=== PATIENT | male | born 1975 | race Caucasian/White ===

== ENCOUNTER 2017-12-14 16:21 | Inpatient (IN) | END 2017-12-16 18:25 | disposition home or self-care (01) | DRG 434 ==

== ENCOUNTER 2018-04-14 08:38 | Inpatient (IN) | payer OTHER ==
[2018-04-14] VITALS (51 sets, daily range): BP systolic 42–119; BP diastolic 19–87; PULSE 120–147; RESP 20–41; Ht 167.6 cm; Wt 68.0 kg
[~2018-04-14] VITALS: Ht 167.6 cm; Wt 68.0 kg
[~2018-04-14 08:38] MED LIST: ETOMIDATE 20 MG INJ ONE; FURO40TA4 PO; LACT20SO2 PO; PANT40TA4 PO; PROP10TA6 PO; SPIR50TA PO; SUCCINYLCHOLINE CHLORIDE 100 MG/5 ML SYG IV ONE
[2018-04-14] MEDS ORDERED: PROPOFOL 100 ML ONE (09:12)
[2018-04-14] MEDS ORDERED: PROPOFOL 100 ML IV ONE (09:30)
[2018-04-14] MEDS ORDERED: CEFEPIME 1GM/50 ML (PMX) 50 ML IVPB STA (10:15)
[2018-04-14] MEDS ORDERED: VANCOMYCIN 1 GM (PMX) 250 ML IVPB STA (10:15)
--- NOTE | 2018-04-14 10:23 | ERD ---
ER Documentation Chief Complaint Chief Complaint trey was bong by family from home HPI This is a 43-year-old male with a past medical history of liver cirrhosis with significant ascites requiring paracentesis who is presenting with altered mental status. The patient is reportedly had several days of nausea, episodes of nonbilious nonbloody vomiting and loose watery diarrhea. This morning, the patient started to become more confused and became unresponsive in route to the hospital via private vehicle. The patient is not responsive to painful stimulus. His eyes are closed. He moans intermittently. History and physical is limited secondary to altered mentation. ROS Limited secondary to altered mental status. Medications Home Meds Active Scripts Pantoprazole* (Pantoprazole*) 40 Mg Tablet.dr, 40 MG PO DAILY@06 for 30 Days, #30 TAB 7 Refills Prov:CADEN SALMERON MD 03/25/18 Lactulose* (Lactulose*) 20 Gm/30 Ml Solution, 20 GM PO DAILY for 30 Days, #1 BOTTLE 7 Refills Prov:CADEN SALMERON MD 03/25/18 Spironolactone* (Aldactone*) 50 Mg Tablet, 100 MG PO BID for 30 Days, #60 TAB 7 Refills Prov:CADEN SALMERON MD 03/25/18 Propranolol Hcl* (Propranolol Hcl*) 10 Mg Tablet, 10 MG PO BID for 30 Days, #60 TAB 7 Refills Prov:CADEN SALMERON MD 03/25/18 Furosemide* (Furosemide*) 40 Mg Tablet, 40 MG PO DAILY for 30 Days, #30 TAB 7 Refills Prov:CADEN SALMERON MD 03/25/18 Allergies Allergies: Coded Allergies: No Known Allergy (Unverified , 03/16/18) PMhx/Soc History of Surgery: No Anesthesia Reaction: No Hx Neurological Disorder: No Hx Respiratory Disorders: No Hx Cardiac Disorders: No Hx Psychiatric Problems: No Hx Miscellaneous Medical Probl: Yes (Hernia; Scrotal Swelling) Hx Alcohol Use: Yes (2 weeks ago) Hx Substance Use: No Hx Tobacco Use: No FmHx Unable to obtain Physical Exam Vitals Vital Signs Date Temp Pulse Resp B/P (MAP) Pulse Ox O2 O2 Flow FiO2 Time Delivery Rate 04/14/18 100.2 136 32 73/47 (56) 100 [place] 12:24 l Ventilato r 04/14/18 100 11:20 04/14/18 99.8 11:02 2/28/19 137 30 86/40 (55) 100 [place] 10:57 l Ventilato r 04/14/18 134 29 100 80 10:45 04/14/18 136 30 83/46 (58) 91 [place] 10:30 l Ventilato r 04/14/18 130 30 126/90 100 [place] 10:15 (102) l Ventilato r 04/14/18 118 23 140/94 100 [place] 09:40 (109) l Ventilato r 04/14/18 126 30 100 100 09:15 04/14/18 Non 15 08:38 Rebreathe r 04/14/18 117 33 134/95 100 08:38 (108) Physical Exam Const: Well-developed, well-nourished Head: Normocephalic, Atraumatic Eyes: Normal Conjunctiva. Pupils are dilated but round and reactive to light. ENT: Normal External Ears, Nose and Mouth. Neck: Trachea midline. Resp: Coarse breath sounds bilaterally. No wheezes. Cardio: Regular rhythm. Tachycardia. No murmurs, rubs or gallops Abd: Significant distention with an easily reducible periumbilical hernia. Normal bowel sounds Skin: No petechiae or rashes. Mild jaundice. Back: No obvious lesions. Ext: No cyanosis, or edema Neur: Lethargic. Eyes remain closed. Does move intermittently but not pain. Makes incomprehensible sounds. GCS 4 Result Diagram: 04/14/18 0900 04/14/18 0900 Results 24 hrs Laboratory Tests Test 04/14/18 09:00 04/14/18 09:35 04/14/18 10:03 04/14/18 10:08 White Blood 12.7 10^3/ul Count Red Blood Count 4.58 10^6/ul Hemoglobin 12.4 g/dl Hematocrit 37.9 % Mean Corpuscular 82.8 fl Volume Mean Corpuscular 27.1 pg Hemoglobin Mean Corpuscular 32.7 g/dl Hemoglobin Lea nt Red Cell 18.6 % Distribution Width Platelet Count 151 10^3/UL Mean Platelet 10.7 fl Volume Immature 0.600 % Granulocytes % Neutrophils % 87.6 % Lymphocytes % 1.7 % Monocytes % 9.8 % Eosinophils % 0.0 % Basophils % 0.3 % Nucleated Red 0.3 /100WBC Blood Cells % Immature 0.080 10^3/ul Granulocytes # Neutrophils # 11.1 10^3/ul Lymphocytes # 0.2 10^3/ul Monocytes # 1.2 10^3/ul Eosinophils # 0.0 10^3/ul Basophils # 0.0 10^3/ul Nucleated Red 0.0 10^3/ul Blood Cells # Sodium Level 134 mmol/L Potassium Level 5.0 mmol/L Chloride Level 87 mmol/L Carbon Dioxide 29 mmol/L Level Anion Gap 18 Blood Urea 40 mg/dl Nitrogen Creatinine 2.13 mg/dl Est Glomerular 34 mL/min Filtrat Rate mL/min Glucose Level 126 mg/dl Calcium Level 9.1 mg/dl Total Bilirubin 0.6 mg/dl Direct Bilirubin 0.00 mg/dl Indirect 0.6 mg/dl Bilirubin Aspartate Amino 40 IU/L Transf (AST/SGOT ) Alanine < 6 IU/L Aminotransferase (ALT/SGPT) Alkaline 190 IU/L Phosphatase Total Protein 8.1 g/dl Albumin 3.6 g/dl Globulin 4.50 g/dl Albumin/Globulin 0.80 Ratio Salicylates < 1.0 mg/dl Level Acetaminophen < 10.0 ug/ml Level Ethyl Alcohol < 10.0 mg/dl Level Blood Gas Blood arterial Specimen Source Arterial Blood 04/14/2018 10:18: Date Drawn 50 AM Arterial Blood 7.406 pH (Temp corrected) Arterial Blood 54.6 mmhg pCO2 (Temp correct) Arterial Blood 181.2 mmHG pO2 (Temp corrected) Arterial Blood 33.5 mmol/L HCO3 Arterial Blood 7.3 mmol/L Base Excess Arterial Blood 98.8 mmHG Oxygen Saturatio n [place] Test ACCEPTAB Arterial Blood Right Radial Gas Puncture Site Arterial 0.2 % Blood Carboxyhem oglobin Arterial Blood 0.3 % Methemoglobin Blood Gas A-a O2 477.2 mmHg Differential Oxyhemoglobin 98.3 % Percent Blood Gas 37.0 C Temperature Blood Gas 20.0 Respiration Rate Blood Gas Actual 28 Respiration Rate Blood Gas TRACH COLLAR Modality FiO2 100.0 % Blood Gas Tidal 500.0 mL Volume Blood Gas Low 5.0 cmH2O PEEP Setting Blood Gas M.D. Notified Whom Blood Gas 04/14/2018 10:32: Notified Time 21 AM POC Venous 4.1 mmol/L Lactate Prothrombin Time 15.8 Sec Prothrombin Time 1.2 Ratio INR 1.25 International Normalized Ratio Ammonia 356 umol/l Test 04/14/18 10:54 Lactic Acid 4.0 mmol/L Level Current Medications Medications Dose Sig/Jaquelin Start Time Status Last (Trade) Ordered Route PRN Stop Time Admin Dose Reason Admin Propofol 100 ml @ 0 TITRATE 04/14/18 DC 04/14/18 mls/hr ONCE IV 09:30 09:23 04/14/18 09:31 Propofol 100 ml @ ud STK-MED 04/14/18 DC ONCE .ROUTE 09:12 04/14/18 09:13 Ondansetron 4 mg ER BRIDGE 04/14/18 HCl (Zofran PRN IV 10:30 04/15/18 Inj) NAUSEA/VOMITI 10:29 NG 650 mg ER BRIDGE 04/14/18 Acetaminophen PRN PO 10:30 04/15/18 (Tylenol .MILD PAIN 10:29 Tab) 1-3 OR TEMP Vancomycin 250 ml @ ONCE STAT 04/14/18 DC 04/14/18 HCl 125 mls/hr IVPB 10:15 12:21 04/14/18 12:14 Cefepime HCl 50 ml @ ONCE STAT 04/14/18 DC 04/14/18 100 mls/hr IVPB 10:15 10:42 04/14/18 10:44 Sodium 2,040 ml @ BOLUS X1 04/14/18 DC 04/14/18 Chloride 1,020 mls/hr ONCE IV 10:30 10:32 04/14/18 12:29 Midazolam 50 ml @ 1 TITRATE IV 04/14/18 04/14/18 HCl mls/hr 11:00 11:19 Lactulose 20 gm Q6 NGT 04/14/18 (Enulose) 12:00 250 ml @ ud STK-MED 04/14/18 DC Norepinephrin ONCE .ROUTE 11:38 e 04/14/18 11:39 250 ml @ TITRATE IV 04/14/18 04/14/18 Norepinephrin 1.875 mls/ 12:30 12:55 e hr Procedures/MDM MDM The patient's presentation warrants further investigation. Previous medical records, if available, were reviewed. LABS The patient's laboratory testing was obtained and reviewed. No emergent treatment was required unless described below. CBC: Leukocytosis with shift, concerning for an infectious etiology of symptoms. Mild normocytic anemia, nonemergent. Platelet count unremarkable. Chemistry: Elevated creatinine, concerning for acute renal failure. Mild hyponatremia, not emergent. No E/o severe acidosis or alkalosis or liver disease or diabetic ketoacidosis PT/INR: No E/o significant coagulopathy Lactate: Elevated, concerning for possible septic shock Ammonia: Elevated Urine: Pending Tox: No E/o alcohol abuse. No E/o salicylate or acetaminophen use. EKG EKG read by me: Rate/Rhythm: Sinus tachycardia at 129 bpm. Intervals: Normal [place]: Normal Impression: Nonspecific repolarization changes without evidence of acute ischemia. Sinus tachycardia. IMAGING Imaging and Radiology interpretation reviewed. CXR FINDINGS: There is a new endotracheal tube 1.5 cm above the jah. There is a nasogastric tube within the stomach. The heart is normal in size. There is mild right lower lobe atelectasis. There is no pleural effusion or pneumothorax. IMPRESSION: New endotracheal tube in appropriate position. Nasogastric tube within the stomach. Mild right lower lobe atelectasis. Electronically viewed and signed by Nikita Carrera MD, on 04/14/2018 10:12 CT head FINDINGS: Patient motion related artifacts limit evaluation. No acute intracranial hemorrhage is identified. No extra-axial fluid collection is seen. There is no mass effect. No midline shift is identified. The ventricles and sulci are within normal limits for size and configuration. A punctate calcification is identified at the peripheral left frontal lobe. Visualized braun-white junctions appear preserved. The calvarium and skull base appear intact. Mastoid air cells and imaged paranasal sinuses grossly clear. IMPRESSION: 1. Limited evaluation due to motion, without acute intracranial pathology identified. 2. Punctate cerebral calcification which may be post infectious/inflammatory, sequela of neurocysticercosis. Electronically viewed and signed by .Clive Polanco MD, MD on 04/14/2018 12:08 TREATMENT/DISPOSITION The patient presents with altered mental status. The patient's GCS was 4. He was not responding to painful stimuli. His eyes were closed. He would only intermittently moan. I do not feel that the patient is able to protect his airway. The patient was intubated emergently. Please see procedure note below. The patient is tachycardic with a leukocytosis and lactic acidosis. While this could be related to his end-stage liver disease, I cannot rule out sepsis. On reassessment of the patient's vital signs, the patient was febrile. Given his significant lactic acidosis, the patient's symptoms are concerning for septic shock. I am concerned about possible aspiration and pneumonia in this patient. A septic workup was completed as described below. The patient does have obvious hyperammonemia, concerning for encephalopathy as a possible etiology of his altered mental status today. The patient CT of the head does not reveal any obvious acute cerebral ischemia or intracranial hemorrhage. The patient also appears to be an acute renal failure. The patient will be treated with IV fluids as part of the septic workup. This should help with rehydration of his kidneys. The patient's BUN is also quite elevated. The patient had an NG tube placed and there is been significant gastric contents aspirated. There is also concern for possible GI bleed. The patient's hemoglobin at this time is stable and I do not feel the patient requires emergent transfusion. However, a type and screen will be ordered. I discussed this with the admitting team. SEPSIS NOTE SIRS Criteria: Tachycardia Infectious source: Possible pneumonia End organ damage indicated by: Lactate > 2.0 mmol/L, Cr > 2.0 SEPSIS MANAGEMENT Time to recognize sepsis: 10:15 AM. Time to recognize severe sepsis: 10:15 AM. Time to recognize septic shock: 10:15 AM. 3 HOUR BUNDLE Blood cultures x 2 before abx: Yes 30 ml/kg NS bolus completed Initial lactate 4.1 Repeat lactate 4.0 SEPTIC SHOCK ASSESSMENT: YES lactic acid > 4.0 Yes persistent hypotension (SBP < 90 or 40 mmHg drop, MAP < 65) despite 30 L/kg IV fluid bolus VOLUME REASSESSMENT FOR SEPTIC SHOCK: Reevaluation Time: 1305 BP 59/38, HR 135, RR30, Pox 100% on the ventilator Heart Regular rhythm, significant tachycardia. Lungs coarse breath sounds Skin warm & dry Cap Refill less than 2 seconds Pulses radially present PERSISTENT HYPOTENSION TREATMENT: Comfort care no Central line placed in the right femoral vein Vasopressors levo fed initiated I considered further perfusion assessment with CVP measurement, SCVO2, bedside ultrasound volume assessment, passive leg raise, trial of further fluid bolus. And proceeded with 30 ml/kg fluid bolus of NSS, broad spectrum antibiotics, levophed initiation and admission. CRITICAL CARE Critical care time 35 minutes Emergent fluid management while maintaining close respiratory support. Provision of immediate and broad-spectrum antibiotic therapy. Simultaneous assessment for possible sources in order to direct targeted therapy. Consideration for invasive and chemical support to prevent cardiopulmonary collapse. Critical care time is independent of procedures performed. ENDOTRACHEAL INTUBATION: Performed by me. Pre-assessment performed. Pre-oxygenation performed with 100% oxygen. RSI: Performed w/o complication or hypoxic events. Medications as ordered. Blade: Mac 4 via video Larygnoscope ET Tube: 7.5 mm Depth: 24 cm at the lip Intubation confirmed by colorimetric CO2, equal breath sounds, quiet over the stomach. Chest X-ray 1V Interpreted by me: ET tube within the right mainstem. Requested pullback of 2 cm. Normal soft tissue, No pneumothorax. CENTRAL LINE Placed by me. Patient consented, sterilely draped, full prep, gown, glove, mask, time out performed. Anesthesia: None Location: R Femoral Vein Device: Multiple lumen Technique: Seldinger technique. Secured with suture. Results: Venous return from all ports with easy saline flush. No complications. Guide wire retrieved and disposed of. ED Ultrasound: Central line placed by me using concurrent ultrasound guidance. ADMISSION The patient will be admitted to Panel in accordance with the patient's insurance. The patient was accepted by Dr. Ferrara at 9:46 AM on April 06, 2018. Disclaimer: Inadvertent spelling and grammatical errors are likely due to EHR/dictation software use and do not reflect on the overall quality of patient care. Note that the electronic time recorded on this note does not necessarily reflect the actual time of the patient encounter. Departure Diagnosis: Primary Impression: Septic shock Additional Impressions: Encephalopathy acute Altered mental status Altered mental status type: unspecified Qualified Codes: R41.82 - Altered mental status, unspecified Respiratory failure Chronicity: acute Respiratory failure complication: unspecified whether with hypoxia or hypercapnia Qualified Codes: J96.00 - Acute respiratory failure, unspecified whether with hypoxia or hypercapnia Aspiration pneumonia Aspiration pneumonia type: unspecified Laterality: unspecified laterality Lung location: unspecified part of lung Qualified Codes: J69.0 - Pneu monitis due to inhalation of food and vomit Tachycardia Lactic acidosis Normocytic anemia Leukocytosis Leukocytosis type: unspecified Qualified Codes: D72.829 - Elevated white blood cell count, unspecified Acute renal failure Acute renal failure type: unspecified Qualified Codes: N17.9 - Acute kidney failure, unspecified Hyperammonemia Hyponatremia Hypotension Hypotension type: unspecified hypotension type Qualified Codes: I95.9 - Hypotension, unspecified Condition: Critical MANASA ACHARYA MD Apr 14, 2018 10:23
[2018-04-14] MEDS ORDERED: SOD CHLORIDE 0.9% 2,040 ML IV ONE (10:30)
[2018-04-14] MEDS ORDERED: ONDANSETRON 4 MG INJ IV PRN (10:30)
[2018-04-14] MEDS ORDERED: ACETAMINOPHEN 325 MG TAB PO PRN (10:30)
[2018-04-14] MEDS ORDERED: MIDAZOLAM (DRIP) 50 mg/50 mL 50 ML IV SCH (11:00)
--- NOTE | 2018-04-14 11:19 | HP ---
Date/Time of Note Date/Time of Note DATE: 04/14/18 TIME: 11:04 Assessment/Plan VTE Prophylaxis SCD applied (from Nsg): Yes Pharmacological prophylaxis: NA/contraindicated Pharm contraindication: blood coag disorder, liver dx Lines/Catheters IV [facility]from [facility] Saline Lock Assessment/Plan Hospital Course 43-year-old male who is a chronic alcoholic with known alcoholic cirrhosis, Was recently discharged from this facility about 3 weeks ago after being managed for sepsis with concern for SBP and at that time had undergone paracentesis with removal of 5 L of fluid. He presents again today with altered mentation respiratory failure and strong concern for aspiration pneumonia, being admitted to the ICU as he is requiring ventilator support. Problems are listed as below: 1. Acute respiratory failure likely secondary to #2 2. Aspiration pneumonia versus pneumonitis likely related to #3 3. Possible underlying hepatic encephalopathy #4 4. Chronic alcoholic cirrhosis with portal hypertension and splenomegaly 5. Sepsis secondary to #2 6. Acute renal insufficiency likely secondary to sepsis 7. Hyponatremia likely related to alcohol use 8. Chronic hypochromic anemia secondary to chronic liver disease 9. Severe abdominal distention, likely secondary to ascites with chronic large ventral hernia as well as large inguinal hernia -CT showed anterior ventral hernia containing ascitic fluid and left inguinal hernia as well as left large hydrocele 10. Severe scrotal swelling/hydrocele, likely sequelae from #9 11. Cholelithiasis Plan: -ICU admit, pulmonary consultation for ventilator support and management -Empiric antibiotics. Steroids? It is my suspicion that patient will likely get worse before he gets better -Gentle IV hydration, will also get Nephrology consultation. Will consider giving some albumin as well to help mobilize fluid from his abdomen -Urology consultation to help with management of his hydrocele and help us get a Williamson catheter put in. We will also ensure scrotum is elevated at all times. -NG tube placement as well as lactulose therapy for hepatic encephalopathy. We will also get GI consult -Further intervention per clinical course -Prognosis guarded -Plan of care discussed with patient's mother and aunt -Prophylaxis: Cautious heparin use with PPI. Result Diagram: 04/14/18 0900 04/14/18 0900 Results 24hrs Laboratory Tests Test 04/14/18 09:00 04/14/18 09:35 04/14/18 10:03 04/14/18 10:08 White Blood Count 12.7 #H Red Blood Count 4.58 #L Hemoglobin 12.4 #L Hematocrit 37.9 #L Mean Corpuscular 82.8 Volume Mean Corpuscular 27.1 L Hemoglobin Mean Corpuscular 32.7 Hemoglobin Concen t Red Cell 18.6 H Distribution Width Platelet Count 151 # Mean Platelet 10.7 H Volume Immature 0.600 H Granulocytes % Neutrophils % 87.6 H Lymphocytes % 1.7 L Monocytes % 9.8 Eosinophils % 0.0 Basophils % 0.3 Nucleated Red 0.3 H Blood Cells % Immature 0.080 H Granulocytes # Neutrophils # 11.1 H Lymphocytes # 0.2 L Monocytes # 1.2 H Eosinophils # 0.0 Basophils # 0.0 Nucleated Red 0.0 Blood Cells # Sodium Level 134 L Potassium Level 5.0 Chloride Level 87 L Carbon Dioxide 29 Level Anion Gap 18 H Blood Urea 40 H Nitrogen Creatinine 2.13 H Est Glomerular 34 L Filtrat Rate mL/min Glucose Level 126 Calcium Level 9.1 Total Bilirubin 0.6 Direct Bilirubin 0.00 Indirect 0.6 Bilirubin Aspartate Amino 40 Transf (AST/SGOT) Alanine < 6 L Aminotransferase (ALT/SGPT) Alkaline 190 H Phosphatase Total Protein 8.1 Albumin 3.6 Globulin 4.50 H Albumin/Globulin 0.80 Ratio Salicylates Level < 1.0 L Acetaminophen < 10.0 L Level Ethyl Alcohol < 10.0 H Level Blood Gas Blood arterial Specimen Source Arterial Blood 04/14/2018 10:18: Date Drawn 50 AM Arterial Blood pH 7.406 (Temp corrected) Arterial Blood 54.6 H pCO2 (Temp correct) Arterial Blood 181.2 H pO2 (Temp corrected) Arterial Blood 33.5 H HCO3 Arterial Blood 7.3 H Base Excess Arterial Blood 98.8 H Oxygen Saturation [place] Test ACCEPTAB Arterial Blood Right Radial Gas Puncture Site Arterial 0.2 Blood Carboxyhemo globin Arterial Blood 0.3 Methemoglobin Blood Gas A-a O2 477.2 H Differential Oxyhemoglobin 98.3 Percent Blood Gas 37.0 Temperature Blood Gas 20.0 Respiration Rate Blood Gas Actual 28 Respiration Rate Blood Gas TRACH COLLAR Modality FiO2 100.0 Blood Gas Tidal 500.0 Volume Blood Gas Low 5.0 PEEP Setting Blood Gas M.D. Notified Whom Blood Gas 04/14/2018 10:32: Notified Time 21 AM POC Venous 4.1 *H Lactate Prothrombin Time 15.8 H Prothrombin Time 1.2 Ratio INR International 1.25 Normalized Ratio Ammonia 356 H HPI/ROS Admit Date/Time Admit Date/Time Hx of Present Illness Unfortunately the patient at this time is intubated and sedated on propofol and is still bucking the vent and biting down on the endotracheal tube. However unable to get a history from him, I was able to speak with his mother and his aunt at the bedside who only know that the patient did vomit yesterday and continues to drink. Apparently he became more confused this morning and less responsive and so they called 911 who brought him to the emergency room. As he was unable to protect his airway and was in respiratory distress, he was intubated, and the emergency room physician notes that the patient had gastric content in his airway during intubation with concern for possible aspiration. He has been admitted to the intensive care unit for further management. . ROS Subjective hx not possible: pt critical status PMH/Family/Social Past Medical History 1. Alcoholic cirrhosis with ascites 2. Umbilical Abdominal hernia 3. Scrotal edema 4. Chronic. Anemia . Medications Current Medications Ondansetron HCl (Zofran Inj) 4 mg ER BRIDGE PRN IV NAUSEA/VOMITING; Start 04/14/18 at 10:30; Stop 04/15/18 at 10:29 Acetaminophen (Tylenol Tab) 650 mg ER BRIDGE PRN PO .MILD PAIN 1-3 OR TEMP; Start 04/14/18 at 10:30; Stop 04/15/18 at 10:29 Vancomycin HCl 250 ml @ 125 mls/hr ONCE STAT IVPB ; Start 04/14/18 at 10:15; Stop 04/14/18 at 12:14 Sodium Chloride 2,040 ml @ 1,020 mls/hr BOLUS X1 ONCE IV Last administered on 04/14/18at 10:32; Admin Dose 1,020 MLS/HR; Start 04/14/18 at 10:30; Stop 04/14/18 at 12:29 Midazolam HCl 50 ml @ 1 mls/hr TITRATE IV ; Start 04/14/18 at 11:00 Coded Allergies: No Known Allergy (Unverified , 03/16/18) Past Surgical History Past Surgical Hx: no surgical history Family History Significant Family History: no pertinent family hx Social History Alcohol Use: heavy Smoking Status: Never smoker Drug Use: none Exam/Review of Systems Vital Signs Vitals Vital Signs Date Temp Pulse Resp B/P (MAP) Pulse Ox O2 O2 Flow FiO2 Time Delivery Rate 04/14/18 137 30 86/40 (55) 100 Mechanical 10:57 Ventilator 04/14/18 80 10:45 04/14/18 15 08:38 Exam Exam GENERAL: Intubated and sedated, still bucking the vent and biting on ET tube HEENT: TOMASA, Intubated, Vent settings noted , jaundice LUNGS: diffusely diminished and coarse BS HEART: S1, S2. No murmur, gallops or rubs. Tachycardic ABDOMEN: Soft, distended ++, dilated abd veins, hypoactve BS GENITOURINARY: huge scrotal edema, unable to pass williamson EXTREMITIES: interestingly, patient has no LE edema, looks like abd fluid is collecting mostly in scrotal sac NEUROLOGIC: The patient is currently sedated. SKIN: hyperpigmented, jaundiced? . Additional Comments PROCEDURE: XR Chest. CLINICAL INDICATION: Status post intubation TECHNIQUE: Single portable view of the chest was obtained COMPARISON: CHEST 03/16/2018 FINDINGS: There is a new endotracheal tube 1.5 cm above the jah. There is a nasogastric tube within the stomach. The heart is normal in size. There is mild right lower lobe atelectasis. There is no pleural effusion or pneumothorax. RPTAT: AA IMPRESSION: New endotracheal tube in appropriate position. Nasogastric tube within the stomach. Mild right lower lobe atelectasis. .Nikita Carrera MD, MD Date Time Electronically viewed and signed by .Nikita Carrera MD, MD on 04/14/2018 10:12 .S/ CC: MANASA ACHARYA MD [id number] YUDITH WHALEY 28, 2019 11:14
[2018-04-14] MEDS ORDERED: NORepinephrine 8MG/250 ML (PMX 250 ML ONE (11:38)
[2018-04-14] MEDS ORDERED: LACTULOSE 30ML CUP NGT SCH (12:00)
[2018-04-14] MEDS ORDERED: NORepinephrine 8MG/250 ML (PMX 250 ML IV SCH (12:30)
[2018-04-14] MEDS: PROPOFOL 100 ML IV SCH (14:55)
[2018-04-14] MEDS ORDERED: VANCOMYCIN IV PER PHARMACY XX SCH (15:00)
[2018-04-14] MEDS ORDERED: SOD CHLORIDE 0.9% 1,000 ML IV ONE (15:00)
[2018-04-14] MEDS ORDERED: METHYLPREDNISOLONE 125 MG INJ IV ONE (15:00)
[2018-04-14] MEDS ORDERED: PHENYLephrine 20MG IN 250 ML 250 ML IV SCH ×2 (15:00→17:00)
--- NOTE | 2018-04-14 15:11 | CONS ---
Assessment/Plan Assessment/Plan Assessment/Plan (Daily) 1. acute kidney injury due to ATN from sepsis 2. sepsis due to possible aspiration pnuemonia 3. acute hypoxic respiratory failure intbated on ventilator 4. acute hepatic encephalopathy 5. h/o Liver cirrhosis with chronic alcoholism 6. Spenomegaly with portal HTN an drecurrent ascites 7. Hyponatremia due to liver cirrhosis 8. Hydrocele with difficult williamson insertion Plan: IV albumin 25% 2100ml Q 8 hr x 3 doses IV abx cefepime and IV vancomycin, renally dose all abx and monitor electrolytes US guided paracentesis ordered for Am, will give IV vitamin K 10mg IV daily x 3 days Urolgoy consult IV vitamiN K 10mg Daily x 3 days Hold off on lasix and aldactone for now Thanks for consultation, I willl continue to follow up Consultation Date/Type/Reason Admit Date/Time 04/14/2018 Date of Consultation: Apr 14, 2018 Type of Consult NEPHROLOGY Reason for Consultation acute renal failure Requesting Provider: YUDITH WHALEY Date/Time of Note DATE: 04/14/18 TIME: 15:11 Hx of Present Illness 43 M with PMHx of chronic alcoholism, liver cirrhosis due to alocoholic liver cirrhosis- who was recently discharged 3 weeks before for sepsis due to SBP- he was brought in by paramedics today due to AMS, pt was intubated for repsiratory failure and getting admitted to ICU. On admission he was noted to have BUN/Cr 40/2.3, Na 132- Renal has been consulted for acute renal failure, hyponatremia. Subjective hx not possible: pt non-verbal, pt critical status, other Past Medical History Medical History: other (chronic alcoholism, Alcoholic liver cirrhosis ) Home Meds Active Scripts Pantoprazole* (Pantoprazole*) 40 Mg Tablet.dr, 40 MG PO DAILY@06 for 30 Days, #30 TAB 7 Refills Prov:CADEN SALMERON MD 03/25/18 Lactulose* (Lactulose*) 20 Gm/30 Ml Solution, 20 GM PO DAILY for 30 Days, #1 BOTTLE 7 Refills Prov:CADEN SALMERON MD 03/25/18 Spironolactone* (Aldactone*) 50 Mg Tablet, 100 MG PO BID for 30 Days, #60 TAB 7 Refills Prov:CADEN SALMERON MD 03/25/18 Propranolol Hcl* (Propranolol Hcl*) 10 Mg Tablet, 10 MG PO BID for 30 Days, #60 TAB 7 Refills Prov:CADEN SALMERON MD 03/25/18 Furosemide* (Furosemide*) 40 Mg Tablet, 40 MG PO DAILY for 30 Days, #30 TAB 7 Refills Prov:CADEN SALMERON MD 03/25/18 Medications Current Medications Lactulose (Enulose) 20 gm Q6 NGT ; Start 04/14/18 at 12:00 Norepinephrine 250 ml @ 1.875 mls/ hr TITRATE IV Last administered on 04/14/18at 12:55; Admin Dose 3.75 MLS/HR; Start 04/14/18 at 12:30 Propofol 100 ml @ 2.04 mls/hr Q12H IV Last administered on 04/14/18at 14:55; Admin Dose 2.04 MLS/HR; Start 04/14/18 at 15:00 Phenylephrine HCl 250 ml @ 75 mls/hr TITRATE IV Last administered on 04/14/18at 14:55; Admin Dose 75 MLS/HR; Start 04/14/18 at 15:00 Sodium Chloride 1,000 ml @ 1,000 mls/hr Q1H ONCE IV ; Start 04/14/18 at 15:00; Stop 04/14/18 at 15:59 Sodium Chloride 1,000 ml @ 100 mls/hr Q10H IV ; Start 04/14/18 at 15:00 Albumin Human 50 ml @ 100 mls/hr Q8H IV ; Start 04/14/18 at 15:00; Stop 04/15/18 at 07:29 Vancomycin HCl (Vanco Iv Per Pharmacy) VANCOMYCIN PER PHARMACY PER PROTOCOL XX ; Start 04/14/18 at 15:00; Status UNV Cefepime HCl 50 ml @ 100 mls/hr Q12 IVPB ; Start 04/14/18 at 21:00; Status UNV Methylprednisolone Sodium Succinate (Solu-Medrol) 125 mg ONCE ONCE IV ; Start 04/14/18 at 15:00; Stop 04/14/18 at 15:01; Status UNV Midazolam HCl 50 ml @ 1 mls/hr TITRATE IV ; Start 04/14/18 at 15:00; Status UNV Allergies: Coded Allergies: No Known Allergy (Unverified , 03/16/18) Past Surgical History Past Surgical Hx: no surgical history Family History Significant Family History: no pertinent family hx Social History Alcohol Use: heavy Smoking Status: Never smoker Drug Use: none Exam/Review of Systems Exam Vitals Vital Signs Date Temp Pulse Resp B/P (MAP) Pulse Ox O2 O2 Flow FiO2 Time Delivery Rate 04/14/18 142 13:30 04/14/18 30 59/38 (45) 100 [place] 13:05 l Ventilato r 04/14/18 100.2 12:24 04/14/18 100 11:20 04/14/18 15 08:38 Constitutional: non-verbal Eyes: nl conjunctiva ENMT: nl external ears & nose Neck: supple, non-tender Respiratory: crackles/rales, diminished breath sounds Cardiovascular: regular rate and rhythm, nl pulses Gastrointestinal: soft, ascites, distended Musculoskeletal: joint tenderness, swelling Extremities: normal pulses Neurological: other (intubated sedated on ventilator ) Skin: nl turgor Lymph: nl lymph nodes Results Result Diagram: 04/14/18 0900 04/14/18 0900 Results 24hrs Laboratory Tests Test 04/14/18 09:00 04/14/18 09:35 04/14/18 10:03 04/14/18 10:08 White Blood Count 12.7 #H Red Blood Count 4.58 #L Hemoglobin 12.4 #L Hematocrit 37.9 #L Mean Corpuscular 82.8 Volume Mean Corpuscular 27.1 L Hemoglobin Mean Corpuscular 32.7 Hemoglobin Concen t Red Cell 18.6 H Distribution Width Platelet Count 151 # Mean Platelet 10.7 H Volume Immature 0.600 H Granulocytes % Neutrophils % 87.6 H Lymphocytes % 1.7 L Monocytes % 9.8 Eosinophils % 0.0 Basophils % 0.3 Nucleated Red 0.3 H Blood Cells % Immature 0.080 H Granulocytes # Neutrophils # 11.1 H Lymphocytes # 0.2 L Monocytes # 1.2 H Eosinophils # 0.0 Basophils # 0.0 Nucleated Red 0.0 Blood Cells # Sodium Level 134 L Potassium Level 5.0 Chloride Level 87 L Carbon Dioxide 29 Level Anion Gap 18 H Blood Urea 40 H Nitrogen Creatinine 2.13 H Est Glomerular 34 L Filtrat Rate mL/min Glucose Level 126 Calcium Level 9.1 Total Bilirubin 0.6 Direct Bilirubin 0.00 Indirect 0.6 Bilirubin Aspartate Amino 40 Transf (AST/SGOT) Alanine < 6 L Aminotransferase (ALT/SGPT) Alkaline 190 H Phosphatase Total Protein 8.1 Albumin 3.6 Globulin 4.50 H Albumin/Globulin 0.80 Ratio Salicylates Level < 1.0 L Acetaminophen < 10.0 L Level Ethyl Alcohol < 10.0 H Level Blood Gas Blood arterial Specimen Source Arterial Blood 04/14/2018 10:18: Date Drawn 50 AM Arterial Blood pH 7.406 (Temp corrected) Arterial Blood 54.6 H pCO2 (Temp correct) Arterial Blood 181.2 H pO2 (Temp corrected) Arterial Blood 33.5 H HCO3 Arterial Blood 7.3 H Base Excess Arterial Blood 98.8 H Oxygen Saturation [place] Test ACCEPTAB Arterial Blood Right Radial Gas Puncture Site Arterial 0.2 Blood Carboxyhemo globin Arterial Blood 0.3 Methemoglobin Blood Gas A-a O2 477.2 H Differential Oxyhemoglobin 98.3 Percent Blood Gas 37.0 Temperature Blood Gas 20.0 Respiration Rate Blood Gas Actual 28 Respiration Rate Blood Gas TRACH COLLAR Modality FiO2 100.0 Blood Gas Tidal 500.0 Volume Blood Gas Low 5.0 PEEP Setting Blood Gas M.D. Notified Whom Blood Gas 04/14/2018 10:32: Notified Time 21 AM POC Venous 4.1 *H Lactate Prothrombin Time 15.8 H Prothrombin Time 1.2 Ratio INR International 1.25 Normalized Ratio Ammonia 356 H Test 04/14/18 10:54 04/14/18 13:00 Lactic Acid Level 4.0 *H Urine Color CORRY Urine Clarity CLOUDY A Urine pH 5.0 Urine Specific 1.021 [place] Urine Ketones TRACE A Urine Nitrite NEGATIVE Urine Bilirubin 1+ H Urine 2+ H Urobilinogen Urine Leukocyte TRACE A Esterase Urine Microscopic 23 H RBC Urine Microscopic 5 WBC Urine Squamous FEW Epithelial Cells Urine Bacteria FEW A Urine Hemoglobin 2+ H Urine Glucose NEGATIVE Urine Total 2+ H Protein Urine Opiates Negative Screen Urine Negative Barbiturates Urine Negative Amphetamines Screen Urine Negative Benzodiazepines Screen Urine Cocaine Negative Screen Urine Negative Cannabinoids Medications Medication Current Medications Lactulose (Enulose) 20 gm Q6 NGT ; Start 04/14/18 at 12:00 Norepinephrine 250 ml @ 1.875 mls/ hr TITRATE IV Last administered on 04/14/18at 12:55; Admin Dose 3.75 MLS/HR; Start 04/14/18 at 12:30 Propofol 100 ml @ 2.04 mls/hr Q12H IV Last administered on 04/14/18at 14:55; Admin Dose 2.04 MLS/HR; Start 04/14/18 at 15:00 Phenylephrine HCl 250 ml @ 75 mls/hr TITRATE IV Last administered on 04/14/18at 14:55; Admin Dose 75 MLS/HR; Start 04/14/18 at 15:00 Sodium Chloride 1,000 ml @ 1,000 mls/hr Q1H ONCE IV ; Start 04/14/18 at 15:00; Stop 04/14/18 at 15:59 Sodium Chloride 1,000 ml @ 100 mls/hr Q10H IV ; Start 04/14/18 at 15:00 Albumin Human 50 ml @ 100 mls/hr Q8H IV ; Start 04/14/18 at 15:00; Stop 04/15/18 at 07:29 Vancomycin HCl (Vanco Iv Per Pharmacy) VANCOMYCIN PER PHARMACY PER PROTOCOL XX ; Start 04/14/18 at 15:00; Status UNV Cefepime HCl 50 ml @ 100 mls/hr Q12 IVPB ; Start 04/14/18 at 21:00; Status UNV Methylprednisolone Sodium Succinate (Solu-Medrol) 125 mg ONCE ONCE IV ; Start 04/14/18 at 15:00; Stop 04/14/18 at 15:01; Status UNV Midazolam HCl 50 ml @ 1 mls/hr TITRATE IV ; Start 04/14/18 at 15:00; Status UNV MIKE PEARSON MD Apr 14, 2018 15:11
[2018-04-14] MEDS: ALBUMIN HUMAN 25% 50 ML IV SCH ×2 (15:15→23:00)
--- NOTE | 2018-04-14 15:19 | CONS ---
DATE OF ADMISSION: 04/14/2018 DATE OF CONSULTATION: 04/14/2018 TYPE OF CONSULTATION: Urological. REQUESTING PHYSICIAN: Yudith Whaley MD Dear Dr. Whaley: Thank you for asking me to see this patient in urological consultation. HISTORY OF PRESENT ILLNESS: This is a 43-year-old male who is known to have a history of alcoholic c irrhosis and ascites and he presented to the emergency room with altered mental status and respirator y failure. He was intubated and is presently on a respirator. Attempt by the nursing staff to inser t the Giron catheter were not successful; therefore, a urological consultation was requested. The leila mendoza does have a very large left-sided scrotum and the penis is buried within that swelling. The leila mendoza is therefore not communicating at this time, but from his record, he has had a history of aspir ation pneumonia versus hepatic encephalopathy, respiratory failure, chronic alcoholic cirrhosis with portal hypertension and splenomegaly, sepsis, renal insufficiency secondary to sepsis, hyponatremia, chronic hypochromic anemia and severe abdominal distention. The patient does also have a left inguin al scrotal hernia. The patient has had multiple admissions to the hospital because of his ascites. PAST MEDICAL HISTORY: As above and the patient does have a history of umbilical abdominal hernia and chronic anemia. ALLERGIES: HE HAS NO KNOWN DRUG ALLERGIES. SOCIAL HISTORY: He is a heavy alcoholic and not a smoker. PHYSICAL EXAMINATION: VITAL SIGNS: His temperature is 100.2 rectally, the pulse is 135, respirations 30, blood pressure is 59/38. GENERAL: Reveals a 43-year-old male who is intubated. ABDOMEN: Distended because of the ascites. GENITOURINARY: Left side of the scrotum is very large. The penis is buried in the pubic area. EXTREMITIES: Shows no edema. LABORATORY DATA: His CBC shows a white count of 12.7, hemoglobin 12.4, hematocrit 37.9. The BUN is 40, creatinine 2.13, sodium 134, potassium 5.0, chloride 87, CO2 of 29. IMPRESSION: 1. Ascites and cirrhosis from alcoholic. 2. The patient has penis that is buried by the scrotal swelling. PLAN: I did expose the penis and I was able to clean the head of the penis and then inserted a 16-Fr ench Giron catheter and a clear urine came out. I will follow his urological problem with you. Dictated By: MIMI DASH MD BB/ASHLEY Conf#: [id number] DID#: [id number] CC: JUAN JOSÉ SHAFFER MD; YUDITH WHALEY MD;*End*
[2018-04-14] MEDS ORDERED: NORepinephrine 32 MG in DEXTROSE 5% 218 ML IV SCH (15:30)
[2018-04-14] MEDS ORDERED: SOD CHLORIDE 0.9% 500 ML IV ONE (15:30)
[2018-04-14] MEDS ORDERED: PHENYLephrine 80 MG in DEXTROSE 5% 242 ML IV SCH (15:30)
[2018-04-14] MEDS: VASOPRESSIN 60 UNIT in DEXTROSE 5% 57 ML IV SCH ×2 (16:00→19:44)
[2018-04-14] MEDS: SOD CHLORIDE 0.9% 1,000 ML IV SCH (17:43)
[2018-04-14] MEDS: ACETAMINOPHEN 650 MG SUPP PR PRN (18:27)
[2018-04-14] MEDS: MIDAZOLAM (DRIP) 50 mg/50 mL 50 ML IV SCH (20:08)
--- NOTE | 2018-04-14 20:32 | CONS ---
DATE OF ADMISSION: 04/14/2018 DATE OF CONSULTATION: 04/14/2018 REASON FOR CONSULTATION: Tachycardia, hypertension, shock. REQUESTING PHYSICIAN: Dr. Whaley from the hospitalist service. HISTORY OF PRESENT ILLNESS: Mr. Bergeron is a 43-year-old male with a history of alcoholic cirrhosis with associated portal hypertension and splenomegaly, chronic anemia, ascites, who presented with alt ered mental state to the emergency department. Initially upon arrival, blood pressure 134/95, pulse 117, respiratory rate 33, temperature initially 99.8, then 100.2, then 103. The patient's labs were notable for white count 12.7, hemoglobin 12.4, platelet count 151, sodium of 134, potassium 5.0, crea tinine of 2.1, BUN of 40, AST 40, ALT less than 6. Troponin nearly positive at 0.131. Lactate level 4.1. UA positive. The patient underwent a chest x-ray revealing a new endotracheal tube in appropr iate position. There is a tube within the stomach. Mild right lower lobe atelectasis and a head CT that revealed a limited evaluation due to motion artifact without acute intracranial pathology, punct ate cerebral calcification for neurosis or psychosis. The patient's electrocardiogram was sinu s tachycardia, rate of 129, normal axis, normal intervals, nonspecific ST and T-wave abnormalities di ffusely. The patient subsequently admitted to the ICU and since admitted to the ICU, after being int ubated in the ER has remained on the vent and has had increasing pressor requirements, now is on max Louie-Synephrine and max Levophed pressor support. PAST MEDICAL HISTORY: As above in HPI. MEDICATIONS CURRENTLY IN HOSPITAL: 1. Vancomycin. 2. Cefepime. 3. Levophed. 4. Phenylephrine. 5. Tylenol 6. Vasopressin. 7. Propofol. 8. IV fluid hydration at 75 mL an hour. 9. Albumin. 10. Vancomycin. ALLERGIES: NO KNOWN DRUG ALLERGIES. SOCIAL HISTORY: No current tobacco, ETOH or illicit drug use. FAMILY HISTORY: No history of sudden cardiac or early CAD. REVIEW OF SYSTEMS: As above in HPI. CONSTITUTIONAL: Positive fevers. PULMONARY: Positive respiratory failure, subsequent intubation. GASTROINTESTINAL: Dysphagia status post G-tube. Cirrhosis. GENITOURINARY: No hematuria. MUSCULOSKELETAL: Degenerative joint disease. PSYCHIATRIC: No documented psych history. NEUROLOGIC: Encephalopathy. CARDIOVASCULAR: Hypotension. HEME: Anemia. ENDOCRINE: No documented history of diabetes mellitus or thyroid disease. PHYSICAL EXAMINATION: VITAL SIGNS: Temperature of 103, blood pressure most recent 90/61, pulse 138, respiratory rate 20, s atting 100%. GENERAL: The patient is intubated and sedated. NECK: JVP approximately 9 cm of water. CHEST: Upper airway transmitted rhonchus sounds. HEART: Tachycardic, regular rhythm, normal S1, S2. ABDOMEN: Positive bowel sounds, distended. Positive ascites. EXTREMITIES: Trace edema, 1+ pulses bilaterally posterior tibial. LABORATORY DATA: Most recently from today, troponin of 0.131. Lactate level of 8.1. Tox screen pos itive for alcohol low level, Tylenol low level, salicylate low level. IMAGING STUDIES: As above in HPI. No further imaging studies for my review at this time. ECG: As above in HPI. No further electrocardiograms for my review at this time. IMPRESSION: 1. Positive troponin in the setting of shock, likely type 2 demand infarct. 2. Hypotension, shock, likely septic in the setting of cirrhosis. 3. Abnormal echocardiogram, assess for true acute coronary syndrome. 4. Tachycardia consistent with sinus tachycardia at this time in the setting of multiple pressures h ypotension, cirrhosis. 5. Sepsis. 6. Cirrhosis. 7. Ascites. 8. Anemia. 9. Leukocytosis. 10. Coagulopathy, mild. 11. Urinary tract infection. RECOMMENDATIONS: 1. At this time, would maintain the patient in ICU on close monitoring. 2. Continue the patient's pressor support with weaning as possible, likely initiated for Levophed pr essor support given ongoing tachycardia. 3. Check a 2D echo to further assess the patient's ejection fraction, wall motion and major valve ab normalities. 4. Trend the patient's cardiac enzymes, assess for any significant ongoing cardiac damage. 5. Continue patient antibiotics and follow up all culture data. 6. Follow the patient's hemoglobin closely. 7. Continue the patient's IV fluid hydration. 8. Treat the patient's fevers aggressively. Thank you for allowing me to take part in the care of this patient. I will continue to follow along very closely with you. Further recommendations will be made as the patient progresses through his in patient hospital clinical course. Dictated By: JUAN JOSÉ ESPINOZA/ASHLEY Conf#: [id number] DID#: [id number] CC: YUDITH WHALEY MD;*[facility] [place]*
[2018-04-14] MEDS: PHENYLephrine 80 MG in DEXTROSE 5% 242 ML IV SCH (20:33)
[2018-04-14] MEDS: CEFEPIME 1GM/50 ML (PMX) 50 ML IVPB SCH (20:53)
[2018-04-15] VITALS (91 sets, daily range): BP systolic 74–101; BP diastolic 51–73; PULSE 110–133; RESP 16–49
[2018-04-15] MEDS: SOD CHLORIDE 0.9% 1,000 ML IV SCH ×2 (00:13→15:06)
[2018-04-15] MEDS: PHENYLephrine 80 MG in DEXTROSE 5% 242 ML IV SCH ×5 (00:50→19:41)
[2018-04-15] MEDS: FENTAnyl (DRIP) 1000 mcg/100mL 100 ML IV SCH ×2 (01:26→14:18)
[2018-04-15] MEDS ORDERED: LORAZEPAM 2 MG INJ ONE ×2 (02:58→03:37)
[2018-04-15] MEDS: PROPOFOL 100 ML IV SCH ×2 (03:00→15:00)
[2018-04-15] MEDS ORDERED: LORAZEPAM 2 MG INJ IV ONE ×2 (04:00)
[2018-04-15] MEDS: MIDAZOLAM (DRIP) 50 mg/50 mL 50 ML IV SCH ×4 (05:17→21:08)
[2018-04-15] MEDS: NORepinephrine 32 MG in DEXTROSE 5% 218 ML IV SCH ×2 (05:21→21:09)
[2018-04-15] MEDS: LEVETIRACETAM 1000 MG (PMX) 100 ML IVPB SCH ×2 (05:22→17:38)
[2018-04-15] MEDS ORDERED: PANTOPRAZOLE 40 MG INJ IV ONE (06:00)
[2018-04-15] MEDS: ALBUMIN HUMAN 25% 50 ML IV SCH (06:17)
[2018-04-15] MEDS ORDERED: DOPamine-D5W 1.6 MG/ML 250 ML IV SCH (06:30)
[2018-04-15] MEDS ORDERED: LEVETIRACETAM 1000 MG (PMX) 100 ML IVPB SCH (09:00)
[2018-04-15] MEDS: PHYTONADIONE 10 MG in DEXTROSE 5% 50 ML IVPB SCH (09:47)
[2018-04-15] MEDS: CEFEPIME 1GM/50 ML (PMX) 50 ML IVPB SCH ×2 (09:47→21:03)
[2018-04-15] MEDS ORDERED: VANCOMYCIN 1 GM 250 ML IVPB SCH (10:00)
[2018-04-15] MEDS: LORAZEPAM 2 MG INJ IV PRN ×4 (10:54→14:24)
[2018-04-15] MEDS ORDERED: LACTATED RINGER'S 1,000 ML IV ONE (11:00)
--- NOTE | 2018-04-15 11:29 | CONS ---
Assessment/Plan Assessment/Plan Hospital Course (Demo Recall) IMPRESSION: 1. Positive troponin in the setting of shock, likely type 2 demand infarct.-now trended negative 2. Hypotension, shock, likely septic in the setting of cirrhosis. 3. Abnormal echocardiogram, assess for true acute coronary syndrome. 4. Tachycardia consistent with sinus tachycardia at this time in the setting of multiple pressures hypotension, cirrhosis. 5. Sepsis. 6. Cirrhosis. 7. Ascites. 8. Anemia. 9. Leukocytosis. 10. Coagulopathy, mild. 11. Urinary tract infection. Recc: -Tele -serial ecg's -Wean pressors as tolerated -Continue abx's and f/u cx data -s/p dose vitamin K Consultation Date/Type/Reason Admit Date/Time Apr 14, 2018 at 10:08 Initial Consult Date 04/14/18 Type of Consult Cardiology Reason for Consultation hypotension Requesting Provider: YUDITH WHALEY Date/Time of Note DATE: 04/15/18 TIME: 11:21 Exam/Review of Systems Vital Signs Vitals Vital Signs Date Temp Pulse Resp B/P (MAP) Pulse Ox O2 O2 Flow FiO2 Time Delivery Rate 04/15/18 127 22 99 80 09:25 04/15/18 86/51 (63) Mechanical 06:00 Ventilator 04/15/18 99.6 04:00 04/14/18 15 08:38 Intake and Output 04/14/18 04/14/18 04/15/18 1515:00 23:00 07:00 IntakeIntake Total 2403.25 ml 1887.96 ml 1267.33 ml OutputOutput Total 2700 ml 535 ml 1845 ml BalanceBalance -296.75 ml 1352.96 ml -577.67 ml Exam Exam Review of Systems: CONSTITUTIONAL: No fevers, chills. PULMONARY: intubated CARDIOVASCULAR: No chest pain/palpitations GASTROINTESTINAL: No nausea/vomiting. GENITOURINARY: No hematuria/dysuria. MUSCULOSKELETAL: No myagias/arthalgias. PSYCHIATRIC: The patient denies depression. NEUROLOGIC: No weakness Constitutional: other (encaphalopathic) Psych: no complaints ENMT: mucosa pink and moist Neck: supple, jvd (9 cm water) Respiratory: diminished breath sounds (at bases/B) Cardiovascular: other (tachycardic) Gastrointestinal: soft, non-tender Musculoskeletal: muscle weakness (generalized) Extremities: edema (trace/b) Neurological: other (sedated) Labs Result Diagram: 04/15/18 0415 04/15/18 0415 Results 24hrs Laboratory Tests Test 04/14/18 13:00 04/14/18 16:04 04/14/18 20:58 04/14/18 22:00 Urine Color CORRY Urine Clarity CLOUDY A Urine pH 5.0 Urine Specific 1.021 [place] Urine Ketones TRACE A Urine Nitrite NEGATIVE Urine Bilirubin 1+ H Urine 2+ H Urobilinogen Urine Leukocyte TRACE A Esterase Urine Microscopic 23 H RBC Urine Microscopic 5 WBC Urine Squamous FEW Epithelial Cells Urine Bacteria FEW A Urine Hemoglobin 2+ H Urine Glucose NEGATIVE Urine Total 2+ H Protein Urine Opiates Negative Screen Urine Negative Barbiturates Urine Negative Amphetamines Screen Urine Negative Benzodiazepines Screen Urine Cocaine Negative Screen Urine Negative Cannabinoids Lactic Acid Level 8.1 *H Creatine Kinase 393 H 333 H Creatine Kinase 0.5 0.5 Index Creatinine Kinase 1.89 1.74 MB (Mass) Troponin I 0.131 *H 0.115 B-Type 894 H Natriuretic Peptide Lipase 178 Blood Gas Blood arterial Specimen Source Arterial Blood 04/14/2018 10:15: Date Drawn 24 PM Arterial Blood pH 7.477 H (Temp corrected) Arterial Blood 38.9 pCO2 (Temp correct) Arterial Blood 87.5 pO2 (Temp corrected) Arterial Blood 28.1 H HCO3 Arterial Blood 4.4 H Base Excess Arterial Blood 95.4 Oxygen Saturation [place] Test ACCEPTAB Arterial Blood Right Radial Gas Puncture Site Arterial 0 Blood Carboxyhemo globin Arterial Blood 0.4 Methemoglobin Blood Gas A-a O2 442.1 H Differential Oxyhemoglobin 95.0 Percent Blood Gas 37.0 Temperature Blood Gas 20.0 Respiration Rate Blood Gas Actual 20 Respiration Rate Blood Gas VENT - AC Modality FiO2 80.0 Blood Gas Tidal 500.0 Volume Blood Gas Low 5.0 PEEP Setting Blood Gas [place] Notified Whom Blood Gas 04/14/2018 10:25: Notified Time 08 PM Test 04/15/18 04:15 White Blood Count 16.8 #H Red Blood Count 3.76 L Hemoglobin 10.2 L Hematocrit 31.8 L Mean Corpuscular 84.6 Volume Mean Corpuscular 27.1 L Hemoglobin Mean Corpuscular 32.1 Hemoglobin Concen t Red Cell 19.9 H Distribution Width Platelet Count 88 #L Mean Platelet 10.9 H Volume Immature 1.300 H Granulocytes % Neutrophils % Segmented 29 L Neutrophils % (Manual) Band Neutrophils 45 H % (Manual) Lymphocytes % Lymphocytes % 2 L (Manual) Monocytes % Monocytes % 2 (Manual) Eosinophils % Eosinophils % 1 (Manual) Basophils % Metamyelocytes % 12 H (manual) Myelocytes % 6 H (Manual) Promyelocytes % 3 H (Manual) Nucleated Red 3 H Blood Cells % Immature 0.210 H Granulocytes # Neutrophils # Neutrophils # 6.1 (Manual) Band Neutrophils 7.5 H # Lymphocytes 0.3 L (Manual) Lymphocytes # Monocytes # Monocytes # 0.3 (Manual) Eosinophils # Basophils # Metamyelocytes # 2.0 H Myelocytes # 1.0 H Promyelocytes # 0.5 H Nucleated Red Blood Cells # Platelet Estimate DECREASED Polychromasia 1+ Macrocytosis 1+ Spherocytes 1+ Sodium Level 137 Potassium Level 3.7 Chloride Level 91 L Carbon Dioxide 30 Level Anion Gap 16 H Blood Urea 54 H Nitrogen Creatinine 2.77 H Est Glomerular 25 L Filtrat Rate mL/min Glucose Level 133 Lactic Acid Level 5.5 *H Calcium Level 7.0 L Phosphorus Level 7.1 H Magnesium Level 2.0 Ammonia 413 H Thyroid 3.110 Stimulating Hormone (TSH) Medications Medications Current Medications Lactulose (Enulose) 20 gm Q6 NGT ; Start 04/14/18 at 12:00; Status Hold Propofol 100 ml @ 2.04 mls/hr Q12H IV Last administered on 04/14/18at 14:55; Admin Dose 2.04 MLS/HR; Start 04/14/18 at 15:00 Sodium Chloride 1,000 ml @ 75 mls/hr [id number] IV Last administered on 04/15/18at 00:13; Admin Dose 75 MLS/HR; Start 04/14/18 at 15:00 Vancomycin HCl (Vanco Iv Per Pharmacy) VANCOMYCIN PER PHARMACY PER PROTOCOL XX ; Start 04/14/18 at 15:00 Cefepime HCl 50 ml @ 100 mls/hr Q12 IVPB Last administered on 04/15/18at 09:47; Admin Dose 100 MLS/HR; Start 04/14/18 at 21:00 Midazolam HCl 50 ml @ 1 mls/hr TITRATE IV Last administered on 04/15/18at 05:17; Admin Dose 10 MLS/HR; Start 04/14/18 at 15:00 Vancomycin HCl 250 ml @ 125 mls/hr Q24H IVPB Last administered on 04/15/18 09:47; Admin Dose 125 MLS/HR; Start 04/15/18 at 10:00 Vasopressin 60 unit/Dextrose 60 ml @ 0 mls/hr Q12H IV Last administered on 04/14/18 19:44; Admin Dose 0.02 MLS/HR; Start 04/14/18 at 16:00 Norepinephrine 32 mg/Dextrose 250 ml @ 0.47 mls/hr TITRATE IV Last administered on 04/15/18 05:21; Admin Dose 13.59 MLS/HR; Start 04/14/18 at 18:00 Phenylephrine HCl 80 mg/Dextrose 250 ml @ 18.75 mls/ hr TITRATE IV Last administered on 04/15/18 10:00; Admin Dose 56.25 MLS/HR; Start 04/14/18 at 18:00 Acetaminophen (Tylenol Supp) 650 mg Q6H PRN CO FEVER GREATER THAN 100.6 Last administered on 04/14/18 18:27; Admin Dose 650 MG; Start 04/14/18 at 18:00 Phytonadione 10 mg/Dextrose 51 ml @ 102 mls/hr DAILY IVPB Last administered on 04/15/18 09:47; Admin Dose 102 MLS/HR; Start 04/15/18 at 09:00; Stop 04/18/18 at 12:00 Fentanyl 100 ml @ 2.5 mls/hr TITRATE IV Last administered on 04/15/18 01:26; Admin Dose 2.5 MLS/HR; Start 04/15/18 at 00:00 Lorazepam (Ativan) 1 mg PRN PRN IV DURING SEIZURES Last administered on 04/15/18 10:54; Admin Dose 1 MG; Start 04/15/18 at 04:30 Levetiracetam 100 ml @ 400 mls/hr Q12H IVPB Last administered on 04/15/18 05:22; Admin Dose 400 MLS/HR; Start 04/15/18 at 06:00 Dopamine HCl/ Dextrose 250 ml @ 5.1 mls/hr TITRATE IV ; Start 04/15/18 at 06:30 Lactated Ringer's 1,000 ml @ 1,000 mls/hr Q1H ONCE IV ; Start 04/15/18 at 11:00; Stop 04/15/18 at 11:59 Pantoprazole (Protonix Iv) 40 mg DAILY@06 IV ; Start 04/16/18 at 06:00 JUAN JOSÉ SHAFFER Apr 15, 2018 11:29
--- NOTE | 2018-04-15 11:41 | CONS ---
Assessment/Plan Assessment/Plan Assessment/Plan (Daily) 1. acute kidney injury due to ATN from sepsis 2. sepsis due to possible aspiration pnuemonia 3. acute hypoxic respiratory failure intbated on ventilator 4. acute hepatic encephalopathy 5. h/o Liver cirrhosis with chronic alcoholism 6. Spenomegaly with portal HTN an drecurrent ascites 7. Hyponatremia due to liver cirrhosis 8. Hydrocele with difficult williamson insertion Plan: will give albumin 25% 100ml IV x 1 followed by NS 500 cc bolus x 1 then lasix 40mg IV x 1 it IV abx cefepime and IV vancomycin, renally dose all abx and monitor electrolytes US guided paracentesis ordered for Am, on vitamin K 10mg IV daily x 3 days Urolgoy consult Hold off on lasix and aldactone for now will follow up Consultation Date/Type/Reason Admit Date/Time Apr 14, 2018 at 10:08 Initial Consult Date 04/14/18 Type of Consult NEPHROLOGY Requesting Provider: YUDITH WHALEY Date/Time of Note DATE: 04/15/18 TIME: 11:41 24 HR Interval Summary Free Text/Dictation pt remained intubated on ventilator, Critically ill, on 3 pressors for BP support(maximized) Exam/Review of Systems Exam Vitals Vital Signs Date Temp Pulse Resp B/P (MAP) Pulse Ox O2 O2 Flow FiO2 Time Delivery Rate 04/15/18 127 22 99 80 09:25 04/15/18 86/51 (63) Mechanical 06:00 Ventilator 04/15/18 99.6 04:00 04/14/18 15 08:38 Intake and Output 04/14/18 04/14/18 04/15/18 1515:00 23:00 07:00 IntakeIntake Total 2403.25 ml 1887.96 ml 1267.33 ml OutputOutput Total 2700 ml 535 ml 1845 ml BalanceBalance -296.75 ml 1352.96 ml -577.67 ml Exam Constitutional: non-verbal Eyes: nl conjunctiva ENMT: nl external ears & nose Neck: supple, non-tender Respiratory: crackles/rales, diminished breath sounds Cardiovascular: regular rate and rhythm, nl pulses Gastrointestinal: soft, ascites, distended Musculoskeletal: joint tenderness, swelling Extremities: normal pulses Neurological: other (intubated sedated on ventilator ) Skin: nl turgor Lymph: nl lymph nodes Results Result Diagram: 04/15/18 0415 04/15/18 0415 Results 24hrs Laboratory Tests Test 04/14/18 13:00 04/14/18 16:04 04/14/18 20:58 04/14/18 22:00 Urine Color CORRY Urine Clarity CLOUDY A Urine pH 5.0 Urine Specific 1.021 [place] Urine Ketones TRACE A Urine Nitrite NEGATIVE Urine Bilirubin 1+ H Urine 2+ H Urobilinogen Urine Leukocyte TRACE A Esterase Urine 23 H Microscopic RBC Urine 5 Microscopic WBC Urine Squamous FEW Epithelial Cells Urine Bacteria FEW A Urine Hemoglobin 2+ H Urine Glucose NEGATIVE Urine Total 2+ H Protein Urine Opiates Negative Screen Urine Negative Barbiturates Urine Negative Amphetamines Screen Urine Negative Benzodiazepines Screen Urine Cocaine Negative Screen Urine Negative Cannabinoids Lactic Acid 8.1 *H Level Creatine Kinase 393 H 333 H Creatine Kinase 0.5 0.5 Index Creatinine 1.89 1.74 Kinase MB (Mass) Troponin I 0.131 *H 0.115 B-Type 894 H Natriuretic Peptide Lipase 178 Blood Gas Blood arterial Specimen Source Arterial Blood 04/14/2018 10:15 Date Drawn :24 PM Arterial Blood 7.477 H pH (Temp corrected) Arterial Blood 38.9 pCO2 (Temp correct) Arterial Blood 87.5 pO2 (Temp corrected) Arterial Blood 28.1 H HCO3 Arterial Blood 4.4 H Base Excess Arterial Blood 95.4 Oxygen Saturatio n [place] Test ACCEPTAB Arterial Blood Right Radial Gas Puncture Site Arterial 0 Blood Carboxyhem oglobin Arterial Blood 0.4 Methemoglobin Blood Gas A-a O2 442.1 H Differential Oxyhemoglobin 95.0 Percent Blood Gas 37.0 Temperature Blood Gas 20.0 Respiration Rate Blood Gas Actual 20 Respiration Rate Blood Gas VENT - AC Modality FiO2 80.0 Blood Gas Tidal 500.0 Volume Blood Gas Low 5.0 PEEP Setting Blood Gas [place] Notified Whom Blood Gas 04/14/2018 10:25 Notified Time :08 PM Test 04/15/18 04:15 04/15/18 10:42 White Blood 16.8 #H Count Red Blood Count 3.76 L Hemoglobin 10.2 L Hematocrit 31.8 L Mean Corpuscular 84.6 Volume Mean Corpuscular 27.1 L Hemoglobin Mean Corpuscular 32.1 Hemoglobin Lea nt Red Cell 19.9 H Distribution Width Platelet Count 88 #L Mean Platelet 10.9 H Volume Immature 1.300 H Granulocytes % Neutrophils % Segmented 29 L Neutrophils % (Manual) Band Neutrophils 45 H % (Manual) Lymphocytes % Lymphocytes % 2 L (Manual) Monocytes % Monocytes % 2 (Manual) Eosinophils % Eosinophils % 1 (Manual) Basophils % Metamyelocytes % 12 H (manual) Myelocytes % 6 H (Manual) Promyelocytes % 3 H (Manual) Nucleated Red 3 H Blood Cells % Immature 0.210 H Granulocytes # Neutrophils # Neutrophils # 6.1 (Manual) Band Neutrophils 7.5 H # Lymphocytes 0.3 L (Manual) Lymphocytes # Monocytes # Monocytes # 0.3 (Manual) Eosinophils # Basophils # Metamyelocytes # 2.0 H Myelocytes # 1.0 H Promyelocytes # 0.5 H Nucleated Red Blood Cells # Platelet DECREASED Estimate Polychromasia 1+ Macrocytosis 1+ Spherocytes 1+ Sodium Level 137 Potassium Level 3.7 Chloride Level 91 L Carbon Dioxide 30 Level Anion Gap 16 H Blood Urea 54 H Nitrogen Creatinine 2.77 H Est Glomerular 25 L Filtrat Rate mL/min Glucose Level 133 Lactic Acid 5.5 *H Level Calcium Level 7.0 L Phosphorus Level 7.1 H Magnesium Level 2.0 Ammonia 413 H Thyroid 3.110 Stimulating Hormone (TSH) Blood Gas Blood arterial Specimen Source Arterial Blood 04/15/2018 11:24: Date Drawn 35 AM Arterial Blood 7.485 H pH (Temp corrected) Arterial Blood 36.7 pCO2 (Temp correct) Arterial Blood 108.3 H pO2 (Temp corrected) Arterial Blood 27.0 H HCO3 Arterial Blood 3.6 H Base Excess Arterial Blood 97.5 Oxygen Saturatio n [place] Test ACCEPTAB Arterial Blood Right Radial Gas Puncture Site Arterial 0.3 Blood Carboxyhem oglobin Arterial Blood 0.2 Methemoglobin Blood Gas A-a O2 423.6 H Differential Oxyhemoglobin 97.0 Percent Blood Gas 37.0 Temperature Blood Gas 20.0 Respiration Rate Blood Gas Actual 20 Respiration Rate Blood Gas VENT - AC Modality FiO2 80.0 Blood Gas Tidal 500.0 Volume Blood Gas Low 5.0 PEEP Setting Blood Gas TM Notified Whom Blood Gas 04/15/2018 11:32: Notified Time 09 AM Medications Medication Current Medications Lactulose (Enulose) 20 gm Q6 NGT ; Start 04/14/18 at 12:00; Status Hold Propofol 100 ml @ 2.04 mls/hr Q12H IV Last administered on 04/14/18 14:55; Admin Dose 2.04 MLS/HR; Start 04/14/18 at 15:00 Sodium Chloride 1,000 ml @ 75 mls/hr [id number] IV Last administered on 04/15/18 00:13; Admin Dose 75 MLS/HR; Start 04/14/18 at 15:00 Vancomycin HCl (Vanco Iv Per Pharmacy) VANCOMYCIN PER PHARMACY PER PROTOCOL XX ; Start 04/14/18 at 15:00 Cefepime HCl 50 ml @ 100 mls/hr Q12 IVPB Last administered on 04/15/18 09:47; Admin Dose 100 MLS/HR; Start 04/14/18 at 21:00 Midazolam HCl 50 ml @ 1 mls/hr TITRATE IV Last administered on 04/15/18 05:17; Admin Dose 10 MLS/HR; Start 04/14/18 at 15:00 Vancomycin HCl 250 ml @ 125 mls/hr Q24H IVPB Last administered on 04/15/18 09:47; Admin Dose 125 MLS/HR; Start 04/15/18 at 10:00 Vasopressin 60 unit/Dextrose 60 ml @ 0 mls/hr Q12H IV Last administered on 04/14/18 19:44; Admin Dose 0.02 MLS/HR; Start 04/14/18 at 16:00 Norepinephrine 32 mg/Dextrose 250 ml @ 0.47 mls/hr TITRATE IV Last administe red on 04/15/18 05:21; Admin Dose 13.59 MLS/HR; Start 04/14/18 at 18:00 Phenylephrine HCl 80 mg/Dextrose 250 ml @ 18.75 mls/ hr TITRATE IV Last administered on 04/15/18 10:00; Admin Dose 56.25 MLS/HR; Start 04/14/18 at 18:00 Acetaminophen (Tylenol Supp) 650 mg Q6H PRN AL FEVER GREATER THAN 100.6 Last administered on 04/14/18 18:27; Admin Dose 650 MG; Start 04/14/18 at 18:00 Phytonadione 10 mg/Dextrose 51 ml @ 102 mls/hr DAILY IVPB Last administered on 04/15/18 09:47; Admin Dose 102 MLS/HR; Start 04/15/18 at 09:00; Stop 04/18/18 at 12:00 Fentanyl 100 ml @ 2.5 mls/hr TITRATE IV Last administered on 04/15/18at 01:26; Admin Dose 2.5 MLS/HR; Start 04/15/18 at 00:00 Lorazepam (Ativan) 1 mg PRN PRN IV DURING SEIZURES Last administered on 04/15/18at 11:39; Admin Dose 1 MG; Start 04/15/18 at 04:30 Levetiracetam 100 ml @ 400 mls/hr Q12H IVPB Last administered on 04/15/18at 05:22; Admin Dose 400 MLS/HR; Start 04/15/18 at 06:00 Dopamine HCl/ Dextrose 250 ml @ 5.1 mls/hr TITRATE IV ; Start 04/15/18 at 06:30 Lactated Ringer's 1,000 ml @ 1,000 mls/hr Q1H ONCE IV ; Start 04/15/18 at 11:00; Stop 04/15/18 at 11:59 Pantoprazole (Protonix Iv) 40 mg DAILY@06 IV ; Start 04/16/18 at 06:00 MIKE PEARSON MD Apr 15, 2018 11:41
[2018-04-15] MEDS: ACETAMINOPHEN 650 MG SUPP PR PRN (12:00)
--- NOTE | 2018-04-15 12:10 | PN ---
Date/Time of Note Date/Time of Note DATE: 04/15/18 TIME: 11:43 Assessment/Plan VTE Prophylaxis Risk score (from Nsg)>0 risk: 6 SCD applied (from Nsg): Yes Pharmacological prophylaxis: heparin Lines/Catheters IV Catheter Type (from Nrsg): Peripheral IV Urinary Cath still in place: Yes Reason Cath still needed: other (indicate) Assessment/Plan Hospital Course S: Patient seen and evaluated Had 2 episodes of seizures late yesterday evening Remains on 3 pressors Remains intubated and sedated, still requiring high FiO2 objective: GENERAL: Intubated and comfortably sedated HEENT: TOMASA but dilated cindi and sluggishly reactive , Intubated, Vent settings noted , High o2 requirement LUNGS: diffusely diminished BS HEART: S1, S2. No murmur, gallops or rubs. Tachycardic ABDOMEN: Soft, distended ++, dilated abd veins, hypoactve BS GENITOURINARY: huge scrotal edema, unable to pass williamson EXTREMITIES: interestingly, patient has no LE edema, looks like abd fluid is collecting mostly in scrotal sac NEUROLOGIC: The patient is currently sedated. SKIN: hyperpigmented, jaundiced? assessment and plan: 43-year-old male who is a chronic alcoholic with known alcoholic cirrhosis, Was recently discharged from this facility about 3 weeks prior to admit after being managed for sepsis with concern for SBP and at that time had undergone paracentesis with removal of 5 L of fluid. He presented to the ER with altered mentation respiratory failure and strong concern for aspiration pneumonia (gastric contents visualized during intubation), being admitted to the ICU as he is requiring ventilator support. Problems are listed as below: 1. Acute respiratory failure likely secondary to #2 -remains vent dependent with high Fio2 -pulm managing vent, appreciate input 2. Aspiration pneumonia versus pneumonitis likely related to #3 -Solu-medrol x1 given -empiric Vanc and cefepime -serial CXR -OGT remains to suction, putting out good volume 3. Sepsis with Septic shock likely 2/2 aspiration, possible SBP as well -now on 3 pressors -likely also component of hypovolemia as patient is also third spacing a lot from liver disease -f/u cultures -ID consult 4. New seizures with underlying hepatic encephalopathy -was holding off on lactualose therapy 2/2 hypotension, but may be contributing to seizures, so will start rectal lactulose -EEG , Neurology consult, Empiric Keppra 5. Acute renal insufficiency likely secondary to sepsis -appreciate Nephro input -continue albumin infusion -continue IVF Ns @75cc/hr -Hold ACEi, ARBs, and metformin if applicable. Renally dose all meds. Serial labs. -renal USS to r/o obstruction, patient also has williamson 6. Chronic alcoholic cirrhosis with portal hypertension and splenomegaly -monitor liver function and coag panel -IV PPI -BB therapy once BP improves 7. Hyponatremia likely related to alcohol use -improved 8. Chronic hypochromic anemia secondary to chronic liver disease -stable, trend 9. Severe abdominal distention, likely secondary to ascites with chronic large ventral hernia as well as large inguinal hernia -CT showed anterior ventral hernia containing ascitic fluid and left inguinal hernia as well as left large hydrocele -IR deffered paracentesis 03/19 critical status, will reconsult when more stable ? -no intervention for now, Keep head of bed slightly depressed, monitor 10. Severe scrotal swelling/hydrocele, likely sequelae from #9 -keep scrotum elevated 11. Cholelithiasis -incidental finding 12. Positive troponin in the setting of shock, likely type 2 demand infarct. -now trended negative Dispo: -Remains critically ill in ICU , Mother updated on critical status -Further intervention per clinical course Prognosis: guarded -Plan of care discussed with patient's mother and aunt -Prophylaxis: Cautious heparin use with PPI. Result Diagram: 04/15/18 0415 04/15/18 0415 Results 24hrs Laboratory Tests Test 04/14/18 13:00 04/14/18 16:04 04/14/18 20:58 04/14/18 22:00 Urine Color CORRY Urine Clarity CLOUDY A Urine pH 5.0 Urine Specific 1.021 [place] Urine Ketones TRACE A Urine Nitrite NEGATIVE Urine Bilirubin 1+ H Urine 2+ H Urobilinogen Urine Leukocyte TRACE A Esterase Urine 23 H Microscopic RBC Urine 5 Microscopic WBC Urine Squamous FEW Epithelial Cells Urine Bacteria FEW A Urine Hemoglobin 2+ H Urine Glucose NEGATIVE Urine Total 2+ H Protein Urine Opiates Negative Screen Urine Negative Barbiturates Urine Negative Amphetamines Screen Urine Negative Benzodiazepines Screen Urine Cocaine Negative Screen Urine Negative Cannabinoids Lactic Acid 8.1 *H Level Creatine Kinase 393 H 333 H Creatine Kinase 0.5 0.5 Index Creatinine 1.89 1.74 Kinase MB (Mass) Troponin I 0.131 *H 0.115 B-Type 894 H Natriuretic Peptide Lipase 178 Blood Gas Blood arterial Specimen Source Arterial Blood 04/14/2018 10:15 Date Drawn :24 PM Arterial Blood 7.477 H pH (Temp corrected) Arterial Blood 38.9 pCO2 (Temp correct) Arterial Blood 87.5 pO2 (Temp corrected) Arterial Blood 28.1 H HCO3 Arterial Blood 4.4 H Base Excess Arterial Blood 95.4 Oxygen Saturatio n [place] Test ACCEPTAB Arterial Blood Right Radial Gas Puncture Site Arterial 0 Blood Carboxyhem oglobin Arterial Blood 0.4 Methemoglobin Blood Gas A-a O2 442.1 H Differential Oxyhemoglobin 95.0 Percent Blood Gas 37.0 Temperature Blood Gas 20.0 Respiration Rate Blood Gas Actual 20 Respiration Rate Blood Gas VENT - AC Modality FiO2 80.0 Blood Gas Tidal 500.0 Volume Blood Gas Low 5.0 PEEP Setting Blood Gas [place] Notified Whom Blood Gas 04/14/2018 10:25 Notified Time :08 PM Test 04/15/18 04:15 04/15/18 10:42 White Blood 16.8 #H Count Red Blood Count 3.76 L Hemoglobin 10.2 L Hematocrit 31.8 L Mean Corpuscular 84.6 Volume Mean Corpuscular 27.1 L Hemoglobin Mean Corpuscular 32.1 Hemoglobin Lea nt Red Cell 19.9 H Distribution Width Platelet Count 88 #L Mean Platelet 10.9 H Volume Immature 1.300 H Granulocytes % Neutrophils % Segmented 29 L Neutrophils % (Manual) Band Neutrophils 45 H % (Manual) Lymphocytes % Lymphocytes % 2 L (Manual) Monocytes % Monocytes % 2 (Manual) Eosinophils % Eosinophils % 1 (Manual) Basophils % Metamyelocytes % 12 H (manual) Myelocytes % 6 H (Manual) Promyelocytes % 3 H (Manual) Nucleated Red 3 H Blood Cells % Immature 0.210 H Granulocytes # Neutrophils # Neutrophils # 6.1 (Manual) Band Neutrophils 7.5 H # Lymphocytes 0.3 L (Manual) Lymphocytes # Monocytes # Monocytes # 0.3 (Manual) Eosinophils # Basophils # Metamyelocytes # 2.0 H Myelocytes # 1.0 H Promyelocytes # 0.5 H Nucleated Red Blood Cells # Platelet DECREASED Estimate Polychromasia 1+ Macrocytosis 1+ Spherocytes 1+ Sodium Level 137 Potassium Level 3.7 Chloride Level 91 L Carbon Dioxide 30 Level Anion Gap 16 H Blood Urea 54 H Nitrogen Creatinine 2.77 H Est Glomerular 25 L Filtrat Rate mL/min Glucose Level 133 Lactic Acid 5.5 *H Level Calcium Level 7.0 L Phosphorus Level 7.1 H Magnesium Level 2.0 Ammonia 413 H Thyroid 3.110 Stimulating Hormone (TSH) Blood Gas Blood arterial Specimen Source Arterial Blood 04/15/2018 11:24: Date Drawn 35 AM Arterial Blood 7.485 H pH (Temp corrected) Arterial Blood 36.7 pCO2 (Temp correct) Arterial Blood 108.3 H pO2 (Temp corrected) Arterial Blood 27.0 H HCO3 Arterial Blood 3.6 H Base Excess Arterial Blood 97.5 Oxygen Saturatio n [place] Test ACCEPTAB Arterial Blood Right Radial Gas Puncture Site Arterial 0.3 Blood Carboxyhem oglobin Arterial Blood 0.2 Methemoglobin Blood Gas A-a O2 423.6 H Differential Oxyhemoglobin 97.0 Percent Blood Gas 37.0 Temperature Blood Gas 20.0 Respiration Rate Blood Gas Actual 20 Respiration Rate Blood Gas VENT - AC Modality FiO2 80.0 Blood Gas Tidal 500.0 Volume Blood Gas Low 5.0 PEEP Setting Blood Gas TM Notified Whom Blood Gas 04/15/2018 11:32: Notified Time 09 AM Exam/Review of Systems Exam Vitals Vital Signs Date Temp Pulse Resp B/P (MAP) Pulse Ox O2 O2 Flow FiO2 Time Delivery Rate 04/15/18 127 22 99 80 09:25 04/15/18 86/51 (63) Mechanical 06:00 Ventilator 04/15/18 99.6 04:00 04/14/18 15 08:38 Intake and Output 04/14/18 04/14/18 04/15/18 1515:00 23:00 07:00 IntakeIntake Total 2403.25 ml 1887.96 ml 1267.33 ml OutputOutput Total 2700 ml 535 ml 1845 ml BalanceBalance -296.75 ml 1352.96 ml -577.67 ml Results Results 24hrs Laboratory Tests Test 04/14/18 13:00 04/14/18 16:04 04/14/18 20:58 04/14/18 22:00 Urine Color CORRY Urine Clarity CLOUDY A Urine pH 5.0 Urine Specific 1.021 [place] Urine Ketones TRACE A Urine Nitrite NEGATIVE Urine Bilirubin 1+ H Urine 2+ H Urobilinogen Urine Leukocyte TRACE A Esterase Urine 23 H Microscopic RBC Urine 5 Microscopic WBC Urine Squamous FEW Epithelial Cells Urine Bacteria FEW A Urine Hemoglobin 2+ H Urine Glucose NEGATIVE Urine Total 2+ H Protein Urine Opiates Negative Screen Urine Negative Barbiturates Urine Negative Amphetamines Screen Urine Negative Benzodiazepines Screen Urine Cocaine Negative Screen Urine Negative Cannabinoids Lactic Acid 8.1 *H Level Creatine Kinase 393 H 333 H Creatine Kinase 0.5 0.5 Index Creatinine 1.89 1.74 Kinase MB (Mass) Troponin I 0.131 *H 0.115 B-Type 894 H Natriuretic Peptide Lipase 178 Blood Gas Blood arterial Specimen Source Arterial Blood 04/14/2018 10:15 Date Drawn :24 PM Arterial Blood 7.477 H pH (Temp corrected) Arterial Blood 38.9 pCO2 (Temp correct) Arterial Blood 87.5 pO2 (Temp corrected) Arterial Blood 28.1 H HCO3 Arterial Blood 4.4 H Base Excess Arterial Blood 95.4 Oxygen Saturatio n [place] Test ACCEPTAB Arterial Blood Right Radial Gas Puncture Site Arterial 0 Blood Carboxyhem oglobin Arterial Blood 0.4 Methemoglobin Blood Gas A-a O2 442.1 H Differential Oxyhemoglobin 95.0 Percent Blood Gas 37.0 Temperature Blood Gas 20.0 Respiration Rate Blood Gas Actual 20 Respiration Rate Blood Gas VENT - AC Modality FiO2 80.0 Blood Gas Tidal 500.0 Volume Blood Gas Low 5.0 PEEP Setting Blood Gas [place] Notified Whom Blood Gas 04/14/2018 10:25 Notified Time :08 PM Test 04/15/18 04:15 04/15/18 10:42 White Blood 16.8 #H Count Red Blood Count 3.76 L Hemoglobin 10.2 L Hematocrit 31.8 L Mean Corpuscular 84.6 Volume Mean Corpuscular 27.1 L Hemoglobin Mean Corpuscular 32.1 Hemoglobin Lea nt Red Cell 19.9 H Distribution Width Platelet Count 88 #L Mean Platelet 10.9 H Volume Immature 1.300 H Granulocytes % Neutrophils % Segmented 29 L Neutrophils % (Manual) Band Neutrophils 45 H % (Manual) Lymphocytes % Lymphocytes % 2 L (Manual) Monocytes % Monocytes % 2 (Manual) Eosinophils % Eosinophils % 1 (Manual) Basophils % Metamyelocytes % 12 H (manual) Myelocytes % 6 H (Manual) Promyelocytes % 3 H (Manual) Nucleated Red 3 H Blood Cells % Immature 0.210 H Granulocytes # Neutrophils # Neutrophils # 6.1 (Manual) Band Neutrophils 7.5 H # Lymphocytes 0.3 L (Manual) Lymphocytes # Monocytes # Monocytes # 0.3 (Manual) Eosinophils # Basophils # Metamyelocytes # 2.0 H Myelocytes # 1.0 H Promyelocytes # 0.5 H Nucleated Red Blood Cells # Platelet DECREASED Estimate Polychromasia 1+ Macrocytosis 1+ Spherocytes 1+ Sodium Level 137 Potassium Level 3.7 Chloride Level 91 L Carbon Dioxide 30 Level Anion Gap 16 H Blood Urea 54 H Nitrogen Creatinine 2.77 H Est Glomerular 25 L Filtrat Rate mL/min Glucose Level 133 Lactic Acid 5.5 *H Level Calcium Level 7.0 L Phosphorus Level 7.1 H Magnesium Level 2.0 Ammonia 413 H Thyroid 3.110 Stimulating Hormone (TSH) Blood Gas Blood arterial Specimen Source Arterial Blood 04/15/2018 11:24: Date Drawn 35 AM Arterial Blood 7.485 H pH (Temp corrected) Arterial Blood 36.7 pCO2 (Temp correct) Arterial Blood 108.3 H pO2 (Temp corrected) Arterial Blood 27.0 H HCO3 Arterial Blood 3.6 H Base Excess Arterial Blood 97.5 Oxygen Saturatio n [place] Test ACCEPTAB Arterial Blood Right Radial Gas Puncture Site Arterial 0.3 Blood Carboxyhem oglobin Arterial Blood 0.2 Methemoglobin Blood Gas A-a O2 423.6 H Differential Oxyhemoglobin 97.0 Percent Blood Gas 37.0 Temperature Blood Gas 20.0 Respiration Rate Blood Gas Actual 20 Respiration Rate Blood Gas VENT - AC Modality FiO2 80.0 Blood Gas Tidal 500.0 Volume Blood Gas Low 5.0 PEEP Setting Blood Gas TM Notified Whom Blood Gas 04/15/2018 11:32: Notified Time 09 AM Medications Medication Current Medications Lactulose (Enulose) 20 gm Q6 NGT ; Start 04/14/18 at 12:00; Status Hold Propofol 100 ml @ 2.04 mls/hr Q12H IV Last administered on 04/14/18at 14:55; Admin Dose 2.04 MLS/HR; Start 04/14/18 at 15:00 Sodium Chloride 1,000 ml @ 75 mls/hr [id number] IV Last administered on 04/15/18at 00:13; Admin Dose 75 MLS/HR; Start 04/14/18 at 15:00 Vancomycin HCl (Vanco Iv Per Pharmacy) VANCOMYCIN PER PHARMACY PER PROTOCOL XX ; Start 04/14/18 at 15:00 Cefepime HCl 50 ml @ 100 mls/hr Q12 IVPB Last administered on 04/15/18 09:47; Admin Dose 100 MLS/HR; Start 04/14/18 at 21:00 Midazolam HCl 50 ml @ 1 mls/hr TITRATE IV Last administered on 04/15/18 05:17; Admin Dose 10 MLS/HR; Start 04/14/18 at 15:00 Vancomycin HCl 250 ml @ 125 mls/hr Q24H IVPB Last administered on 04/15/18 09:47; Admin Dose 125 MLS/HR; Start 04/15/18 at 10:00 Vasopressin 60 unit/Dextrose 60 ml @ 0 mls/hr Q12H IV Last administered on 04/14/18 19:44; Admin Dose 0.02 MLS/HR; Start 04/14/18 at 16:00 Norepinephrine 32 mg/Dextrose 250 ml @ 0.47 mls/hr TITRATE IV Last administered on 04/15/18 05:21; Admin Dose 13.59 MLS/HR; Start 04/14/18 at 18:00 Phenylephrine HCl 80 mg/Dextrose 250 ml @ 18.75 mls/ hr TITRATE IV Last administered on 04/15/18 10:00; Admin Dose 56.25 MLS/HR; Start 04/14/18 at 18:00 Acetaminophen (Tylenol Supp) 650 mg Q6H PRN [place] FEVER GREATER THAN 100.6 Last administered on 04/14/18 18:27; Admin Dose 650 MG; Start 04/14/18 at 18:00 Phytonadione 10 mg/Dextrose 51 ml @ 102 mls/hr DAILY IVPB Last administered on 04/15/18 09:47; Admin Dose 102 MLS/HR; Start 04/15/18 at 09:00; Stop 04/18/18 at 12:00 Fentanyl 100 ml @ 2.5 mls/hr TITRATE IV Last administered on 04/15/18 01:26; Admin Dose 2.5 MLS/HR; Start 04/15/18 at 00:00 Lorazepam (Ativan) 1 mg PRN PRN IV DURING SEIZURES Last administered on 04/15/18 11:39; Admin Dose 1 MG; Start 04/15/18 at 04:30 Levetiracetam 100 ml @ 400 mls/hr Q12H IVPB Last administered on 04/15/18at 05:22; Admin Dose 400 MLS/HR; Start 04/15/18 at 06:00 Dopamine HCl/ Dextrose 250 ml @ 5.1 mls/hr TITRATE IV ; Start 04/15/18 at 06:30 Lactated Ringer's 1,000 ml @ 1,000 mls/hr Q1H ONCE IV ; Start 04/15/18 at 11:00; Stop 04/15/18 at 11:59 Pantoprazole (Protonix Iv) 40 mg DAILY@06 IV ; Start 04/16/18 at 06:00 Calcium Gluconate 2 gm/Dextrose 120 ml @ 60 mls/hr ONCE ONCE IVPB ; Start 04/15/18 at 12:00; Stop 04/15/18 at 13:59; Status UNV YUDITH WHALEY Apr 15, 2018 11:53
[2018-04-15] MEDS: VASOPRESSIN 60 UNIT in DEXTROSE 5% 57 ML IV SCH (12:30)
[2018-04-15] MEDS ORDERED: CALCIUM GLUCONATE 10% 2 GM in DEXTROSE 5% 100 ML IVPB ONE (13:30)
--- NOTE | 2018-04-15 14:08 | CONS ---
Assessment/Plan Assessment/Plan Hospital Course 43 yo M with hx of chronic EtOH abuse, cirrhosis and other comorbidities who presents to [facility] ICU for acute respiratory failure. He was noted to have generalized convulsions... for which neurology is consulte d. Ammonia 413, which is certainly the provoking factor. CTH is unrevealing. P: Await EEG for further characterization Decrease Keppra to 500 BID given poor renal function. Load with dilantin 1g IV x1 dose now, followed by maintenance dose 100 tid; recheck lvl 1h s/p bolus and in am Consider transition from fentanyl/versed to propofol Ammonia and other medical management per primary Will follow clinically, to recommend neurologic studies, as necessary Consultation Date/Type/Reason Admit Date/Time Apr 14, 2018 at 10:08 Type of Consult Neurology Requesting Provider: YUDITH WHALEY Date/Time of Note DATE: 04/15/18 TIME: 14:08 Hx of Present Illness 43 yo M with hx of chronic EtOH abuse, liver cirrhosis, ascites, and other comorbidities who presented to the ED with ams. History was obtained from chart review as pt is critically ill. He is reported to have had two generalized tonic-clonic seizure episodes overnight and three today, requiring ativan. Ammonia 413 today. 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 On admission he was noted to have BUN/Cr 40/2.3, Na 132- Renal has been consulted for acute renal failure, hyponatremia. Subjective hx not possible: pt non-verbal, pt critical Exam/Review of Systems Exam Vitals Vital Signs Date Temp Pulse Resp B/P (MAP) Pulse Ox O2 O2 Flow FiO2 Time Delivery Rate 04/15/18 125 21 97/67 (77) 100 13:30 04/15/18 [place] 13:00 l Ventilato r 04/15/18 101.3 12:00 04/15/18 80 11:15 04/14/18 15 08:38 Intake and Output 04/14/18 04/14/18 04/15/18 1515:00 23:00 07:00 IntakeIntake Total 2403.25 ml 1887.96 ml 1267.33 ml OutputOutput Total 2700 ml 535 ml 1845 ml BalanceBalance -296.75 ml 1352.96 ml -577.67 ml Exam PE: Gen Appearance: No Apparent Distress HEENT: Intubated Cardiovascular: Regular rate Abdomen: firm; obtunded Extremities: Dry NE: The patient was obtunded and nonverbal. Cranial nerve examination was limited by mental status. Pupils were equal and sluggishly reactive to light. There was no afferent pupillary defect. Funduscopic examination was limited. Face was grossly symmetric, w/ present corneal and cough reflexes. Tone was normal. Muscle bulk was normal. I did not see fasciculations. The patient withdrew to noxious stimulation in the UE; did not withdraw his LE to noxious stimuli. Coordination and gait testing was limited by mental status. Arm and leg reflexes were within normal limits and symmetric. Chavez's sign was absent. Plantar responses were mute. Results Result Diagram: 04/15/18 0415 04/15/18 0415 Results 24hrs Laboratory Tests Test 04/14/18 16:04 04/14/18 20:58 04/14/18 22:00 04/15/18 04:15 Lactic Acid 8.1 *H 5.5 *H Level Creatine Kinase 393 H 333 H Creatine Kinase 0.5 0.5 Index Creatinine 1.89 1.74 Kinase MB (Mass) Troponin I 0.131 *H 0.115 B-Type 894 H Natriuretic Peptide Lipase 178 Blood Gas Blood arterial Specimen Source Arterial Blood 04/14/2018 10:15 Date Drawn :24 PM Arterial Blood 7.477 H pH (Temp corrected) Arterial Blood 38.9 pCO2 (Temp correct) Arterial Blood 87.5 pO2 (Temp corrected) Arterial Blood 28.1 H HCO3 Arterial Blood 4.4 H Base Excess Arterial Blood 95.4 Oxygen Saturatio n [place] Test ACCEPTAB Arterial Blood Right Radial Gas Puncture Site Arterial 0 Blood Carboxyhem oglobin Arterial Blood 0.4 Methemoglobin Blood Gas A-a O2 442.1 H Differential Oxyhemoglobin 95.0 Percent Blood Gas 37.0 Temperature Blood Gas 20.0 Respiration Rate Blood Gas Actual 20 Respiration Rate Blood Gas VENT - AC Modality FiO2 80.0 Blood Gas Tidal 500.0 Volume Blood Gas Low 5.0 PEEP Setting Blood Gas MA Notified Whom Blood Gas 04/14/2018 10:25 Notified Time :08 PM White Blood 16.8 #H Count Red Blood Count 3.76 L Hemoglobin 10.2 L Hematocrit 31.8 L Mean Corpuscular 84.6 Volume Mean Corpuscular 27.1 L Hemoglobin Mean Corpuscular 32.1 Hemoglobin Lea nt Red Cell 19.9 H Distribution Width Platelet Count 88 #L Mean Platelet 10.9 H Volume Immature 1.300 H Granulocytes % Neutrophils % Segmented 29 L Neutrophils % (Manual) Band Neutrophils 45 H % (Manual) Lymphocytes % Lymphocytes % 2 L (Manual) Monocytes % Monocytes % 2 (Manual) Eosinophils % Eosinophils % 1 (Manual) Basophils % Metamyelocytes % 12 H (manual) Myelocytes % 6 H (Manual) Promyelocytes % 3 H (Manual) Nucleated Red 3 H Blood Cells % Immature 0.210 H Granulocytes # Neutrophils # Neutrophils # 6.1 (Manual) Band Neutrophils 7.5 H # Lymphocytes 0.3 L (Manual) Lymphocytes # Monocytes # Monocytes # 0.3 (Manual) Eosinophils # Basophils # Metamyelocytes # 2.0 H Myelocytes # 1.0 H Promyelocytes # 0.5 H Nucleated Red Blood Cells # Platelet DECREASED Estimate Polychromasia 1+ Macrocytosis 1+ Spherocytes 1+ Sodium Level 137 Potassium Level 3.7 Chloride Level 91 L Carbon Dioxide 30 Level Anion Gap 16 H Blood Urea 54 H Nitrogen Creatinine 2.77 H Est Glomerular 25 L Filtrat Rate mL/min Glucose Level 133 Calcium Level 7.0 L Phosphorus Level 7.1 H Magnesium Level 2.0 Ammonia 413 H Thyroid 3.110 Stimulating Hormone (TSH) Test 04/15/18 10:42 Blood Gas Blood arterial Specimen Source Arterial Blood 04/15/2018 11:24:3 Date Drawn 5 AM Arterial Blood 7.485 H pH (Temp corrected) Arterial Blood 36.7 pCO2 (Temp correct) Arterial Blood 108.3 H pO2 (Temp corrected) Arterial Blood 27.0 H HCO3 Arterial Blood 3.6 H Base Excess Arterial Blood 97.5 Oxygen Saturatio n [place] Test ACCEPTAB Arterial Blood Right Radial Gas Puncture Site Arterial 0.3 Blood Carboxyhem oglobin Arterial Blood 0.2 Methemoglobin Blood Gas A-a O2 423.6 H Differential Oxyhemoglobin 97.0 Percent Blood Gas 37.0 Temperature Blood Gas 20.0 Respiration Rate Blood Gas Actual 20 Respiration Rate Blood Gas VENT - AC Modality FiO2 80.0 Blood Gas Tidal 500.0 Volume Blood Gas Low 5.0 PEEP Setting Blood Gas TM Notified Whom Blood Gas 04/15/2018 11:32:0 Notified Time 9 AM Medications Medication Current Medications Lactulose (Enulose) 20 gm Q6 NGT ; Start 04/14/18 at 12:00; Status Hold Propofol 100 ml @ 2.04 mls/hr Q12H IV Last administered on 04/14/18at 14:55; Admin Dose 2.04 MLS/HR; Start 04/14/18 at 15:00 Sodium Chloride 1,000 ml @ 75 mls/hr [id number] IV Last administered on 04/15/18 00:13; Admin Dose 75 MLS/HR; Start 04/14/18 at 15:00 Vancomycin HCl (Vanco Iv Per Pharmacy) VANCOMYCIN PER PHARMACY PER PROTOCOL XX ; Start 04/14/18 at 15:00 Cefepime HCl 50 ml @ 100 mls/hr Q12 IVPB Last administered on 04/15/18 09:47; Admin Dose 100 MLS/HR; Start 04/14/18 at 21:00 Midazolam HCl 50 ml @ 1 mls/hr TITRATE IV Last administered on 04/15/18 11:54; Admin Dose 10 MLS/HR; Start 04/14/18 at 15:00 Vasopressin 60 unit/Dextrose 60 ml @ 0 mls/hr Q12H IV Last administered on 04/15/18 12:30; Admin Dose 2.4 MLS/HR; Start 04/14/18 at 16:00 Norepinephrine 32 mg/Dextrose 250 ml @ 0.47 mls/hr TITRATE IV Last administered on 04/15/18 05:21; Admin Dose 13.59 MLS/HR; Start 04/14/18 at 18:00 Phenylephrine HCl 80 mg/Dextrose 250 ml @ 18.75 mls/ hr TITRATE IV Last administered on 04/15/18 10:00; Admin Dose 56.25 MLS/HR; Start 04/14/18 at 18:00 Acetaminophen (Tylenol Supp) 650 mg Q6H PRN [place] FEVER GREATER THAN 100.6 Last administered on 04/15/18 12:00; Admin Dose 650 MG; Start 04/14/18 at 18:00 Phytonadione 10 mg/Dextrose 51 ml @ 102 mls/hr DAILY IVPB Last administered on 04/15/18at 09:47; Admin Dose 102 MLS/HR; Start 04/15/18 at 09:00; Stop 04/18/18 at 12:00 Fentanyl 100 ml @ 2.5 mls/hr TITRATE IV Last administered on 04/15/18at 01:26; Admin Dose 2.5 MLS/HR; Start 04/15/18 at 00:00 Lorazepam (Ativan) 1 mg PRN PRN IV DURING SEIZURES Last administered on 04/15/18at 12:33; Admin Dose 1 MG; Start 04/15/18 at 04:30 Levetiracetam 100 ml @ 400 mls/hr Q12H IVPB Last administered on 04/15/18at 05:22; Admin Dose 400 MLS/HR; Start 04/15/18 at 06:00 Dopamine HCl/ Dextrose 250 ml @ 5.1 mls/hr TITRATE IV ; Start 04/15/18 at 06:30 Pantoprazole (Protonix Iv) 40 mg DAILY@06 IV ; Start 04/16/18 at 06:00 Calcium Gluconate 2 gm/Dextrose 120 ml @ 60 mls/hr ONCE ONCE IVPB ; Start 04/15/18 at 13:30; Stop 04/15/18 at 15:29 Lactulose (Lactulose Enema) 100 ml Q8 [place] ; Start 04/15/18 at 14:00 Phenytoin 1000 mg/ Sodium Chloride 120 ml @ 240 mls/hr ONCE ONCE IV ; Start 04/15/18 at 14:30; Stop 04/15/18 at 14:59 Past Medical History reviewed Medical History: other (chronic alcoholism, Alcoholic liver cirrhosis ) Home Meds Active Scripts Pantoprazole* (Pantoprazole*) 40 Mg Tablet.dr, 40 MG PO DAILY@06 for 30 Days, #30 TAB 7 Refills Prov:CADEN SALMERON MD 03/25/18 Lactulose* (Lactulose*) 20 Gm/30 Ml Solution, 20 GM PO DAILY for 30 Days, #1 BOTTLE 7 Refills Prov:CADEN SALMERON MD 03/25/18 Spironolactone* (Aldactone*) 50 Mg Tablet, 100 MG PO BID for 30 Days, #60 TAB 7 Refills Prov:CADEN SALMERON MD 03/25/18 Propranolol Hcl* (Propranolol Hcl*) 10 Mg Tablet, 10 MG PO BID for 30 Days, #60 TAB 7 Refills Prov:CADEN SALMERON MD 03/25/18 Furosemide* (Furosemide*) 40 Mg Tablet, 40 MG PO DAILY for 30 Days, #30 TAB 7 Refills Prov:CADEN SALMERON MD 03/25/18 Medications Current Medications Lactulose (Enulose) 20 gm Q6 NGT ; Start 04/14/18 at 12:00; Status Hold Propofol 100 ml @ 2.04 mls/hr Q12H IV Last administered on 04/14/18at 14:55; Admin Dose 2.04 MLS/HR; Start 04/14/18 at 15:00 Sodium Chloride 1,000 ml @ 75 mls/hr [id number] IV Last administered on 04/15/18at 00:13; Admin Dose 75 MLS/HR; Start 04/14/18 at 15:00 Vancomycin HCl (Vanco Iv Per Pharmacy) VANCOMYCIN PER PHARMACY PER PROTOCOL XX ; Start 04/14/18 at 15:00 Cefepime HCl 50 ml @ 100 mls/hr Q12 IVPB Last administered on 04/15/18 09:47; Admin Dose 100 MLS/HR; Start 04/14/18 at 21:00 Midazolam HCl 50 ml @ 1 mls/hr TITRATE IV Last administered on 04/15/18at 11:54; Admin Dose 10 MLS/HR; Start 04/14/18 at 15:00 Vasopressin 60 unit/Dextrose 60 ml @ 0 mls/hr Q12H IV Last administered on 04/15/18 12:30; Admin Dose 2.4 MLS/HR; Start 04/14/18 at 16:00 Norepinephrine 32 mg/Dextrose 250 ml @ 0.47 mls/hr TITRATE IV Last administered on 04/15/18 05:21; Admin Dose 13.59 MLS/HR; Start 04/14/18 at 18:00 Phenylephrine HCl 80 mg/Dextrose 250 ml @ 18.75 mls/ hr TITRATE IV Last administered on 04/15/18 10:00; Admin Dose 56.25 MLS/HR; Start 04/14/18 at 18:00 Acetaminophen (Tylenol Supp) 650 mg Q6H PRN [place] FEVER GREATER THAN 100.6 Last administered on 3/1/19at 12:00; Admin Dose 650 MG; Start 04/14/18 at 18:00 Phytonadione 10 mg/Dextrose 51 ml @ 102 mls/hr DAILY IVPB Last administered on 04/15/18at 09:47; Admin Dose 102 MLS/HR; Start 04/15/18 at 09:00; Stop 04/18/18 at 12:00 Fentanyl 100 ml @ 2.5 mls/hr TITRATE IV Last administered on 04/15/18at 01:26; Admin Dose 2.5 MLS/HR; Start 04/15/18 at 00:00 Lorazepam (Ativan) 1 mg PRN PRN IV DURING SEIZURES Last administered on 04/15/18at 12:33; Admin Dose 1 MG; Start 04/15/18 at 04:30 Levetiracetam 100 ml @ 400 mls/hr Q12H IVPB Last administered on 04/15/18at 05:22; Admin Dose 400 MLS/HR; Start 04/15/18 at 06:00 Dopamine HCl/ Dextrose 250 ml @ 5.1 mls/hr TITRATE IV ; Start 04/15/18 at 06:30 Pantoprazole (Protonix Iv) 40 mg DAILY@06 IV ; Start 04/16/18 at 06:00 Calcium Gluconate 2 gm/Dextrose 120 ml @ 60 mls/hr ONCE ONCE IVPB ; Start 04/15/18 at 13:30; Stop 04/15/18 at 15:29 Lactulose (Lactulose Enema) 100 ml Q8 [place] ; Start 04/15/18 at 14:00 Phenytoin 1000 mg/ Sodium Chloride 120 ml @ 240 mls/hr ONCE ONCE IV ; Start 04/15/18 at 14:30; Stop 04/15/18 at 14:59 Allergies: Coded Allergies: No Known Allergy (Unverified , 03/16/18) Past Surgical History Past Surgical Hx: no surgical history Social History reviewed Alcohol Use: heavy Smoking Status: Never smoker Drug Use: none GIULIANA DAMIAN NP Apr 15, 2018 14:08
[2018-04-15] MEDS ORDERED: ALBUMIN HUMAN 25% 100 ML IV STA (14:12)
[2018-04-15] MEDS: LACTULOSE ENEMA 1,000 ML BTL PR SCH ×2 (14:25→22:10)
[2018-04-15] MEDS ORDERED: SOD CHLORIDE 0.9% 500 ML IV ONE (14:30)
[2018-04-15] MEDS ORDERED: PHENYTOIN 1,000 MG in SOD CHLORIDE 0.9% 100 ML IV ONE (14:30)
--- NOTE | 2018-04-15 14:58 | RADRPT ---
Echocardiogram Report Patient Name: RICHARD HUNTPatient ID: [id number] : 1975 (43y )Study Date: 04/15/2018 7:44:23 AM Gender: MAccession #: [id number] Tech: Siri Woods [facility] Location: [facility] Ref.Physician: JUAN JOSÉ PLATA Height(Cm): BSA: Weight(Kg): Quality: AdequateAccount #: Procedures: Echocardiographic Report: Transthoracic echocardiogram with complete 2D, M-Mode, and doppler examination. Indications: Hypotension. Measurements: 2D/M Mode Doppler Measurement Value Normal Range Measurement Value Normal Range LVIDd 2D 4.9 [ 4.2 - 5.8 ] cm AV Peak Juan Carlos 1.4 [ 100.0 - 170.0 ] cm/sec LVIDs 2D 4.2 [ 2.5 - 4.0 ] cm AV Peak PG 7.0 [ 2.0 - 9.0 ] mmHg LVPWd 2D 1.1 [ 0.6 - 1.0 ] cm LVOT Peak Juan Carlos 0.9 [ 70.0 - 110.0 ] cm/sec IVSd 2D 1.1 [ 0.6 - 1.0 ] cm LVOT Peak PG 3.0 [ 2.0 - 6.0 ] mmHg AoR Diam 2D 2.8 [ 2.6 - 3.4 ] cm MV E Peak Juan Carlos 0.9 [ 60.0 - 130.0 ] cm/sec EDV 2D 111.0 [ 62.0 - 150.0 ] ml MV Decel Time 165 [ 104 - 258 ] msec ESV 2D 77.7 [ 21.0 - 61.0 ] ml TR Peak Juan Carlos 2.7 [ 100.0 - 280.0 ] cm/sec EF 2D 30.0 [ 52.0 - 72.0 ] percent TR Peak PG 30.0 mmHg LA Dimen 2D 2.9 [ 3.0 - 4.0 ] cm RVSP 38.0 [ 10.0 - 36.0 ] mmHg RA Pressure 8.0 mmHg Findings: Left Ventricle: Normal left ventricular cavity size. Mild concentric left ventricular hypertrophy. Severe global left ventricular systolic dysfunction. Ejection fraction is visually estimated at 25-30 %. Right Ventricle: Normal right ventricular size. Normal right ventricular systolic function. Left Atrium: The left atrium is normal in size. Right Atrium: The right atrium is normal in size. Mitral Valve: Normal appearance of the mitral valve. Mild mitral annular calcification. Trace mitral regurgitation. Aortic Valve: Normal appearance of the aortic valve. No significant aortic stenosis or insufficiency. Tricuspid Valve: Normal appearance of the tricuspid valve. Estimated peak PA systolic pressure 38 mmHg. There is mild to moderate tricuspid regurgitation. Pulmonic Valve: Normal pulmonic valve appearance. Pericardium: Normal pericardium with no significant pericardial effusion. Aorta: Normal aortic root. IVC: Inferior vena cava without respiratory collapse, however, patient on ventilator. Conclusions: Normal left ventricular cavity size. Mild concentric left ventricular hypertrophy. Severe global left ventricular systolic dysfunction. Ejection fraction is visually estimated at 25-30 %. Normal appearance of the mitral valve. Mild mitral annular calcification. Trace mitral regurgitation. Normal appearance of the tricuspid valve. Estimated peak PA systolic pressure 38 mmHg. There is mild to moderate tricuspid regurgitation. Electronically Signed By: Juan José Plata 2018-04-15 14:56:57 PST
[2018-04-15] MEDS ORDERED: FUROSEMIDE 40 MG INJ IV ONE (15:00)
--- NOTE | 2018-04-15 15:11 | RADRPT ---
Vent Rate: 123 bpm RR Interval: 0 msec WV Interval: 128 msec QRS Duration: 84 msec QT Interval: 328 msec QTC Interval: 469 msec P-R-T [place]: 53 - 40 - -15 degrees Sinus tachycardia Nonspecific T wave abnormality Abnormal ECG Electronically Signed By: Jorge Plata
--- NOTE | 2018-04-15 15:38 | CONS ---
DATE OF ADMISSION: 04/14/2018 DATE OF CONSULTATION: TYPE OF CONSULTATION: Pulmonary. REASON FOR CONSULTATION: Ventilator management and septic shock. Thank you, Dr. Whaley, for this consultation. HISTORY OF PRESENT ILLNESS: This is a 43-year-old gentleman with a history of chronic alcoholic cirr hosis with recent admission to [facility] for SVT, now discharged on antibiotics. The patient was readmitted with increasing shortness of breath, respiratory distress with possible as piration pneumonia and now multiorgan failure requiring multiple vasopressors. Few further details a re available. PAST MEDICAL HISTORY: As above. MEDICATIONS: Per chart. ALLERGIES: NONE. SOCIAL HISTORY: Nonsmoker, no alcohol, no history of drug use. FAMILY HISTORY: Noncontributory. SYSTEMS REVIEW: A 12-point review of systems is currently unable to perform. PHYSICAL EXAMINATION: GENERAL: Chronically ill appearing gentleman, orally intubated on mechanical ventilation. VITAL SIGNS: Currently afebrile, T-max is 101.3, pulse is 120, blood pressure is 80/40, O2 saturatio n 96% on FiO2 of 80%. NECK: Supple. No JVD or lymphadenopathy. CARDIAC: S1, S2. No added sounds or murmurs. CHEST: Diminished air entry bilaterally with rales. ABDOMEN: Soft, nontender. No guarding or rebound. EXTREMITIES: No cyanosis, clubbing. A 1+ edema. NEUROLOGIC: Generalized weakness. LABORATORY DATA: White count 16.8, hemoglobin 10.2, platelets of 88. BUN 54, creatinine 2.77. INR 1.25. ABG this morning: pH 7.48, pCO2 of 36, pO2 of 108 with a bicarbonate of 27. DIAGNOSTIC DATA: Chest x-ray was reviewed, which showed right lower lobe atelectasis. IMPRESSION AND PLAN: A 43-year-old gentleman with advanced cirrhotic liver disease from history of a lcohol abuse, now with septic shock and multiorgan failure. Etiology of sepsis is likely secondary b acterial peritonitis however will require: 1. Broad-spectrum antibiotics. 2. Vasopressor support. 3. Mechanical ventilation. 4. Renal consult for acute on chronic renal failure, likely hepatorenal syndrome. PLAN: 1. Vasopressors. 2. Broad-spectrum antibiotics. 3. Renal consult. 4. DVT and GI prophylaxis. Dictated By: THEA BEAR/NTS Conf#: [id number] DID#: [id number] CC: JUAN JOSÉ SHAFFER MD; YUDITH WHALEY MD;*[facility]*
--- NOTE | 2018-04-15 15:48 | CONS ---
DATE OF ADMISSION: 04/14/2018 DATE OF CONSULTATION: 04/15/2018 TYPE OF CONSULTATION: Infectious disease. REASON FOR CONSULTATION: Antibiotic management. HISTORY OF PRESENT ILLNESS: Marcelo Bergeron is a 43-year-old male who was brought in with alte red levels of consciousness by his family. His past problems include cirrhosis of the liver with sig nificant ascites requiring paracentesis. The patient has had several days of nausea and episodes of vomiting and loose watery diarrhea. He became more confused on 04/14/2018 and was brought into the e mergency room. He was not responsive to painful stimuli. His past problems include history of herni a and scrotal swelling. On admission, his white count was 12.7, H and H of 12.4 and 37.9, platelet c ount 151,000. BUN and creatinine is 40/2.13. A chest x-ray showed new endotracheal tube in appropri ate position on 04/14/2018, an NG tube and mild right lower lobe atelectasis. CT scan of the brain s howed limited evaluation due to motion artifact and punctate cerebral calcifications which maybe post -infectious inflammatory, possible sequelae of neurocysticercosis. The patient is currently intubate d, comfortably sedated. He has urinary catheter. He had 2 episodes of seizures last night, remains on 3 pressors. PHYSICAL EXAMINATION: GENERAL: He is intubated and sedated with ET, NG tube, Giron catheter. SKIN: Without generalized rash. He has hyperpigmented, questionably jaundice. HEENT: Within normal limits. NECK: Supple. LYMPH NODES: None palpable. CHEST: Decreased breath sounds at the bases. HEART: Without murmur or gallop. He is tachycardic. ABDOMEN: Soft, distended, nontender. Hypoactive bowel sounds. GENITOURINARY: He has huge scrotal edema. EXTREMITIES: Without cyanosis, clubbing or edema. RECTAL AND GENITAL: Deferred. NEUROLOGICAL: The patient is sedated. IMPRESSION AND PLAN: The patient is a 43-year-old chronic alcoholic with alcoholic cirrhosis who com es in and was recently discharged about 3 weeks prior to admission after being managed for sepsis wit h concern for spontaneous biliary perforation. He had undergone paracentesis with removal of 5 liter s of fluid. He presented with altered mental status and respiratory failure, strong concern for aspi ration pneumonia. He is on a ventilator. He is on vancomycin and cefepime and Solu-Medrol for aspir ation pneumonia. He is septic with septic shock, possibly secondary to spontaneous bacterial periton itis, new seizures with hepatic encephalopathy, acute renal insufficiency secondary to sepsis, probab ly chronic alcoholic cirrhosis, portal hypertension and splenomegaly. His white count today is 16.8. BUN and creatinine is 54/2.77. His platelet count of 88,000, H and H of 10.2 and 31.8. We will co ntinue him on current regimen for the time being. He is obviously significantly ill. I will dictate my findings to the hospitalist. Dictated By: GABE HAYES MD ANGELA/NTS Conf#: [id number] DID#: [id number] CC: JUAN JOSÉ SHAFFER MD; YUDITH WHALEY MD;*End*
[2018-04-15] MEDS: PHENYTOIN 100 MG INJ IV SCH (22:10)
[2018-04-16] VITALS (104 sets, daily range): BP systolic 73–103; BP diastolic 51–74; PULSE 106–118; RESP 14–35
[2018-04-16] MEDS: FENTAnyl (DRIP) 1000 mcg/100mL 100 ML IV SCH ×3 (00:11→19:27)
[2018-04-16] MEDS: PHENYLephrine 80 MG in DEXTROSE 5% 242 ML IV SCH ×5 (00:57→20:22)
[2018-04-16] MEDS: MIDAZOLAM (DRIP) 50 mg/50 mL 50 ML IV SCH ×4 (02:04→19:27)
[2018-04-16] MEDS: PROPOFOL 100 ML IV SCH ×2 (03:00→15:00)
[2018-04-16] MEDS: VASOPRESSIN 60 UNIT in DEXTROSE 5% 57 ML IV SCH ×2 (05:07→16:02)
[2018-04-16] MEDS ORDERED: PANTOPRAZOLE 40 MG INJ IV SCH (06:00)
[2018-04-16] MEDS: PHENYTOIN 100 MG INJ IV SCH ×3 (06:08→21:37)
[2018-04-16] MEDS: LACTULOSE ENEMA 1,000 ML BTL PR SCH ×3 (06:08→21:38)
[2018-04-16] MEDS: SOD CHLORIDE 0.9% 1,000 ML IV SCH ×2 (06:08→17:02)
--- NOTE | 2018-04-16 06:28 | EEG ---
EEG NOTE Report Details DATE OF TEST: HISTORY: The patient is a 43-year-old M who presents with seizures. This EEG is requested to rule out nonconvulsive status epilepticus. SEDATION: None. CONDITIONS OF RECORDING: This EEG was recorded digitally on the poLight machine, using the International 10-20 System of electrodes plus anterior temporals and [place]. STATES SAMPLED: Comatose. FINDINGS: The background is grossly continuous and symmetric...predominated by polymorphic theta and delta activity...and frequent triphasic waves. The normal [id number] frequency-amplitude gradient was absent. Photic stimulation does not elicit any definite driving responses or epileptiform discharges. Hyperventilation was not performed. No asymmetries, focal abnormalities or epileptiform discharges were seen. IMPRESSION: Abnormal electroencephalogram due to: severe diffuse slowing and frequent triphasic waves. COMMENT: The slowing of the background indicates severe, diffuse cortical dysfunction of nonspecific etiology. Triphasic waves may be seen in the setting of metabolic abnormality, including but not limited to hyperammonemia. SAVI FUNES Apr 16, 2018 06:28
--- NOTE | 2018-04-16 09:18 | PN ---
Date/Time of Note Date/Time of Note DATE: 04/16/18 TIME: 09:15 Objective Vitals Vital Signs Date Temp Pulse Resp B/P (MAP) Pulse Ox O2 O2 Flow FiO2 Time Delivery Rate 04/16/18 108 30 97/65 (76) 97 Mechanical 09:00 Ventilator 04/16/18 98.4 08:00 04/16/18 60 05:10 04/14/18 15 08:38 Intake and Output 04/15/18 04/15/18 04/16/18 1515:00 23:00 07:00 IntakeIntake Total 2430.55 ml 1998.94 ml 1355.74 ml OutputOutput Total 410 ml 740 ml 1405 ml BalanceBalance 2020.55 ml 1258.94 ml -49.26 ml Results Result Diagram: 04/16/18 0428 04/16/18 0428 Medications Medications Current Medications Lactulose (Enulose) 20 gm Q6 NGT ; Start 04/14/18 at 12:00; Status Hold Propofol 100 ml @ 2.04 mls/hr Q12H IV Last administered on 04/14/18at 14:55; Admin Dose 2.04 MLS/HR; Start 04/14/18 at 15:00 Sodium Chloride 1,000 ml @ 75 mls/hr [id number] IV Last administered on 04/16/18at 06:08; Admin Dose 75 MLS/HR; Start 04/14/18 at 15:00 Vancomycin HCl (Vanco Iv Per Pharmacy) VANCOMYCIN PER PHARMACY PER PROTOCOL XX ; Start 04/14/18 at 15:00 Cefepime HCl 50 ml @ 100 mls/hr Q12 IVPB Last administered on 04/15/18at 21:03; Admin Dose 100 MLS/HR; Start 04/14/18 at 21:00 Midazolam HCl 50 ml @ 1 mls/hr TITRATE IV Last administered on 04/16/18at 08:04; Admin Dose 10 MLS/HR; Start 04/14/18 at 15:00 Vasopressin 60 unit/Dextrose 60 ml @ 0 mls/hr Q12H IV Last administered on 04/16/18at 05:07; Admin Dose 2.4 MLS/HR; Start 04/14/18 at 16:00 Norepinephrine 32 mg/Dextrose 250 ml @ 0.47 mls/hr TITRATE IV Last administered on 04/15/18 21:09; Admin Dose 14.06 MLS/HR; Start 04/14/18 at 18:00 Phenylephrine HCl 80 mg/Dextrose 250 ml @ 18.75 mls/ hr TITRATE IV Last administered on 04/16/18 05:07; Admin Dose 56.25 MLS/HR; Start 04/14/18 at 18:00 Acetaminophen (Tylenol Supp) 650 mg Q6H PRN [place] FEVER GREATER THAN 100.6 Last administered on 04/15/18 12:00; Admin Dose 650 MG; Start 04/14/18 at 18:00 Phytonadione 10 mg/Dextrose 51 ml @ 102 mls/hr DAILY IVPB Last administered on 04/15/18 09:47; Admin Dose 102 MLS/HR; Start 04/15/18 at 09:00; Stop 04/18/18 at 12:00 Fentanyl 100 ml @ 2.5 mls/hr TITRATE IV Last administered on 04/16/18 00:11; Admin Dose 10 MLS/HR; Start 04/15/18 at 00:00 Lorazepam (Ativan) 1 mg PRN PRN IV DURING SEIZURES Last administered on 04/15/18 14:24; Admin Dose 1 MG; Start 04/15/18 at 04:30 Dopamine HCl/ Dextrose 250 ml @ 5.1 mls/hr TITRATE IV ; Start 04/15/18 at 06:30 Pantoprazole (Protonix Iv) 40 mg DAILY@06 IV Last administered on 04/16/18 06:08; Admin Dose 40 MG; Start 04/16/18 at 06:00 Lactulose (Lactulose Enema) 100 ml Q8 [place] Last administered on 04/16/18 06:08; Admin Dose 100 ML; Start 04/15/18 at 14:00 Phenytoin (Dilantin) 100 mg Q8 IV Last administered on 04/16/18 06:08; Admin Do se 100 MG; Start 04/15/18 at 22:00 Levetiracetam 100 ml @ 400 mls/hr Q12 IVPB ; Start 04/16/18 at 09:00 VTE Prophylaxis Risk score (from [employer] [facility] [employer])>0 risk: 8 SCD applied (from [employer] [facility] [employer]): Yes Lines/Catheters IV Catheter Type: Williamson in Place: Yes Cont'd williamson catheter reason: terminal illness/intractable pain Assessment/Plan Hospital Course 43-year-old male who is a chronic alcoholic with known alcoholic cirrhosis, Was recently discharged from this facility about 3 weeks prior to admit after being managed for sepsis with concern for SBP and at that time had undergone paracentesis with removal of 5 L of fluid. He presented to the ER with altered mentation respiratory failure and strong concern for aspiration pneumonia (gastric contents visualized during intubation), being admitted to the ICU as he is requiring ventilator support. Problems are listed as below: 1. Acute respiratory failure likely secondary to #2 -remains vent dependent with high Fio2 -pulm managing vent, appreciate input 2. Aspiration pneumonia versus pneumonitis likely related to #3 -Solu-medrol x1 given -empiric Vanc and cefepime -serial CXR -OGT remains to suction, putting out good volume -ID following 3. Sepsis with Septic shock likely 2/2 aspiration, possible SBP as well -now on 3 pressors -likely also component of hypovolemia as patient is also third spacing a lot from liver disease -f/u cultures -ID consult -[employer] on board 4. New seizures with underlying hepatic encephalopathy -was holding off on lactualose therapy 2/2 hypotension, but may be contributing to seizures, so will start rectal lactulose as long as ok with neuro -EEG , Neurology consult, Empiric Keppra and dilantin 5. Acute renal insufficiency likely secondary to sepsis -appreciate Nephro input -continue albumin infusion -continue IVF Ns @75cc/hr -Hold ACEi, ARBs, and metformin if applicable. Renally dose all meds. Serial labs. -renal USS to r/o obstruction, patient also has williamson 6. Chronic alcoholic cirrhosis with portal hypertension and splenomegaly -monitor liver function and coag panel -IV PPI -BB therapy once BP improves -elevated LFT's again, -GI will be on board 7. Hyponatremia likely related to alcohol use -improved 8. Chronic hypochromic anemia secondary to chronic liver disease -likely 2/2 to hemodilution, no signs of GI bleed, will get anemia labs and fecal occult 9. Severe abdominal distention, likely secondary to ascites with chronic large ventral hernia as well as large inguinal hernia -CT showed anterior ventral hernia containing ascitic fluid and left inguinal hernia as well as left large hydrocele -IR deffered paracentesis 2/2 critical status, will reconsult when more stable ? -no intervention for now, Keep head of bed slightly depressed, monitor 10. Severe scrotal swelling/hydrocele, likely sequelae from #9 -keep scrotum elevated -[facility] consulted to insert williamson, stable 11. Cholelithiasis -incidental finding 12. Positive troponin in the setting of shock, likely type 2 demand infarct. -now trended negative Dispo: -Multiple customer service and sales consultant recommendations appreciated -More than 40 minutes of critical care time was spent on this encounter -Patient is very critical in the ICU JASEN CASTRO Apr 16, 2018 09:18
[2018-04-16] MEDS: LEVETIRACETAM 500 MG (PMX) 100 ML IVPB SCH ×2 (09:56→20:32)
--- NOTE | 2018-04-16 09:56 | CONS ---
Assessment/Plan Assessment/Plan Hospital Course (Demo Recall) ID PROGRESS NOTE CURRENT ABX: DAY # Vanco IV + Cefepime + Start Flagyl 04/16/1842704/16/188 24H INTERVAL SUMMARY * Orally intubated, obtunded, pressors onboard, no fevers, mild tachycardia, elevated lactic acid DIAGNOSTIC IMAGING * 04/17/18 CXR: IMPRESSION: Multifocal bilateral air space infiltrates are increased concerning for multifocal pneumonia. MICRO/OTHER * 04/15/18 Urine Cx (-) * 04/14/18 BCX (-) PHYSICAL EXAMINATION: GENERAL: Jaundice, on pressors, Vented HEENT: AT, NC, (+)icteric -- ETT secure to Vent NECK: Supple, CHEST: Equal chest rise bilaterally, rhonchi HEART: Pulse RRR ABDOMEN: DISTENDED EXTREMITIES: Warm, dry SKIN: No rash, no diaphoresis ID ASSESSMENT 43 yo M admit with: 1. Septic shock and multiorgan failure. 2. Etiology of sepsis is likely secondary bacterial peritonitis and bilateral PNA 3. Ascites due to advanced cirrhotic liver disease from history of alcohol abuse 4. Acute hypoxic respiratory failure -> Mechanical Vent 5. Multifocal HCAP 6. Acute on chronic renal failure, likely hepatorenal syndrome. 7. ?Seizures? (-)MRSA Nares ABX ALLERGIES: KNDA INVASIVES: PIV CURRENT ABX: DAY #Vanco IV + Cefepime + Start Flagyl ID RECOMMENDATIONS/PLAN: 1. Continue current ABX + Start Flagyl for improved anaerobic peritonitis coverage . Consultation Date/Type/Reason Admit Date/Time Apr 14, 2018 at 10:08 Initial Consult Date 04/14/18 Requesting Provider: YUDITH WHALEY Date/Time of Note DATE: 04/16/18 TIME: 09:56 Exam/Review of Systems Exam Vitals Vital Signs Date Temp Pulse Resp B/P (MAP) Pulse Ox O2 O2 Flow FiO2 Time Delivery Rate 04/16/18 108 30 97/65 (76) 97 Mechanical 09:00 Ventilator 04/16/18 60 08:00 04/16/18 98.4 08:00 04/14/18 15 08:38 Intake and Output 04/15/18 04/15/18 04/16/18 1515:00 23:00 07:00 IntakeIntake Total 2430.55 ml 1998.94 ml 1355.74 ml OutputOutput Total 410 ml 740 ml 1405 ml BalanceBalance 2020.55 ml 1258.94 ml -49.26 ml Results Result Diagram: 04/16/18 0428 04/16/18 0428 Results 24hrs Laboratory Tests Test 04/15/18 10:42 04/15/18 17:06 04/16/18 04:28 04/16/18 07:00 Blood Gas Blood arterial Blood arterial Specimen Source Arterial Blood 04/15/2018 11:24:3 04/16/2018 8:45:19 Date Drawn 5 AM AM Arterial Blood 7.485 H 7.438 pH (Temp corrected) Arterial Blood 36.7 35.6 pCO2 (Temp correct) Arterial Blood 108.3 H 81.0 pO2 (Temp corrected) Arterial Blood 27.0 H 23.5 HCO3 Arterial Blood 3.6 H -0.3 Base Excess Arterial Blood 97.5 94.7 L Oxygen Saturatio n [place] Test ACCEPTAB ACCEPTAB Arterial Blood Right Radial Right Radial Gas Puncture Site Arterial 0.3 0.1 Blood Carboxyhem oglobin Arterial Blood 0.2 0.1 Methemoglobin Blood Gas A-a O2 423.6 H 307.6 H Differential Oxyhemoglobin 97.0 94.5 Percent Blood Gas 37.0 37.0 Temperature Blood Gas 20.0 20.0 Respiration Rate Blood Gas Actual 20 22 Respiration Rate Blood Gas VENT - AC VENT - AC Modality FiO2 80.0 60.0 Blood Gas Tidal 500.0 500.0 Volume Blood Gas Low 5.0 5.0 PEEP Setting Blood Gas Siri [facility] Notified Whom Blood Gas 04/15/2018 11:32:0 04/16/2018 9:09:18 Notified Time 9 AM AM Phenytoin 9.0 L 8.0 L (Dilantin) Level White Blood 22.4 #H Count Red Blood Count 3.23 L Hemoglobin 8.9 L Hematocrit 28.6 L Mean Corpuscular 88.5 Volume Mean Corpuscular 27.6 L Hemoglobin Mean Corpuscular 31.1 L Hemoglobin Lea nt Red Cell 19.3 H Distribution Width Platelet Count 81 L Mean Platelet 11.5 H Volume Immature 1.200 H Granulocytes % Neutrophils % Lymphocytes % Monocytes % Eosinophils % Basophils % Nucleated Red 0.3 H Blood Cells % Immature 0.270 H Granulocytes # Neutrophils # Lymphocytes # Monocytes # Eosinophils # Basophils # Nucleated Red Blood Cells # Prothrombin Time 25.3 #H Prothrombin Time 2.0 Ratio INR 2.29 International Normalized Ratio Activated 42.0 H Partial Thrombop last Time Sodium Level 137 Potassium Level 3.8 Chloride Level 91 L Carbon Dioxide 24 Level Anion Gap 22 H Blood Urea 56 H Nitrogen Creatinine 2.24 H Est Glomerular 32 L Filtrat Rate mL/min Glucose Level 147 Calcium Level 6.6 L Phosphorus Level 7.7 H Magnesium Level 2.0 Total Bilirubin 1.9 H Direct Bilirubin 1.40 #H Indirect 0.5 Bilirubin Aspartate Amino 529 #H Transf (AST/SGOT ) Alanine 149 H Aminotransferase (ALT/SGPT) Alkaline 81 # Phosphatase Total Protein 6.3 # Albumin 3.0 L Globulin 3.30 H Albumin/Globulin 0.90 Ratio Medications Medication Current Medications Lactulose (Enulose) 20 gm Q6 NGT ; Start 04/14/18 at 12:00; Status Hold Propofol 100 ml @ 2.04 mls/hr Q12H IV Last administered on 04/14/18at 14:55; Admin Dose 2.04 MLS/HR; Start 04/14/18 at 15:00 Sodium Chloride 1,000 ml @ 75 mls/hr [id number] IV Last administered on 04/16/18at 06:08; Admin Dose 75 MLS/HR; Start 04/14/18 at 15:00 Vancomycin HCl (Vanco Iv Per Pharmacy) VANCOMYCIN PER PHARMACY PER PROTOCOL XX ; Start 04/14/18 at 15:00 Cefepime HCl 50 ml @ 100 mls/hr Q12 IVPB Last administered on 04/15/18at 21:03; Admin Dose 100 MLS/HR; Start 04/14/18 at 21:00 Midazolam HCl 50 ml @ 1 mls/hr TITRATE IV Last administered on 04/16/18at 08:04; Admin Dose 10 MLS/HR; Start 04/14/18 at 15:00 Vasopressin 60 unit/Dextrose 60 ml @ 0 mls/hr Q12H IV Last administered on 04/16/18at 05:07; Admin Dose 2.4 MLS/HR; Start 04/14/18 at 16:00 Norepinephrine 32 mg/Dextrose 250 ml @ 0.47 mls/hr TITRATE IV Last administered on 04/15/18 21:09; Admin Dose 14.06 MLS/HR; Start 04/14/18 at 18:00 Phenylephrine HCl 80 mg/Dextrose 250 ml @ 18.75 mls/ hr TITRATE IV Last administered on 04/16/18 05:07; Admin Dose 56.25 MLS/HR; Start 04/14/18 at 18:00 Acetaminophen (Tylenol Supp) 650 mg Q6H PRN [place] FEVER GREATER THAN 100.6 Last administered on 04/15/18 12:00; Admin Dose 650 MG; Start 04/14/18 at 18:00 Phytonadione 10 mg/Dextrose 51 ml @ 102 mls/hr DAILY IVPB Last administered on 04/15/18 09:47; Admin Dose 102 MLS/HR; Start 04/15/18 at 09:00; Stop 04/18/18 at 12:00 Fentanyl 100 ml @ 2.5 mls/hr TITRATE IV Last administered on 04/16/18 00:11; Admin Dose 10 MLS/HR; Start 04/15/18 at 00:00 Lorazepam (Ativan) 1 mg PRN PRN IV DURING SEIZURES Last administered on 04/15/18 14:24; Admin Dose 1 MG; Start 04/15/18 at 04:30 Dopamine HCl/ Dextrose 250 ml @ 5.1 mls/hr TITRATE IV ; Start 04/15/18 at 06:30 Pantoprazole (Protonix Iv) 40 mg DAILY@06 IV Last administered on 04/16/18 06:08; Admin Dose 40 MG; Start 04/16/18 at 06:00 Lactulose (Lactulose Enema) 100 ml Q8 [place] Last administered on 04/16/18 06:08; Admin Dose 100 ML; Start 04/15/18 at 14:00 Phenytoin (Dilantin) 100 mg Q8 IV Last administered on 04/16/18 06:08; Admin Dose 100 MG; Start 04/15/18 at 22:00 Levetiracetam 100 ml @ 400 mls/hr Q12 IVPB ; Start 04/16/18 at 09:00 ESCOBAR MICHAUD NP Apr 16, 2018 09:56
[2018-04-16] MEDS: CEFEPIME 1GM/50 ML (PMX) 50 ML IVPB SCH ×2 (10:00→20:32)
--- NOTE | 2018-04-16 10:18 | CONS ---
Assessment/Plan Assessment/Plan Hospital Course 43 yo M with hx of chronic EtOH abuse, cirrhosis and other comorbidities who presents to [facility] ICU for acute respiratory failure. He was noted to have generalized convulsions... for which neurology is consulted. Ammonia 413, which is certainly the provoking factor. CTH is unrevealing. EEG is without epileptiform activity, though is notable for the presence of triphasic waves... consistent with severe hyperammonemia. P: Cont Keppra 500 BID given poor renal function. Dilantin 500mg iv x 1, then cont dilantin 100 tid; recheck lvl in am Ammonia and other medical management per primary Will follow clinically, to recommend neurologic studies, as necessary Consultation Date/Type/Reason Admit Date/Time Apr 14, 2018 at 10:08 Type of Consult Neurology Reason for Consultation status epilepticus Requesting Provider: YUDITH WHALEY Date/Time of Note DATE: 04/16/18 TIME: 10:18 24 HR Interval Summary Free Text/Dictation Continues critical care. No seizure events reported since dilantin was started. S/p EEG. Pt remains in critical condition. Subjective hx not possible: pt non-verbal, pt critical Exam Vital Signs Vitals Vital Signs Date Temp Pulse Resp B/P (MAP) Pulse Ox O2 O2 Flow FiO2 Time Delivery Rate 04/16/18 108 22 101/67 97 Mechanical 10:00 (78) Ventilator 04/16/18 60 08:00 04/16/18 98.4 08:00 04/14/18 15 08:38 Intake and Output 04/15/18 04/15/18 04/16/18 1515:00 23:00 07:00 IntakeIntake Total 2430.55 ml 1998.94 ml 1355.74 ml OutputOutput Total 410 ml 740 ml 1405 ml BalanceBalance 2020.55 ml 1258.94 ml -49.26 ml Exam PE: Gen Appearance: No Apparent Distress HEENT: Intubated Cardiovascular: Regular rate Abdomen: firm; obtunded Extremities: Dry NE: The patient was comatose and nonverbal. Cranial nerve examination was limited by mental status. Pupils were equal and sluggishly reactive to light. There was no afferent pupillary defect. Funduscopic examination was limited. Face was grossly symmetric, w/ present corneal and cough reflexes. Tone was normal. Muscle bulk was normal. I did not see fasciculations. The patient did not withdraw to noxious stimuli. Coordination and gait testing was limited by mental status. Arm and leg reflexes were within normal limits and symmetric. Chavez's sign was absent. Plantar responses were mute. GIULIANA DAMIAN NP Apr 16, 2018 10:18 SAVI FUNES Apr 16, 2018 11:50
[2018-04-16] MEDS: PHYTONADIONE 10 MG in DEXTROSE 5% 50 ML IVPB SCH (10:22)
[2018-04-16] MEDS ORDERED: PHENYTOIN 500 MG in SOD CHLORIDE 0.9% 100 ML IV ONE (11:00)
--- NOTE | 2018-04-16 11:50 | CONS ---
Assessment/Plan Assessment/Plan Hospital Course (Demo Recall) Summary Assessment and Plan: Assessment: Acute elevation in LFTS with direct hyperbilirubinemia Normocytic anemia -NGT with dark output Alcoholic cirrhosis with portal hypertension/splenomegaly -IR deferred paracentesis 2/2 critical status Coagulopathy Aspiration pneumonia versus pneumonitis Acute respiratory failure likely 2/2 to above Sepsis with Septic shock likely 2/2 aspiration New onset seizures Hepatic encephalopathy Renal insufficiency Scrotal swelling Hyponatremia Cholelithiasis Positive troponin in the setting of shock -likely type 2 demand infarct. Plan: HGB trending down, with dark out-put from NGT- will change PPI to gtt and start octreotide With incidental finding of cholelithiasis and new onset elevation of LFTs including direct hyperbilirubinemia will order abdominal ultrasound to assess common bile duct if possible Trend LFTs/HGB Serology from 11/2017- negative Maintain close observation Patient seen in collaboration with Dr. Diggs CC: SANDI DIGGS ; Consultation Date/Type/Reason Admit Date/Time Apr 14, 2018 at 10:08 Date of Consultation: Apr 16, 2018 Type of Consult GI Reason for Consultation Elevated LFTs Date/Time of Note DATE: 04/16/18 TIME: 11:49 Hx of Present Illness This is a 43-year-old male with PMH of alcoholic cirrhosis, and ETOH abuse. He was admitted to [facility] with AMS and respiratory failure. Family notes he was drinking heavily x2 days subsequently he developed nausea/vomiting and diarrhea GI has been consulted for sudden increase in LFTs during hospitalization, of no te he is currently on x3 pressors (all three on the highest dose), patient remains hypotensive. He currently has an NGT in place with dark output, and a HGB slowly trending down. Review of Systems: A 12 system, review was conducted and is negative except as noted in the HPI or here. Past Medical History Medical History: other (chronic alcoholism, Alcoholic liver cirrhosis ) Home Meds Active Scripts Pantoprazole* (Pantoprazole*) 40 Mg Tablet., 40 MG PO DAILY@06 for 30 Days, #30 TAB 7 Refills Prov:CADEN SALMERON MD 03/25/18 Lactulose* (Lactulose*) 20 Gm/30 Ml Solution, 20 GM PO DAILY for 30 Days, #1 BOTTLE 7 Refills Prov:CADEN SALMERON MD 03/25/18 Spironolactone* (Aldactone*) 50 Mg Tablet, 100 MG PO BID for 30 Days, #60 TAB 7 Refills Prov:CADEN SALMERON MD 03/25/18 Propranolol Hcl* (Propranolol Hcl*) 10 Mg Tablet, 10 MG PO BID for 30 Days, #60 TAB 7 Refills Prov:CADEN SALMERON MD 03/25/18 Furosemide* (Furosemide*) 40 Mg Tablet, 40 MG PO DAILY for 30 Days, #30 TAB 7 Refills Prov:CADEN SALMERON MD 03/25/18 Medications Current Medications Lactulose (Enulose) 20 gm Q6 NGT ; Start 04/14/18 at 12:00; Status Hold Propofol 100 ml @ 2.04 mls/hr Q12H IV Last administered on 04/14/18at 14:55; Admin Dose 2.04 MLS/HR; Start 04/14/18 at 15:00 Sodium Chloride 1,000 ml @ 75 mls/hr [id number] IV Last administered on 04/16/18 06:08; Admin Dose 75 MLS/HR; Start 04/14/18 at 15:00 Vancomycin HCl (Vanco Iv Per Pharmacy) VANCOMYCIN PER PHARMACY PER PROTOCOL XX ; Start 04/14/18 at 15:00 Cefepime HCl 50 ml @ 100 mls/hr Q12 IVPB Last administered on 04/16/18 10:00; Admin Dose 100 MLS/HR; Start 04/14/18 at 21:00 Midazolam HCl 50 ml @ 1 mls/hr TITRATE IV Last administered on 04/16/18 08:04; Admin Dose 10 MLS/HR; Start 04/14/18 at 15:00 Vasopressin 60 unit/Dextrose 60 ml @ 0 mls/hr Q12H IV Last administered on 04/16/18 05:07; Admin Dose 2.4 MLS/HR; Start 04/14/18 at 16:00 Norepinephrine 32 mg/Dextrose 250 ml @ 0.47 mls/hr TITRATE IV Last administered on 04/15/18 21:09; Admin Dose 14.06 MLS/HR; Start 04/14/18 at 18:00 Phenylephrine HCl 80 mg/Dextrose 250 ml @ 18.75 mls/ hr TITRATE IV Last administered on 04/16/18 11:18; Admin Dose 56.25 MLS/HR; Start 04/14/18 at 18:00 Acetaminophen (Tylenol Supp) 650 mg Q6H PRN OR FEVER GREATER THAN 100.6 Last administered on 04/15/18 12:00; Admin Dose 650 MG; Start 04/14/18 at 18:00 Phytonadione 10 mg/Dextrose 51 ml @ 102 mls/hr DAILY IVPB Last administered on 04/16/18at 10:22; Admin Dose 102 MLS/HR; Start 04/15/18 at 09:00; Stop 04/18/18 at 12:00 Fentanyl 100 ml @ 2.5 mls/hr TITRATE IV Last administered on 04/16/18 00:11; Admin Dose 10 MLS/HR; Start 04/15/18 at 00:00 Lorazepam (Ativan) 1 mg PRN PRN IV DURING SEIZURES Last administered on 04/15/18 14:24; Admin Dose 1 MG; Start 04/15/18 at 04:30 Dopamine HCl/ Dextrose 250 ml @ 5.1 mls/hr TITRATE IV ; Start 04/15/18 at 06:30 Pantoprazole (Protonix Iv) 40 mg DAILY@06 IV Last administered on 04/16/18 06:08; Admin Dose 40 MG; Start 04/16/18 at 06:00 Lactulose (Lactulose Enema) 100 ml Q8 OR Last administered on 04/16/18 06:08; Admin Dose 100 ML; Start 04/15/18 at 14:00 Phenytoin (Dilantin) 100 mg Q8 IV Last administered on 04/16/18 06:08; Admin Dose 100 MG; Start 04/15/18 at 22:00 Levetiracetam 100 ml @ 400 mls/hr Q12 IVPB Last administered on 04/16/18 09:56; Admin Dose 400 MLS/HR; Start 04/16/18 at 09:00 Allergies: Coded Allergies: No Known Allergy (Unverified , 03/16/18) Past Surgical History Past Surgical Hx: no surgical history Social History Alcohol Use: heavy Smoking Status: Never smoker Drug Use: none Exam/Review of Systems Exam Vitals Vital Signs Date Temp Pulse Resp B/P (MAP) Pulse Ox O2 O2 Flow FiO2 Time Delivery Rate 04/16/18 108 22 101/67 97 Mechanical 10:00 (78) Ventilator 04/16/18 60 08:00 04/16/18 98.4 08:00 04/14/18 15 08:38 Intake and Output 04/15/18 04/15/18 04/16/18 1515:00 23:00 07:00 IntakeIntake Total 2430.55 ml 1998.94 ml 1355.74 ml OutputOutput Total 410 ml 740 ml 1405 ml BalanceBalance 2020.55 ml 1258.94 ml -49.26 ml Exam PHYSICAL EXAMINATION: GENERAL: Sedated, intubated, ill appearing man SKIN: No lesions, stigmata chronic liver disease HEAD: Normocephalic, atraumatic, no tenderness. CHEST: Inspection within normal limits. CARDIOVASCULAR: Heart: Regular rate and rhythm, RESPIRATORY: Lungs clear to auscultation GASTROINTESTINAL AND LIVER: Abdomen: Soft, non tenderness, + distended, no hernias, no masses, no organomegaly, + ascites, hypoactive bowel sounds. Rectal: Deferred. GENITOURINARY: edema to scrotum EXTREMITIES: No cyanosis, clubbing or edema. Results Result Diagram: 04/16/18 0428 04/16/18 0428 Results 24hrs Laboratory Tests Test 04/15/18 17:06 04/16/18 04:28 04/16/18 07:00 04/16/18 09:43 Phenytoin 9.0 L 8.0 L (Dilantin) Level White Blood Count 22.4 #H Red Blood Count 3.23 L Hemoglobin 8.9 L Hematocrit 28.6 L Mean Corpuscular 88.5 Volume Mean Corpuscular 27.6 L Hemoglobin Mean Corpuscular 31.1 L Hemoglobin Concen t Red Cell 19.3 H Distribution Width Platelet Count 81 L Mean Platelet 11.5 H Volume Immature 1.200 H Granulocytes % Neutrophils % Segmented 28 L Neutrophils % (Manual) Band Neutrophils 49 H % (Manual) Lymphocytes % Monocytes % Monocytes % 11 (Manual) Eosinophils % Basophils % Metamyelocytes % 6 H (manual) Myelocytes % 5 H (Manual) Promyelocytes % 1 H (Manual) Nucleated Red 3 H Blood Cells % Immature 0.270 H Granulocytes # Neutrophils # Neutrophils # 8.7 H (Manual) Band Neutrophils 10.9 H # Lymphocytes # Monocytes # Monocytes # 2.4 H (Manual) Eosinophils # Basophils # Metamyelocytes # 1.3 H Myelocytes # 1.1 H Promyelocytes # 0.2 H Nucleated Red Blood Cells # Toxic Granulation 3+ Platelet Estimate SIG DECREASED Giant Platelets 2 H Polychromasia 3+ Poikilocytosis 1+ Anisocytosis 1+ Prothrombin Time 25.3 #H Prothrombin Time 2.0 Ratio INR International 2.29 Normalized Ratio Activated 42.0 H Partial Thrombopl ast Time Sodium Level 137 Potassium Level 3.8 Chloride Level 91 L Carbon Dioxide 24 Level Anion Gap 22 H Blood Urea 56 H Nitrogen Creatinine 2.24 H Est Glomerular 32 L Filtrat Rate mL/min Glucose Level 147 Calcium Level 6.6 L Phosphorus Level 7.7 H Magnesium Level 2.0 Total Bilirubin 1.9 H Direct Bilirubin 1.40 #H Indirect 0.5 Bilirubin Aspartate Amino 529 #H Transf (AST/SGOT) Alanine 149 H Aminotransferase (ALT/SGPT) Alkaline 81 # Phosphatase Total Protein 6.3 # Albumin 3.0 L Globulin 3.30 H Albumin/Globulin 0.90 Ratio Blood Gas Blood arterial Specimen Source Arterial Blood 04/16/2018 8:45:19 Date Drawn AM Arterial Blood pH 7.438 (Temp corrected) Arterial Blood 35.6 pCO2 (Temp correct) Arterial Blood 81.0 pO2 (Temp corrected) Arterial Blood 23.5 HCO3 Arterial Blood -0.3 Base Excess Arterial Blood 94.7 L Oxygen Saturation [place] Test ACCEPTAB Arterial Blood Right Radial Gas Puncture Site Arterial 0.1 Blood Carboxyhemo globin Arterial Blood 0.1 Methemoglobin Blood Gas A-a O2 307.6 H Differential Oxyhemoglobin 94.5 Percent Blood Gas 37.0 Temperature Blood Gas 20.0 Respiration Rate Blood Gas Actual 22 Respiration Rate Blood Gas VENT - AC Modality FiO2 60.0 Blood Gas Tidal 500.0 Volume Blood Gas Low 5.0 PEEP Setting Blood Gas Siri GUZMAN [facility] Notified Whom Blood Gas 04/16/2018 9:09:18 Notified Time AM Absolute 0.062 Reticulocyte Count Percent 1.9 H Reticulocyte Count Iron Level 15 L Total Iron 224 L Binding Capacity Percent Iron 7 L Saturation Lactate 1446 H Dehydrogenase Test 04/16/18 09:45 Lactic Acid Level 6.8 *H Ammonia 46 #H Medications Medication Current Medications Lactulose (Enulose) 20 gm Q6 NGT ; Start 04/14/18 at 12:00; Status Hold Propofol 100 ml @ 2.04 mls/hr Q12H IV Last administered on 04/14/18 14:55; Admin Dose 2.04 MLS/HR; Start 04/14/18 at 15:00 Sodium Chloride 1,000 ml @ 75 mls/hr [id number] IV Last administered on 04/16/18 06:08; Admin Dose 75 MLS/HR; Start 04/14/18 at 15:00 Vancomycin HCl (Vanco Iv Per Pharmacy) VANCOMYCIN PER PHARMACY PER PROTOCOL XX ; Start 04/14/18 at 15:00 Cefepime HCl 50 ml @ 100 mls/hr Q12 IVPB Last administered on 04/16/18 10:00; Admin Dose 100 MLS/HR; Start 04/14/18 at 21:00 Midazolam HCl 50 ml @ 1 mls/hr TITRATE IV Last administered on 04/16/18 08:04; Admin Dose 10 MLS/HR; Start 04/14/18 at 15:00 Vasopressin 60 unit/Dextrose 60 ml @ 0 mls/hr Q12H IV Last administered on 04/16/18 05:07; Admin Dose 2.4 MLS/HR; Start 04/14/18 at 16:00 Norepinephrine 32 mg/Dextrose 250 ml @ 0.47 mls/hr TITRATE IV Last administered on 04/15/18 21:09; Admin Dose 14.06 MLS/HR; Start 04/14/18 at 18:00 Phenylephrine HCl 80 mg/Dextrose 250 ml @ 18.75 mls/ hr TITRATE IV Last administered on 04/16/18 11:18; Admin Dose 56.25 MLS/HR; Start 04/14/18 at 18:00 Acetaminophen (Tylenol Supp) 650 mg Q6H PRN OR FEVER GREATER THAN 100.6 Last administered on 04/15/18 12:00; Admin Dose 650 MG; Start 04/14/18 at 18:00 Phytonadione 10 mg/Dextrose 51 ml @ 102 mls/hr DAILY IVPB Last administered on 04/16/18 10:22; Admin Dose 102 MLS/HR; Start 04/15/18 at 09:00; Stop 04/18/18 at 12:00 Fentanyl 100 ml @ 2.5 mls/hr TITRATE IV Last administered on 04/16/18 00:11; Admin Dose 10 MLS/HR; Start 04/15/18 at 00:00 Lorazepam (Ativan) 1 mg PRN PRN IV DURING SEIZURES Last administered on 04/15/18at 14:24; Admin Dose 1 MG; Start 04/15/18 at 04:30 Dopamine HCl/ Dextrose 250 ml @ 5.1 mls/hr TITRATE IV ; Start 04/15/18 at 06:30 Pantoprazole (Protonix Iv) 40 mg DAILY@06 IV Last administered on 04/16/18at 06:08; Admin Dose 40 MG; Start 04/16/18 at 06:00 Lactulose (Lactulose Enema) 100 ml Q8 OR Last administered on 04/16/18at 06:08; Admin Dose 100 ML; Start 04/15/18 at 14:00 Phenytoin (Dilantin) 100 mg Q8 IV Last administered on 04/16/18at 06:08; Admin Do se 100 MG; Start 04/15/18 at 22:00 Levetiracetam 100 ml @ 400 mls/hr Q12 IVPB Last administered on 04/16/18at 09:56; Admin Dose 400 MLS/HR; Start 04/16/18 at 09:00 RENEE ROSALES Apr 16, 2018 11:50
--- NOTE | 2018-04-16 12:25 | CONS ---
Consult Date/Type/Reason Admit Date/Time Apr 14, 2018 at 10:08 Initial Consult Date 04/16/18 Type of Consultation: Pulm/CCM Requesting Provider: YUDITH WHALEY Date/Time of Note DATE: 04/16/18 TIME: 12:20 Subjective Sedated on 3 pressors. Unresponsive on the vent. Objective Vitals Vital Signs Date Temp Pulse Resp B/P (MAP) Pulse Ox O2 O2 Flow FiO2 Time Delivery Rate 04/16/18 108 22 101/67 97 Mechanical 10:00 (78) Ventilator 04/16/18 60 08:00 04/16/18 98.4 08:00 04/14/18 15 08:38 Intake and Output 04/15/18 04/15/18 04/16/18 1515:00 23:00 07:00 IntakeIntake Total 2430.55 ml 1998.94 ml 1355.74 ml OutputOutput Total 410 ml 740 ml 1405 ml BalanceBalance 2020.55 ml 1258.94 ml -49.26 ml Exam HEENT: Neck supple; no JVD; no LAD; + ET Tube CVS: Tachy, S1 and S2 CHEST: Coarse BS ABD: Distended, NT, + BS EXT: No c/c; + edema Results/Medications Result Diagram: 04/16/18 0428 04/16/18 0428 Results 24 hrs Laboratory Tests Test 04/15/18 17:06 04/16/18 04:28 04/16/18 07:00 04/16/18 09:43 Phenytoin 9.0 L 8.0 L (Dilantin) Level White Blood Count 22.4 #H Red Blood Count 3.23 L Hemoglobin 8.9 L Hematocrit 28.6 L Mean Corpuscular 88.5 Volume Mean Corpuscular 27.6 L Hemoglobin Mean Corpuscular 31.1 L Hemoglobin Concen t Red Cell 19.3 H Distribution Width Platelet Count 81 L Mean Platelet 11.5 H Volume Immature 1.200 H Granulocytes % Neutrophils % Segmented 28 L Neutrophils % (Manual) Band Neutrophils 49 H % (Manual) Lymphocytes % Monocytes % Monocytes % 11 (Manual) Eosinophils % Basophils % Metamyelocytes % 6 H (manual) Myelocytes % 5 H (Manual) Promyelocytes % 1 H (Manual) Nucleated Red 3 H Blood Cells % Immature 0.270 H Granulocytes # Neutrophils # Neutrophils # 8.7 H (Manual) Band Neutrophils 10.9 H # Lymphocytes # Monocytes # Monocytes # 2.4 H (Manual) Eosinophils # Basophils # Metamyelocytes # 1.3 H Myelocytes # 1.1 H Promyelocytes # 0.2 H Nucleated Red Blood Cells # Toxic Granulation 3+ Platelet Estimate SIG DECREASED Giant Platelets 2 H Polychromasia 3+ Poikilocytosis 1+ Anisocytosis 1+ Prothrombin Time 25.3 #H Prothrombin Time 2.0 Ratio INR International 2.29 Normalized Ratio Activated 42.0 H Partial Thrombopl ast Time Sodium Level 137 Potassium Level 3.8 Chloride Level 91 L Carbon Dioxide 24 Level Anion Gap 22 H Blood Urea 56 H Nitrogen Creatinine 2.24 H Est Glomerular 32 L Filtrat Rate mL/min Glucose Level 147 Calcium Level 6.6 L Phosphorus Level 7.7 H Magnesium Level 2.0 Total Bilirubin 1.9 H Direct Bilirubin 1.40 #H Indirect 0.5 Bilirubin Aspartate Amino 529 #H Transf (AST/SGOT) Alanine 149 H Aminotransferase (ALT/SGPT) Alkaline 81 # Phosphatase Total Protein 6.3 # Albumin 3.0 L Globulin 3.30 H Albumin/Globulin 0.90 Ratio Blood Gas Blood arterial Specimen Source Arterial Blood 04/16/2018 8:45:19 Date Drawn AM Arterial Blood pH 7.438 (Temp corrected) Arterial Blood 35.6 pCO2 (Temp correct) Arterial Blood 81.0 pO2 (Temp corrected) Arterial Blood 23.5 HCO3 Arterial Blood -0.3 Base Excess Arterial Blood 94.7 L Oxygen Saturation [place] Test ACCEPTAB Arterial Blood Right Radial Gas Puncture Site Arterial 0.1 Blood Carboxyhemo globin Arterial Blood 0.1 Methemoglobin Blood Gas A-a O2 307.6 H Differential Oxyhemoglobin 94.5 Percent Blood Gas 37.0 Temperature Blood Gas 20.0 Respiration Rate Blood Gas Actual 22 Respiration Rate Blood Gas VENT - AC Modality FiO2 60.0 Blood Gas Tidal 500.0 Volume Blood Gas Low 5.0 PEEP Setting Blood Gas Siri [facility] Notified Whom Blood Gas 04/16/2018 9:09:18 Notified Time AM Absolute 0.062 Reticulocyte Count Percent 1.9 H Reticulocyte Count Iron Level 15 L Total Iron 224 L Binding Capacity Percent Iron 7 L Saturation Ferritin 265.0 Lactate 1446 H Dehydrogenase Test 04/16/18 09:45 Lactic Acid Level 6.8 *H Ammonia 46 #H Home Meds Active Scripts Pantoprazole* (Pantoprazole*) 40 Mg Tablet.dr, 40 MG PO DAILY@06 for 30 Days, #30 TAB 7 Refills Prov:CADEN SALMERON MD 03/25/18 Lactulose* (Lactulose*) 20 Gm/30 Ml Solution, 20 GM PO DAILY for 30 Days, #1 BOTTLE 7 Refills Prov:CADEN SAMLERON MD 03/25/18 Spironolactone* (Aldactone*) 50 Mg Tablet, 100 MG PO BID for 30 Days, #60 TAB 7 Refills Prov:CADEN SALMERON MD 03/25/18 Propranolol Hcl* (Propranolol Hcl*) 10 Mg Tablet, 10 MG PO BID for 30 Days, #60 TAB 7 Refills Prov:CADEN SALMERON MD 03/25/18 Furosemide* (Furosemide*) 40 Mg Tablet, 40 MG PO DAILY for 30 Days, #30 TAB 7 Refills Prov:CADEN SALMERON MD 03/25/18 Medications Current Medications Lactulose (Enulose) 20 gm Q6 NGT ; Start 04/14/18 at 12:00; Status Hold Propofol 100 ml @ 2.04 mls/hr Q12H IV Last administered on 04/14/18at 14:55; Admin Dose 2.04 MLS/HR; Start 04/14/18 at 15:00 Sodium Chloride 1,000 ml @ 75 mls/hr [id number] IV Last administered on 04/16/18at 06:08; Admin Dose 75 MLS/HR; Start 04/14/18 at 15:00 Vancomycin HCl (Vanco Iv Per Pharmacy) VANCOMYCIN PER PHARMACY PER PROTOCOL XX ; Start 04/14/18 at 15:00 Cefepime HCl 50 ml @ 100 mls/hr Q12 IVPB Last administered on 04/16/18at 10:00; Admin Dose 100 MLS/HR; Start 04/14/18 at 21:00 Midazolam HCl 50 ml @ 1 mls/hr TITRATE IV Last administered on 04/16/18at 08:04; Admin Dose 10 MLS/HR; Start 04/14/18 at 15:00 Vasopressin 60 unit/Dextrose 60 ml @ 0 mls/hr Q12H IV Last administered on 04/16/18at 05:07; Admin Dose 2.4 MLS/HR; Start 04/14/18 at 16:00 Norepinephrine 32 mg/Dextrose 250 ml @ 0.47 mls/hr TITRATE IV Last administered on 04/15/18 21:09; Admin Dose 14.06 MLS/HR; Start 04/14/18 at 18:00 Phenylephrine HCl 80 mg/Dextrose 250 ml @ 18.75 mls/ hr TITRATE IV Last administered on 04/16/18 11:18; Admin Dose 56.25 MLS/HR; Start 04/14/18 at 18:00 Acetaminophen (Tylenol Supp) 650 mg Q6H PRN [place] FEVER GREATER THAN 100.6 Last administered on 04/15/18 12:00; Admin Dose 650 MG; Start 04/14/18 at 18:00 Phytonadione 10 mg/Dextrose 51 ml @ 102 mls/hr DAILY IVPB Last administered on 04/16/18 10:22; Admin Dose 102 MLS/HR; Start 04/15/18 at 09:00; Stop 04/18/18 at 12:00 Fentanyl 100 ml @ 2.5 mls/hr TITRATE IV Last administered on 04/16/18 12:05; Admin Dose 10 MLS/HR; Start 04/15/18 at 00:00 Lorazepam (Ativan) 1 mg PRN PRN IV DURING SEIZURES Last administered on 04/15/18 14:24; Admin Dose 1 MG; Start 04/15/18 at 04:30 Dopamine HCl/ Dextrose 250 ml @ 5.1 mls/hr TITRATE IV ; Start 04/15/18 at 06:30 Pantoprazole (Protonix Iv) 40 mg DAILY@06 IV Last administered on 04/16/18 06:08; Admin Dose 40 MG; Start 04/16/18 at 06:00 Lactulose (Lactulose Enema) 100 ml Q8 [place] Last administered on 04/16/18 06:08; Admin Dose 100 ML; Start 04/15/18 at 14:00 Phenytoin (Dilantin) 100 mg Q8 IV Last administered on 04/16/18 06:08; Admin Dose 100 MG; Start 04/15/18 at 22:00 Levetiracetam 100 ml @ 400 mls/hr Q12 IVPB Last administered on 04/16/18 09:56; Admin Dose 400 MLS/HR; Start 04/16/18 at 09:00 Metronidazole 100 ml @ 100 mls/hr Q8 IVPB ; Start 04/16/18 at 14:00; Status UNV Assessment/Plan Assessment/Plan (Daily) IMP: 1. Septic Shock with multiorgan failure 2. Respiratory Failure/Vent 3. Lactic Acidosis 2/2 #1 and decompensated liver failure 4. Decompensated liver failure 5. ARF ATN vs. HRS 6. Encephalopathy RECS: 1. Vent support 2. Pressors to MAP > 65 mm Hg 3. Abx per ID 4. Albumin 25% 5. Hydrocortisone 100 mg IV Q 8 6. PPI IV 7. Follow Coags; LFTs and H/H 8. Rifaximin and lactulose 9. Long discussion with mother about overall poor prognosis in view of multiorgan failure. Will continue current measures, however, NO chest compressions. 40 min cc time BEREKET LANG MD Apr 16, 2018 12:25
--- NOTE | 2018-04-16 12:29 | CONS ---
Consult Date/Type/Reason Admit Date/Time Apr 14, 2018 at 10:08 Initial Consult Date 04/16/18 Type of Consultation: Pulm/CCM Requesting Provider: YUDITH WHALEY Date/Time of Note DATE: 04/16/18 TIME: 12:27 Subjective Pt in ICU - very high pressor requirement - intubated - family at bedside- critical care team addressing code status now ROS: No fever, no chills, no nausea, no vomiting, no diarrhea/constipation - per nurse (pt non-verbal, high o2 demand 60%) Objective Vitals Vital Signs Date Temp Pulse Resp B/P (MAP) Pulse Ox O2 O2 Flow FiO2 Time Delivery Rate 04/16/18 108 22 101/67 97 Mechanical 10:00 (78) Ventilator 04/16/18 60 08:00 04/16/18 98.4 08:00 04/14/18 15 08:38 Intake and Output 04/15/18 04/15/18 04/16/18 1515:00 23:00 07:00 IntakeIntake Total 2430.55 ml 1998.94 ml 1355.74 ml OutputOutput Total 410 ml 740 ml 1405 ml BalanceBalance 2020.55 ml 1258.94 ml -49.26 ml Exam General: WN/WD/NAD, AOx 0 HEENT: Unicetric/atraumatic/EOMI (does not follow commands) NECK: JVD elevated, no thyromegaly - intubated Lymph: no lymphadenopathy HEART: regular with no S3, II/ systolic murmur at apex LUNGS: Coarse sounds ABD: soft, NT, ND, +BS : Intact Neuro: non focal SKIN: chronic changes EXT: trace edema Results/Medications Result Diagram: 04/16/188 04/16/188 Results 24 hrs Laboratory Tests Test 04/15/18 17:06 04/16/18 04:28 04/16/18 07:00 04/16/18 09:43 Phenytoin 9.0 L 8.0 L (Dilantin) Level White Blood Count 22.4 #H Red Blood Count 3.23 L Hemoglobin 8.9 L Hematocrit 28.6 L Mean Corpuscular 88.5 Volume Mean Corpuscular 27.6 L Hemoglobin Mean Corpuscular 31.1 L Hemoglobin Concen t Red Cell 19.3 H Distribution Width Platelet Count 81 L Mean Platelet 11.5 H Volume Immature 1.200 H Granulocytes % Neutrophils % Segmented 28 L Neutrophils % (Manual) Band Neutrophils 49 H % (Manual) Lymphocytes % Monocytes % Monocytes % 11 (Manual) Eosinophils % Basophils % Metamyelocytes % 6 H (manual) Myelocytes % 5 H (Manual) Promyelocytes % 1 H (Manual) Nucleated Red 3 H Blood Cells % Immature 0.270 H Granulocytes # Neutrophils # Neutrophils # 8.7 H (Manual) Band Neutrophils 10.9 H # Lymphocytes # Monocytes # Monocytes # 2.4 H (Manual) Eosinophils # Basophils # Metamyelocytes # 1.3 H Myelocytes # 1.1 H Promyelocytes # 0.2 H Nucleated Red Blood Cells # Toxic Granulation 3+ Platelet Estimate SIG DECREASED Giant Platelets 2 H Polychromasia 3+ Poikilocytosis 1+ Anisocytosis 1+ Prothrombin Time 25.3 #H Prothrombin Time 2.0 Ratio INR International 2.29 Normalized Ratio Activated 42.0 H Partial Thrombopl ast Time Sodium Level 137 Potassium Level 3.8 Chloride Level 91 L Carbon Dioxide 24 Level Anion Gap 22 H Blood Urea 56 H Nitrogen Creatinine 2.24 H Est Glomerular 32 L Filtrat Rate mL/min Glucose Level 147 Calcium Level 6.6 L Phosphorus Level 7.7 H Magnesium Level 2.0 Total Bilirubin 1.9 H Direct Bilirubin 1.40 #H Indirect 0.5 Bilirubin Aspartate Amino 529 #H Transf (AST/SGOT) Alanine 149 H Aminotransferase (ALT/SGPT) Alkaline 81 # Phosphatase Total Protein 6.3 # Albumin 3.0 L Globulin 3.30 H Albumin/Globulin 0.90 Ratio Blood Gas Blood arterial Specimen Source Arterial Blood 04/16/2018 8:45:19 Date Drawn AM Arterial Blood pH 7.438 (Temp corrected) Arterial Blood 35.6 pCO2 (Temp correct) Arterial Blood 81.0 pO2 (Temp corrected) Arterial Blood 23.5 HCO3 Arterial Blood -0.3 Base Excess Arterial Blood 94.7 L Oxygen Saturation [place] Test ACCEPTAB Arterial Blood Right Radial Gas Puncture Site Arterial 0.1 Blood Carboxyhemo globin Arterial Blood 0.1 Methemoglobin Blood Gas A-a O2 307.6 H Differential Oxyhemoglobin 94.5 Percent Blood Gas 37.0 Temperature Blood Gas 20.0 Respiration Rate Blood Gas Actual 22 Respiration Rate Blood Gas VENT - AC Modality FiO2 60.0 Blood Gas Tidal 500.0 Volume Blood Gas Low 5.0 PEEP Setting Blood Gas Siri [facility] Notified Whom Blood Gas 04/16/2018 9:09:18 Notified Time AM Absolute 0.062 Reticulocyte Count Percent 1.9 H Reticulocyte Count Iron Level 15 L Total Iron 224 L Binding Capacity Percent Iron 7 L Saturation Ferritin 265.0 Lactate 1446 H Dehydrogenase Test 04/16/18 09:45 Lactic Acid Level 6.8 *H Ammonia 46 #H Home Meds Active Scripts Pantoprazole* (Pantoprazole*) 40 Mg Tablet.dr, 40 MG PO DAILY@06 for 30 Days, #30 TAB 7 Refills Prov:CADEN SALMERON MD 03/25/18 Lactulose* (Lactulose*) 20 Gm/30 Ml Solution, 20 GM PO DAILY for 30 Days, #1 BOTTLE 7 Refills Prov:CADEN SALMERON MD 03/25/18 Spironolactone* (Aldactone*) 50 Mg Tablet, 100 MG PO BID for 30 Days, #60 TAB 7 Refills Prov:CADEN SALMERON MD 03/25/18 Propranolol Hcl* (Propranolol Hcl*) 10 Mg Tablet, 10 MG PO BID for 30 Days, #60 TAB 7 Refills Prov:CADEN SALMERON MD 03/25/18 Furosemide* (Furosemide*) 40 Mg Tablet, 40 MG PO DAILY for 30 Days, #30 TAB 7 Refills Prov:CADEN SALMERON MD 03/25/18 Medications Current Medications Lactulose (Enulose) 20 gm Q6 NGT ; Start 04/14/18 at 12:00; Status Hold Propofol 100 ml @ 2.04 mls/hr Q12H IV Last administered on 04/14/18at 14:55; Admin Dose 2.04 MLS/HR; Start 04/14/18 at 15:00 Sodium Chloride 1,000 ml @ 75 mls/hr [id number] IV Last administered on 04/16/18at 06:08; Admin Dose 75 MLS/HR; Start 04/14/18 at 15:00 Vancomycin HCl (Vanco Iv Per Pharmacy) VANCOMYCIN PER PHARMACY PER PROTOCOL XX ; Start 04/14/18 at 15:00 Cefepime HCl 50 ml @ 100 mls/hr Q12 IVPB Last administered on 04/16/18at 10:00; Admin Dose 100 MLS/HR; Start 04/14/18 at 21:00 Midazolam HCl 50 ml @ 1 mls/hr TITRATE IV Last administered on 04/16/18 08:04; Admin Dose 10 MLS/HR; Start 04/14/18 at 15:00 Vasopressin 60 unit/Dextrose 60 ml @ 0 mls/hr Q12H IV Last administered on 04/16/18 05:07; Admin Dose 2.4 MLS/HR; Start 04/14/18 at 16:00 Norepinephrine 32 mg/Dextrose 250 ml @ 0.47 mls/hr TITRATE IV Last administered on 04/15/18 21:09; Admin Dose 14.06 MLS/HR; Start 04/14/18 at 18:00 Phenylephrine HCl 80 mg/Dextrose 250 ml @ 18.75 mls/ hr TITRATE IV Last administered on 04/16/18 11:18; Admin Dose 56.25 MLS/HR; Start 04/14/18 at 18:00 Acetaminophen (Tylenol Supp) 650 mg Q6H PRN [place] FEVER GREATER THAN 100.6 Last administered on 04/15/18 12:00; Admin Dose 650 MG; Start 04/14/18 at 18:00 Phytonadione 10 mg/Dextrose 51 ml @ 102 mls/hr DAILY IVPB Last administered on 04/16/18 10:22; Admin Dose 102 MLS/HR; Start 04/15/18 at 09:00; Stop 04/18/18 at 12:00 Fentanyl 100 ml @ 2.5 mls/hr TITRATE IV Last administered on 04/16/18 12:05; Admin Dose 10 MLS/HR; Start 04/15/18 at 00:00 Lorazepam (Ativan) 1 mg PRN PRN IV DURING SEIZURES Last administered on 04/15/18 14:24; Admin Dose 1 MG; Start 04/15/18 at 04:30 Dopamine HCl/ Dextrose 250 ml @ 5.1 mls/hr TITRATE IV ; Start 04/15/18 at 06:30 Pantoprazole (Protonix Iv) 40 mg DAILY@06 IV Last administered on 04/16/18 06:08; Admin Dose 40 MG; Start 04/16/18 at 06:00 Lactulose (Lactulose Enema) 100 ml Q8 [place] Last administered on 04/16/18 06:08; Admin Dose 100 ML; Start 04/15/18 at 14:00 Phenytoin (Dilantin) 100 mg Q8 IV Last administered on 04/16/18at 06:08; Admin Dose 100 MG; Start 04/15/18 at 22:00 Levetiracetam 100 ml @ 400 mls/hr Q12 IVPB Last administered on 04/16/18at 09:56; Admin Dose 400 MLS/HR; Start 04/16/18 at 09:00 Metronidazole 100 ml @ 100 mls/hr Q8 IVPB ; Start 04/16/18 at 14:00 Miscellaneous Information (*Rx Drug Level Order Reminder*) RANDOM VANCOMYCIN LEVEL ... ONCE ONCE XX ; Start 04/17/18 at 05:00; Stop 04/17/18 at 05:01 Assessment/Plan Hospital Course (Demo Recall) 1. Positive troponin in the setting of shock, likely type 2 demand infarct.-now trended negative - no intervention planned now 2. Hypotension, shock, likely septic in the setting of cirrhosis - con't supportive rx, guarded prognosis. 3. Abnormal echocardiogram, assess for true acute coronary syndrome. 4. Tachycardia consistent with sinus tachycardia at this time in the setting of multiple pressures hypotension, cirrhosis- con't to follow. 5. Sepsis - on anti-Bx. 6. Cirrhosis - GI team follows. 7. Ascites. 8. Anemia. 9. Leukocytosis. 10. Coagulopathy, mild. 11. Urinary tract infection. ZHENG LINDSEY MD Apr 16, 2018 12:29
--- NOTE | 2018-04-16 12:53 | CONS ---
Assessment/Plan Assessment/Plan Assessment/Plan (Daily) 1. acute kidney injury due to ATN from sepsis 2. sepsis due to possible aspiration pnuemonia 3. acute hypoxic respiratory failure intbated on ventilator 4. acute hepatic encephalopathy 5. h/o Liver cirrhosis with chronic alcoholism 6. Spenomegaly with portal HTN an drecurrent ascites 7. Hyponatremia due to liver cirrhosis 8. Hydrocele with difficult williamson insertion Plan: BUN/Cr 56/2.24, Iron level 7 with low saturation , BP still low on multiple pressors IV abx cefepime and IV vancomycin, renally dose all abx and monitor electrolytes Currently no acute indicatin for HD- pt is on 3 pressors maxed out, not stable for dialysis due to very low BP will follow up Consultation Date/Type/Reason Admit Date/Time Apr 14, 2018 at 10:08 Initial Consult Date 04/14/18 Type of Consult NEPHROLOGY Requesting Provider: YUDITH WHALEY Date/Time of Note DATE: 04/16/18 TIME: 12:53 24 HR Interval Summary Free Text/Dictation BUN/Cr 56/2.24, Iron level 7 with low saturation , BP still low on multiple pressors Exam/Review of Systems Exam Vitals Vital Signs Date Temp Pulse Resp B/P (MAP) Pulse Ox O2 O2 Flow FiO2 Time Delivery Rate 04/16/18 112 27 84/55 (65) 97 12:30 04/16/18 101.0 [place] 12:00 l Ventilato r 04/16/18 60 08:00 04/14/18 15 08:38 Intake and Output 04/15/18 04/15/18 04/16/18 1515:00 23:00 07:00 IntakeIntake Total 2430.55 ml 1998.94 ml 1355.74 ml OutputOutput Total 410 ml 740 ml 1405 ml BalanceBalance 2020.55 ml 1258.94 ml -49.26 ml Exam Constitutional: non-verbal Respiratory: crackles/rales, diminished breath sounds Cardiovascular: regular rate and rhythm, nl pulses Gastrointestinal: soft, ascites, distended Musculoskeletal: joint tenderness, swelling Extremities: normal pulses Neurological: other (intubated sedated on ventilator ) Results Result Diagram: 04/16/18 0428 04/16/18 0428 Results 24hrs Laboratory Tests Test 04/15/18 17:06 04/16/18 04:28 04/16/18 07:00 04/16/18 09:43 Phenytoin 9.0 L 8.0 L (Dilantin) Level White Blood Count 22.4 #H Red Blood Count 3.23 L Hemoglobin 8.9 L Hematocrit 28.6 L Mean Corpuscular 88.5 Volume Mean Corpuscular 27.6 L Hemoglobin Mean Corpuscular 31.1 L Hemoglobin Concen t Red Cell 19.3 H Distribution Width Platelet Count 81 L Mean Platelet 11.5 H Volume Immature 1.200 H Granulocytes % Neutrophils % Segmented 28 L Neutrophils % (Manual) Band Neutrophils 49 H % (Manual) Lymphocytes % Monocytes % Monocytes % 11 (Manual) Eosinophils % Basophils % Metamyelocytes % 6 H (manual) Myelocytes % 5 H (Manual) Promyelocytes % 1 H (Manual) Nucleated Red 3 H Blood Cells % Immature 0.270 H Granulocytes # Neutrophils # Neutrophils # 8.7 H (Manual) Band Neutrophils 10.9 H # Lymphocytes # Monocytes # Monocytes # 2.4 H (Manual) Eosinophils # Basophils # Metamyelocytes # 1.3 H Myelocytes # 1.1 H Promyelocytes # 0.2 H Nucleated Red Blood Cells # Toxic Granulation 3+ Platelet Estimate SIG DECREASED Giant Platelets 2 H Polychromasia 3+ Poikilocytosis 1+ Anisocytosis 1+ Prothrombin Time 25.3 #H Prothrombin Time 2.0 Ratio INR International 2.29 Normalized Ratio Activated 42.0 H Partial Thrombopl ast Time Sodium Level 137 Potassium Level 3.8 Chloride Level 91 L Carbon Dioxide 24 Level Anion Gap 22 H Blood Urea 56 H Nitrogen Creatinine 2.24 H Est Glomerular 32 L Filtrat Rate mL/min Glucose Level 147 Calcium Level 6.6 L Phosphorus Level 7.7 H Magnesium Level 2.0 Total Bilirubin 1.9 H Direct Bilirubin 1.40 #H Indirect 0.5 Bilirubin Aspartate Amino 529 #H Transf (AST/SGOT) Alanine 149 H Aminotransferase (ALT/SGPT) Alkaline 81 # Phosphatase Total Protein 6.3 # Albumin 3.0 L Globulin 3.30 H Albumin/Globulin 0.90 Ratio Blood Gas Blood arterial Specimen Source Arterial Blood 04/16/2018 8:45:19 Date Drawn AM Arterial Blood pH 7.438 (Temp corrected) Arterial Blood 35.6 pCO2 (Temp correct) Arterial Blood 81.0 pO2 (Temp corrected) Arterial Blood 23.5 HCO3 Arterial Blood -0.3 Base Excess Arterial Blood 94.7 L Oxygen Saturation [place] Test ACCEPTAB Arterial Blood Right Radial Gas Puncture Site Arterial 0.1 Blood Carboxyhemo globin Arterial Blood 0.1 Methemoglobin Blood Gas A-a O2 307.6 H Differential Oxyhemoglobin 94.5 Percent Blood Gas 37.0 Temperature Blood Gas 20.0 Respiration Rate Blood Gas Actual 22 Respiration Rate Blood Gas VENT - AC Modality FiO2 60.0 Blood Gas Tidal 500.0 Volume Blood Gas Low 5.0 PEEP Setting Blood Gas AlMarnie [facility] [employer] Notified Whom Blood Gas 04/16/2018 9:09:18 Notified Time AM Absolute 0.062 Reticulocyte Count Percent 1.9 H Reticulocyte Count Iron Level 15 L Total Iron 224 L Binding Capacity Percent Iron 7 L Saturation Ferritin 265.0 Lactate 1446 H Dehydrogenase Test 04/16/18 09:45 Lactic Acid Level 6.8 *H Ammonia 46 #H Medications Medication Current Medications Lactulose (Enulose) 20 gm Q6 NGT ; Start 04/14/18 at 12:00; Status Hold Propofol 100 ml @ 2.04 mls/hr Q12H IV Last administered on 04/14/18at 14:55; Admin Dose 2.04 MLS/HR; Start 04/14/18 at 15:00 Sodium Chloride 1,000 ml @ 75 mls/hr [id number] IV Last administered on 04/16/18at 06:08; Admin Dose 75 MLS/HR; Start 04/14/18 at 15:00 Vancomycin HCl (Vanco Iv Per Pharmacy) VANCOMYCIN PER PHARMACY PER PROTOCOL XX ; Start 04/14/18 at 15:00 Cefepime HCl 50 ml @ 100 mls/hr Q12 IVPB Last administered on 04/16/18at 10:00; Admin Dose 100 MLS/HR; Start 04/14/18 at 21:00 Midazolam HCl 50 ml @ 1 mls/hr TITRATE IV Last administered on 04/16/18at 08:04; Admin Dose 10 MLS/HR; Start 04/14/18 at 15:00 Vasopressin 60 unit/Dextrose 60 ml @ 0 mls/hr Q12H IV Last administered on 04/16/18at 05:07; Admin Dose 2.4 MLS/HR; Start 04/14/18 at 16:00 Norepinephrine 32 mg/Dextrose 250 ml @ 0.47 mls/hr TITRATE IV Last administered on 04/15/18 21:09; Admin Dose 14.06 MLS/HR; Start 04/14/18 at 18:00 Phenylephrine HCl 80 mg/Dextrose 250 ml @ 18.75 mls/ hr TITRATE IV Last admin istered on 04/16/18 11:18; Admin Dose 56.25 MLS/HR; Start 04/14/18 at 18:00 Acetaminophen (Tylenol Supp) 650 mg Q6H PRN [place] FEVER GREATER THAN 100.6 Last administered on 04/15/18 12:00; Admin Dose 650 MG; Start 04/14/18 at 18:00 Phytonadione 10 mg/Dextrose 51 ml @ 102 mls/hr DAILY IVPB Last administered on 04/16/18 10:22; Admin Dose 102 MLS/HR; Start 04/15/18 at 09:00; Stop 04/18/18 at 12:00 Fentanyl 100 ml @ 2.5 mls/hr TITRATE IV Last administered on 04/16/18 12:05; Admin Dose 10 MLS/HR; Start 04/15/18 at 00:00 Lorazepam (Ativan) 1 mg PRN PRN IV DURING SEIZURES Last administered on 04/15/18 14:24; Admin Dose 1 MG; Start 04/15/18 at 04:30 Dopamine HCl/ Dextrose 250 ml @ 5.1 mls/hr TITRATE IV ; Start 04/15/18 at 06:30 Lactulose (Lactulose Enema) 100 ml Q8 [place] Last administered on 04/16/18 06:08; Admin Dose 100 ML; Start 04/15/18 at 14:00 Phenytoin (Dilantin) 100 mg Q8 IV Last administered on 04/16/18 06:08; Admin Dose 100 MG; Start 04/15/18 at 22:00 Levetiracetam 100 ml @ 400 mls/hr Q12 IVPB Last administered on 04/16/18 09:56; Admin Dose 400 MLS/HR; Start 04/16/18 at 09:00 Metronidazole 100 ml @ 100 mls/hr Q8 IVPB ; Start 04/16/18 at 14:00 Miscellaneous Information (*Rx Drug Level Order Reminder*) RANDOM VANCOMYCIN LEVEL ... ONCE ONCE XX ; Start 04/17/18 at 05:00; Stop 04/17/18 at 05:01 Hydrocortisone (Solu-Cortef) 100 mg Q8 IV ; Start 04/16/18 at 14:00 Albumin Human 50 ml @ 100 mls/hr Q8H IV ; Start 04/16/18 at 12:30; Stop 04/17/18 at 04:59 Pantoprazole 80 mg/Sodium Chloride 100 ml @ 10 mls/hr Q10H IV ; Start 04/16/18 at 13:00; Status UNV Octreotide Acetate 1 mg/ Dextrose 100 ml @ 5 mls/hr Q20H IV ; Start 04/16/18 at 13:00; Status UNV MIKE PEARSON MD Apr 16, 2018 12:53
[2018-04-16] MEDS: metroNIDAZOLE 500 MG/NS (PMX) 100 ML IVPB SCH ×2 (15:08→21:38)
[2018-04-16] MEDS: HYDROCORTISONE 100 MG INJ IV SCH ×2 (15:08→21:37)
[2018-04-16] MEDS: ALBUMIN HUMAN 25% 50 ML IV SCH ×2 (15:09→20:32)
[2018-04-16] MEDS: NORepinephrine 32 MG in DEXTROSE 5% 218 ML IV SCH (15:56)
[2018-04-16] MEDS: PANTOPRAZOLE IV 80 MG in SOD CHLORIDE 0.9% 100 ML IV SCH (17:17)
[2018-04-16] MEDS: OCTREOTIDE 1 MG in DEXTROSE 5% 95 ML IV SCH (17:42)
[2018-04-17] VITALS (98 sets, daily range): BP systolic 78–139; BP diastolic 54–104; PULSE 104–117; RESP 17–31
[2018-04-17] MEDS: PANTOPRAZOLE IV 80 MG in SOD CHLORIDE 0.9% 100 ML IV SCH ×3 (00:29→20:55)
[2018-04-17] MEDS: MIDAZOLAM (DRIP) 50 mg/50 mL 50 ML IV SCH ×4 (00:30→21:30)
[2018-04-17] MEDS: PROPOFOL 100 ML IV SCH ×2 (03:00→14:58)
[2018-04-17] MEDS: NORepinephrine 32 MG in DEXTROSE 5% 218 ML IV SCH ×2 (04:42→20:29)
[2018-04-17] MEDS: VASOPRESSIN 60 UNIT in DEXTROSE 5% 57 ML IV SCH ×2 (04:43→16:00)
[2018-04-17] MEDS: ALBUMIN HUMAN 25% 50 ML IV SCH ×3 (05:30→20:14)
[2018-04-17] MEDS: metroNIDAZOLE 500 MG/NS (PMX) 100 ML IVPB SCH ×3 (05:31→21:31)
[2018-04-17] MEDS: PHENYTOIN 100 MG INJ IV SCH ×3 (05:31→21:01)
[2018-04-17] MEDS: LACTULOSE ENEMA 1,000 ML BTL PR SCH ×3 (05:31→21:01)
[2018-04-17] MEDS: HYDROCORTISONE 100 MG INJ IV SCH ×3 (05:31→21:01)
[2018-04-17] MEDS: SOD CHLORIDE 0.9% 1,000 ML IV SCH (05:31)
[2018-04-17] MEDS: PHENYLephrine 80 MG in DEXTROSE 5% 242 ML IV SCH ×3 (05:35→20:06)
[2018-04-17] MEDS ORDERED: VANCOMYCIN 1 GM 250 ML IVPB ONE (06:30)
[2018-04-17] MEDS: FENTAnyl (DRIP) 1000 mcg/100mL 100 ML IV SCH ×2 (06:34→20:29)
[2018-04-17] MEDS: CEFEPIME 1GM/50 ML (PMX) 50 ML IVPB SCH ×2 (08:34→20:14)
[2018-04-17] MEDS: LEVETIRACETAM 500 MG (PMX) 100 ML IVPB SCH (08:34)
[2018-04-17] MEDS: PHYTONADIONE 10 MG in DEXTROSE 5% 50 ML IVPB SCH (09:17)
--- NOTE | 2018-04-17 10:02 | CONS ---
Assessment/Plan Assessment/Plan Assessment/Plan (Daily) 1. acute kidney injury due to ATN from sepsis 2. sepsis due to possible aspiration pnuemonia 3. acute hypoxic respiratory failure intbated on ventilator 4. acute hepatic encephalopathy 5. h/o Liver cirrhosis with chronic alcoholism 6. Spenomegaly with portal HTN an drecurrent ascites 7. Hyponatremia due to liver cirrhosis 8. Hydrocele with difficult williamson insertion 9. Hypocalcemia Plan: BUN/Cr 69/1.52, , BP still low on multiple pressors on IV octreotide gtt Ca 6.1- calcium gluconate 2 gram IV x 1 dose now IV keppra and IV dilantin for seizures IV abx cefepime and IV vancomycin, renally dose all abx and monitor electrolytes Currently no acute indicatin for HD- pt is on 3 pressors maxed out, not stable for dialysis due to very low BP will follow up Consultation Date/Type/Reason Admit Date/Time Apr 14, 2018 at 10:08 Initial Consult Date 04/14/18 Type of Consult NEPHROLOGY Requesting Provider: YUDITH WHALEY Date/Time of Note DATE: 04/17/18 TIME: 10:02 24 HR Interval Summary Free Text/Dictation Ca 6.1, BP still labile on Multiple pressors Exam/Review of Systems Exam Vitals Vital Signs Date Temp Pulse Resp B/P (MAP) Pulse Ox O2 O2 Flow FiO2 Time Delivery Rate 04/17/18 100.9 117 21 114/84 93 [place] 08:00 (94) l Ventilato r 04/17/18 65 08:00 04/14/18 15 08:38 Intake and Output 04/16/18 04/16/18 04/17/18 1515:00 23:00 07:00 IntakeIntake Total 1341.68 ml 2026.68 ml 1686.68 ml OutputOutput Total 750 ml 1050 ml 420 ml BalanceBalance 591.68 ml 976.68 ml 1266.68 ml Exam Constitutional: non-verbal + ET tube on ventilator Respiratory: crackles/rales, diminished breath sounds Cardiovascular: regular rate and rhythm, nl pulses Gastrointestinal: soft, ascites, distended Musculoskeletal: joint tenderness, swelling Extremities: normal pulses Neurological: other (intubated sedated on ventilator ) Results Result Diagram: 04/17/1843804/17/18438 Results 24hrs Laboratory Tests Test 04/17/18 04:34 04/17/18 04:39 04/17/18 05:00 Platelet Count 78 L 70 L Prothrombin Time 19.0 #H 19.9 H Prothrombin Time Ratio 1.5 1.6 INR International 1.58 1.68 Normalized Ratio Activated 36.3 H 36.7 H Partial Thromboplast Time Thrombin Time 15.5 White Blood Count 21.8 H Red Blood Count 3.42 L Hemoglobin 9.4 L Hematocrit 29.3 L Mean Corpuscular Volume 85.7 Mean Corpuscular Hemoglobin 27.5 L Mean Corpuscular 32.1 Hemoglobin Concent Red Cell Distribution Width 19.1 H Mean Platelet Volume 11.7 H Immature Granulocytes % 0.000 L Neutrophils % Segmented Neutrophils 63 % (Manual) Band Neutrophils % (Manual) 26 H Lymphocytes % Lymphocytes % (Manual) 4 L Monocytes % Monocytes % (Manual) 7 Eosinophils % Basophils % Nucleated Red Blood Cells % 13 H Immature Granulocytes # 0.010 Neutrophils # Neutrophils # (Manual) 15.0 H Band Neutrophils # 5.6 H Lymphocytes (Manual) 0.8 Lymphocytes # Monocytes # Monocytes # (Manual) 1.5 H Eosinophils # Basophils # Nucleated Red Blood Cells # Toxic Granulation 1+ Platelet Estimate SIG DECREASED Giant Platelets 3 H Polychromasia 1+ Poikilocytosis 1+ Anisocytosis 1+ Sodium Level 138 Potassium Level 4.0 Chloride Level 94 L Carbon Dioxide Level 27 Anion Gap 17 H Blood Urea Nitrogen 69 H Creatinine 1.52 H Est Glomerular Filtrat 50 L Rate mL/min Glucose Level 219 Lactic Acid Level 4.9 *H Calcium Level 6.1 L Magnesium Level 2.1 Total Bilirubin 2.0 H Direct Bilirubin 1.40 H Indirect Bilirubin 0.6 Aspartate Amino 344 H Transf (AST/SGOT) Alanine 151 H Aminotransferase (ALT/SGPT) Alkaline Phosphatase 120 Total Protein 6.5 Albumin 3.1 L Globulin 3.40 H Albumin/Globulin Ratio 0.91 Random Vancomycin Level 6.3 Phenytoin (Dilantin) Level 10.9 Blood Gas Specimen Source Blood arterial Arterial Blood Date Drawn 04/17/2018 5:00:15 AM Arterial Blood pH 7.393 (Temp corrected) Arterial Blood pCO2 37.9 (Temp correct) Arterial Blood pO2 63.1 L (Temp corrected) Arterial Blood HCO3 22.6 Arterial Blood Base Excess -1.9 Arterial Blood 89.5 L Oxygen Saturation [place] Test ACCEPTAB Arterial Blood Gas Right Radial Puncture Site Arterial 1.0 Blood Carboxyhemoglobin Arterial Blood Methemoglobin 0.3 Blood Gas A-a O2 323.0 H Differential Oxyhemoglobin Percent 88.3 L Blood Gas Temperature 37.0 Blood Gas Respiration Rate 20.0 Blood Gas Actual 21 Respiration Rate Blood Gas Modality VENT - AC FiO2 60.0 Blood Gas Tidal Volume 500.0 Blood Gas Low PEEP Setting 5.0 Blood Gas Notified Whom Al ELENA RCP Blood Gas Notified Time 04/17/2018 5:06:34 AM Medications Medication Current Medications Lactulose (Enulose) 20 gm Q6 NGT ; Start 04/14/18 at 12:00; Status Hold Propofol 100 ml @ 2.04 mls/hr Q12H IV Last administered on 04/14/18 14:55; Admin Dose 2.04 MLS/HR; Start 04/14/18 at 15:00 Sodium Chloride 1,000 ml @ 75 mls/hr [id number] IV Last administered on 04/17/18 05:31; Admin Dose 75 MLS/HR; Start 04/14/18 at 15:00 Vancomycin HCl (Vanco Iv Per Pharmacy) VANCOMYCIN PER PHARMACY PER PROTOCOL XX ; Start 04/14/18 at 15:00 Cefepime HCl 50 ml @ 100 mls/hr Q12 IVPB Last administered on 04/17/18 08:34; Admin Dose 100 MLS/HR; Start 04/14/18 at 21:00 Midazolam HCl 50 ml @ 1 mls/hr TITRATE IV Last administered on 04/17/18 05:33; Admin Dose 10 MLS/HR; Start 04/14/18 at 15:00 Vasopressin 60 unit/Dextrose 60 ml @ 0 mls/hr Q12H IV Last administered on 04:43; Admin Dose 2.4 MLS/HR; Start 04/14/18 at 16:00 Norepinephrine 32 mg/Dextrose 250 ml @ 0.47 mls/hr TITRATE IV Last administered on 04/17/18 04:42; Admin Dose 14.06 MLS/HR; Start 04/14/18 at 18:00 Phenylephrine HCl 80 mg/Dextrose 250 ml @ 18.75 mls/ hr TITRATE IV Last administered on 04/17/18 05:35; Admin Dose 56.25 MLS/HR; Start 04/14/18 at 18:00 Acetaminophen (Tylenol Supp) 650 mg Q6H PRN [place] FEVER GREATER THAN 100.6 Last administered on 04/15/18 12:00; Admin Dose 650 MG; Start 04/14/18 at 18:00 Phytonadione 10 mg/Dextrose 51 ml @ 102 mls/hr DAILY IVPB Last administered on 04/17/18 09:17; Admin Dose 102 MLS/HR; Start 04/15/18 at 09:00; Stop 04/18/18 at 12:00 Fentanyl 100 ml @ 2.5 mls/hr TITRATE IV Last administered on 04/17/18 06:34; Admin Dose 10 MLS/HR; Start 04/15/18 at 00:00 Lorazepam (Ativan) 1 mg PRN PRN IV DURING SEIZURES Last administered on 04/15/18 14:24; Admin Dose 1 MG; Start 04/15/18 at 04:30 Dopamine HCl/ Dextrose 250 ml @ 5.1 mls/hr TITRATE IV ; Start 04/15/18 at 06:30 Lactulose (Lactulose Enema) 100 ml Q8 [place] Last administered on 04/17/18 05:31; Admin Dose 100 ML; Start 04/15/18 at 14:00 Phenytoin (Dilantin) 100 mg Q8 IV Last administered on 04/17/18 05:31; Admin Dose 100 MG; Start 04/15/18 at 22:00 Levetiracetam 100 ml @ 400 mls/hr Q12 IVPB Last administered on 04/17/18 08:34; Admin Dose 400 MLS/HR; Start 04/16/18 at 09:00 Metronidazole 100 ml @ 100 mls/hr Q8 IVPB Last administered on 04/17/18 05:31; Admin Dose 100 MLS/HR; Start 04/16/18 at 14:00 Hydrocortisone (Solu-Cortef) 100 mg Q8 IV Last administered on 04/17/18 05:31; Admin Dose 100 MG; Start 04/16/18 at 14:00 Pantoprazole 80 mg/Sodium Chloride 100 ml @ 10 mls/hr Q10H IV Last adm inistered on 04/17/18 00:29; Admin Dose 10 MLS/HR; Start 04/16/18 at 14:00 Octreotide Acetate 1 mg/ Dextrose 100 ml @ 5 mls/hr Q20H IV Last administered on 04/16/18at 17:42; Admin Dose 5 MLS/HR; Start 04/16/18 at 14:00 Vancomycin HCl 1.25 gm/Sodium Chloride 250 ml @ 83.333 mls/ hr Q24H IVPB ; Start 04/18/18 at 03:00 MIKE PEARSON MD Apr 17, 2018 10:02
[2018-04-17] MEDS: OCTREOTIDE 1 MG in DEXTROSE 5% 95 ML IV SCH (10:23)
[2018-04-17] MEDS: LORAZEPAM 2 MG INJ IV PRN ×9 (10:24→21:57)
[2018-04-17] MEDS ORDERED: PHENYTOIN 300 MG in SOD CHLORIDE 0.9% 50 ML IV ONE (11:30)
--- NOTE | 2018-04-17 12:45 | CONS ---
Consult Date/Type/Reason Admit Date/Time Apr 14, 2018 at 10:08 Initial Consult Date 04/16/18 Type of Consultation: Urology Reason for Consultation Left scrotal swelling and skin erosion Requesting Provider: YUDITH WHALEY Date/Time of Note DATE: 04/17/18 TIME: 12:39 Subjective Patient is sedated and is on vasopressors and on a respirator. Objective Vitals Vital Signs Date Temp Pulse Resp B/P (MAP) Pulse Ox O2 O2 Flow FiO2 Time Delivery Rate 04/17/18 114 12:00 04/17/18 100.1 23 109/78 93 [place] 12:00 (88) l Ventilato r 04/17/18 70 08:25 04/14/18 15 08:38 Intake and Output 04/16/18 04/16/18 04/17/18 1414:59 22:59 06:59 IntakeIntake Total 1341.68 ml 2011.68 ml 1561.68 ml OutputOutput Total 725 ml 1100 ml 420 ml BalanceBalance 616.68 ml 911.68 ml 1141.68 ml Exam The scrotal swelling is the same as his most likely a large inguinal scrotal hernia. There is scrotal skin excoriation. Results/Medications Result Diagram: 04/17/18 0439 04/17/18 0439 Results 24 hrs Laboratory Tests Test 04/17/18 04:34 04/17/18 04:39 04/17/18 05:00 Platelet Count 78 L 70 L Prothrombin Time 19.0 #H 19.9 H Prothrombin Time Ratio 1.5 1.6 INR International 1.58 1.68 Normalized Ratio Activated 36.3 H 36.7 H Partial Thromboplast Time Thrombin Time 15.5 White Blood Count 21.8 H Red Blood Count 3.42 L Hemoglobin 9.4 L Hematocrit 29.3 L Mean Corpuscular Volume 85.7 Mean Corpuscular Hemoglobin 27.5 L Mean Corpuscular 32.1 Hemoglobin Concent Red Cell Distribution Width 19.1 H Mean Platelet Volume 11.7 H Immature Granulocytes % 0.000 L Neutrophils % Segmented Neutrophils 63 % (Manual) Band Neutrophils % (Manual) 26 H Lymphocytes % Lymphocytes % (Manual) 4 L Monocytes % Monocytes % (Manual) 7 Eosinophils % Basophils % Nucleated Red Blood Cells % 13 H Immature Granulocytes # 0.010 Neutrophils # Neutrophils # (Manual) 15.0 H Band Neutrophils # 5.6 H Lymphocytes (Manual) 0.8 Lymphocytes # Monocytes # Monocytes # (Manual) 1.5 H Eosinophils # Basophils # Nucleated Red Blood Cells # Toxic Granulation 1+ Platelet Estimate SIG DECREASED Giant Platelets 3 H Polychromasia 1+ Poikilocytosis 1+ Anisocytosis 1+ Sodium Level 138 Potassium Level 4.0 Chloride Level 94 L Carbon Dioxide Level 27 Anion Gap 17 H Blood Urea Nitrogen 69 H Creatinine 1.52 H Est Glomerular Filtrat 50 L Rate mL/min Glucose Level 219 Lactic Acid Level 4.9 *H Calcium Level 6.1 L Magnesium Level 2.1 Total Bilirubin 2.0 H Direct Bilirubin 1.40 H Indirect Bilirubin 0.6 Aspartate Amino 344 H Transf (AST/SGOT) Alanine 151 H Aminotransferase (ALT/SGPT) Alkaline Phosphatase 120 Total Protein 6.5 Albumin 3.1 L Globulin 3.40 H Albumin/Globulin Ratio 0.91 Random Vancomycin Level 6.3 Phenytoin (Dilantin) Level 10.9 Blood Gas Specimen Source Blood arterial Arterial Blood Date Drawn 04/17/2018 5:00:15 AM Arterial Blood pH 7.393 (Temp corrected) Arterial Blood pCO2 37.9 (Temp correct) Arterial Blood pO2 63.1 L (Temp corrected) Arterial Blood HCO3 22.6 Arterial Blood Base Excess -1.9 Arterial Blood 89.5 L Oxygen Saturation [place] Test ACCEPTAB Arterial Blood Gas Right Radial Puncture Site Arterial 1.0 Blood Carboxyhemoglobin Arterial Blood Methemoglobin 0.3 Blood Gas A-a O2 323.0 H Differential Oxyhemoglobin Percent 88.3 L Blood Gas Temperature 37.0 Blood Gas Respiration Rate 20.0 Blood Gas Actual 21 Respiration Rate Blood Gas Modality VENT - AC FiO2 60.0 Blood Gas Tidal Volume 500.0 Blood Gas Low PEEP Setting 5.0 Blood Gas Notified Whom Al [facility] Blood Gas Notified Time 04/17/2018 5:06:34 AM Home Meds Active Scripts Pantoprazole* (Pantoprazole*) 40 Mg Tablet., 40 MG PO DAILY@06 for 30 Days, #30 TAB 7 Refills Prov:CADEN SALMERON MD 03/25/18 Lactulose* (Lactulose*) 20 Gm/30 Ml Solution, 20 GM PO DAILY for 30 Days, #1 BOTTLE 7 Refills Prov:CADEN SALMERON MD 03/25/18 Spironolactone* (Aldactone*) 50 Mg Tablet, 100 MG PO BID for 30 Days, #60 TAB 7 Refills Prov:CADEN SALMERON MD 03/25/18 Propranolol Hcl* (Propranolol Hcl*) 10 Mg Tablet, 10 MG PO BID for 30 Days, #60 TAB 7 Refills Prov:CADEN SALMERON MD 03/25/18 Furosemide* (Furosemide*) 40 Mg Tablet, 40 MG PO DAILY for 30 Days, #30 TAB 7 Refills Prov:CADEN SALMERON MD 03/25/18 Medications Current Medications Lactulose (Enulose) 20 gm Q6 NGT ; Start 04/14/18 at 12:00; Status Hold Propofol 100 ml @ 2.04 mls/hr Q12H IV Last administered on 04/14/18at 14:55; Admin Dose 2.04 MLS/HR; Start 04/14/18 at 15:00 Sodium Chloride 1,000 ml @ 75 mls/hr [id number] IV Last administered on 04/17/18at 05:31; Admin Dose 75 MLS/HR; Start 04/14/18 at 15:00 Vancomycin HCl (Vanco Iv Per Pharmacy) VANCOMYCIN PER PHARMACY PER PROTOCOL XX ; Start 04/14/18 at 15:00 Cefepime HCl 50 ml @ 100 mls/hr Q12 IVPB Last administered on 04/17/18 08:34; Admin Dose 100 MLS/HR; Start 04/14/18 at 21:00 Midazolam HCl 50 ml @ 1 mls/hr TITRATE IV Last administered on 04/17/18 05:33; Admin Dose 10 MLS/HR; Start 04/14/18 at 15:00 Vasopressin 60 unit/Dextrose 60 ml @ 0 mls/hr Q12H IV Last administered on 04/17/18 04:43; Admin Dose 2.4 MLS/HR; Start 04/14/18 at 16:00 Norepinephrine 32 mg/Dextrose 250 ml @ 0.47 mls/hr TITRATE IV Last administered on 04/17/18 04:42; Admin Dose 14.06 MLS/HR; Start 04/14/18 at 18:00 Phenylephrine HCl 80 mg/Dextrose 250 ml @ 18.75 mls/ hr TITRATE IV Last administered on 04/17/18 11:43; Admin Dose 45 MLS/HR; Start 04/14/18 at 18:00 Acetaminophen (Tylenol Supp) 650 mg Q6H PRN [place] FEVER GREATER THAN 100.6 Last administered on 04/15/18 12:00; Admin Dose 650 MG; Start 04/14/18 at 18:00 Phytonadione 10 mg/Dextrose 51 ml @ 102 mls/hr DAILY IVPB Last administered on 04/17/18 09:17; Admin Dose 102 MLS/HR; Start 04/15/18 at 09:00; Stop 04/18/18 at 12:00 Fentanyl 100 ml @ 2.5 mls/hr TITRATE IV Last administered on 04/17/18 06:34; Admin Dose 10 MLS/HR; Start 04/15/18 at 00:00 Dopamine HCl/ Dextrose 250 ml @ 5.1 mls/hr TITRATE IV ; Start 04/15/18 at 06:30 Lactulose (Lactulose Enema) 100 ml Q8 [place] Last administered on 04/17/18 05:31; Admin Dose 100 ML; Start 04/15/18 at 14:00 Phenytoin (Dilantin) 100 mg Q8 IV Last administered on 04/17/18 05:31; Admin Dose 100 MG; Start 04/15/18 at 22:00 Levetiracetam 100 ml @ 400 mls/hr Q12 IVPB Last administered on 04/17/18 08:34; Admin Dose 400 MLS/HR; Start 04/16/18 at 09:00 Metronidazole 100 ml @ 100 mls/hr Q8 IVPB Last administered on 04/17/18 05:31; Admin Dose 100 MLS/HR; Start 04/16/18 at 14:00 Hydrocortisone (Solu-Cortef) 100 mg Q8 IV Last administered on 04/17/18 05:31; Admin Dose 100 MG; Start 04/16/18 at 14:00 Pantoprazole 80 mg/Sodium Chloride 100 ml @ 10 mls/hr Q10H IV Last administered on 04/17/18 10:22; Admin Dose 10 MLS/HR; Start 04/16/18 at 14:00 Octreotide Acetate 1 mg/ Dextrose 100 ml @ 5 mls/hr Q20H IV Last administered on 04/17/18 10:23; Admin Dose 5 MLS/HR; Start 04/16/18 at 14:00 Vancomycin HCl 1.25 gm/Sodium Chloride 250 ml @ 83.333 mls/ hr Q24H IVPB ; Start 04/18/18 at 03:00 Lorazepam (Ativan) 2 mg Q10MIN PRN IV seizure Last administered on 04/17/18at 11:10; Admin Dose 2 MG; Start 04/17/18 at 11:30 Assessment/Plan Hospital Course (Demo Recall) his is a 43-year-old male who is known to have a history of alcoholic cirrhosis and ascites and he presented to the emergency room with altered mental status and respiratory failure. He was intubated and is presently on a respirator. Attempt by the nursing staff to insert the Giron catheter were not successful; therefore, a urological consultation was requested. The patient does have a very large left-sided scrotum and the penis is buried within that swelling. The patient is on a respirator and vasopressors. He has had a history of aspiration pneumonia and hepatic encephalopathy, respiratory failure, chronic alcoholic cirrhosis with portal hypertension and splenomegaly, sepsis, renal insufficiency secondary to sepsis, hyponatremia, chronic hypochromic anemia and severe abdominal distention. The patient does also have a left inguinal scrotal herni a. The scrotal enlargement is unchanged but now he does have scrotal skin excoriation. The Giron catheter is draining well and the urine is clear. For now we shall keep the Giron catheter in until his medical condition improves MIMI DASH MD Apr 17, 2018 12:45
--- NOTE | 2018-04-17 12:55 | PN ---
Date/Time of Note Date/Time of Note DATE: 04/17/18 TIME: 12:53 Objective Vitals Vital Signs Date Temp Pulse Resp B/P (MAP) Pulse Ox O2 O2 Flow FiO2 Time Delivery Rate 04/17/18 114 12:00 04/17/18 100.1 23 109/78 93 [place] 12:00 (88) l Ventilato r 04/17/18 70 08:25 04/14/18 15 08:38 Intake and Output 04/16/18 04/16/18 04/17/18 1414:59 22:59 06:59 IntakeIntake Total 1341.68 ml 2011.68 ml 1561.68 ml OutputOutput Total 725 ml 1100 ml 420 ml BalanceBalance 616.68 ml 911.68 ml 1141.68 ml Results Result Diagram: 04/17/18 0439 04/17/18 0439 Medications Medications Current Medications Lactulose (Enulose) 20 gm Q6 NGT ; Start 04/14/18 at 12:00; Status Hold Propofol 100 ml @ 2.04 mls/hr Q12H IV Last administered on 04/14/18at 14:55; Admin Dose 2.04 MLS/HR; Start 04/14/18 at 15:00 Sodium Chloride 1,000 ml @ 75 mls/hr [id number] IV Last administered on 04/17/18at 05:31; Admin Dose 75 MLS/HR; Start 04/14/18 at 15:00 Vancomycin HCl (Vanco Iv Per Pharmacy) VANCOMYCIN PER PHARMACY PER PROTOCOL XX ; Start 04/14/18 at 15:00 Cefepime HCl 50 ml @ 100 mls/hr Q12 IVPB Last administered on 04/17/18at 08:34; Admin Dose 100 MLS/HR; Start 04/14/18 at 21:00 Midazolam HCl 50 ml @ 1 mls/hr TITRATE IV Last administered on 04/17/18at 05:33; Admin Dose 10 MLS/HR; Start 04/14/18 at 15:00 Vasopressin 60 unit/Dextrose 60 ml @ 0 mls/hr Q12H IV Last administered on 04/17/18at 04:43; Admin Dose 2.4 MLS/HR; Start 04/14/18 at 16:00 Norepinephrine 32 mg/Dextrose 250 ml @ 0.47 mls/hr TITRATE IV Last administered on 04/17/18 04:42; Admin Dose 14.06 MLS/HR; Start 04/14/18 at 18:00 Phenylephrine HCl 80 mg/Dextrose 250 ml @ 18.75 mls/ hr TITRATE IV Last administered on 04/17/18 11:43; Admin Dose 45 MLS/HR; Start 04/14/18 at 18:00 Acetaminophen (Tylenol Supp) 650 mg Q6H PRN [place] FEVER GREATER THAN 100.6 Last a dministered on 04/15/18 12:00; Admin Dose 650 MG; Start 04/14/18 at 18:00 Phytonadione 10 mg/Dextrose 51 ml @ 102 mls/hr DAILY IVPB Last administered on 04/17/18 09:17; Admin Dose 102 MLS/HR; Start 04/15/18 at 09:00; Stop 04/18/18 at 12:00 Fentanyl 100 ml @ 2.5 mls/hr TITRATE IV Last administered on 04/17/18 06:34; Admin Dose 10 MLS/HR; Start 04/15/18 at 00:00 Dopamine HCl/ Dextrose 250 ml @ 5.1 mls/hr TITRATE IV ; Start 04/15/18 at 06:30 Lactulose (Lactulose Enema) 100 ml Q8 [place] Last administered on 04/17/18 05:31; Admin Dose 100 ML; Start 04/15/18 at 14:00 Phenytoin (Dilantin) 100 mg Q8 IV Last administered on 04/17/18 05:31; Admin Dose 100 MG; Start 04/15/18 at 22:00 Levetiracetam 100 ml @ 400 mls/hr Q12 IVPB Last administered on 04/17/18 08:34; Admin Dose 400 MLS/HR; Start 04/16/18 at 09:00 Metronidazole 100 ml @ 100 mls/hr Q8 IVPB Last administered on 04/17/18 05:31; Admin Dose 100 MLS/HR; Start 04/16/18 at 14:00 Hydrocortisone (Solu-Cortef) 100 mg Q8 IV Last administered on 04/17/18 05:31; Admin Dose 100 MG; Start 04/16/18 at 14:00 Pantoprazole 80 mg/Sodium Chloride 100 ml @ 10 mls/hr Q10H IV Last administered on 04/17/18at 10:22; Admin Dose 10 MLS/HR; Start 04/16/18 at 14:00 Octreotide Acetate 1 mg/ Dextrose 100 ml @ 5 mls/hr Q20H IV Last administered on 04/17/18at 10:23; Admin Dose 5 MLS/HR; Start 04/16/18 at 14:00 Vancomycin HCl 1.25 gm/Sodium Chloride 250 ml @ 83.333 mls/ hr Q24H IVPB ; Start 04/18/18 at 03:00 Lorazepam (Ativan) 2 mg Q10MIN PRN IV seizure Last administered on 04/17/18at 11:10; Admin Dose 2 MG; Start 04/17/18 at 11:30 VTE Prophylaxis Risk score (from [facility])>0 risk: 9 SCD applied (from [facility]): Yes Lines/Catheters IV Catheter Type: Williamson in Place: Yes Cont'd williamson catheter reason: terminal illness/intractable pain Assessment/Plan Hospital Course Subjective Mild improvement in blood pressure, still on multiple pressors however Objective Physical exam General: Patient is laying in bed intubated and sedated Mentation: Patient is intubated and sedated Head: Normocephalic atraumatic Eyes: EOMI, pupils reactive to light Neck: Supple, nontender, midline Respiratory: Coarse to auscultation bilaterally Cardiovascular: regular rate, no obvious murmurs Gastrointestinal: Distended, bowel sounds heard. Neurological: Unable to assess Skin: No new skin lesions 43-year-old male who is a chronic alcoholic with known alcoholic cirrhosis, Was recently discharged from this facility about 3 weeks prior to admit after being managed for sepsis with concern for SBP and at that time had undergone paracentesis with removal of 5 L of fluid. He presented to the ER with altered mentation respiratory failure and strong concern for aspiration pneumonia (gastric contents visualized during intubation), being admitted to the ICU as he is requiring ventilator support. Problems are listed as below: 1. Acute respiratory failure likely secondary to #2 -remains vent dependent with high Fio2 -pulm managing vent, appreciate input 2. Aspiration pneumonia versus pneumonitis likely related to #3 -Solu-medrol x1 given -empiric Vanc and cefepime -serial CXR -OGT remains to suction, putting out good volume -ID following 3. Sepsis with Septic shock likely 2/2 aspiration, possible SBP as well -now on 3 pressors -likely also component of hypovolemia as patient is also third spacing a lot from liver disease -f/u cultures -ID consult -Neurology Manager on board 4. New seizures with underlying hepatic encephalopathy -was holding off on lactualose therapy 2/2 hypotension, but may be contributing to seizures, so will start rectal lactulose as long as ok with neuro -EEG , Neurology consult, Empiric Keppra and dilantin, Ativan as needed -Multiple seizures today, continue Ativan and reloaded with Dilantin per neurology recommendations 5. Acute renal insufficiency likely secondary to sepsis -appreciate Nephro input -continue albumin infusion -continue IVF per nephro -Hold ACEi, ARBs, and metformin if applicable. Renally dose all meds. Serial labs. -renal USS to r/o obstruction, patient also has williamson 6. Chronic alcoholic cirrhosis with portal hypertension and splenomegaly -monitor liver function and coag panel -IV PPI -BB therapy once BP improves -elevated LFT's again, -GI will be on board 7. Hyponatremia likely related to alcohol use -improved 8. Chronic hypochromic anemia secondary to chronic liver disease -likely 2/2 to hemodilution, no signs of GI bleed, will get anemia labs and fecal occult 9. Severe abdominal distention, likely secondary to ascites with chronic large ventral hernia as well as large inguinal hernia -CT showed anterior ventral hernia containing ascitic fluid and left inguinal hernia as well as left large hydrocele -IR deffered paracentesis 2/2 critical status, will reconsult when more stable ? -no intervention for now, Keep head of bed slightly depressed, monitor 10. Severe scrotal swelling/hydrocele, likely sequelae from #9 -keep scrotum elevated -miranda, urology consulted to insert williamson, stable 11. Cholelithiasis -incidental finding 12. Positive troponin in the setting of shock, likely type 2 demand infarct. -now trended negative Dispo: -Multiple database consultant recommendations appreciated -More than 40 minutes of critical care time was spent on this encounter -Patient is very critical in the ICU, physical education instructor had a long conversation with mother, patient's chemical code only for now. No chest compressions JASEN CASTRO Apr 17, 2018 12:55
--- NOTE | 2018-04-17 12:57 | CONS ---
Consult Date/Type/Reason Admit Date/Time Apr 14, 2018 at 10:08 Initial Consult Date 04/16/18 Type of Consultation: Pulm/CCM Requesting Provider: YUDITH WHALEY Date/Time of Note DATE: 04/17/18 TIME: 12:53 Subjective Urine output and creatinine improved s/p albumin infusions. Seizure episode noted. Reduced pressor requirements. Objective Vitals Vital Signs Date Temp Pulse Resp B/P (MAP) Pulse Ox O2 O2 Flow FiO2 Time Delivery Rate 04/17/18 114 12:00 04/17/18 100.1 23 109/78 93 [place] 12:00 (88) l Ventilato r 04/17/18 70 08:25 04/14/18 15 08:38 Intake and Output 04/16/18 04/16/18 04/17/18 1515:00 23:00 07:00 IntakeIntake Total 1341.68 ml 2026.68 ml 1686.68 ml OutputOutput Total 750 ml 1050 ml 420 ml BalanceBalance 591.68 ml 976.68 ml 1266.68 ml Exam HEENT: Neck supple; no JVD; no LAD; + ET Tube CVS: Tachy, S1 and S2 CHEST: Coarse BS ABD: Distended, NT, + BS EXT: No c/c; + edema NEURO: Sedated on the vent. Results/Medications Result Diagram: 04/17/18 0439 04/17/18 0439 Results 24 hrs Laboratory Tests Test 04/17/18 04:34 04/17/18 04:39 04/17/18 05:00 04/17/18 10:45 Platelet Count 78 L 70 L Prothrombin Time 19.0 #H 19.9 H Prothrombin Time 1.5 1.6 Ratio INR International 1.58 1.68 Normalized Ratio Activated 36.3 H 36.7 H Partial Thrombopl ast Time Thrombin Time 15.5 White Blood Count 21.8 H Red Blood Count 3.42 L Hemoglobin 9.4 L Hematocrit 29.3 L Mean Corpuscular 85.7 Volume Mean Corpuscular 27.5 L Hemoglobin Mean Corpuscular 32.1 Hemoglobin Concen t Red Cell 19.1 H Distribution Width Mean Platelet 11.7 H Volume Immature 0.000 L Granulocytes % Neutrophils % Segmented 63 Neutrophils % (Manual) Band Neutrophils 26 H % (Manual) Lymphocytes % Lymphocytes % 4 L (Manual) Monocytes % Monocytes % 7 (Manual) Eosinophils % Basophils % Nucleated Red 13 H Blood Cells % Immature 0.010 Granulocytes # Neutrophils # Neutrophils # 15.0 H (Manual) Band Neutrophils 5.6 H # Lymphocytes 0.8 (Manual) Lymphocytes # Monocytes # Monocytes # 1.5 H (Manual) Eosinophils # Basophils # Nucleated Red Blood Cells # Toxic Granulation 1+ Platelet Estimate SIG DECREASED Giant Platelets 3 H Polychromasia 1+ Poikilocytosis 1+ Anisocytosis 1+ Sodium Level 138 Potassium Level 4.0 Chloride Level 94 L Carbon Dioxide 27 Level Anion Gap 17 H Blood Urea 69 H Nitrogen Creatinine 1.52 H Est Glomerular 50 L Filtrat Rate mL/min Glucose Level 219 Lactic Acid Level 4.9 *H Calcium Level 6.1 L Magnesium Level 2.1 Total Bilirubin 2.0 H Direct Bilirubin 1.40 H Indirect 0.6 Bilirubin Aspartate Amino 344 H Transf (AST/SGOT) Alanine 151 H Aminotransferase (ALT/SGPT) Alkaline 120 Phosphatase Total Protein 6.5 Albumin 3.1 L Globulin 3.40 H Albumin/Globulin 0.91 Ratio Random Vancomycin 6.3 Level Phenytoin 10.9 (Dilantin) Level Blood Gas Blood arterial Specimen Source Arterial Blood 04/17/2018 5:00:15 Date Drawn AM Arterial Blood pH 7.393 (Temp corrected) Arterial Blood 37.9 pCO2 (Temp correct) Arterial Blood 63.1 L pO2 (Temp corrected) Arterial Blood 22.6 HCO3 Arterial Blood -1.9 Base Excess Arterial Blood 89.5 L Oxygen Saturation [place] Test ACCEPTAB Arterial Blood Right Radial Gas Puncture Site Arterial 1.0 Blood Carboxyhemo globin Arterial Blood 0.3 Methemoglobin Blood Gas A-a O2 323.0 H Differential Oxyhemoglobin 88.3 L Percent Blood Gas 37.0 Temperature Blood Gas 20.0 Respiration Rate Blood Gas Actual 21 Respiration Rate Blood Gas VENT - AC Modality FiO2 60.0 Blood Gas Tidal 500.0 Volume Blood Gas Low 5.0 PEEP Setting Blood Gas M [employer] Notified Whom Blood Gas 04/17/2018 5:06:34 Notified Time AM Stool Occult NEGATIVE Blood Home Meds Active Scripts Pantoprazole* (Pantoprazole*) 40 Mg Tablet., 40 MG PO DAILY@06 for 30 Days, #30 TAB 7 Refills Prov:CADEN SALMERON MD 03/25/18 Lactulose* (Lactulose*) 20 Gm/30 Ml Solution, 20 GM PO DAILY for 30 Days, #1 BOTTLE 7 Refills Prov:CADEN SALMERON MD 03/25/18 Spironolactone* (Aldactone*) 50 Mg Tablet, 100 MG PO BID for 30 Days, #60 TAB 7 Refills Prov:CADEN SALMERON MD 03/25/18 Propranolol Hcl* (Propranolol Hcl*) 10 Mg Tablet, 10 MG PO BID for 30 Days, #60 TAB 7 Refills Prov:CADEN SALMERON MD 03/25/18 Furosemide* (Furosemide*) 40 Mg Tablet, 40 MG PO DAILY for 30 Days, #30 TAB 7 Refills Prov:CADEN SALMERON MD 03/25/18 Medications Current Medications Lactulose (Enulose) 20 gm Q6 NGT ; Start 04/14/18 at 12:00; Status Hold Propofol 100 ml @ 2.04 mls/hr Q12H IV Last administered on 04/14/18at 14:55; Admin Dose 2.04 MLS/HR; Start 04/14/18 at 15:00 Sodium Chloride 1,000 ml @ 75 mls/hr [id number] IV Last administered on 04/17/18at 05:31; Admin Dose 75 MLS/HR; Start 04/14/18 at 15:00 Vancomycin HCl (Vanco Iv Per Pharmacy) VANCOMYCIN PER PHARMACY PER PROTOCOL XX ; Start 04/14/18 at 15:00 Cefepime HCl 50 ml @ 100 mls/hr Q12 IVPB Last administered on 04/17/18at 08:34; Admin Dose 100 MLS/HR; Start 04/14/18 at 21:00 Midazolam HCl 50 ml @ 1 mls/hr TITRATE IV Last administered on 04/17/18at 05:33; Admin Dose 10 MLS/HR; Start 04/14/18 at 15:00 Vasopressin 60 unit/Dextrose 60 ml @ 0 mls/hr Q12H IV Last administered on 04/17/18at 04:43; Admin Dose 2.4 MLS/HR; Start 04/14/18 at 16:00 Norepinephrine 32 mg/Dextrose 250 ml @ 0.47 mls/hr TITRATE IV Last administered on 04/17/18at 04:42; Admin Dose 14.06 MLS/HR; Start 04/14/18 at 18:00 Phenylephrine HCl 80 mg/Dextrose 250 ml @ 18.75 mls/ hr TITRATE IV Last administered on 04/17/18 11:43; Admin Dose 45 MLS/HR; Start 04/14/18 at 18:00 Acetaminophen (Tylenol Supp) 650 mg Q6H PRN [place] FEVER GREATER THAN 100.6 Last administered on 04/15/18 12:00; Admin Dose 650 MG; Start 04/14/18 at 18:00 Phytonadione 10 mg/Dextrose 51 ml @ 102 mls/hr DAILY IVPB Last administered on 04/17/18 09:17; Admin Dose 102 MLS/HR; Start 04/15/18 at 09:00; Stop 04/18/18 at 12:00 Fentanyl 100 ml @ 2.5 mls/hr TITRATE IV Last administered on 04/17/18 06:34; Admin Dose 10 MLS/HR; Start 04/15/18 at 00:00 Dopamine HCl/ Dextrose 250 ml @ 5.1 mls/hr TITRATE IV ; Start 04/15/18 at 06:30 Lactulose (Lactulose Enema) 100 ml Q8 [place] Last administered on 04/17/18 05:31; Admin Dose 100 ML; Start 04/15/18 at 14:00 Phenytoin (Dilantin) 100 mg Q8 IV Last administered on 04/17/18 05:31; Admin Dose 100 MG; Start 04/15/18 at 22:00 Levetiracetam 100 ml @ 400 mls/hr Q12 IVPB Last administered on 04/17/18 08:34; Admin Dose 400 MLS/HR; Start 04/16/18 at 09:00 Metronidazole 100 ml @ 100 mls/hr Q8 IVPB Last administered on 04/17/18 05:31; Admin Dose 100 MLS/HR; Start 04/16/18 at 14:00 Hydrocortisone (Solu-Cortef) 100 mg Q8 IV Last administered on 04/17/18 05:31; Admin Dose 100 MG; Start 04/16/18 at 14:00 Pantoprazole 80 mg/Sodium Chloride 100 ml @ 10 mls/hr Q10H IV Last administered on 04/17/18 10:22; Admin Dose 10 MLS/HR; Start 04/16/18 at 14:00 Octreotide Acetate 1 mg/ Dextrose 100 ml @ 5 mls/hr Q20H IV Last administered on 04/17/18at 10:23; Admin Dose 5 MLS/HR; Start 04/16/18 at 14:00 Vancomycin HCl 1.25 gm/Sodium Chloride 250 ml @ 83.333 mls/ hr Q24H IVPB ; Start 04/18/18 at 03:00 Lorazepam (Ativan) 2 mg Q10MIN PRN IV seizure Last administered on 04/17/18at 11:10; Admin Dose 2 MG; Start 04/17/18 at 11:30 Assessment/Plan Assessment/Plan (Daily) IMP: 1. Septic Shock with multiorgan failure 2. Respiratory Failure/Vent 3. Lactic Acidosis 2/2 #1 and decompensated liver failure 4. Decompensated liver failure 5. ARF 2/2 non-oliguric ATN 6. Hepatic Encephalopathy 7. Seizure 2/2 #6 RECS: 1. Vent support 2. Pressors to MAP > 65 mm Hg 3. Abx per ID 4. Albumin 25% x 3 more doses 5. Continue hydrocortisone 100 mg IV Q 8 6. PPI IV 7. Follow Coags; LFTs and H/H 8. Start rifaximin and lactulose 9. Dilantin or keppra for seizures 10. No chest compressions as per Family meeting 40 min cc time BEREKET LANG MD Apr 17, 2018 12:57
[2018-04-17] MEDS: RIFAXIMIN 550 MG TAB NGT SCH ×2 (13:43→20:15)
[2018-04-17] MEDS: LACTULOSE 30ML CUP NGT SCH ×2 (13:43→17:34)
--- NOTE | 2018-04-17 13:56 | PN ---
Date/Time of Note Date/Time of Note DATE: 04/17/18 TIME: 13:50 Assessment/Plan VTE Prophylaxis Risk score (from Ns)>0 risk: 9 SCD applied (from Ns): Yes Pharmacological prophylaxis: other (scds) Lines/Catheters IV Catheter Type (from [facility]): Urinary Cath still in place: Yes Reason Cath still needed: other (indicate) (monitor output) Assessment/Plan Hospital Course Summary Assessment and Plan: Assessment: Acute elevation in LFTS with direct hyperbilirubinemia -abd u/s shows CBD 7mm Normocytic anemia -stable -NGT with dark output Alcoholic cirrhosis with portal hypertension/splenomegaly -IR deferred paracentesis 2/2 critical status Coagulopathy- on vitamin K Aspiration pneumonia versus pneumonitis Acute respiratory failure likely 2/2 to above Sepsis with Septic shock likely 2/2 aspiration New onset seizures Hepatic encephalopathy Renal insufficiency Scrotal swelling Hyponatremia Cholelithiasis Positive troponin in the setting of shock -likely type 2 demand infarct. Plan: will plan to continue PPI gtt/Octreotide next 24 hours, if hgb remains stable Trend LFTs/HGB- abd u/s shows CBD 7mm- mas dimension of normal- if patients overall status improves,will consider MRCP hydrobilirubin likely 2/2 to advanced liver disease Serology from 11/2017- negative Maintain close observation Patient seen in collaboration with Dr. Fernando Subjective/Free text: Course reviewed with nursing staff Patient interviewed and examined All labs, imaging and other results reviewed The patient remains remains critical with multiple pressors HGB is stable, family at bedside, overall poor prognosis with multi-organ failure Family has changed code status to chemical code. PHYSICAL EXAMINATION: GENERAL: Sedated, intubated, ill appearing man, NGT in place SKIN: No lesions, stigmata chronic liver disease HEAD: Normocephalic, atraumatic, no tenderness. CHEST: Inspection within normal limits. CARDIOVASCULAR: Heart: Regular rate and rhythm, RESPIRATORY: Lungs clear to auscultation GASTROINTESTINAL AND LIVER: Abdomen: Soft, non tenderness, + distended, no hernias, no masses, no organomegaly, + ascites, hypoactive bowel sounds. Rectal: Deferred.rectal tube in place GENITOURINARY: edema to scrotum Result Diagram: 04/17/18 0439 04/17/18 0439 Results 24hrs Laboratory Tests Test 04/17/18 04:34 04/17/18 04:39 04/17/18 05:00 04/17/18 10:45 Platelet Count 78 L 70 L Prothrombin Time 19.0 #H 19.9 H Prothrombin Time 1.5 1.6 Ratio INR International 1.58 1.68 Normalized Ratio Activated 36.3 H 36.7 H Partial Thrombopl ast Time Thrombin Time 15.5 White Blood Count 21.8 H Red Blood Count 3.42 L Hemoglobin 9.4 L Hematocrit 29.3 L Mean Corpuscular 85.7 Volume Mean Corpuscular 27.5 L Hemoglobin Mean Corpuscular 32.1 Hemoglobin Concen t Red Cell 19.1 H Distribution Width Mean Platelet 11.7 H Volume Immature 0.000 L Granulocytes % Neutrophils % Segmented 63 Neutrophils % (Manual) Band Neutrophils 26 H % (Manual) Lymphocytes % Lymphocytes % 4 L (Manual) Monocytes % Monocytes % 7 (Manual) Eosinophils % Basophils % Nucleated Red 13 H Blood Cells % Immature 0.010 Granulocytes # Neutrophils # Neutrophils # 15.0 H (Manual) Band Neutrophils 5.6 H # Lymphocytes 0.8 (Manual) Lymphocytes # Monocytes # Monocytes # 1.5 H (Manual) Eosinophils # Basophils # Nucleated Red Blood Cells # Toxic Granulation 1+ Platelet Estimate SIG DECREASED Giant Platelets 3 H Polychromasia 1+ Poikilocytosis 1+ Anisocytosis 1+ Sodium Level 138 Potassium Level 4.0 Chloride Level 94 L Carbon Dioxide 27 Level Anion Gap 17 H Blood Urea 69 H Nitrogen Creatinine 1.52 H Est Glomerular 50 L Filtrat Rate mL/min Glucose Level 219 Lactic Acid Level 4.9 *H Calcium Level 6.1 L Magnesium Level 2.1 Total Bilirubin 2.0 H Direct Bilirubin 1.40 H Indirect 0.6 Bilirubin Aspartate Amino 344 H Transf (AST/SGOT) Alanine 151 H Aminotransferase (ALT/SGPT) Alkaline 120 Phosphatase Total Protein 6.5 Albumin 3.1 L Globulin 3.40 H Albumin/Globulin 0.91 Ratio Random Vancomycin 6.3 Level Phenytoin 10.9 (Dilantin) Level Blood Gas Blood arterial Specimen Source Arterial Blood 04/17/2018 5:00:15 Date Drawn AM Arterial Blood pH 7.393 (Temp corrected) Arterial Blood 37.9 pCO2 (Temp correct) Arterial Blood 63.1 L pO2 (Temp corrected) Arterial Blood 22.6 HCO3 Arterial Blood -1.9 Base Excess Arterial Blood 89.5 L Oxygen Saturation [place] Test ACCEPTAB Arterial Blood Right Radial Gas Puncture Site Arterial 1.0 Blood Carboxyhemo globin Arterial Blood 0.3 Methemoglobin Blood Gas A-a O2 323.0 H Differential Oxyhemoglobin 88.3 L Percent Blood Gas 37.0 Temperature Blood Gas 20.0 Respiration Rate Blood Gas Actual 21 Respiration Rate Blood Gas VENT - AC Modality FiO2 60.0 Blood Gas Tidal 500.0 Volume Blood Gas Low 5.0 PEEP Setting Blood Gas M [facility] Notified Whom Blood Gas 04/17/2018 5:06:34 Notified Time AM Stool Occult NEGATIVE Blood Exam/Review of Systems Exam Vitals Vital Signs Date Temp Pulse Resp B/P (MAP) Pulse Ox O2 O2 Flow FiO2 Time Delivery Rate 04/17/18 114 12:00 04/17/18 100.1 23 109/78 93 [place] 12:00 (88) l Ventilato r 04/17/18 70 08:25 04/14/18 15 08:38 Intake and Output 04/16/18 04/16/18 04/17/18 1515:00 23:00 07:00 IntakeIntake Total 1341.68 ml 2026.68 ml 1686.68 ml OutputOutput Total 750 ml 1050 ml 420 ml BalanceBalance 591.68 ml 976.68 ml 1266.68 ml Results Results 24hrs Laboratory Tests Test 04/17/18 04:34 04/17/18 04:39 04/17/18 05:00 04/17/18 10:45 Platelet Count 78 L 70 L Prothrombin Time 19.0 #H 19.9 H Prothrombin Time 1.5 1.6 Ratio INR International 1.58 1.68 Normalized Ratio Activated 36.3 H 36.7 H Partial Thrombopl ast Time Thrombin Time 15.5 White Blood Count 21.8 H Red Blood Count 3.42 L Hemoglobin 9.4 L Hematocrit 29.3 L Mean Corpuscular 85.7 Volume Mean Corpuscular 27.5 L Hemoglobin Mean Corpuscular 32.1 Hemoglobin Concen t Red Cell 19.1 H Distribution Width Mean Platelet 11.7 H Volume Immature 0.000 L Granulocytes % Neutrophils % Segmented 63 Neutrophils % (Manual) Band Neutrophils 26 H % (Manual) Lymphocytes % Lymphocytes % 4 L (Manual) Monocytes % Monocytes % 7 (Manual) Eosinophils % Basophils % Nucleated Red 13 H Blood Cells % Immature 0.010 Granulocytes # Neutrophils # Neutrophils # 15.0 H (Manual) Band Neutrophils 5.6 H # Lymphocytes 0.8 (Manual) Lymphocytes # Monocytes # Monocytes # 1.5 H (Manual) Eosinophils # Basophils # Nucleated Red Blood Cells # Toxic Granulation 1+ Platelet Estimate SIG DECREASED Giant Platelets 3 H Polychromasia 1+ Poikilocytosis 1+ Anisocytosis 1+ Sodium Level 138 Potassium Level 4.0 Chloride Level 94 L Carbon Dioxide 27 Level Anion Gap 17 H Blood Urea 69 H Nitrogen Creatinine 1.52 H Est Glomerular 50 L Filtrat Rate mL/min Glucose Level 219 Lactic Acid Level 4.9 *H Calcium Level 6.1 L Magnesium Level 2.1 Total Bilirubin 2.0 H Direct Bilirubin 1.40 H Indirect 0.6 Bilirubin Aspartate Amino 344 H Transf (AST/SGOT) Alanine 151 H Aminotransferase (ALT/SGPT) Alkaline 120 Phosphatase Total Protein 6.5 Albumin 3.1 L Globulin 3.40 H Albumin/Globulin 0.91 Ratio Random Vancomycin 6.3 Level Phenytoin 10.9 (Dilantin) Level Blood Gas Blood arterial Specimen Source Arterial Blood 04/17/2018 5:00:15 Date Drawn AM Arterial Blood pH 7.393 (Temp corrected) Arterial Blood 37.9 pCO2 (Temp correct) Arterial Blood 63.1 L pO2 (Temp corrected) Arterial Blood 22.6 HCO3 Arterial Blood -1.9 Base Excess Arterial Blood 89.5 L Oxygen Saturation [place] Test ACCEPTAB Arterial Blood Right Radial Gas Puncture Site Arterial 1.0 Blood Carboxyhemo globin Arterial Blood 0.3 Methemoglobin Blood Gas A-a O2 323.0 H Differential Oxyhemoglobin 88.3 L Percent Blood Gas 37.0 Temperature Blood Gas 20.0 Respiration Rate Blood Gas Actual 21 Respiration Rate Blood Gas VENT - AC Modality FiO2 60.0 Blood Gas Tidal 500.0 Volume Blood Gas Low 5.0 PEEP Setting Blood Gas Al ELENA [facility] Notified Whom Blood Gas 04/17/2018 5:06:34 Notified Time AM Stool Occult NEGATIVE Blood Medications Medication Current Medications Lactulose (Enulose) 20 gm Q6 NGT ; Start 04/14/18 at 12:00; Status Hold Propofol 100 ml @ 2.04 mls/hr Q12H IV Last administered on 04/14/18at 14:55; Admin Dose 2.04 MLS/HR; Start 04/14/18 at 15:00 Vancomycin HCl (Vanco Iv Per Pharmacy) VANCOMYCIN PER PHARMACY PER PROTOCOL XX ; Start 04/14/18 at 15:00 Cefepime HCl 50 ml @ 100 mls/hr Q12 IVPB Last administered on 04/17/18 08:34; Admin Dose 100 MLS/HR; Start 04/14/18 at 21:00 Midazolam HCl 50 ml @ 1 mls/hr TITRATE IV Last administered on 04/17/18 13:34; Admin Dose 8 MLS/HR; Start 04/14/18 at 15:00 Vasopressin 60 unit/Dextrose 60 ml @ 0 mls/hr Q12H IV Last administered on 04/17/18 04:43; Admin Dose 2.4 MLS/HR; Start 04/14/18 at 16:00 Norepinephrine 32 mg/Dextrose 250 ml @ 0.47 mls/hr TITRATE IV Last administered on 04/17/18 04:42; Admin Dose 14.06 MLS/HR; Start 04/14/18 at 18:00 Phenylephrine HCl 80 mg/Dextrose 250 ml @ 18.75 mls/ hr TITRATE IV Last administered on 04/17/18 11:43; Admin Dose 45 MLS/HR; Start 04/14/18 at 18:00 Acetaminophen (Tylenol Supp) 650 mg Q6H PRN DE FEVER GREATER THAN 100.6 Last administered on 04/15/18 12:00; Admin Dose 650 MG; Start 04/14/18 at 18:00 Phytonadione 10 mg/Dextrose 51 ml @ 102 mls/hr DAILY IVPB Last administered on 04/17/18 09:17; Admin Dose 102 MLS/HR; Start 04/15/18 at 09:00; Stop 04/18/18 at 12:00 Fentanyl 100 ml @ 2.5 mls/hr TITRATE IV Last administered on 04/17/18 06:34; Admin Dose 10 MLS/HR; Start 04/15/18 at 00:00 Dopamine HCl/ Dextrose 250 ml @ 5.1 mls/hr TITRATE IV ; Start 04/15/18 at 06:30 Lactulose (Lactulose Enema) 100 ml Q8 DE Last administered on 04/17/18 05:31; Admin Dose 100 ML; Start 04/15/18 at 14:00 Phenytoin (Dilantin) 100 mg Q8 IV Last administered on 04/17/18 05:31; Admin Dose 100 MG; Start 04/15/18 at 22:00 Levetiracetam 100 ml @ 400 mls/hr Q12 IVPB Last administered on 04/17/18 08:34; Admin Dose 400 MLS/HR; Start 04/16/18 at 09:00 Metronidazole 100 ml @ 100 mls/hr Q8 IVPB Last administered on 04/17/18 13:43; Admin Dose 100 MLS/HR; Start 04/16/18 at 14:00 Hydrocortisone (Solu-Cortef) 100 mg Q8 IV Last administered on 04/17/18 13:43; Admin Dose 100 MG; Start 04/16/18 at 14:00 Pantoprazole 80 mg/Sodium Chloride 100 ml @ 10 mls/hr Q10H IV Last administered on 04/17/18 10:22; Admin Dose 10 MLS/HR; Start 04/16/18 at 14:00 Octreotide Acetate 1 mg/ Dextrose 100 ml @ 5 mls/hr Q20H IV Last administered on 04/17/18 10:23; Admin Dose 5 MLS/HR; Start 04/16/18 at 14:00 Vancomycin HCl 1.25 gm/Sodium Chloride 250 ml @ 83.333 mls/ hr Q24H IVPB ; Start 04/18/18 at 03:00 Lorazepam (Ativan) 2 mg Q10MIN PRN IV seizure Last administered on 04/17/18 13:44; Admin Dose 2 MG; Start 04/17/18 at 11:30 Albumin Human 50 ml @ 100 mls/hr Q8H IV Last administered on 04/17/18 13:45; Admin Dose 100 MLS/HR; Start 04/17/18 at 13:00; Stop 04/18/18 at 05:29 Rifaximin (Xifaxan) 550 mg BID NGT Last administered on 04/17/18 13:43; Admin Dose 550 MG; Start 04/17/18 at 13:00 Lactulose (Enulose) 20 gm Q6 NGT Last administered on 04/17/18 13:43; Admin Dose 20 GM; Start 04/17/18 at 13:00 RENEE ROSALES Apr 17, 2018 13:56
--- NOTE | 2018-04-17 14:51 | CONS ---
Consult Date/Type/Reason Admit Date/Time Apr 14, 2018 at 10:08 Initial Consult Date 04/16/18 Type of Consultation: Pulm/CCM Requesting Provider: YUDITH WHALEY Date/Time of Note DATE: 04/17/18 TIME: 14:49 Subjective NO acute events, pt stable - improved BP overall - will con't supportive Rx ROS: No fever, no chills, no nausea, no vomiting, no diarrhea/constipation - now BP better Objective Vitals Vital Signs Date Temp Pulse Resp B/P (MAP) Pulse Ox O2 O2 Flow FiO2 Time Delivery Rate 04/17/18 114 12:00 04/17/18 100.1 23 109/78 93 [place] 12:00 (88) l Ventilato r 04/17/18 70 08:25 04/14/18 15 08:38 Intake and Output 04/16/18 04/16/18 04/17/18 1515:00 23:00 07:00 IntakeIntake Total 1341.68 ml 2026.68 ml 1686.68 ml OutputOutput Total 750 ml 1050 ml 420 ml BalanceBalance 591.68 ml 976.68 ml 1266.68 ml Exam General: WN/WD/NAD, AOx 0 HEENT: Unicetric/atraumatic/EOMI (does not follow commands) NECK: JVD elevated, no thyromegaly - intubated Lymph: no lymphadenopathy HEART: regular with no S3, II/ systolic murmur at apex LUNGS: Coarse sounds ABD: soft, NT, ND, +BS : Intact Neuro: non focal SKIN: chronic changes EXT: trace edema Results/Medications Result Diagram: 04/17/18 0439 04/17/18 0439 Results 24 hrs Laboratory Tests Test 04/17/18 04:34 04/17/18 04:39 04/17/18 05:00 04/17/18 10:45 Platelet Count 78 L 70 L Prothrombin Time 19.0 #H 19.9 H Prothrombin Time 1.5 1.6 Ratio INR International 1.58 1.68 Normalized Ratio Activated 36.3 H 36.7 H Partial Thrombopl ast Time Thrombin Time 15.5 White Blood Count 21.8 H Red Blood Count 3.42 L Hemoglobin 9.4 L Hematocrit 29.3 L Mean Corpuscular 85.7 Volume Mean Corpuscular 27.5 L Hemoglobin Mean Corpuscular 32.1 Hemoglobin Concen t Red Cell 19.1 H Distribution Width Mean Platelet 11.7 H Volume Immature 0.000 L Granulocytes % Neutrophils % Segmented 63 Neutrophils % (Manual) Band Neutrophils 26 H % (Manual) Lymphocytes % Lymphocytes % 4 L (Manual) Monocytes % Monocytes % 7 (Manual) Eosinophils % Basophils % Nucleated Red 13 H Blood Cells % Immature 0.010 Granulocytes # Neutrophils # Neutrophils # 15.0 H (Manual) Band Neutrophils 5.6 H # Lymphocytes 0.8 (Manual) Lymphocytes # Monocytes # Monocytes # 1.5 H (Manual) Eosinophils # Basophils # Nucleated Red Blood Cells # Toxic Granulation 1+ Platelet Estimate SIG DECREASED Giant Platelets 3 H Polychromasia 1+ Poikilocytosis 1+ Anisocytosis 1+ Sodium Level 138 Potassium Level 4.0 Chloride Level 94 L Carbon Dioxide 27 Level Anion Gap 17 H Blood Urea 69 H Nitrogen Creatinine 1.52 H Est Glomerular 50 L Filtrat Rate mL/min Glucose Level 219 Lactic Acid Level 4.9 *H Calcium Level 6.1 L Magnesium Level 2.1 Total Bilirubin 2.0 H Direct Bilirubin 1.40 H Indirect 0.6 Bilirubin Aspartate Amino 344 H Transf (AST/SGOT) Alanine 151 H Aminotransferase (ALT/SGPT) Alkaline 120 Phosphatase Total Protein 6.5 Albumin 3.1 L Globulin 3.40 H Albumin/Globulin 0.91 Ratio Random Vancomycin 6.3 Level Phenytoin 10.9 (Dilantin) Level Blood Gas Blood arterial Specimen Source Arterial Blood 04/17/2018 5:00:15 Date Drawn AM Arterial Blood pH 7.393 (Temp corrected) Arterial Blood 37.9 pCO2 (Temp correct) Arterial Blood 63.1 L pO2 (Temp corrected) Arterial Blood 22.6 HCO3 Arterial Blood -1.9 Base Excess Arterial Blood 89.5 L Oxygen Saturation [place] Test ACCEPTAB Arterial Blood Right Radial Gas Puncture Site Arterial 1.0 Blood Carboxyhemo globin Arterial Blood 0.3 Methemoglobin Blood Gas A-a O2 323.0 H Differential Oxyhemoglobin 88.3 L Percent Blood Gas 37.0 Temperature Blood Gas 20.0 Respiration Rate Blood Gas Actual 21 Respiration Rate Blood Gas VENT - AC Modality FiO2 60.0 Blood Gas Tidal 500.0 Volume Blood Gas Low 5.0 PEEP Setting Blood Gas Al [employer]LENA [employer] Notified Whom Blood Gas 04/17/2018 5:06:34 Notified Time AM Stool Occult NEGATIVE Blood Test 04/17/18 13:46 Phenytoin 18.1 (Dilantin) Level Home Meds Active Scripts Pantoprazole* (Pantoprazole*) 40 Mg Tablet.dr, 40 MG PO DAILY@06 for 30 Days, #30 TAB 7 Refills Prov:CADEN SALMERON MD 03/25/18 Lactulose* (Lactulose*) 20 Gm/30 Ml Solution, 20 GM PO DAILY for 30 Days, #1 BOTTLE 7 Refills Prov:CADEN SALMERON MD 03/25/18 Spironolactone* (Aldactone*) 50 Mg Tablet, 100 MG PO BID for 30 Days, #60 TAB 7 Refills Prov:CADEN SALMERON MD 03/25/18 Propranolol Hcl* (Propranolol Hcl*) 10 Mg Tablet, 10 MG PO BID for 30 Days, #60 TAB 7 Refills Prov:CADEN SALMERON MD 03/25/18 Furosemide* (Furosemide*) 40 Mg Tablet, 40 MG PO DAILY for 30 Days, #30 TAB 7 Refills Prov:CADEN SALMERON MD 03/25/18 Medications Current Medications Lactulose (Enulose) 20 gm Q6 NGT ; Start 04/14/18 at 12:00; Status Hold Propofol 100 ml @ 2.04 mls/hr Q12H IV Last administered on 04/14/18at 14:55; Admin Dose 2.04 MLS/HR; Start 04/14/18 at 15:00 Vancomycin HCl (Vanco Iv Per Pharmacy) VANCOMYCIN PER PHARMACY PER PROTOCOL XX ; Start 04/14/18 at 15:00 Cefepime HCl 50 ml @ 100 mls/hr Q12 IVPB Last administered on 04/17/18at 08:34; Admin Dose 100 MLS/HR; Start 04/14/18 at 21:00 Midazolam HCl 50 ml @ 1 mls/hr TITRATE IV Last administered on 04/17/18at 13:34; Admin Dose 8 MLS/HR; Start 04/14/18 at 15:00 Vasopressin 60 unit/Dextrose 60 ml @ 0 mls/hr Q12H IV Last administered on 04/17/18 04:43; Admin Dose 2.4 MLS/HR; Start 04/14/18 at 16:00 Norepinephrine 32 mg/Dextrose 250 ml @ 0.47 mls/hr TITRATE IV Last administer ed on 04/17/18 04:42; Admin Dose 14.06 MLS/HR; Start 04/14/18 at 18:00 Phenylephrine HCl 80 mg/Dextrose 250 ml @ 18.75 mls/ hr TITRATE IV Last administered on 04/17/18 11:43; Admin Dose 45 MLS/HR; Start 04/14/18 at 18:00 Acetaminophen (Tylenol Supp) 650 mg Q6H PRN [place] FEVER GREATER THAN 100.6 Last administered on 04/15/18 12:00; Admin Dose 650 MG; Start 04/14/18 at 18:00 Phytonadione 10 mg/Dextrose 51 ml @ 102 mls/hr DAILY IVPB Last administered on 04/17/18 09:17; Admin Dose 102 MLS/HR; Start 04/15/18 at 09:00; Stop 04/18/18 at 12:00 Fentanyl 100 ml @ 2.5 mls/hr TITRATE IV Last administered on 04/17/18 06:34; Admin Dose 10 MLS/HR; Start 04/15/18 at 00:00 Dopamine HCl/ Dextrose 250 ml @ 5.1 mls/hr TITRATE IV ; Start 04/15/18 at 06:30 Lactulose (Lactulose Enema) 100 ml Q8 OK Last administered on 04/17/18 14:05; Admin Dose 100 ML; Start 04/15/18 at 14:00 Phenytoin (Dilantin) 100 mg Q8 IV Last administered on 04/17/18 14:05; Admin Dose 100 MG; Start 04/15/18 at 22:00 Levetiracetam 100 ml @ 400 mls/hr Q12 IVPB Last administered on 04/17/18 08:34; Admin Dose 400 MLS/HR; Start 04/16/18 at 09:00 Metronidazole 100 ml @ 100 mls/hr Q8 IVPB Last administered on 04/17/18 13:43; Admin Dose 100 MLS/HR; Start 04/16/18 at 14:00 Hydrocortisone (Solu-Cortef) 100 mg Q8 IV Last administered on 04/17/18 13:43; Admin Dose 100 MG; Start 04/16/18 at 14:00 Pantoprazole 80 mg/Sodium Chloride 100 ml @ 10 mls/hr Q10H IV Last administered on 04/17/18 10:22; Admin Dose 10 MLS/HR; Start 04/16/18 at 14:00 Octreotide Acetate 1 mg/ Dextrose 100 ml @ 5 mls/hr Q20H IV Last administered on 04/17/18 10:23; Admin Dose 5 MLS/HR; Start 04/16/18 at 14:00 Vancomycin HCl 1.25 gm/Sodium Chloride 250 ml @ 83.333 mls/ hr Q24H IVPB ; Start 04/18/18 at 03:00 Lorazepam (Ativan) 2 mg Q10MIN PRN IV seizure Last administered on 04/17/18 14:19; Admin Dose 2 MG; Start 04/17/18 at 11:30 Albumin Human 50 ml @ 100 mls/hr Q8H IV Last administered on 04/17/18 13:45; Admin Dose 100 MLS/HR; Start 04/17/18 at 13:00; Stop 04/18/18 at 05:29 Rifaximin (Xifaxan) 550 mg BID NGT Last administered on 04/17/18 13:43; Admin Dose 550 MG; Start 04/17/18 at 13:00 Lactulose (Enulose) 20 gm Q6 NGT Last administered on 04/17/18 13:43; Admin Dose 20 GM; Start 04/17/18 at 13:00 Assessment/Plan Hospital Course (Demo Recall) 1. Positive troponin in the setting of shock, likely type 2 demand infarct.-now trended negative - no intervention planned now - BP better - will monitor 2. Hypotension, shock, likely septic in the setting of cirrhosis - con't supportive rx, guarded prognosis. Coming off pressors. 3. Abnormal echocardiogram, assess for true acute coronary syndrome. 4. Tachycardia consistent with sinus tachycardia at this time in the setting of multiple pressures hypotension, cirrhosis- con't to follow. 5. Sepsis - on anti-Bx. 6. Cirrhosis - GI team follows. 7. Ascites. 8. Anemia - H/H stable now. 9. Leukocytosis. 10. Coagulopathy, mild. 11. Urinary tract infection. ZHENG LINDSEY MD Apr 17, 2018 14:51
--- NOTE | 2018-04-17 15:23 | CONS ---
Assessment/Plan Assessment/Plan Hospital Course (Demo Recall) Patient is intubated, on multiple pressors, having right-sided facial twitching. He is febrile with a T-max 100.9 to current 100.1 WBC 21.8 H&H 9.4 and 29.3 platelets 70 BUN 69 creatinine 1.52 lactic acid 4.9 Microbiology: Blood and urine cultures remain negative Chest x-ray this morning revealed mild increase edema, bilateral airspace opacities and small pleural effusions Indwelling: Endotracheal tube, orogastric tube, right femoral triple-lumen catheter, Giron catheter, rectal tube Allergies none CODE STATUS chemical Antimicrobials: Vancomycin, Flagyl, cefepime Physical examination: Well-developed middle-aged man in no distress. Head atraumatic normocephalic neck is supple chest rise symmetrical breath sounds diminished bases. Heart: S1-S2 tachycardic. Abdomen distended bowel sounds hypoactive. Extremities mottled and cyanotic Assessment: 1. Severe sepsis with shock and multiorgan failure 2. Acute respiratory failure rule out aspiration 3. Seizure disorder 4. Decompensated alcoholic cirrhosis 5. Acute renal failure 6. Lactic acidosis Plan: Patient is doing poorly, he is being seen by multiple consultants, we will continue him on current antibiotics, send sputum cultures, repeat blood cultures Consultation Date/Type/Reason Admit Date/Time Apr 14, 2018 at 10:08 Initial Consult Date 04/16/18 Type of Consult id Requesting Provider: YUDITH WHALEY Date/Time of Note DATE: 04/17/18 TIME: 15:22 Exam/Review of Systems Exam Vitals Vital Signs Date Temp Pulse Resp B/P (MAP) Pulse Ox O2 O2 Flow FiO2 Time Delivery Rate 04/17/18 110 22 109/77 89 14:45 (88) 04/17/18 [place] 14:00 l Ventilato r 04/17/18 100.1 12:00 04/17/18 70 08:25 04/14/18 15 08:38 Intake and Output 04/16/18 04/16/18 04/17/18 1515:00 23:00 07:00 IntakeIntake Total 1341.68 ml 2026.68 ml 1686.68 ml OutputOutput Total 750 ml 1050 ml 420 ml BalanceBalance 591.68 ml 976.68 ml 1266.68 ml Results Result Diagram: 04/17/18 0439 04/17/18 0439 Results 24hrs Laboratory Tests Test 04/17/18 04:34 04/17/18 04:39 04/17/18 05:00 04/17/18 10:45 Platelet Count 78 L 70 L Prothrombin Time 19.0 #H 19.9 H Prothrombin Time 1.5 1.6 Ratio INR International 1.58 1.68 Normalized Ratio Activated 36.3 H 36.7 H Partial Thrombopl ast Time Thrombin Time 15.5 White Blood Count 21.8 H Red Blood Count 3.42 L Hemoglobin 9.4 L Hematocrit 29.3 L Mean Corpuscular 85.7 Volume Mean Corpuscular 27.5 L Hemoglobin Mean Corpuscular 32.1 Hemoglobin Concen t Red Cell 19.1 H Distribution Width Mean Platelet 11.7 H Volume Immature 0.000 L Granulocytes % Neutrophils % Segmented 63 Neutrophils % (Manual) Band Neutrophils 26 H % (Manual) Lymphocytes % Lymphocytes % 4 L (Manual) Monocytes % Monocytes % 7 (Manual) Eosinophils % Basophils % Nucleated Red 13 H Blood Cells % Immature 0.010 Granulocytes # Neutrophils # Neutrophils # 15.0 H (Manual) Band Neutrophils 5.6 H # Lymphocytes 0.8 (Manual) Lymphocytes # Monocytes # Monocytes # 1.5 H (Manual) Eosinophils # Basophils # Nucleated Red Blood Cells # Toxic Granulation 1+ Platelet Estimate SIG DECREASED Giant Platelets 3 H Polychromasia 1+ Poikilocytosis 1+ Anisocytosis 1+ Sodium Level 138 Potassium Level 4.0 Chloride Level 94 L Carbon Dioxide 27 Level Anion Gap 17 H Blood Urea 69 H Nitrogen Creatinine 1.52 H Est Glomerular 50 L Filtrat Rate mL/min Glucose Level 219 Lactic Acid Level 4.9 *H Calcium Level 6.1 L Magnesium Level 2.1 Total Bilirubin 2.0 H Direct Bilirubin 1.40 H Indirect 0.6 Bilirubin Aspartate Amino 344 H Transf (AST/SGOT) Alanine 151 H Aminotransferase (ALT/SGPT) Alkaline 120 Phosphatase Total Protein 6.5 Albumin 3.1 L Globulin 3.40 H Albumin/Globulin 0.91 Ratio Random Vancomycin 6.3 Level Phenytoin 10.9 (Dilantin) Level Blood Gas Blood arterial Specimen Source Arterial Blood 04/17/2018 5:00:15 Date Drawn AM Arterial Blood pH 7.393 (Temp corrected) Arterial Blood 37.9 pCO2 (Temp correct) Arterial Blood 63.1 L pO2 (Temp corrected) Arterial Blood 22.6 HCO3 Arterial Blood -1.9 Base Excess Arterial Blood 89.5 L Oxygen Saturation [place] Test ACCEPTAB Arterial Blood Right Radial Gas Puncture Site Arterial 1.0 Blood Carboxyhemo globin Arterial Blood 0.3 Methemoglobin Blood Gas A-a O2 323.0 H Differential Oxyhemoglobin 88.3 L Percent Blood Gas 37.0 Temperature Blood Gas 20.0 Respiration Rate Blood Gas Actual 21 Respiration Rate Blood Gas VENT - AC Modality FiO2 60.0 Blood Gas Tidal 500.0 Volume Blood Gas Low 5.0 PEEP Setting Blood Gas M [facility] Notified Whom Blood Gas 04/17/2018 5:06:34 Notified Time AM Stool Occult NEGATIVE Blood Test 04/17/18 13:46 Phenytoin 18.1 (Dilantin) Level Medications Medication Current Medications Lactulose (Enulose) 20 gm Q6 NGT ; Start 04/14/18 at 12:00; Status Hold Propofol 100 ml @ 2.04 mls/hr Q12H IV Last administered on 04/14/18 14:55; Admin Dose 2.04 MLS/HR; Start 04/14/18 at 15:00 Vancomycin HCl (Vanco Iv Per Pharmacy) VANCOMYCIN PER PHARMACY PER PROTOCOL XX ; Start 04/14/18 at 15:00 Cefepime HCl 50 ml @ 100 mls/hr Q12 IVPB Last administered on 04/17/18 08:34; Admin Dose 100 MLS/HR; Start 04/14/18 at 21:00 Midazolam HCl 50 ml @ 1 mls/hr TITRATE IV Last administered on 04/17/18 13:34; Admin Dose 8 MLS/HR; Start 04/14/18 at 15:00 Vasopressin 60 unit/Dextrose 60 ml @ 0 mls/hr Q12H IV Last administered on 04/17/18 04:43; Admin Dose 2.4 MLS/HR; Start 04/14/18 at 16:00 Norepinephrine 32 mg/Dextrose 250 ml @ 0.47 mls/hr TITRATE IV Last administ ered on 04/17/18 04:42; Admin Dose 14.06 MLS/HR; Start 04/14/18 at 18:00 Phenylephrine HCl 80 mg/Dextrose 250 ml @ 18.75 mls/ hr TITRATE IV Last administered on 04/17/18 11:43; Admin Dose 45 MLS/HR; Start 04/14/18 at 18:00 Acetaminophen (Tylenol Supp) 650 mg Q6H PRN [place] FEVER GREATER THAN 100.6 Last administered on 04/15/18 12:00; Admin Dose 650 MG; Start 04/14/18 at 18:00 Phytonadione 10 mg/Dextrose 51 ml @ 102 mls/hr DAILY IVPB Last administered on 04/17/18 09:17; Admin Dose 102 MLS/HR; Start 04/15/18 at 09:00; Stop 04/18/18 at 12:00 Fentanyl 100 ml @ 2.5 mls/hr TITRATE IV Last administered on 04/17/18 06:34; Admin Dose 10 MLS/HR; Start 04/15/18 at 00:00 Dopamine HCl/ Dextrose 250 ml @ 5.1 mls/hr TITRATE IV ; Start 04/15/18 at 06:30 Lactulose (Lactulose Enema) 100 ml Q8 NV Last administered on 04/17/18 14:05; Admin Dose 100 ML; Start 04/15/18 at 14:00 Phenytoin (Dilantin) 100 mg Q8 IV Last administered on 04/17/18 14:05; Admin Dose 100 MG; Start 04/15/18 at 22:00 Levetiracetam 100 ml @ 400 mls/hr Q12 IVPB Last administered on 04/17/18 08:34; Admin Dose 400 MLS/HR; Start 04/16/18 at 09:00 Metronidazole 100 ml @ 100 mls/hr Q8 IVPB Last administered on 04/17/18 13:43; Admin Dose 100 MLS/HR; Start 04/16/18 at 14:00 Hydrocortisone (Solu-Cortef) 100 mg Q8 IV Last administered on 04/17/18 13:43; Admin Dose 100 MG; Start 04/16/18 at 14:00 Pantoprazole 80 mg/Sodium Chloride 100 ml @ 10 mls/hr Q10H IV Last administered on 04/17/18 10:22; Admin Dose 10 MLS/HR; Start 04/16/18 at 14:00 Octreotide Acetate 1 mg/ Dextrose 100 ml @ 5 mls/hr Q20H IV Last administered on 04/17/18 10:23; Admin Dose 5 MLS/HR; Start 04/16/18 at 14:00 Vancomycin HCl 1.25 gm/Sodium Chloride 250 ml @ 83.333 mls/ hr Q24H IVPB ; Start 04/18/18 at 03:00 Lorazepam (Ativan) 2 mg Q10MIN PRN IV seizure Last administered on 04/17/18 14:19; Admin Dose 2 MG; Start 04/17/18 at 11:30 Albumin Human 50 ml @ 100 mls/hr Q8H IV Last administered on 04/17/18at 13:45; Admin Dose 100 MLS/HR; Start 04/17/18 at 13:00; Stop 04/18/18 at 05:29 Rifaximin (Xifaxan) 550 mg BID NGT Last administered on 04/17/18at 13:43; Admin Dose 550 MG; Start 04/17/18 at 13:00 Lactulose (Enulose) 20 gm Q6 NGT Last administered on 04/17/18 13:43; Admin Dose 20 GM; Start 04/17/18 at 13:00 Calcium Gluconate 2 gm/Dextrose 120 ml @ 60 mls/hr ONCE ONCE IVPB ; Start 04/17/18 at 16:30; Stop 04/17/18 at 18:29 DONTRELL GUEVRAA NP Apr 17, 2018 15:23
[2018-04-17] MEDS ORDERED: LEVETIRACETAM 500 MG (PMX) 100 ML IVPB ONE (15:30)
--- NOTE | 2018-04-17 15:30 | CONS ---
Assessment/Plan Assessment/Plan Hospital Course 43 yo M with hx of chronic EtOH abuse, cirrhosis and other comorbidities who presents to [facility] ICU for acute respiratory failure. He was noted to have generalized convulsions... for which neurology is consulted. Ammonia 413, which is certainly the provoking factor. CTH is unrevealing. EEG was without subclinical seizure, though it was notable for the presence of triphasic waves... consistent with severe hyperammonemia. P: Dilantin 300mg iv x 1, then cont dilantin 100 tid Increase Keppra to 750 BID for now Ativan 2mg iv prn prolonged seizure (>5 min) or cluster Other medical management per primary Will follow clinically Consultation Date/Type/Reason Admit Date/Time Apr 14, 2018 at 10:08 Type of Consult Neurology Reason for Consultation status epilepticus Requesting Provider: YUDITH WHALEY Date/Time of Note DATE: 04/17/18 TIME: 15:27 24 HR Interval Summary Free Text/Dictation Continues icu care Frequent convulsions today.. Now s/p dilantin iv reload.. Exam Vital Signs Vitals Vital Signs Date Temp Pulse Resp B/P (MAP) Pulse Ox O2 O2 Flow FiO2 Time Delivery Rate 04/17/18 110 22 109/77 89 14:45 (88) 04/17/18 [place] 14:00 l Ventilato r 04/17/18 100.1 12:00 04/17/18 70 08:25 04/14/18 15 08:38 Intake and Output 04/16/18 04/16/18 04/17/18 1515:00 23:00 07:00 IntakeIntake Total 1341.68 ml 2026.68 ml 1686.68 ml OutputOutput Total 750 ml 1050 ml 420 ml BalanceBalance 591.68 ml 976.68 ml 1266.68 ml Exam PE: Gen Appearance: No Apparent Distress HEENT: Intubated Cardiovascular: Regular rate Abdomen: firm; obtunded Extremities: Dry NE: The patient was comatose and nonverbal. Cranial nerve examination was limited by mental status. Pupils were equal and sluggishly reactive to light. There was no afferent pupillary defect. Funduscopic examination was limited. Face was grossly symmetric, w/ present corneal and cough reflexes. Tone was normal. Muscle bulk was normal. I did not see fasciculations. The patient did not withdraw to noxious stimuli. Coordination and gait testing was limited by mental status. Arm and leg reflexes were within normal limits and symmetric. Chavez's sign was absent. Plantar responses were mute. SAVI FUNES Apr 17, 2018 15:30
[2018-04-17] MEDS ORDERED: CALCIUM GLUCONATE 10% 2 GM in DEXTROSE 5% 100 ML IVPB ONE (16:30)
[2018-04-17] MEDS: LEVETIRACETAM IV 750 MG in DEXTROSE 5% 100 ML IVPB SCH (20:11)
[2018-04-17] MEDS ORDERED: DIAZEPAM 5 MG/ML SYG IV ONE (22:30)
[2018-04-18] VITALS (105 sets, daily range): BP systolic 94–154; BP diastolic 60–119; PULSE 93–112; RESP 19–32
[2018-04-18] MEDS: LORAZEPAM 2 MG INJ IV PRN ×3 (01:15→07:03)
[2018-04-18] MEDS: LACTULOSE 30ML CUP NGT SCH ×5 (01:17→23:25)
[2018-04-18] MEDS: PROPOFOL 100 ML IV SCH ×4 (02:16→17:42)
[2018-04-18] MEDS: MIDAZOLAM (DRIP) 50 mg/50 mL 50 ML IV SCH ×2 (03:57→08:14)
[2018-04-18] MEDS: VASOPRESSIN 60 UNIT in DEXTROSE 5% 57 ML IV SCH ×2 (04:00→16:00)
[2018-04-18] MEDS: VANCOMYCIN HCL 1.25 GM in SOD CHLORIDE 0.9% 250 ML IVPB SCH (04:08)
[2018-04-18] MEDS: ALBUMIN HUMAN 25% 50 ML IV SCH (05:08)
[2018-04-18] MEDS: HYDROCORTISONE 100 MG INJ IV SCH ×3 (05:09→21:46)
[2018-04-18] MEDS: PHENYTOIN 100 MG INJ IV SCH ×3 (05:09→21:46)
[2018-04-18] MEDS: LACTULOSE ENEMA 1,000 ML BTL PR SCH ×3 (05:09→23:23)
[2018-04-18] MEDS: OCTREOTIDE 1 MG in DEXTROSE 5% 95 ML IV SCH (05:10)
[2018-04-18] MEDS: PANTOPRAZOLE IV 80 MG in SOD CHLORIDE 0.9% 100 ML IV SCH (05:10)
[2018-04-18] MEDS: metroNIDAZOLE 500 MG/NS (PMX) 100 ML IVPB SCH ×3 (05:10→21:46)
[2018-04-18] MEDS: FENTAnyl (DRIP) 1000 mcg/100mL 100 ML IV SCH (07:02)
[2018-04-18] MEDS: RIFAXIMIN 550 MG TAB NGT SCH ×2 (08:01→21:46)
[2018-04-18] MEDS: CEFEPIME 1GM/50 ML (PMX) 50 ML IVPB SCH ×2 (08:01→21:46)
[2018-04-18] MEDS: PHYTONADIONE 10 MG in DEXTROSE 5% 50 ML IVPB SCH (08:01)
[2018-04-18] MEDS: PHENYLephrine 80 MG in DEXTROSE 5% 242 ML IV SCH (08:10)
[2018-04-18] MEDS: LEVETIRACETAM IV 750 MG in DEXTROSE 5% 100 ML IVPB SCH ×2 (09:10→23:42)
--- NOTE | 2018-04-18 10:19 | PN ---
Date/Time of Note Date/Time of Note DATE: 04/18/18 TIME: 09:59 Assessment/Plan VTE Prophylaxis Risk score (from Ns)>0 risk: 11 SCD applied (from Ns): Yes Pharmacological prophylaxis: NA/contraindicated Pharm contraindication: thrombocytopenia Lines/Catheters IV [facility] Peripheral IV Urinary Cath still in place: Yes Reason Cath still needed: other (indicate) Assessment/Plan Hospital Course Subjective : remains intubated and sedated on pressor support, no further output from NGT, objective: GENERAL: Intubated and comfortably sedated HEENT: TOMASA but dilated bilaterally, currently barely reactive , Intubated, Vent settings noted , High o2 requirement LUNGS: diffusely diminished BS HEART: S1, S2. No murmur, gallops or rubs. Tachycardic ABDOMEN: Soft, distended ++, dilated abd veins, hypoactve BS GENITOURINARY: huge scrotal edema, now with mild blistering EXTREMITIES: interestingly, patient has no LE edema, looks like abd fluid is collecting mostly in scrotal sac NEUROLOGIC: The patient is currently sedated. SKIN: hyperpigmented, jaundiced? assessment and plan: 43-year-old male who is a chronic alcoholic with known alcoholic cirrhosis, Was recently discharged from this facility about 3 weeks prior to admit after being managed for sepsis with concern for SBP and at that time had undergone paracentesis with removal of 5 L of fluid. He presented to the ER with altered mentation respiratory failure and strong concern for aspiration pneumonia (gastric contents visualized during intubation), was admitted to the ICU as he is requiring ventilator support. Problems are listed as below: 1. Acute respiratory failure likely secondary to #2 -remains vent dependent with high Fio2 -despte 100% fio2, is only sating 80s -CXR does show pulm edema and infiltrates, unfortunately patient is not a candidate for diuresis due to shock nor hemodialysis -Continue pulse dosing albumin, continue antibiotics -pulm managing vent, appreciate input 2. Aspiration pneumonia versus pneumonitis likely related to #3 -see #1 -also on hydrocortisone 100mg q8h 3. Sepsis with Septic shock likely 2/2 aspiration, possible SBP as well -still requiring pressor support, down to 2? -likely also component of hypovolemia as patient is also third spacing a lot from liver disease -remains tachycardic -management per ID 4. New seizures with underlying hepatic encephalopathy -patient has been having recurrent seizures, but is currently controlled? on current regimen -concern for possible brain ? may also be due to meds -Patient will benefit from MRI of the brain, however nurses concerned that he is too unstable (pressors, high fio2) 5. Acute renal insufficiency likely secondary to sepsis -not a candidate for HD d/t hypotension -still with very reduced urinary output, creatinine levels better ? -on IV octreotide per renal 6. Chronic alcoholic cirrhosis with portal hypertension and splenomegaly -patient in active liver failure ? -monitor liver function and Coag panel -IV PPI -BB therapy once BP improves 7. Hyponatremia likely related to alcohol use -improved 8. Chronic hypochromic anemia secondary to chronic liver disease -stable, trend 9. Severe abdominal distention, likely secondary to ascites with chronic large ventral hernia as well as large inguinal hernia -CT showed anterior ventral hernia containing ascitic fluid and left inguinal hernia as well as left large hydrocele -IR deffered paracentesis 2/ critical status, will reconsult when more stable ? -no intervention for now, Keep head of bed slightly depressed, monitor 10. Severe scrotal swelling/hydrocele, likely sequelae from #9 -keep scrotum elevated 11. Cholelithiasis -incidental finding 12. Positive troponin in the setting of shock, likely type 2 demand infarct. -now trended negative 13. Severe thrombocytopenia -Continue to trend, avoid anticoagulation for now 14. Severe leukocytosis: -Secondary to sepsis and steroids -Continue to trend levels Dispo: -Unfortunately, respiratory failure course has been complicated by septic shock and new onset seizures. -We will need to continue antibiotics and pressor support for now. and support patient as best as we can. Hopefully patient will have no further seizures on current regimen -Remains critically ill in ICU , Mother updated on critical status, remains chemical code -start low dose tube feeds - -Further intervention per clinical course Prognosis: poor CRITICAL CARE TIME: >35 mins of which more than half was spent at the bedside and during counselling -Plan of care discussed with patient's mother and aunt -Prophylaxis: Cautious heparin use with PPI. Result Diagram: 04/18/18 0434 04/18/18 0434 Results 24hrs Laboratory Tests Test 04/17/18 10:45 04/17/18 13:46 04/18/18 04:34 04/18/18 05:00 Stool Occult Blood NEGATIVE Phenytoin 18.1 (Dilantin) Level White Blood Count 26.3 #H Red Blood Count 3.49 L Hemoglobin 9.5 L Hematocrit 30.5 L Mean Corpuscular 87.4 Volume Mean Corpuscular 27.2 L Hemoglobin Mean Corpuscular 31.1 L Hemoglobin Concent Red Cell 18.9 H Distribution Width Platelet Count 56 L Mean Platelet 12.7 H Volume Immature 1.000 H Granulocytes % Neutrophils % Segmented 79 H Neutrophils % (Manual) Band Neutrophils % 9 H (Manual) Lymphocytes % Lymphocytes % 1 L (Manual) Monocytes % Monocytes % 10 (Manual) Eosinophils % Basophils % Myelocytes % 1 H (Manual) Nucleated Red 2 H Blood Cells % Immature 0.260 H Granulocytes # Neutrophils # Neutrophils # 21.4 H (Manual) Band Neutrophils # 2.3 H Lymphocytes 0.2 L (Manual) Lymphocytes # Monocytes # Monocytes # 2.6 H (Manual) Eosinophils # Basophils # Myelocytes # 0.2 H Nucleated Red Blood Cells # Toxic Granulation 1+ Platelet Estimate DECREASED Polychromasia 1+ Anisocytosis 1+ Macrocytosis 1+ Sodium Level 140 Potassium Level 4.5 Chloride Level 97 Carbon Dioxide 27 Level Anion Gap 16 H Blood Urea 82 H Nitrogen Creatinine 1.62 H Est Glomerular 46 L Filtrat Rate mL/min Glucose Level 209 Lactic Acid Level 4.9 *H Calcium Level 6.7 L Phosphorus Level 4.4 Magnesium Level 2.2 Total Bilirubin 2.4 H Direct Bilirubin 1.70 H Indirect Bilirubin 0.7 Aspartate Amino 175 H Transf (AST/SGOT) Alanine 120 H Aminotransferase ( ALT/SGPT) Alkaline 113 Phosphatase Total Protein 6.4 Albumin 3.2 L Globulin 3.20 Albumin/Globulin 1.00 Ratio Blood Gas Specimen Blood arterial Source Arterial Blood 04/18/2018 4:50:13 Date Drawn AM Arterial Blood pH 7.336 L (Temp corrected) Arterial Blood 44.0 pCO2 (Temp correct) Arterial Blood pO2 74.3 L (Temp corrected) Arterial Blood 23.0 HCO3 Arterial Blood -2.8 Base Excess Arterial Blood 91.9 L Oxygen Saturation [place] Test ACCEPTAB Arterial Blood Gas Right Radial Puncture Site Arterial 0.1 Blood Carboxyhemog lobin Arterial Blood 0.1 Methemoglobin Blood Gas A-a O2 594.7 H Differential Oxyhemoglobin 91.7 L Percent Blood Gas 37.0 Temperature Blood Gas Modality VENT - AC FiO2 100.0 Blood Gas 20 Inspiratory Time Blood Gas Tidal 500.0 Volume Blood Gas Low PEEP 5.0 Setting Blood Gas 22 Amplitude Blood Gas Notified UP Whom Blood Gas Notified 04/18/2018 5:28:38 Time AM Exam/Review of Systems Exam Vitals Vital Signs Date Temp Pulse Resp B/P (MAP) Pulse Ox O2 O2 Flow FiO2 Time Delivery Rate 04/18/18 110 22 88 100 09:00 04/18/18 114/89 06:45 (97) 04/18/18 Mechanical 06:00 Ventilator 04/18/18 98.4 04:15 04/14/18 15 08:38 Intake and Output 04/17/18 04/17/18 04/18/18 1515:00 23:00 07:00 IntakeIntake Total 1193.78 ml 1115.69 ml 745.53 ml OutputOutput Total 675 ml 340 ml 600 ml BalanceBalance 518.78 ml 775.69 ml 145.53 ml Results Results 24hrs Laboratory Tests Test 04/17/18 10:45 04/17/18 13:46 04/18/18 04:34 04/18/18 05:00 Stool Occult Blood NEGATIVE Phenytoin 18.1 (Dilantin) Level White Blood Count 26.3 #H Red Blood Count 3.49 L Hemoglobin 9.5 L Hematocrit 30.5 L Mean Corpuscular 87.4 Volume Mean Corpuscular 27.2 L Hemoglobin Mean Corpuscular 31.1 L Hemoglobin Concent Red Cell 18.9 H Distribution Width Platelet Count 56 L Mean Platelet 12.7 H Volume Immature 1.000 H Granulocytes % Neutrophils % Segmented 79 H Neutrophils % (Manual) Band Neutrophils % 9 H (Manual) Lymphocytes % Lymphocytes % 1 L (Manual) Monocytes % Monocytes % 10 (Manual) Eosinophils % Basophils % Myelocytes % 1 H (Manual) Nucleated Red 2 H Blood Cells % Immature 0.260 H Granulocytes # Neutrophils # Neutrophils # 21.4 H (Manual) Band Neutrophils # 2.3 H Lymphocytes 0.2 L (Manual) Lymphocytes # Monocytes # Monocytes # 2.6 H (Manual) Eosinophils # Basophils # Myelocytes # 0.2 H Nucleated Red Blood Cells # Toxic Granulation 1+ Platelet Estimate DECREASED Polychromasia 1+ Anisocytosis 1+ Macrocytosis 1+ Sodium Level 140 Potassium Level 4.5 Chloride Level 97 Carbon Dioxide 27 Level Anion Gap 16 H Blood Urea 82 H Nitrogen Creatinine 1.62 H Est Glomerular 46 L Filtrat Rate mL/min Glucose Level 209 Lactic Acid Level 4.9 *H Calcium Level 6.7 L Phosphorus Level 4.4 Magnesium Level 2.2 Total Bilirubin 2.4 H Direct Bilirubin 1.70 H Indirect Bilirubin 0.7 Aspartate Amino 175 H Transf (AST/SGOT) Alanine 120 H Aminotransferase ( ALT/SGPT) Alkaline 113 Phosphatase Total Protein 6.4 Albumin 3.2 L Globulin 3.20 Albumin/Globulin 1.00 Ratio Blood Gas Specimen Blood arterial Source Arterial Blood 04/18/2018 4:50:13 Date Drawn AM Arterial Blood pH 7.336 L (Temp corrected) Arterial Blood 44.0 pCO2 (Temp correct) Arterial Blood pO2 74.3 L (Temp corrected) Arterial Blood 23.0 HCO3 Arterial Blood -2.8 Base Excess Arterial Blood 91.9 L Oxygen Saturation [place] Test ACCEPTAB Arterial Blood Gas Right Radial Puncture Site Arterial 0.1 Blood Carboxyhemog lobin Arterial Blood 0.1 Methemoglobin Blood Gas A-a O2 594.7 H Differential Oxyhemoglobin 91.7 L Percent Blood Gas 37.0 Temperature Blood Gas Modality VENT - AC FiO2 100.0 Blood Gas 20 Inspiratory Time Blood Gas Tidal 500.0 Volume Blood Gas Low PEEP 5.0 Setting Blood Gas 22 Amplitude Blood Gas Notified UP Whom Blood Gas Notified 04/18/2018 5:28:38 Time AM Imaging Imaging PROCEDURE: XR Chest. CLINICAL INDICATION: Ventilation TECHNIQUE: AP Portable chest. COMPARISON: CHEST 04/16/2018; CHEST 04/14/2018 FINDINGS: The ET tube is 5 cm above the jah. NG tube is in satisfactory position. The cardiomediastinal silhouette is within normal limits. The aorta is normal. Mild overall increase edema and bilateral air space opacities. Probable small bilateral pleural effusions. No pneumothorax is identified. The osseous structures are intact. IMPRESSION: Mild increase edema, bilateral air space opacities and small pleural effusions. ET tube 5 cm above the jah. NG tube in the stomach. [facility] Physician Jannet Date Time Electronically viewed and signed by Janis Tubbs, Physician on 04/17/2018 08:57 CS/ CC: BEREKET LANG MD [id number] Medications Medication Current Medications Lactulose (Enulose) 20 gm Q6 NGT ; Start 04/14/18 at 12:00; Status Hold Propofol 100 ml @ 2.04 mls/hr Q12H IV Last administered on 04/18/18 07:41; Admin Dose 16.32 MLS/HR; Start 04/14/18 at 15:00 Vancomycin HCl (Vanco Iv Per Pharmacy) VANCOMYCIN PER PHARMACY PER PROTOCOL XX ; Start 04/14/18 at 15:00 Cefepime HCl 50 ml @ 100 mls/hr Q12 IVPB Last administered on 04/18/18 08:01; Admin Dose 100 MLS/HR; Start 04/14/18 at 21:00 Midazolam HCl 50 ml @ 1 mls/hr TITRATE IV Last administered on 04/18/18 08:14; Admin Dose 10 MLS/HR; Start 04/14/18 at 15:00 Vasopressin 60 unit/Dextrose 60 ml @ 0 mls/hr Q12H IV Last administered on 04/17/18 04:43; Admin Dose 2.4 MLS/HR; Start 04/14/18 at 16:00 Norepinephrine 32 mg/Dextrose 250 ml @ 0.47 mls/hr TITRATE IV Last administered on 04/17/18 20:29; Admin Dose 14.06 MLS/HR; Start 04/14/18 at 18:00 Phenylephrine HCl 80 mg/Dextrose 250 ml @ 18.75 mls/ hr TITRATE IV Last administered on 04/18/18 08:10; Admin Dose 9.38 MLS/HR; Start 04/14/18 at 18:00 Acetaminophen (Tylenol Supp) 650 mg Q6H PRN [place] FEVER GREATER THAN 100.6 Last administered on 04/15/18 12:00; Admin Dose 650 MG; Start 04/14/18 at 18:00 Phytonadione 10 mg/Dextrose 51 ml @ 102 mls/hr DAILY IVPB Last administered on 04/18/18 08:01; Admin Dose 102 MLS/HR; Start 04/15/18 at 09:00; Stop 04/18/18 at 12:00 Fentanyl 100 ml @ 2.5 mls/hr TITRATE IV Last administered on 04/18/18 07:02; Admin Dose 10 MLS/HR; Start 04/15/18 at 00:00 Dopamine HCl/ Dextrose 250 ml @ 5.1 mls/hr TITRATE IV ; Start 04/15/18 at 06:30 Lactulose (Lactulose Enema) 100 ml Q8 [place] Last administered on 04/18/18 05:09; Admin Dose 100 ML; Start 04/15/18 at 14:00 Phenytoin (Dilantin) 100 mg Q8 IV Last administered on 04/18/18 05:09; Admin Dose 100 MG; Start 04/15/18 at 22:00 Metronidazole 100 ml @ 100 mls/hr Q8 IVPB Last administered on 04/18/18 05:10; Admin Dose 100 MLS/HR; Start 04/16/18 at 14:00 Hydrocortisone (Solu-Cortef) 100 mg Q8 IV Last administered on 04/18/18 05:09; Admin Dose 100 MG; Start 04/16/18 at 14:00 Pantoprazole 80 mg/Sodium Chloride 100 ml @ 10 mls/hr Q10H IV Last a dministered on 04/18/18 05:10; Admin Dose 10 MLS/HR; Start 04/16/18 at 14:00 Octreotide Acetate 1 mg/ Dextrose 100 ml @ 5 mls/hr Q20H IV Last administered on 04/18/18 05:10; Admin Dose 5 MLS/HR; Start 04/16/18 at 14:00 Vancomycin HCl 1.25 gm/Sodium Chloride 250 ml @ 83.333 mls/ hr Q24H IVPB Last administered on 04/18/18 04:08; Admin Dose 83.333 MLS/HR; Start 04/18/18 at 03:00 Lorazepam (Ativan) 2 mg Q10MIN PRN IV seizure Last administered on 04/18/18 07:03; Admin Dose 2 MG; Start 04/17/18 at 11:30 Rifaximin (Xifaxan) 550 mg BID NGT Last administered on 04/18/18 08:01; Admin Dose 550 MG; Start 04/17/18 at 13:00 Lactulose (Enulose) 20 gm Q6 NGT Last administered on 04/18/18at 05:09; Admin Dose 20 GM; Start 04/17/18 at 13:00 Levetiracetam 750 mg/Dextrose 107.5 ml @ 430 mls/hr Q12 IVPB Last administered on 04/18/18at 09:10; Admin Dose 430 MLS/HR; Start 04/17/18 at 21:00 YUDITH WHALEY Apr 18, 2018 10:12
[2018-04-18] MEDS ORDERED: CA CHLORIDE 10% 10 ML SYRINGE IV ONE (10:30)
--- NOTE | 2018-04-18 10:54 | CONS ---
Consult Date/Type/Reason Admit Date/Time Apr 14, 2018 at 10:08 Initial Consult Date 04/16/18 Type of Consult Pulmonary Requesting Provider: YUDITH WHALEY Date/Time of Note DATE: 04/18/18 TIME: 10:51 Subjective Remains somnolent on mechanical ventilation. Multiple vasopressors and sedation for ongoing seizures. Objective Vital Signs Date Temp Pulse Resp B/P (MAP) Pulse Ox O2 O2 Flow FiO2 Time Delivery Rate 04/18/18 110 22 88 100 09:00 04/18/18 114/89 06:45 (97) 04/18/18 Mechanical 06:00 Ventilator 04/18/18 98.4 04:15 04/14/18 15 08:38 Intake and Output 04/17/18 04/17/18 04/18/18 1515:00 23:00 07:00 IntakeIntake Total 1193.78 ml 1115.69 ml 745.53 ml OutputOutput Total 675 ml 340 ml 600 ml BalanceBalance 518.78 ml 775.69 ml 145.53 ml Exam GENERAL: Well-nourished well-developed gentleman orally intubated on mechanical ventilation VITAL SIGNS: per chart NECK: Supple. No JVD or lymphadenopathy. Pupils fixed and dilated CARDIAC EXAM: S1, S2. No added sounds or murmurs. CHEST: clear bilaterally, No added sounds, rales or wheezes ABDOMEN: Soft, nontender. No guarding or rebound. Mildly distended EXTREMITIES: No cyanosis, clubbing or edema. NEUROLOGIC: Generalized weakness. Vent Setting Ventilator Support Mode: AC Fraction of Inspired Oxygen pe: 100 Positive End Expiratory Pressu: 5.0 Results/Medications Result Diagram: 04/18/18 0434 04/18/18 0434 Results 24 hrs Laboratory Tests Test 04/17/18 13:46 04/18/18 04:34 04/18/18 05:00 Phenytoin (Dilantin) Level 18.1 White Blood Count 26.3 #H Red Blood Count 3.49 L Hemoglobin 9.5 L Hematocrit 30.5 L Mean Corpuscular Volume 87.4 Mean Corpuscular Hemoglobin 27.2 L Mean Corpuscular 31.1 L Hemoglobin Concent Red Cell Distribution Width 18.9 H Platelet Count 56 L Mean Platelet Volume 12.7 H Immature Granulocytes % 1.000 H Neutrophils % Segmented Neutrophils 79 H % (Manual) Band Neutrophils % (Manual) 9 H Lymphocytes % Lymphocytes % (Manual) 1 L Monocytes % Monocytes % (Manual) 10 Eosinophils % Basophils % Myelocytes % (Manual) 1 H Nucleated Red Blood Cells % 2 H Immature Granulocytes # 0.260 H Neutrophils # Neutrophils # (Manual) 21.4 H Band Neutrophils # 2.3 H Lymphocytes (Manual) 0.2 L Lymphocytes # Monocytes # Monocytes # (Manual) 2.6 H Eosinophils # Basophils # Myelocytes # 0.2 H Nucleated Red Blood Cells # Toxic Granulation 1+ Platelet Estimate DECREASED Polychromasia 1+ Anisocytosis 1+ Macrocytosis 1+ Sodium Level 140 Potassium Level 4.5 Chloride Level 97 Carbon Dioxide Level 27 Anion Gap 16 H Blood Urea Nitrogen 82 H Creatinine 1.62 H Est Glomerular Filtrat 46 L Rate mL/min Glucose Level 209 Lactic Acid Level 4.9 *H Calcium Level 6.7 L Phosphorus Level 4.4 Magnesium Level 2.2 Total Bilirubin 2.4 H Direct Bilirubin 1.70 H Indirect Bilirubin 0.7 Aspartate Amino 175 H Transf (AST/SGOT) Alanine 120 H Aminotransferase (ALT/SGPT) Alkaline Phosphatase 113 Total Protein 6.4 Albumin 3.2 L Globulin 3.20 Albumin/Globulin Ratio 1.00 Blood Gas Specimen Source Blood arterial Arterial Blood Date Drawn 04/18/2018 4:50:13 AM Arterial Blood pH 7.336 L (Temp corrected) Arterial Blood pCO2 44.0 (Temp correct) Arterial Blood pO2 74.3 L (Temp corrected) Arterial Blood HCO3 23.0 Arterial Blood Base Excess -2.8 Arterial Blood 91.9 L Oxygen Saturation [place] Test ACCEPTAB Arterial Blood Gas Right Radial Puncture Site Arterial 0.1 Blood Carboxyhemoglobin Arterial Blood Methemoglobin 0.1 Blood Gas A-a O2 Differential 594.7 H Oxyhemoglobin Percent 91.7 L Blood Gas Temperature 37.0 Blood Gas Modality VENT - AC FiO2 100.0 Blood Gas Inspiratory Time 20 Blood Gas Tidal Volume 500.0 Blood Gas Low PEEP Setting 5.0 Blood Gas Amplitude 22 Blood Gas Notified Whom UP Blood Gas Notified Time 04/18/2018 5:28:38 AM Medications Current Medications Lactulose (Enulose) 20 gm Q6 NGT ; Start 04/14/18 at 12:00; Status Hold Propofol 100 ml @ 2.04 mls/hr Q12H IV Last administered on 3/4/19at 07:41; Admin Dose 16.32 MLS/HR; Start 04/14/18 at 15:00 Vancomycin HCl (Vanco Iv Per Pharmacy) VANCOMYCIN PER PHARMACY PER PROTOCOL XX ; Start 04/14/18 at 15:00 Cefepime HCl 50 ml @ 100 mls/hr Q12 IVPB Last administered on 04/18/18 08:01; Admin Dose 100 MLS/HR; Start 04/14/18 at 21:00 Midazolam HCl 50 ml @ 1 mls/hr TITRATE IV Last administered on 04/18/18 08:14; Admin Dose 10 MLS/HR; Start 04/14/18 at 15:00 Vasopressin 60 unit/Dextrose 60 ml @ 0 mls/hr Q12H IV Last administered on 04/17/18 04:43; Admin Dose 2.4 MLS/HR; Start 04/14/18 at 16:00 Norepinephrine 32 mg/Dextrose 250 ml @ 0.47 mls/hr TITRATE IV Last administered on 04/17/18 20:29; Admin Dose 14.06 MLS/HR; Start 04/14/18 at 18:00 Phenylephrine HCl 80 mg/Dextrose 250 ml @ 18.75 mls/ hr TITRATE IV Last administered on 04/18/18 08:10; Admin Dose 9.38 MLS/HR; Start 04/14/18 at 18:00 Acetaminophen (Tylenol Supp) [address] FEVER GREATER THAN 100.6 Last administered on 04/15/18 12:00; Admin Dose 650 MG; Start 04/14/18 at 18:00 Phytonadione 10 mg/Dextrose 51 ml @ 102 mls/hr DAILY IVPB Last administered on 04/18/18 08:01; Admin Dose 102 MLS/HR; Start 04/15/18 at 09:00; Stop 04/18/18 at 12:00 Fentanyl 100 ml @ 2.5 mls/hr TITRATE IV Last administered on 04/18/18 07:02; Admin Dose 10 MLS/HR; Start 04/15/18 at 00:00 Dopamine HCl/ Dextrose 250 ml @ 5.1 mls/hr TITRATE IV ; Start 04/15/18 at 06:30 Lactulose (Lactulose Enema) [address] Last administered on 04/18/18 05:09; Admin Dose 100 ML; Start 04/15/18 at 14:00 Phenytoin (Dilantin) 100 mg Q8 IV Last administered on 04/18/18 05:09; Admin Dose 100 MG; Start 04/15/18 at 22:00 Metronidazole 100 ml @ 100 mls/hr Q8 IVPB Last administered on 04/18/18 05:10; Admin Dose 100 MLS/HR; Start 04/16/18 at 14:00 Hydrocortisone (Solu-Cortef) 100 mg Q8 IV Last administered on 04/18/18 05:09; Admin Dose 100 MG; Start 04/16/18 at 14:00 Pantoprazole 80 mg/Sodium Chloride 100 ml @ 10 mls/hr Q10H IV Last administered on 04/18/18 05:10; Admin Dose 10 MLS/HR; Start 04/16/18 at 14:00 Octreotide Acetate 1 mg/ Dextrose 100 ml @ 5 mls/hr Q20H IV Last administered on 04/18/18 05:10; Admin Dose 5 MLS/HR; Start 04/16/18 at 14:00 Vancomycin HCl 1.25 gm/Sodium Chloride 250 ml @ 83.333 mls/ hr Q24H IVPB Last administered on 04/18/18 04:08; Admin Dose 83.333 MLS/HR; Start 04/18/18 at 03:00 Lorazepam (Ativan) 2 mg Q10MIN PRN IV seizure Last administered on 04/18/18 07:03; Admin Dose 2 MG; Start 04/17/18 at 11:30 Rifaximin (Xifaxan) 550 mg BID NGT Last administered on 04/18/18 08:01; Admin Dose 550 MG; Start 04/17/18 at 13:00 Lactulose (Enulose) 20 gm Q6 NGT Last administered on 04/18/18 05:09; Admin Dose 20 GM; Start 04/17/18 at 13:00 Levetiracetam 750 mg/Dextrose 107.5 ml @ 430 mls/hr Q12 IVPB Last administered on 04/18/18 09:10; Admin Dose 430 MLS/HR; Start 04/17/18 at 21:00 Calcium Chloride (Ca Chloride 10% Syg) 2,000 mg ONCE ONCE IV ; Start 04/18/18 at 10:30; Stop 04/18/18 at 10:31; Status UNV Assessment/Plan Hospital Course (Demo Recall) IMP: 1. Septic Shock with multiorgan failure 2. Respiratory Failure/Vent 3. Lactic Acidosis 2/2 #1 and decompensated liver failure 4. Decompensated liver failure 5. ARF 2/2 non-oliguric ATN 6. Hepatic Encephalopathy 7. Seizure 2/2 #6 RECS: 1. Vent support 2. Pressors to MAP > 65 mm Hg 3. Abx per ID 4. Albumin 25% x 3 more doses 5. Continue hydrocortisone 100 mg IV Q 8 6. PPI IV 7. Follow Coags; LFTs and H/H 8. Start rifaximin and lactulose 9. Dilantin or keppra for seizures 10. No chest compressions as per Family meeting 40 min cc time recommend transition to comfort care. THEA GARCIA MD, [facility] Apr 18, 2018 10:54
--- NOTE | 2018-04-18 11:00 | CONS ---
Assessment/Plan Assessment/Plan Hospital Course (Demo Recall) IMPRESSION: 1. Positive troponin in the setting of shock, likely type 2 demand infarct.-now trended negative 2. Hypotension, shock, likely septic in the setting of cirrhosis. 3. Abnormal echocardiogram, assess for true acute coronary syndrome. 4. Tachycardia consistent with sinus tachycardia at this time in the setting of multiple pressures hypotension, cirrhosis. 5. Sepsis. 6. Cirrhosis. 7. Ascites. 8. Anemia. 9. Leukocytosis. 10. Coagulopathy 11. Urinary tract infection. 12. cardiomyopathy-EF 25-30% by echo this admit Recc: -ICU -serial ecg's -Wean pressors with levo and vasopression as tolerated -Continue abx's and f/u cx data -Follow coagulopathy and hgb clsoely on octreotide -Follow volume status closely Consultation Date/Type/Reason Admit Date/Time Apr 14, 2018 at 10:08 Initial Consult Date 04/14/18 Type of Consult Cardiology Reason for Consultation positive troponin Requesting Provider: YUDITH WHALEY Date/Time of Note DATE: 04/18/18 TIME: 10:53 Exam/Review of Systems Vital Signs Vitals Vital Signs Date Temp Pulse Resp B/P (MAP) Pulse Ox O2 O2 Flow FiO2 Time Delivery Rate 04/18/18 110 22 88 100 09:00 04/18/18 114/89 06:45 (97) 04/18/18 Mechanical 06:00 Ventilator 04/18/18 98.4 04:15 04/14/18 15 08:38 Intake and Output 04/17/18 04/17/18 04/18/18 1515:00 23:00 07:00 IntakeIntake Total 1193.78 ml 1115.69 ml 745.53 ml OutputOutput Total 675 ml 340 ml 600 ml BalanceBalance 518.78 ml 775.69 ml 145.53 ml Exam Exam Review of Systems: CONSTITUTIONAL: No fevers, chills. PULMONARY: intubated CARDIOVASCULAR: No chest pain/palpitations GASTROINTESTINAL: No nausea/vomiting. GENITOURINARY: No hematuria/dysuria. MUSCULOSKELETAL: No myagias/arthalgias. PSYCHIATRIC: The patient denies depression. NEUROLOGIC: encephalopathic Constitutional: other (encephalopathic) Psych: no complaints Head: normocephalic ENMT: mucosa pink and moist Neck: supple, jvd (9 cm water) Respiratory: diminished breath sounds Cardiovascular: regular rate and rhythm Gastrointestinal: soft, non-tender Musculoskeletal: muscle tone (normal) Extremities: edema (none) Neurological: other (No focal deficits) Labs Result Diagram: 04/18/18 0434 04/18/18 0434 Results 24hrs Laboratory Tests Test 04/17/18 13:46 04/18/18 04:34 04/18/18 05:00 Phenytoin (Dilantin) Level 18.1 White Blood Count 26.3 #H Red Blood Count 3.49 L Hemoglobin 9.5 L Hematocrit 30.5 L Mean Corpuscular Volume 87.4 Mean Corpuscular Hemoglobin 27.2 L Mean Corpuscular 31.1 L Hemoglobin Concent Red Cell Distribution Width 18.9 H Platelet Count 56 L Mean Platelet Volume 12.7 H Immature Granulocytes % 1.000 H Neutrophils % Segmented Neutrophils 79 H % (Manual) Band Neutrophils % (Manual) 9 H Lymphocytes % Lymphocytes % (Manual) 1 L Monocytes % Monocytes % (Manual) 10 Eosinophils % Basophils % Myelocytes % (Manual) 1 H Nucleated Red Blood Cells % 2 H Immature Granulocytes # 0.260 H Neutrophils # Neutrophils # (Manual) 21.4 H Band Neutrophils # 2.3 H Lymphocytes (Manual) 0.2 L Lymphocytes # Monocytes # Monocytes # (Manual) 2.6 H Eosinophils # Basophils # Myelocytes # 0.2 H Nucleated Red Blood Cells # Toxic Granulation 1+ Platelet Estimate DECREASED Polychromasia 1+ Anisocytosis 1+ Macrocytosis 1+ Sodium Level 140 Potassium Level 4.5 Chloride Level 97 Carbon Dioxide Level 27 Anion Gap 16 H Blood Urea Nitrogen 82 H Creatinine 1.62 H Est Glomerular Filtrat 46 L Rate mL/min Glucose Level 209 Lactic Acid Level 4.9 *H Calcium Level 6.7 L Phosphorus Level 4.4 Magnesium Level 2.2 Total Bilirubin 2.4 H Direct Bilirubin 1.70 H Indirect Bilirubin 0.7 Aspartate Amino 175 H Transf (AST/SGOT) Alanine 120 H Aminotransferase (ALT/SGPT) Alkaline Phosphatase 113 Total Protein 6.4 Albumin 3.2 L Globulin 3.20 Albumin/Globulin Ratio 1.00 Blood Gas Specimen Source Blood arterial Arterial Blood Date Drawn 04/18/2018 4:50:13 AM Arterial Blood pH 7.336 L (Temp corrected) Arterial Blood pCO2 44.0 (Temp correct) Arterial Blood pO2 74.3 L (Temp corrected) Arterial Blood HCO3 23.0 Arterial Blood Base Excess -2.8 Arterial Blood 91.9 L Oxygen Saturation [place] Test ACCEPTAB Arterial Blood Gas Right Radial Puncture Site Arterial 0.1 Blood Carboxyhemoglobin Arterial Blood Methemoglobin 0.1 Blood Gas A-a O2 Differential 594.7 H Oxyhemoglobin Percent 91.7 L Blood Gas Temperature 37.0 Blood Gas Modality VENT - AC FiO2 100.0 Blood Gas Inspiratory Time 20 Blood Gas Tidal Volume 500.0 Blood Gas Low PEEP Setting 5.0 Blood Gas Amplitude 22 Blood Gas Notified Whom UP Blood Gas Notified Time 04/18/2018 5:28:38 AM Medications Medications Current Medications Lactulose (Enulose) 20 gm Q6 NGT ; Start 04/14/18 at 12:00; Status Hold Propofol 100 ml @ 2.04 mls/hr Q12H IV Last administered on 04/18/18 07:41; Admin Dose 16.32 MLS/HR; Start 04/14/18 at 15:00 Vancomycin HCl (Vanco Iv Per Pharmacy) VANCOMYCIN PER PHARMACY PER PROTOCOL XX ; Start 04/14/18 at 15:00 Cefepime HCl 50 ml @ 100 mls/hr Q12 IVPB Last administered on 04/18/18 08:01; Admin Dose 100 MLS/HR; Start 04/14/18 at 21:00 Midazolam HCl 50 ml @ 1 mls/hr TITRATE IV Last administered on 04/18/18 08:14; Admin Dose 10 MLS/HR; Start 04/14/18 at 15:00 Vasopressin 60 unit/Dextrose 60 ml @ 0 mls/hr Q12H IV Last administered on 04/17/18 04:43; Admin Dose 2.4 MLS/HR; Start 04/14/18 at 16:00 Norepinephrine 32 mg/Dextrose 250 ml @ 0.47 mls/hr TITRATE IV Last administered on 04/17/18 20:29; Admin Dose 14.06 MLS/HR; Start 04/14/18 at 18:00 Phenylephrine HCl 80 mg/Dextrose 250 ml @ 18.75 mls/ hr TITRATE IV Last administered on 04/18/18 08:10; Admin Dose 9.38 MLS/HR; Start 04/14/18 at 18:00 Acetaminophen (Tylenol Supp) 650 mg Q6H PRN [place] FEVER GREATER THAN 100.6 Last administered on 04/15/18 12:00; Admin Dose 650 MG; Start 04/14/18 at 18:00 Phytonadione 10 mg/Dextrose 51 ml @ 102 mls/hr DAILY IVPB Last administered on 04/18/18 08:01; Admin Dose 102 MLS/HR; Start 04/15/18 at 09:00; Stop 04/18/18 at 12:00 Fentanyl 100 ml @ 2.5 mls/hr TITRATE IV Last administered on 04/18/18 07:02; Admin Dose 10 MLS/HR; Start 04/15/18 at 00:00 Dopamine HCl/ Dextrose 250 ml @ 5.1 mls/hr TITRATE IV ; Start 04/15/18 at 06:30 Lactulose (Lactulose Enema) 100 ml Q8 [place] Last administered on 04/18/18 05:09; Admin Dose 100 ML; Start 04/15/18 at 14:00 Phenytoin (Dilantin) 100 mg Q8 IV Last administered on 04/18/18 05:09; Admin Dose 100 MG; Start 04/15/18 at 22:00 Metronidazole 100 ml @ 100 mls/hr Q8 IVPB Last administered on 04/18/18 05:10; Admin Dose 100 MLS/HR; Start 04/16/18 at 14:00 Hydrocortisone (Solu-Cortef) 100 mg Q8 IV Last administered on 04/18/18 05:09; Admin Dose 100 MG; Start 04/16/18 at 14:00 Pantoprazole 80 mg/Sodium Chloride 100 ml @ 10 mls/hr Q10H IV Last administered on 04/18/18 05:10; Admin Dose 10 MLS/HR; Start 04/16/18 at 14:00 Octreotide Acetate 1 mg/ Dextrose 100 ml @ 5 mls/hr Q20H IV Last administered on 04/18/18 05:10; Admin Dose 5 MLS/HR; Start 04/16/18 at 14:00 Vancomycin HCl 1.25 gm/Sodium Chloride 250 ml @ 83.333 mls/ hr Q24H IVPB Last administered on 04/18/18 04:08; Admin Dose 83.333 MLS/HR; Start 04/18/18 at 03:00 Lorazepam (Ativan) 2 mg Q10MIN PRN IV seizure Last administered on 04/18/18 07:03; Admin Dose 2 MG; Start 04/17/18 at 11:30 Rifaximin (Xifaxan) 550 mg BID NGT Last administered on 04/18/18 08:01; Admin Dose 550 MG; Start 04/17/18 at 13:00 Lactulose (Enulose) 20 gm Q6 NGT Last administered on 04/18/18at 05:09; Admin Dose 20 GM; Start 04/17/18 at 13:00 Levetiracetam 750 mg/Dextrose 107.5 ml @ 430 mls/hr Q12 IVPB Last administered on 04/18/18 09:10; Admin Dose 430 MLS/HR; Start 04/17/18 at 21:00 Calcium Chloride (Ca Chloride 10% Syg) 2,000 mg ONCE ONCE IV ; Start 04/18/18 at 10:30; Stop 04/18/18 at 10:31; Status JUAN JOSÉ MEDINA Apr 18, 2018 11:00
--- NOTE | 2018-04-18 11:41 | CONS ---
Assessment/Plan Assessment/Plan Assessment/Plan (Daily) 1. acute kidney injury due to ATN from sepsis 2. sepsis due to possible aspiration pnuemonia 3. acute hypoxic respiratory failure intbated on ventilator 4. acute hepatic encephalopathy 5. h/o Liver cirrhosis with chronic alcoholism 6. Spenomegaly with portal HTN an drecurrent ascites 7. Hyponatremia due to liver cirrhosis 8. Hydrocele with difficult williamson insertion Plan: pt had been having seizure, remains intubated, BUN/Cr went upto 82/1.62- BP still low on multiple pressors IV abx cefepime and IV vancomycin, renally dose all abx and monitor electrolytes on IV octreotide gtt, On Rifaximin 550mg BID IV keppra 750mg BID Currently no acute indicatin for HD- pt is on multiple pressors, not stable for dialysis due to very low BP will follow up Consultation Date/Type/Reason Admit Date/Time Apr 14, 2018 at 10:08 Initial Consult Date 04/14/18 Type of Consult NEPHROLOGY Requesting Provider: YUDITH WHALEY Date/Time of Note DATE: 04/18/18 TIME: 11:40 24 HR Interval Summary Free Text/Dictation pt had been having seizure, remains intubated, BUN/Cr went upto 82/1.62 Exam/Review of Systems Exam Vitals Vital Signs Date Temp Pulse Resp B/P (MAP) Pulse Ox O2 O2 Flow FiO2 Time Delivery Rate 04/18/18 106 21 102/75 93 Mechanical 11:00 (84) Ventilator 04/18/18 100 09:00 04/18/18 99.5 08:00 04/14/18 15 08:38 Intake and Output 04/17/18 04/17/18 04/18/18 1414:59 22:59 06:59 IntakeIntake Total 1426.23 ml 1122.54 ml 813.94 ml OutputOutput Total 675 ml 360 ml 580 ml BalanceBalance 751.23 ml 762.54 ml 233.94 ml Exam Constitutional: non-verbal + ET tube on ventilator Respiratory: crackles/rales, diminished breath sounds Cardiovascular: regular rate and rhythm, nl pulses Gastrointestinal: soft, ascites, distended Musculoskeletal: joint tenderness, swelling Extremities: normal pulses Neurological: other (intubated sedated on ventilator ) Results Result Diagram: 04/18/18 0434 04/18/18 0434 Results 24hrs Laboratory Tests Test 04/17/18 13:46 04/18/18 04:34 04/18/18 05:00 Phenytoin (Dilantin) Level 18.1 White Blood Count 26.3 #H Red Blood Count 3.49 L Hemoglobin 9.5 L Hematocrit 30.5 L Mean Corpuscular Volume 87.4 Mean Corpuscular Hemoglobin 27.2 L Mean Corpuscular 31.1 L Hemoglobin Concent Red Cell Distribution Width 18.9 H Platelet Count 56 L Mean Platelet Volume 12.7 H Immature Granulocytes % 1.000 H Neutrophils % Segmented Neutrophils 79 H % (Manual) Band Neutrophils % (Manual) 9 H Lymphocytes % Lymphocytes % (Manual) 1 L Monocytes % Monocytes % (Manual) 10 Eosinophils % Basophils % Myelocytes % (Manual) 1 H Nucleated Red Blood Cells % 2 H Immature Granulocytes # 0.260 H Neutrophils # Neutrophils # (Manual) 21.4 H Band Neutrophils # 2.3 H Lymphocytes (Manual) 0.2 L Lymphocytes # Monocytes # Monocytes # (Manual) 2.6 H Eosinophils # Basophils # Myelocytes # 0.2 H Nucleated Red Blood Cells # Toxic Granulation 1+ Platelet Estimate DECREASED Polychromasia 1+ Anisocytosis 1+ Macrocytosis 1+ Sodium Level 140 Potassium Level 4.5 Chloride Level 97 Carbon Dioxide Level 27 Anion Gap 16 H Blood Urea Nitrogen 82 H Creatinine 1.62 H Est Glomerular Filtrat 46 L Rate mL/min Glucose Level 209 Lactic Acid Level 4.9 *H Calcium Level 6.7 L Phosphorus Level 4.4 Magnesium Level 2.2 Total Bilirubin 2.4 H Direct Bilirubin 1.70 H Indirect Bilirubin 0.7 Aspartate Amino 175 H Transf (AST/SGOT) Alanine 120 H Aminotransferase (ALT/SGPT) Alkaline Phosphatase 113 Total Protein 6.4 Albumin 3.2 L Globulin 3.20 Albumin/Globulin Ratio 1.00 Blood Gas Specimen Source Blood arterial Arterial Blood Date Drawn 04/18/2018 4:50:13 AM Arterial Blood pH 7.336 L (Temp corrected) Arterial Blood pCO2 44.0 (Temp correct) Arterial Blood pO2 74.3 L (Temp corrected) Arterial Blood HCO3 23.0 Arterial Blood Base Excess -2.8 Arterial Blood 91.9 L Oxygen Saturation [place] Test ACCEPTAB Arterial Blood Gas Right Radial Puncture Site Arterial 0.1 Blood Carboxyhemoglobin Arterial Blood Methemoglobin 0.1 Blood Gas A-a O2 Differential 594.7 H Oxyhemoglobin Percent 91.7 L Blood Gas Temperature 37.0 Blood Gas Modality VENT - AC FiO2 100.0 Blood Gas Inspiratory Time 20 Blood Gas Tidal Volume 500.0 Blood Gas Low PEEP Setting 5.0 Blood Gas Amplitude 22 Blood Gas Notified Whom UP Blood Gas Notified Time 04/18/2018 5:28:38 AM Medications Medication Current Medications Lactulose (Enulose) 20 gm Q6 NGT ; Start 04/14/18 at 12:00; Status Hold Propofol 100 ml @ 2.04 mls/hr Q12H IV Last administered on 04/18/18 07:41; Admin Dose 16.32 MLS/HR; Start 04/14/18 at 15:00 Vancomycin HCl (Vanco Iv Per Pharmacy) VANCOMYCIN PER PHARMACY PER PROTOCOL XX ; Start 04/14/18 at 15:00 Cefepime HCl 50 ml @ 100 mls/hr Q12 IVPB Last administered on 04/18/18 08:01; Admin Dose 100 MLS/HR; Start 04/14/18 at 21:00 Midazolam HCl 50 ml @ 1 mls/hr TITRATE IV Last administered on 04/18/18 08:14; Admin Dose 10 MLS/HR; Start 04/14/18 at 15:00 Vasopressin 60 unit/Dextrose 60 ml @ 0 mls/hr Q12H IV Last administered on 04/17/18 04:43; Admin Dose 2.4 MLS/HR; Start 04/14/18 at 16:00 Norepinephrine 32 mg/Dextrose 250 ml @ 0.47 mls/hr TITRATE IV Last administered on 04/17/18 20:29; Admin Dose 14.06 MLS/HR; Start 04/14/18 at 18:00 Phenylephrine HCl 80 mg/Dextrose 250 ml @ 18.75 mls/ hr TITRATE IV Last administered on 04/18/18 08:10; Admin Dose 9.38 MLS/HR; Start 04/14/18 at 18:00 Acetaminophen (Tylenol Supp) 650 mg Q6H PRN [place] FEVER GREATER THAN 100.6 Last administered on 04/15/18 12:00; Admin Dose 650 MG; Start 04/14/18 at 18:00 Phytonadione 10 mg/Dextrose 51 ml @ 102 mls/hr DAILY IVPB Last administered on 04/18/18 08:01; Admin Dose 102 MLS/HR; Start 04/15/18 at 09:00; Stop 04/18/18 at 12:00 Fentanyl 100 ml @ 2.5 mls/hr TITRATE IV Last administered on 04/18/18 07:02; Admin Dose 10 MLS/HR; Start 04/15/18 at 00:00 Dopamine HCl/ Dextrose 250 ml @ 5.1 mls/hr TITRATE IV ; Start 04/15/18 at 06:30 Lactulose (Lactulose Enema) 100 ml Q8 [place] Last administered on 04/18/18 05:09; Admin Dose 100 ML; Start 04/15/18 at 14:00 Phenytoin (Dilantin) 100 mg Q8 IV Last administered on 04/18/18 05:09; Admin Dose 100 MG; Start 04/15/18 at 22:00 Metronidazole 100 ml @ 100 mls/hr Q8 IVPB Last administered on 04/18/18 05:10; Admin Dose 100 MLS/HR; Start 04/16/18 at 14:00 Hydrocortisone (Solu-Cortef) 100 mg Q8 IV Last administered on 04/18/18 05:09; Admin Dose 100 MG; Start 04/16/18 at 14:00 Pantoprazole 80 mg/Sodium Chloride 100 ml @ 10 mls/hr Q10H IV Last administered on 04/18/18 05:10; Admin Dose 10 MLS/HR; Start 04/16/18 at 14:00 Octreotide Acetate 1 mg/ Dextrose 100 ml @ 5 mls/hr Q20H IV Last administered on 04/18/18 05:10; Admin Dose 5 MLS/HR; Start 04/16/18 at 14:00 Vancomycin HCl 1.25 gm/Sodium Chloride 250 ml @ 83.333 mls/ hr Q24H IVPB Last administered on 04/18/18 04:08; Admin Dose 83.333 MLS/HR; Start 04/18/18 at 03:00 Lorazepam (Ativan) 2 mg Q10MIN PRN IV seizure Last administered on 04/18/18 07:03; Admin Dose 2 MG; Start 04/17/18 at 11:30 Rifaximin (Xifaxan) 550 mg BID NGT Last administered on 04/18/18at 08:01; Admin Dose 550 MG; Start 04/17/18 at 13:00 Lactulose (Enulose) 20 gm Q6 NGT Last administered on 04/18/18 11:14; Admin Dose 20 GM; Start 04/17/18 at 13:00 Levetiracetam 750 mg/Dextrose 107.5 ml @ 430 mls/hr Q12 IVPB Last administered on 04/18/18 09:10; Admin Dose 430 MLS/HR; Start 04/17/18 at 21:00 MIKE PEARSON MD Apr 18, 2018 11:40
--- NOTE | 2018-04-18 11:45 | CONS ---
Assessment/Plan Assessment/Plan Hospital Course (Demo Recall) No acute changes. Patient remains on multiple pressors also on octreotide and Protonix drips, he is intubated sedated in no distress. T-max yesterday 100.1 to current 99.5 pulse 106 respirations 20 blood pressure 102/75 saturation 93% on vent WBC 26.3 H&H 9.5 and 30.5 platelets 56 bands 79 BUN 82 creatinine 1.62 lactic acid 4.9 Chest x-ray this morning revealed slight interval increased opacity of the left lung and slight increased right pleural effusion. Small left pleural effusion s table Microbiology: Blood and urine cultures remain negative Indwelling: Endotracheal tube, orogastric tube, right femoral triple-lumen catheter, Giron catheter, rectal tube Allergies: none CODE STATUS: chemical Antimicrobials: Vancomycin, Flagyl, cefepime Physical examination: Well-developed middle-aged man in no distress. Head atraumatic normocephalic neck is supple chest rise symmetrical breath sounds diminished bases. Heart: S1-S2 tachycardic. Abdomen distended, obese, bowel sounds hypoactive. Extremities mottled and cyanotic Assessment: 1. Severe sepsis with shock and multiorgan failure 2. Acute respiratory failure rule out aspiration 3. Seizure disorder 4. Decompensated alcoholic cirrhosis 5. Acute renal failure 6. Lactic acidosis Plan: Remains hemodynamically unstable, continue broad-spectrum antibiotics, await for repeat blood cultures and sputum culture, follow recommendations of consultants, prognosis guarded Consultation Date/Type/Reason Admit Date/Time Apr 14, 2018 at 10:08 Initial Consult Date 04/16/18 Type of Consult id Requesting Provider: YUDITH WHALEY Date/Time of Note DATE: 04/18/18 TIME: 11:44 Exam/Review of Systems Exam Vitals Vital Signs Date Temp Pulse Resp B/P (MAP) Pulse Ox O2 O2 Flow FiO2 Time Delivery Rate 04/18/18 106 21 102/75 93 Mechanical 11:00 (84) Ventilator 04/18/18 100 09:00 04/18/18 99.5 08:00 04/14/18 15 08:38 Intake and Output 04/17/18 04/17/18 04/18/18 1515:00 23:00 07:00 IntakeIntake Total 1193.78 ml 1115.69 ml 745.53 ml OutputOutput Total 675 ml 340 ml 600 ml BalanceBalance 518.78 ml 775.69 ml 145.53 ml Results Result Diagram: 04/18/18 0434 04/18/18 0434 Results 24hrs Laboratory Tests Test 04/17/18 13:46 04/18/18 04:34 04/18/18 05:00 Phenytoin (Dilantin) Level 18.1 White Blood Count 26.3 #H Red Blood Count 3.49 L Hemoglobin 9.5 L Hematocrit 30.5 L Mean Corpuscular Volume 87.4 Mean Corpuscular Hemoglobin 27.2 L Mean Corpuscular 31.1 L Hemoglobin Concent Red Cell Distribution Width 18.9 H Platelet Count 56 L Mean Platelet Volume 12.7 H Immature Granulocytes % 1.000 H Neutrophils % Segmented Neutrophils 79 H % (Manual) Band Neutrophils % (Manual) 9 H Lymphocytes % Lymphocytes % (Manual) 1 L Monocytes % Monocytes % (Manual) 10 Eosinophils % Basophils % Myelocytes % (Manual) 1 H Nucleated Red Blood Cells % 2 H Immature Granulocytes # 0.260 H Neutrophils # Neutrophils # (Manual) 21.4 H Band Neutrophils # 2.3 H Lymphocytes (Manual) 0.2 L Lymphocytes # Monocytes # Monocytes # (Manual) 2.6 H Eosinophils # Basophils # Myelocytes # 0.2 H Nucleated Red Blood Cells # Toxic Granulation 1+ Platelet Estimate DECREASED Polychromasia 1+ Anisocytosis 1+ Macrocytosis 1+ Sodium Level 140 Potassium Level 4.5 Chloride Level 97 Carbon Dioxide Level 27 Anion Gap 16 H Blood Urea Nitrogen 82 H Creatinine 1.62 H Est Glomerular Filtrat 46 L Rate mL/min Glucose Level 209 Lactic Acid Level 4.9 *H Calcium Level 6.7 L Phosphorus Level 4.4 Magnesium Level 2.2 Total Bilirubin 2.4 H Direct Bilirubin 1.70 H Indirect Bilirubin 0.7 Aspartate Amino 175 H Transf (AST/SGOT) Alanine 120 H Aminotransferase (ALT/SGPT) Alkaline Phosphatase 113 Total Protein 6.4 Albumin 3.2 L Globulin 3.20 Albumin/Globulin Ratio 1.00 Blood Gas Specimen Source Blood arterial Arterial Blood Date Drawn 04/18/2018 4:50:13 AM Arterial Blood pH 7.336 L (Temp corrected) Arterial Blood pCO2 44.0 (Temp correct) Arterial Blood pO2 74.3 L (Temp corrected) Arterial Blood HCO3 23.0 Arterial Blood Base Excess -2.8 Arterial Blood 91.9 L Oxygen Saturation [place] Test ACCEPTAB Arterial Blood Gas Right Radial Puncture Site Arterial 0.1 Blood Carboxyhemoglobin Arterial Blood Methemoglobin 0.1 Blood Gas A-a O2 Differential 594.7 H Oxyhemoglobin Percent 91.7 L Blood Gas Temperature 37.0 Blood Gas Modality VENT - AC FiO2 100.0 Blood Gas Inspiratory Time 20 Blood Gas Tidal Volume 500.0 Blood Gas Low PEEP Setting 5.0 Blood Gas Amplitude 22 Blood Gas Notified Whom UP Blood Gas Notified Time 04/18/2018 5:28:38 AM Medications Medication Current Medications Lactulose (Enulose) 20 gm Q6 NGT ; Start 04/14/18 at 12:00; Status Hold Propofol 100 ml @ 2.04 mls/hr Q12H IV Last administered on 04/18/18 07:41; Admin Dose 16.32 MLS/HR; Start 04/14/18 at 15:00 Vancomycin HCl (Vanco Iv Per Pharmacy) VANCOMYCIN PER PHARMACY PER PROTOCOL XX ; Start 04/14/18 at 15:00 Cefepime HCl 50 ml @ 100 mls/hr Q12 IVPB Last administered on 04/18/18 08:01; Admin Dose 100 MLS/HR; Start 04/14/18 at 21:00 Midazolam HCl 50 ml @ 1 mls/hr TITRATE IV Last administered on 04/18/18 08:14; Admin Dose 10 MLS/HR; Start 04/14/18 at 15:00 Vasopressin 60 unit/Dextrose 60 ml @ 0 mls/hr Q12H IV Last administered on 04/17/18 04:43; Admin Dose 2.4 MLS/HR; Start 04/14/18 at 16:00 Norepinephrine 32 mg/Dextrose 250 ml @ 0.47 mls/hr TITRATE IV Last administered on 04/17/18 20:29; Admin Dose 14.06 MLS/HR; Start 04/14/18 at 18:00 Phenylephrine HCl 80 mg/Dextrose 250 ml @ 18.75 mls/ hr TITRATE IV Last administered on 04/18/18 08:10; Admin Dose 9.38 MLS/HR; Start 04/14/18 at 18:00 Acetaminophen (Tylenol Supp) 650 mg Q6H PRN [place] FEVER GREATER THAN 100.6 Last administered on 04/15/18 12:00; Admin Dose 650 MG; Start 04/14/18 at 18:00 Phytonadione 10 mg/Dextrose 51 ml @ 102 mls/hr DAILY IVPB Last administered on 04/18/18 08:01; Admin Dose 102 MLS/HR; Start 04/15/18 at 09:00; Stop 04/18/18 at 12:00 Fentanyl 100 ml @ 2.5 mls/hr TITRATE IV Last administered on 04/18/18 07:02; Admin Dose 10 MLS/HR; Start 04/15/18 at 00:00 Dopamine HCl/ Dextrose 250 ml @ 5.1 mls/hr TITRATE IV ; Start 04/15/18 at 06:30 Lactulose (Lactulose Enema) 100 ml Q8 [place] Last administered on 04/18/18 05:09; Admin Dose 100 ML; Start 04/15/18 at 14:00 Phenytoin (Dilantin) 100 mg Q8 IV Last administered on 04/18/18 05:09; Admin Dose 100 MG; Start 04/15/18 at 22:00 Metronidazole 100 ml @ 100 mls/hr Q8 IVPB Last administered on 04/18/18 05:10; Admin Dose 100 MLS/HR; Start 04/16/18 at 14:00 Hydrocortisone (Solu-Cortef) 100 mg Q8 IV Last administered on 04/18/18 05:09; Admin Dose 100 MG; Start 04/16/18 at 14:00 Pantoprazole 80 mg/Sodium Chloride 100 ml @ 10 mls/hr Q10H IV Last administered on 04/18/18 05:10; Admin Dose 10 MLS/HR; Start 04/16/18 at 14:00 Octreotide Acetate 1 mg/ Dextrose 100 ml @ 5 mls/hr Q20H IV Last administered o n 04/18/18 05:10; Admin Dose 5 MLS/HR; Start 04/16/18 at 14:00 Vancomycin HCl 1.25 gm/Sodium Chloride 250 ml @ 83.333 mls/ hr Q24H IVPB Last administered on 04/18/18 04:08; Admin Dose 83.333 MLS/HR; Start 04/18/18 at 03:00 Lorazepam (Ativan) 2 mg Q10MIN PRN IV seizure Last administered on 04/18/18 07:03; Admin Dose 2 MG; Start 04/17/18 at 11:30 Rifaximin (Xifaxan) 550 mg BID NGT Last administered on 04/18/18 08:01; Admin Dose 550 MG; Start 04/17/18 at 13:00 Lactulose (Enulose) 20 gm Q6 NGT Last administered on 04/18/18 11:14; Admin Dose 20 GM; Start 04/17/18 at 13:00 Levetiracetam 750 mg/Dextrose 107.5 ml @ 430 mls/hr Q12 IVPB Last administered on 04/18/18 09:10; Admin Dose 430 MLS/HR; Start 04/17/18 at 21:00 DONTRELL GUEVARA NP Apr 18, 2018 11:45
--- NOTE | 2018-04-18 12:23 | PN ---
Date/Time of Note Date/Time of Note DATE: 04/18/18 TIME: 12:22 Assessment/Plan VTE Prophylaxis Risk score (from Ns)>0 risk: 11 SCD applied (from Nsg): Yes Pharmacological prophylaxis: other (scds) Lines/Catheters IV Catheter Type (from Nrsg): Peripheral IV Urinary Cath still in place: Yes Reason Cath still needed: other (indicate) (monitor output) Assessment/Plan Hospital Course Hospital Course Summary Assessment and Plan: Assessment: Acute elevation in LFTS- trending down/ Direct hyperbilirubinemia- elevated likely 2/2 to liver disease process -abd u/s shows CBD 7mm -Likely multi-factorial, 2/2 underlying liver disease and septic shock Normocytic anemia -stable -NGT with dark output Alcoholic cirrhosis with portal hypertension/splenomegaly -DF on admission 4.7 -IR deferred paracentesis 2/2 critical status Coagulopathy- on vitamin K Aspiration pneumonia versus pneumonitis Acute respiratory failure likely 2/2 to above Sepsis with Septic shock likely 2/2 aspiration -Lactic acid still elevated- improved today New onset seizures Hepatic encephalopathy Renal insufficiency Scrotal swelling Hyponatremia Cholelithiasis Positive troponin in the setting of shock -likely type 2 demand infarct. Plan: Change PPI to BID Continue Octreotide x24 hors- if hgb remains stable will consider d/c'ing Palliative consult pending- pt with overall poor prognosis Maintain close observation Plan to start TF today Patient seen in collaboration with Dr. Fernando Subjective/Free text: Course reviewed with nursing staff Patient interviewed and examined All labs, imaging and other results reviewed Pt remains critical, able to titrate down on some pressors sight improvement in some labs. No apparent distress, pt remains intubated, sedated PHYSICAL EXAMINATION: GENERAL: Sedated, intubated, ill appearing man, NGT in place SKIN: No lesions, stigmata chronic liver disease HEAD: Normocephalic, atraumatic, no tenderness. CHEST: Inspection within normal limits. CARDIOVASCULAR: Heart: Regular rate and rhythm, RESPIRATORY: Lungs clear to auscultation GASTROINTESTINAL AND LIVER: Abdomen: Soft, non tenderness, + distended, no hernias, no masses, no organomegaly, + ascites, hypoactive bowel sounds. Rectal: Deferred.rectal tube in place GENITOURINARY: edema to scrotum Result Diagram: 04/18/18 0434 04/18/18 0434 Results 24hrs Laboratory Tests Test 04/17/18 13:46 04/18/18 04:34 04/18/18 05:00 Phenytoin (Dilantin) Level 18.1 White Blood Count 26.3 #H Red Blood Count 3.49 L Hemoglobin 9.5 L Hematocrit 30.5 L Mean Corpuscular Volume 87.4 Mean Corpuscular Hemoglobin 27.2 L Mean Corpuscular 31.1 L Hemoglobin Concent Red Cell Distribution Width 18.9 H Platelet Count 56 L Mean Platelet Volume 12.7 H Immature Granulocytes % 1.000 H Neutrophils % Segmented Neutrophils 79 H % (Manual) Band Neutrophils % (Manual) 9 H Lymphocytes % Lymphocytes % (Manual) 1 L Monocytes % Monocytes % (Manual) 10 Eosinophils % Basophils % Myelocytes % (Manual) 1 H Nucleated Red Blood Cells % 2 H Immature Granulocytes # 0.260 H Neutrophils # Neutrophils # (Manual) 21.4 H Band Neutrophils # 2.3 H Lymphocytes (Manual) 0.2 L Lymphocytes # Monocytes # Monocytes # (Manual) 2.6 H Eosinophils # Basophils # Myelocytes # 0.2 H Nucleated Red Blood Cells # Toxic Granulation 1+ Platelet Estimate DECREASED Polychromasia 1+ Anisocytosis 1+ Macrocytosis 1+ Sodium Level 140 Potassium Level 4.5 Chloride Level 97 Carbon Dioxide Level 27 Anion Gap 16 H Blood Urea Nitrogen 82 H Creatinine 1.62 H Est Glomerular Filtrat 46 L Rate mL/min Glucose Level 209 Lactic Acid Level 4.9 *H Calcium Level 6.7 L Phosphorus Level 4.4 Magnesium Level 2.2 Total Bilirubin 2.4 H Direct Bilirubin 1.70 H Indirect Bilirubin 0.7 Aspartate Amino 175 H Transf (AST/SGOT) Alanine 120 H Aminotransferase (ALT/SGPT) Alkaline Phosphatase 113 Total Protein 6.4 Albumin 3.2 L Globulin 3.20 Albumin/Globulin Ratio 1.00 Blood Gas Specimen Source Blood arterial Arterial Blood Date Drawn 04/18/2018 4:50:13 AM Arterial Blood pH 7.336 L (Temp corrected) Arterial Blood pCO2 44.0 (Temp correct) Arterial Blood pO2 74.3 L (Temp corrected) Arterial Blood HCO3 23.0 Arterial Blood Base Excess -2.8 Arterial Blood 91.9 L Oxygen Saturation [place] Test ACCEPTAB Arterial Blood Gas Right Radial Puncture Site Arterial 0.1 Blood Carboxyhemoglobin Arterial Blood Methemoglobin 0.1 Blood Gas A-a O2 Differential 594.7 H Oxyhemoglobin Percent 91.7 L Blood Gas Temperature 37.0 Blood Gas Modality VENT - AC FiO2 100.0 Blood Gas Inspiratory Time 20 Blood Gas Tidal Volume 500.0 Blood Gas Low PEEP Setting 5.0 Blood Gas Amplitude 22 Blood Gas Notified Whom UP Blood Gas Notified Time 04/18/2018 5:28:38 AM Exam/Review of Systems Exam Vitals Vital Signs Date Temp Pulse Resp B/P (MAP) Pulse Ox O2 O2 Flow FiO2 Time Delivery Rate 04/18/18 106 21 102/75 93 Mechanical 11:00 (84) Ventilator 04/18/18 100 09:00 04/18/18 99.5 08:00 04/14/18 15 08:38 Intake and Output 04/17/18 04/17/18 04/18/18 1515:00 23:00 07:00 IntakeIntake Total 1193.78 ml 1115.69 ml 745.53 ml OutputOutput Total 675 ml 340 ml 600 ml BalanceBalance 518.78 ml 775.69 ml 145.53 ml Results Results 24hrs Laboratory Tests Test 04/17/18 13:46 04/18/18 04:34 04/18/18 05:00 Phenytoin (Dilantin) Level 18.1 White Blood Count 26.3 #H Red Blood Count 3.49 L Hemoglobin 9.5 L Hematocrit 30.5 L Mean Corpuscular Volume 87.4 Mean Corpuscular Hemoglobin 27.2 L Mean Corpuscular 31.1 L Hemoglobin Concent Red Cell Distribution Width 18.9 H Platelet Count 56 L Mean Platelet Volume 12.7 H Immature Granulocytes % 1.000 H Neutrophils % Segmented Neutrophils 79 H % (Manual) Band Neutrophils % (Manual) 9 H Lymphocytes % Lymphocytes % (Manual) 1 L Monocytes % Monocytes % (Manual) 10 Eosinophils % Basophils % Myelocytes % (Manual) 1 H Nucleated Red Blood Cells % 2 H Immature Granulocytes # 0.260 H Neutrophils # Neutrophils # (Manual) 21.4 H Band Neutrophils # 2.3 H Lymphocytes (Manual) 0.2 L Lymphocytes # Monocytes # Monocytes # (Manual) 2.6 H Eosinophils # Basophils # Myelocytes # 0.2 H Nucleated Red Blood Cells # Toxic Granulation 1+ Platelet Estimate DECREASED Polychromasia 1+ Anisocytosis 1+ Macrocytosis 1+ Sodium Level 140 Potassium Level 4.5 Chloride Level 97 Carbon Dioxide Level 27 Anion Gap 16 H Blood Urea Nitrogen 82 H Creatinine 1.62 H Est Glomerular Filtrat 46 L Rate mL/min Glucose Level 209 Lactic Acid Level 4.9 *H Calcium Level 6.7 L Phosphorus Level 4.4 Magnesium Level 2.2 Total Bilirubin 2.4 H Direct Bilirubin 1.70 H Indirect Bilirubin 0.7 Aspartate Amino 175 H Transf (AST/SGOT) Alanine 120 H Aminotransferase (ALT/SGPT) Alkaline Phosphatase 113 Total Protein 6.4 Albumin 3.2 L Globulin 3.20 Albumin/Globulin Ratio 1.00 Blood Gas Specimen Source Blood arterial Arterial Blood Date Drawn 04/18/2018 4:50:13 AM Arterial Blood pH 7.336 L (Temp corrected) Arterial Blood pCO2 44.0 (Temp correct) Arterial Blood pO2 74.3 L (Temp corrected) Arterial Blood HCO3 23.0 Arterial Blood Base Excess -2.8 Arterial Blood 91.9 L Oxygen Saturation [place] Test ACCEPTAB Arterial Blood Gas Right Radial Puncture Site Arterial 0.1 Blood Carboxyhemoglobin Arterial Blood Methemoglobin 0.1 Blood Gas A-a O2 Differential 594.7 H Oxyhemoglobin Percent 91.7 L Blood Gas Temperature 37.0 Blood Gas Modality VENT - AC FiO2 100.0 Blood Gas Inspiratory Time 20 Blood Gas Tidal Volume 500.0 Blood Gas Low PEEP Setting 5.0 Blood Gas Amplitude 22 Blood Gas Notified Whom UP Blood Gas Notified Time 04/18/2018 5:28:38 AM Medications Medication Current Medications Lactulose (Enulose) 20 gm Q6 NGT ; Start 04/14/18 at 12:00; Status Hold Propofol 100 ml @ 2.04 mls/hr Q12H IV Last administered on 04/18/18at 07:41; Admin Dose 16.32 MLS/HR; Start 04/14/18 at 15:00 Vancomycin HCl (Vanco Iv Per Pharmacy) VANCOMYCIN PER PHARMACY PER PROTOCOL XX ; Start 04/14/18 at 15:00 Cefepime HCl 50 ml @ 100 mls/hr Q12 IVPB Last administered on 04/18/18at 08:01; Admin Dose 100 MLS/HR; Start 04/14/18 at 21:00 Midazolam HCl 50 ml @ 1 mls/hr TITRATE IV Last administered on 04/18/18at 08:14; Admin Dose 10 MLS/HR; Start 04/14/18 at 15:00 Vasopressin 60 unit/Dextrose 60 ml @ 0 mls/hr Q12H IV Last administered on 04/17/18 04:43; Admin Dose 2.4 MLS/HR; Start 04/14/18 at 16:00 Norepinephrine 32 mg/Dextrose 250 ml @ 0.47 mls/hr TITRATE IV Last administered on 04/17/18 20:29; Admin Dose 14.06 MLS/HR; Start 04/14/18 at 18:00 Phenylephrine HCl 80 mg/Dextrose 250 ml @ 18.75 mls/ hr TITRATE IV Last administered on 04/18/18 08:10; Admin Dose 9.38 MLS/HR; Start 04/14/18 at 18:00 Acetaminophen (Tylenol Supp) 650 mg Q6H PRN [place] FEVER GREATER THAN 100.6 Last administered on 04/15/18 12:00; Admin Dose 650 MG; Start 04/14/18 at 18:00 Fentanyl 100 ml @ 2.5 mls/hr TITRATE IV Last administered on 04/18/18 07:02; Admin Dose 10 MLS/HR; Start 04/15/18 at 00:00 Dopamine HCl/ Dextrose 250 ml @ 5.1 mls/hr TITRATE IV ; Start 04/15/18 at 06:30 Lactulose (Lactulose Enema) 100 ml Q8 [place] Last administered on 04/18/18 05:09; Admin Dose 100 ML; Start 04/15/18 at 14:00 Phenytoin (Dilantin) 100 mg Q8 IV Last administered on 04/18/18 05:09; Admin Dose 100 MG; Start 04/15/18 at 22:00 Metronidazole 100 ml @ 100 mls/hr Q8 IVPB Last administered on 04/18/18 05:10; Admin Dose 100 MLS/HR; Start 04/16/18 at 14:00 Hydrocortisone (Solu-Cortef) 100 mg Q8 IV Last administered on 04/18/18 05:09; Admin Dose 100 MG; Start 04/16/18 at 14:00 Pantoprazole 80 mg/Sodium Chloride 100 ml @ 10 mls/hr Q10H IV Last administered on 04/18/18 05:10; Admin Dose 10 MLS/HR; Start 04/16/18 at 14:00 Octreotide Acetate 1 mg/ Dextrose 100 ml @ 5 mls/hr Q20H IV Last administered on 04/18/18 05:10; Admin Dose 5 MLS/HR; Start 04/16/18 at 14:00 Vancomycin HCl 1.25 gm/Sodium Chloride 250 ml @ 83.333 mls/ hr Q24H IVPB Last administered on 04/18/18 04:08; Admin Dose 83.333 MLS/HR; Start 04/18/18 at 03:00 Lorazepam (Ativan) 2 mg Q10MIN PRN IV seizure Last administered on 04/18/18 07:03; Admin Dose 2 MG; Start 04/17/18 at 11:30 Rifaximin (Xifaxan) 550 mg BID NGT Last administered on 04/18/18 08:01; Admin Dose 550 MG; Start 04/17/18 at 13:00 Lactulose (Enulose) 20 gm Q6 NGT Last administered on 04/18/18 11:14; Admin Dose 20 GM; Start 04/17/18 at 13:00 Levetiracetam 750 mg/Dextrose 107.5 ml @ 430 mls/hr Q12 IVPB Last administered on 04/18/18 09:10; Admin Dose 430 MLS/HR; Start 04/17/18 at 21:00 RENEE ROSALES Apr 18, 2018 12:23
[2018-04-18] MEDS ORDERED: PHENOBARBITAL 65 MG INJ IV SCH (14:00)
--- NOTE | 2018-04-18 14:16 | CONS ---
Assessment/Plan Assessment/Plan Hospital Course 43 yo M with hx of chronic EtOH abuse, cirrhosis and other comorbidities who presents to [facility] ICU for acute respiratory failure. He was noted to have generalized convulsions... for which neurology is consulted. Ammonia 413, which is certainly the provoking factor. CTH is unrevealing. 3 EEG was without epileptiform activity, though is notable for the presence of triphasic waves... consistent with severe hyperammonemia. P: Start propofol, and titrate to goal burst suppression; repeat EEG as necessary Load w/ phb 20mg/kg divided in 4 doses q3h; check phb level in am Cont dilantin 100 tid; repeat dilantin level Hold Keppra; fentanyl Wean versed to off Goals of care per primary Will follow clinically Consultation Date/Type/Reason Admit Date/Time Apr 14, 2018 at 10:08 Type of Consult Neurology Reason for Consultation seizure, coma Requesting Provider: YUDITH WHALEY Date/Time of Note DATE: 04/18/18 TIME: 14:16 24 HR Interval Summary Free Text/Dictation Continues icu care. Frequent seizures overnight. Exam Vital Signs Vitals Vital Signs Date Temp Pulse Resp B/P (MAP) Pulse Ox O2 O2 Flow FiO2 Time Delivery Rate 04/18/18 107 12:00 04/18/18 21 102/75 93 Mechanical 11:00 (84) Ventilator 04/18/18 100 09:00 04/18/18 99.5 08:00 04/14/18 15 08:38 Intake and Output 04/17/18 04/17/18 04/18/18 1515:00 23:00 07:00 IntakeIntake Total 1193.78 ml 1115.69 ml 745.53 ml OutputOutput Total 675 ml 340 ml 600 ml BalanceBalance 518.78 ml 775.69 ml 145.53 ml Exam PE: Gen Appearance: No Apparent Distress HEENT: Intubated Cardiovascular: Regular rate Abdomen: firm; obtunded Extremities: Dry NE: The patient was comatose and nonverbal. Cranial nerve examination was limited by mental status. Pupils were equal and sluggishly reactive to light. There was no afferent pupillary defect. Funduscopic examination was limited. Face was grossly symmetric, w/ present corneal and cough reflexes. Tone was normal. Muscle bulk was normal. I did not see fasciculations. The patient did not withdraw to noxious stimuli. Coordination and gait testing was limited by mental status. Arm and leg reflexes were within normal limits and symmetric. Chavez's sign was absent. Plantar responses were mute. GIULIANA DAMIAN NP Apr 18, 2018 14:16 SAVI FUNES Apr 18, 2018 16:20
[2018-04-18] MEDS: NORepinephrine 32 MG in DEXTROSE 5% 218 ML IV SCH (15:11)
[2018-04-18] MEDS: PANTOPRAZOLE 40 MG INJ IV SCH (17:23)
[2018-04-19] VITALS (75 sets, daily range): BP systolic 84–119; BP diastolic 60–89; PULSE 0–97; RESP 0–22
[2018-04-19] MEDS: OCTREOTIDE 1 MG in DEXTROSE 5% 95 ML IV SCH (00:45)
[2018-04-19] MEDS: PROPOFOL 100 ML IV SCH ×2 (00:45→10:57)
[2018-04-19] MEDS: VASOPRESSIN 60 UNIT in DEXTROSE 5% 57 ML IV SCH (04:00)
[2018-04-19] MEDS: VANCOMYCIN HCL 1.25 GM in SOD CHLORIDE 0.9% 250 ML IVPB SCH (04:44)
[2018-04-19] MEDS: PANTOPRAZOLE 40 MG INJ IV SCH (05:32)
[2018-04-19] MEDS: PHENYTOIN 100 MG INJ IV SCH (05:32)
[2018-04-19] MEDS: LACTULOSE ENEMA 1,000 ML BTL PR SCH (05:32)
[2018-04-19] MEDS: metroNIDAZOLE 500 MG/NS (PMX) 100 ML IVPB SCH (05:32)
[2018-04-19] MEDS: LACTULOSE 30ML CUP NGT SCH ×2 (05:32→12:12)
[2018-04-19] MEDS: HYDROCORTISONE 100 MG INJ IV SCH (05:32)
--- NOTE | 2018-04-19 06:08 | CONS ---
Assessment/Plan Assessment/Plan Assessment/Plan (Daily) First family members have decided to change patient's ongoing level of care to comfort measures terminal extubation when the rest of the family members arrive on April 19, 2018. This is a postdated note for my visit with patient's extended family members and there are no siblings she makes only decisions on behalf of patient. Recovered all of his ongoing current major medical problems joanne hawley with his reversible liver disease leading to all of his other metabolic disorders respiratory failure sepsis syndrome.. There were translators in attendance to help support patient and give guidance these were members of patient's family. I have also spoke to patient's primary care hospitalist and neurologist. Patient's healthcare team feels that there is nothing further to offer the patient even if his seizures are well controlled. Long palliative care discussion was done with patient's mother, she was obviously distraught pleasant was not surprised by patient's ultimate outcome, . His background was discussed she had a clear understanding of his underlying serious medical c ondition beginning with his cirrhosis, uncontrolled seizures up until 04/18/2018 her hopes that he does not suffer. Her fears are that he would suffer if he continuing to same condition living on artificial life support. It was good communication between patient's significant other family members and myself. I explained the patient's overall physical condition had not changed and if anything he has deteriorated at the end of the conversation mother was very tearful but except the fact that her son was dying. There were no cultural issues communication issues or caregiver concerns insofar as quality of care that was received by patient according to family members. I explained that there is significant suffering associated with his current serious medical condition and the fact that if he continued on in his debilitated condition he would only suffer until his . There is no ethical issues legal issues or surrogate issues that needed to be addressed. This postdated note for family conference of April 18, 2018 ended with a decision by patient's mother to discontinue current level of care and to do a terminal extubation when family arrives once again on April 19, 2018. Consultation Date/Type/Reason Admit Date/Time Apr 14, 2018 at 10:08 Initial Consult Date 04/16/18 Requesting Provider: YUDITH WHALEY Date/Time of Note DATE: 04/19/18 TIME: 06:02 Exam/Review of Systems Exam Vitals Vital Signs Date Temp Pulse Resp B/P (MAP) Pulse Ox O2 O2 Flow FiO2 Time Delivery Rate 04/19/18 94 20 97 100 05:10 04/19/18 101/74 04:45 (83) 04/19/18 98.1 04:00 04/18/18 Mechanical 19:45 Ventilator Intake and Output 04/18/18 04/18/18 04/19/18 1414:59 22:59 06:59 IntakeIntake Total 1253.60 ml 519.56 ml 327.38 ml OutputOutput Total 455 ml 575 ml 225 ml BalanceBalance 798.60 ml -55.44 ml 102.38 ml Results Result Diagram: 04/19/18 0430 04/19/18 0430 Results 24hrs Laboratory Tests Test 04/18/18 17:06 04/19/18 04:30 Phenytoin (Dilantin) Level 18.7 White Blood Count 24.8 H Red Blood Count 3.33 L Hemoglobin 9.1 L Hematocrit 28.8 L Mean Corpuscular Volume 86.5 Mean Corpuscular Hemoglobin 27.3 L Mean Corpuscular Hemoglobin Concent 31.6 L Red Cell Distribution Width 18.7 H Platelet Count 67 L Mean Platelet Volume Immature Granulocytes % 3.900 H Neutrophils % Lymphocytes % Monocytes % Eosinophils % Basophils % Nucleated Red Blood Cells % 0.8 H Immature Granulocytes # 0.970 H Neutrophils # Lymphocytes # Monocytes # Eosinophils # Basophils # Nucleated Red Blood Cells # Sodium Level 141 Potassium Level 3.8 Chloride Level 99 Carbon Dioxide Level 29 Anion Gap 13 Blood Urea Nitrogen 88 H Creatinine 1.39 H Est Glomerular Filtrat Rate mL/min 55 L Glucose Level 212 Calcium Level 8.0 L Phosphorus Level 3.3 Magnesium Level 2.4 Medications Medication Current Medications Propofol 100 ml @ 2.04 mls/hr Q12H IV Last administered on 04/19/18at 00:45; Admin Dose 10.2 MLS/HR; Start 04/14/18 at 15:00 Vancomycin HCl (Vanco Iv Per Pharmacy) VANCOMYCIN PER PHARMACY PER PROTOCOL XX ; Start 04/14/18 at 15:00 Cefepime HCl 50 ml @ 100 mls/hr Q12 IVPB Last administered on 04/18/18at 21:46; Admin Dose 100 MLS/HR; Start 04/14/18 at 21:00 Midazolam HCl 50 ml @ 1 mls/hr TITRATE IV Last administered on 04/18/18 08:14; Admin Dose 10 MLS/HR; Start 04/14/18 at 15:00 Vasopressin 60 unit/Dextrose 60 ml @ 0 mls/hr Q12H IV Last administered on 04/17/18 04:43; Admin Dose 2.4 MLS/HR; Start 04/14/18 at 16:00 Norepinephrine 32 mg/Dextrose 250 ml @ 0.47 mls/hr TITRATE IV Last administered on 04/18/18 15:11; Admin Dose 9.38 MLS/HR; Start 04/14/18 at 18:00 Acetaminophen (Tylenol Supp) 650 mg Q6H PRN ME FEVER GREATER THAN 100.6 Last administered on 04/15/18 12:00; Admin Dose 650 MG; Start 04/14/18 at 18:00 Lactulose (Lactulose Enema) 100 ml Q8 ME Last administered on 04/19/18 05:32; Admin Dose 100 ML; Start 04/15/18 at 14:00 Phenytoin (Dilantin) 100 mg Q8 IV Last administered on 04/19/18 05:32; Admin Dose 100 MG; Start 04/15/18 at 22:00 Metronidazole 100 ml @ 100 mls/hr Q8 IVPB Last administered on 04/19/18 05:32; Admin Dose 100 MLS/HR; Start 04/16/18 at 14:00 Hydrocortisone (Solu-Cortef) 100 mg Q8 IV Last administered on 04/19/18 05:32; Admin Dose 100 MG; Start 04/16/18 at 14:00 Octreotide Acetate 1 mg/ Dextrose 100 ml @ 5 mls/hr Q20H IV Last administered on 04/19/18 00:45; Admin Dose 5 MLS/HR; Start 04/16/18 at 14:00 Vancomycin HCl 1.25 gm/Sodium Chloride 250 ml @ 83.333 mls/ hr Q24H IVPB Last administered on 04/19/18 04:44; Admin Dose 83.333 MLS/HR; Start 04/18/18 at 03:00 Lorazepam (Ativan) 2 mg Q10MIN PRN IV seizure Last administered on 04/18/18 07:03; Admin Dose 2 MG; Start 04/17/18 at 11:30 Rifaximin (Xifaxan) 550 mg BID NGT Last administered on 04/18/18at 21:46; Admin Dose 550 MG; Start 04/17/18 at 13:00 Lactulose (Enulose) 20 gm Q6 NGT Last administered on 04/19/18 05:32; Admin Dose 20 GM; Start 04/17/18 at 13:00 Levetiracetam 750 mg/Dextrose 107.5 ml @ 430 mls/hr Q12 IVPB Last administered on 04/18/18at 23:42; Admin Dose 430 MLS/HR; Start 04/17/18 at 21:00 Pantoprazole (Protonix Iv) 40 mg BID@06,18 IV Last administered on 04/19/18 05:32; Admin Dose 40 MG; Start 04/18/18 at 18:00 DARCIE BRANNON Apr 19, 2018 06:08
--- NOTE | 2018-04-19 08:11 | CONS ---
Consult Date/Type/Reason Admit Date/Time Apr 14, 2018 at 10:08 Initial Consult Date 04/16/18 Type of Consult Pulmonary Requesting Provider: YUDITH WHALEY Date/Time of Note DATE: 04/19/18 TIME: 08:10 Subjective Remains somnolent on mechanical ventilation. Continues antiepileptics. Objective Vital Signs Date Temp Pulse Resp B/P (MAP) Pulse Ox O2 O2 Flow FiO2 Time Delivery Rate 04/19/18 6.0 06:04 04/19/18 93 20 98/76 (83) 97 06:00 04/19/18 100 05:10 04/19/18 98.1 04:00 04/18/18 Mechanical 19:45 Ventilator Intake and Output 04/18/18 04/18/18 04/19/18 1515:00 23:00 07:00 IntakeIntake Total 1290.10 ml 529.44 ml 784.72 ml OutputOutput Total 405 ml 625 ml 535 ml BalanceBalance 885.10 ml -95.56 ml 249.72 ml Exam GENERAL: Well-nourished well-developed gentleman orally intubated on mechanical ventilation VITAL SIGNS: per chart NECK: Supple. No JVD or lymphadenopathy. Pupils fixed and dilated CARDIAC EXAM: S1, S2. No added sounds or murmurs. CHEST: clear bilaterally, No added sounds, rales or wheezes ABDOMEN: Soft, nontender. No guarding or rebound. Mildly distended EXTREMITIES: No cyanosis, clubbing or edema. NEUROLOGIC: Generalized weakness. Vent Setting Ventilator Support Mode: AC Fraction of Inspired Oxygen pe: 100 Positive End Expiratory Pressu: 5.0 Results/Medications Result Diagram: 04/19/18 0430 04/19/18 0430 Results 24 hrs Laboratory Tests Test 04/18/18 17:06 04/19/18 04:30 04/19/18 07:00 Phenytoin (Dilantin) Level 18.7 White Blood Count 24.8 H Red Blood Count 3.33 L Hemoglobin 9.1 L Hematocrit 28.8 L Mean Corpuscular Volume 86.5 Mean Corpuscular Hemoglobin 27.3 L Mean Corpuscular 31.6 L Hemoglobin Concent Red Cell Distribution Width 18.7 H Platelet Count 67 L Mean Platelet Volume Immature Granulocytes % 3.900 H Neutrophils % Lymphocytes % Monocytes % Eosinophils % Basophils % Nucleated Red Blood Cells % 0.8 H Immature Granulocytes # 0.970 H Neutrophils # Lymphocytes # Monocytes # Eosinophils # Basophils # Nucleated Red Blood Cells # Sodium Level 141 Potassium Level 3.8 Chloride Level 99 Carbon Dioxide Level 29 Anion Gap 13 Blood Urea Nitrogen 88 H Creatinine 1.39 H Est Glomerular Filtrat 55 L Rate mL/min Glucose Level 212 Calcium Level 8.0 L Phosphorus Level 3.3 Magnesium Level 2.4 Blood Gas Specimen Source Blood arterial Arterial Blood Date Drawn 04/19/2018 7:00:32 AM Arterial Blood pH 7.411 (Temp corrected) Arterial Blood pCO2 46.1 H (Temp correct) Arterial Blood pO2 79.5 L (Temp corrected) Arterial Blood HCO3 28.6 H Arterial Blood Base Excess 3.5 H Arterial Blood 94.3 L Oxygen Saturation [place] Test N/A Arterial Blood Gas LB Puncture Site Arterial 0.2 Blood Carboxyhemoglobin Arterial Blood Methemoglobin 0.2 Blood Gas A-a O2 Differential 587.4 H Oxyhemoglobin Percent 93.9 Blood Gas Temperature 37.0 Blood Gas Respiration Rate 20.0 Blood Gas Actual 20 Respiration Rate Blood Gas Modality VENT - AC FiO2 100.0 Blood Gas Tidal Volume 500.0 Blood Gas Low PEEP Setting 5.0 Blood Gas Notified Whom TM Blood Gas Notified Time 04/19/2018 7:16:04 AM Medications Current Medications Propofol 100 ml @ 2.04 mls/hr Q12H IV Last administered on 04/19/18at 00:45; Admin Dose 10.2 MLS/HR; Start 04/14/18 at 15:00 Vancomycin HCl (Vanco Iv Per Pharmacy) VANCOMYCIN PER PHARMACY PER PROTOCOL XX ; Start 04/14/18 at 15:00 Cefepime HCl 50 ml @ 100 mls/hr Q12 IVPB Last administered on 04/18/18at 21:46; Admin Dose 100 MLS/HR; Start 04/14/18 at 21:00 Midazolam HCl 50 ml @ 1 mls/hr TITRATE IV Last administered on 04/18/18at 08:14; Admin Dose 10 MLS/HR; Start 04/14/18 at 15:00 Vasopressin 60 unit/Dextrose 60 ml @ 0 mls/hr Q12H IV Last administered on 04/17/18 04:43; Admin Dose 2.4 MLS/HR; Start 04/14/18 at 16:00 Norepinephrine 32 mg/Dextrose 250 ml @ 0.47 mls/hr TITRATE IV Last administered on 04/18/18 15:11; Admin Dose 9.38 MLS/HR; Start 04/14/18 at 18:00 Acetaminophen (Tylenol Supp) 650 mg Q6H PRN MS FEVER GREATER THAN 100.6 Last administered on 04/15/18 12:00; Admin Dose 650 MG; Start 04/14/18 at 18:00 Lactulose (Lactulose Enema) 100 ml Q8 MS Last administered on 04/19/18 05:32; Admin Dose 100 ML; Start 04/15/18 at 14:00 Phenytoin (Dilantin) 100 mg Q8 IV Last administered on 04/19/18 05:32; Admin Dose 100 MG; Start 04/15/18 at 22:00 Metronidazole 100 ml @ 100 mls/hr Q8 IVPB Last administered on 04/19/18 05:32; Admin Dose 100 MLS/HR; Start 04/16/18 at 14:00 Hydrocortisone (Solu-Cortef) 100 mg Q8 IV Last administered on 04/19/18 05:32; Admin Dose 100 MG; Start 04/16/18 at 14:00 Octreotide Acetate 1 mg/ Dextrose 100 ml @ 5 mls/hr Q20H IV Last administered on 04/19/18 00:45; Admin Dose 5 MLS/HR; Start 04/16/18 at 14:00 Vancomycin HCl 1.25 gm/Sodium Chloride 250 ml @ 83.333 mls/ hr Q24H IVPB Last administered on 04/19/18 04:44; Admin Dose 83.333 MLS/HR; Start 04/18/18 at 03:00 Lorazepam (Ativan) 2 mg Q10MIN PRN IV seizure Last administered on 04/18/18 07:03; Admin Dose 2 MG; Start 04/17/18 at 11:30 Rifaximin (Xifaxan) 550 mg BID NGT Last administered on 04/18/18 21:46; Admin Dose 550 MG; Start 04/17/18 at 13:00 Lactulose (Enulose) 20 gm Q6 NGT Last administered on 04/19/18 05:32; Admin Dose 20 GM; Start 04/17/18 at 13:00 Levetiracetam 750 mg/Dextrose 107.5 ml @ 430 mls/hr Q12 IVPB Last administered on 04/18/18at 23:42; Admin Dose 430 MLS/HR; Start 04/17/18 at 21:00 Pantoprazole (Protonix Iv) 40 mg BID@06,18 IV Last administered on 04/19/18at 05:32; Admin Dose 40 MG; Start 04/18/18 at 18:00 Assessment/Plan Hospital Course (Demo Recall) IMP: 1. Septic Shock with multiorgan failure 2. Respiratory Failure/Vent 3. Lactic Acidosis 2/2 #1 and decompensated liver failure 4. Decompensated liver failure 5. ARF 2/2 non-oliguric ATN 6. Hepatic Encephalopathy 7. Seizure 2/2 #6 RECS: 1. Vent support 2. Pressors to MAP > 65 mm Hg 3. Abx per ID 4. Albumin 25% x 3 more doses 5. Continue hydrocortisone 100 mg IV Q 8 6. PPI IV 7. Follow Coags; LFTs and H/H 8. rifaximin and lactulose 9. Dilantin or keppra for seizures 10. No chest compressions as per Family meeting 40 min cc time recommend transition to comfort care. Appreciate neuro and palliative care recommendations. THEA GARCIA MD, [facility] Apr 19, 2018 08:11
--- NOTE | 2018-04-19 08:36 | CONS ---
Assessment/Plan Assessment/Plan Assessment/Plan (Daily) Respiratory failure Liver cirrhosis Sepsis syndrome Ascites Renal failure Protracted seizures Family members to arrive today approximately at noon for institution of comfort measures. I have asked nursing staff to call family members is patient is now up to 100% FiO2 blood pressure remains in the low 100s would like to avoid increasing pressors and ask and family members to allow us to proceed to terminal extubation and comfort measures. Consultation Date/Type/Reason Admit Date/Time Apr 14, 2018 at 10:08 Initial Consult Date 04/16/18 Requesting Provider: YUDITH WHALEY Date/Time of Note DATE: 04/19/18 TIME: 08:34 Exam/Review of Systems Exam Vitals Vital Signs Date Temp Pulse Resp B/P (MAP) Pulse Ox O2 O2 Flow FiO2 Time Delivery Rate 04/19/18 6.0 06:04 04/19/18 93 20 98/76 (83) 97 06:00 04/19/18 100 05:10 04/19/18 98.1 04:00 04/18/18 Mechanical 19:45 Ventilator Intake and Output 04/18/18 04/18/18 04/19/18 1515:00 23:00 07:00 IntakeIntake Total 1290.10 ml 529.44 ml 784.72 ml OutputOutput Total 405 ml 625 ml 535 ml BalanceBalance 885.10 ml -95.56 ml 249.72 ml Results Result Diagram: 04/19/18 0430 04/19/18 0430 Results 24hrs Laboratory Tests Test 04/18/18 17:06 04/19/18 04:30 04/19/18 07:00 Phenytoin (Dilantin) Level 18.7 White Blood Count 24.8 H Red Blood Count 3.33 L Hemoglobin 9.1 L Hematocrit 28.8 L Mean Corpuscular Volume 86.5 Mean Corpuscular Hemoglobin 27.3 L Mean Corpuscular 31.6 L Hemoglobin Concent Red Cell Distribution Width 18.7 H Platelet Count 67 L Mean Platelet Volume Immature Granulocytes % 3.900 H Neutrophils % Lymphocytes % Monocytes % Eosinophils % Basophils % Nucleated Red Blood Cells % 0.8 H Immature Granulocytes # 0.970 H Neutrophils # Lymphocytes # Monocytes # Eosinophils # Basophils # Nucleated Red Blood Cells # Sodium Level 141 Potassium Level 3.8 Chloride Level 99 Carbon Dioxide Level 29 Anion Gap 13 Blood Urea Nitrogen 88 H Creatinine 1.39 H Est Glomerular Filtrat 55 L Rate mL/min Glucose Level 212 Calcium Level 8.0 L Phosphorus Level 3.3 Magnesium Level 2.4 Blood Gas Specimen Source Blood arterial Arterial Blood Date Drawn 04/19/2018 7:00:32 AM Arterial Blood pH 7.411 (Temp corrected) Arterial Blood pCO2 46.1 H (Temp correct) Arterial Blood pO2 79.5 L (Temp corrected) Arterial Blood HCO3 28.6 H Arterial Blood Base Excess 3.5 H Arterial Blood 94.3 L Oxygen Saturation [place] Test N/A Arterial Blood Gas LB Puncture Site Arterial 0.2 Blood Carboxyhemoglobin Arterial Blood Methemoglobin 0.2 Blood Gas A-a O2 Differential 587.4 H Oxyhemoglobin Percent 93.9 Blood Gas Temperature 37.0 Blood Gas Respiration Rate 20.0 Blood Gas Actual 20 Respiration Rate Blood Gas Modality VENT - AC FiO2 100.0 Blood Gas Tidal Volume 500.0 Blood Gas Low PEEP Setting 5.0 Blood Gas Notified Whom TM Blood Gas Notified Time 04/19/2018 7:16:04 AM Medications Medication Current Medications Propofol 100 ml @ 2.04 mls/hr Q12H IV Last administered on 04/19/18at 00:45; Admin Dose 10.2 MLS/HR; Start 04/14/18 at 15:00 Vancomycin HCl (Vanco Iv Per Pharmacy) VANCOMYCIN PER PHARMACY PER PROTOCOL XX ; Start 04/14/18 at 15:00 Cefepime HCl 50 ml @ 100 mls/hr Q12 IVPB Last administered on 04/18/18at 21:46; Admin Dose 100 MLS/HR; Start 04/14/18 at 21:00 Midazolam HCl 50 ml @ 1 mls/hr TITRATE IV Last administered on 04/18/18at 08:14; Admin Dose 10 MLS/HR; Start 04/14/18 at 15:00 Vasopressin 60 unit/Dextrose 60 ml @ 0 mls/hr Q12H IV Last administered on 04/17/18 04:43; Admin Dose 2.4 MLS/HR; Start 04/14/18 at 16:00 Norepinephrine 32 mg/Dextrose 250 ml @ 0.47 mls/hr TITRATE IV Last administered on 04/18/18at 15:11; Admin Dose 9.38 MLS/HR; Start 04/14/18 at 18:00 Acetaminophen (Tylenol Supp) 650 mg Q6H PRN ME FEVER GREATER THAN 100.6 Last administered on 04/15/18 12:00; Admin Dose 650 MG; Start 04/14/18 at 18:00 Lactulose (Lactulose Enema) 100 ml Q8 ME Last administered on 04/19/18 05:32; Admin Dose 100 ML; Start 04/15/18 at 14:00 Phenytoin (Dilantin) 100 mg Q8 IV Last administered on 04/19/18 05:32; Admin Dose 100 MG; Start 04/15/18 at 22:00 Metronidazole 100 ml @ 100 mls/hr Q8 IVPB Last administered on 04/19/18 05:32; Admin Dose 100 MLS/HR; Start 04/16/18 at 14:00 Hydrocortisone (Solu-Cortef) 100 mg Q8 IV Last administered on 04/19/18 05:32; Admin Dose 100 MG; Start 04/16/18 at 14:00 Octreotide Acetate 1 mg/ Dextrose 100 ml @ 5 mls/hr Q20H IV Last administered on 04/19/18 00:45; Admin Dose 5 MLS/HR; Start 04/16/18 at 14:00 Vancomycin HCl 1.25 gm/Sodium Chloride 250 ml @ 83.333 mls/ hr Q24H IVPB Last administered on 04/19/18 04:44; Admin Dose 83.333 MLS/HR; Start 04/18/18 at 03:00 Lorazepam (Ativan) 2 mg Q10MIN PRN IV seizure Last administered on 04/18/18 07:03; Admin Dose 2 MG; Start 04/17/18 at 11:30 Rifaximin (Xifaxan) 550 mg BID NGT Last administered on 04/18/18 21:46; Admin Dose 550 MG; Start 04/17/18 at 13:00 Lactulose (Enulose) 20 gm Q6 NGT Last administered on 04/19/18 05:32; Admin Dose 20 GM; Start 04/17/18 at 13:00 Levetiracetam 750 mg/Dextrose 107.5 ml @ 430 mls/hr Q12 IVPB Last administered on 04/18/18 23:42; Admin Dose 430 MLS/HR; Start 04/17/18 at 21:00 Pantoprazole (Protonix Iv) 40 mg BID@06,18 IV Last administered on 04/19/18at 05:32; Admin Dose 40 MG; Start 04/18/18 at 18:00 DARCIE BRANNON Apr 19, 2018 08:36
--- NOTE | 2018-04-19 08:54 | CONS ---
Consult Date/Type/Reason Admit Date/Time Apr 14, 2018 at 10:08 Initial Consult Date 04/16/18 Type of Consultation: Pulm/CCM Requesting Provider: YUDITH WHALEY Date/Time of Note DATE: 04/19/18 TIME: 08:52 Subjective NO acute events - per discussion with palliative team, terminal extubation planned toady - very reasonable in my opinion. Will follow as needed. ROS: comfortable Objective Vitals Vital Signs Date Temp Pulse Resp B/P (MAP) Pulse Ox O2 O2 Flow FiO2 Time Delivery Rate 04/19/18 6.0 06:04 04/19/18 93 20 98/76 (83) 97 06:00 04/19/18 100 05:10 04/19/18 98.1 04:00 04/18/18 Mechanical 19:45 Ventilator Intake and Output 04/18/18 04/18/18 04/19/18 1515:00 23:00 07:00 IntakeIntake Total 1290.10 ml 529.44 ml 784.72 ml OutputOutput Total 405 ml 625 ml 535 ml BalanceBalance 885.10 ml -95.56 ml 249.72 ml Exam General: WN/WD/NAD, AOx 0 HEENT: Unicetric/atraumatic/EOMI (does not follow commands) NECK: JVD elevated, no thyromegaly - intubated Lymph: no lymphadenopathy HEART: regular with no S3, II/ systolic murmur at apex LUNGS: Coarse sounds ABD: soft, NT, ND, +BS ascites : Intact Neuro: non focal SKIN: chronic changes EXT: trace edema Results/Medications Result Diagram: 04/19/18 0430 04/19/18 0430 Results 24 hrs Laboratory Tests Test 04/18/18 17:06 04/19/18 04:30 04/19/18 07:00 Phenytoin (Dilantin) Level 18.7 White Blood Count 24.8 H Red Blood Count 3.33 L Hemoglobin 9.1 L Hematocrit 28.8 L Mean Corpuscular Volume 86.5 Mean Corpuscular Hemoglobin 27.3 L Mean Corpuscular 31.6 L Hemoglobin Concent Red Cell Distribution Width 18.7 H Platelet Count 67 L Mean Platelet Volume Immature Granulocytes % 3.900 H Neutrophils % Lymphocytes % Monocytes % Eosinophils % Basophils % Nucleated Red Blood Cells % 0.8 H Immature Granulocytes # 0.970 H Neutrophils # Lymphocytes # Monocytes # Eosinophils # Basophils # Nucleated Red Blood Cells # Sodium Level 141 Potassium Level 3.8 Chloride Level 99 Carbon Dioxide Level 29 Anion Gap 13 Blood Urea Nitrogen 88 H Creatinine 1.39 H Est Glomerular Filtrat 55 L Rate mL/min Glucose Level 212 Calcium Level 8.0 L Phosphorus Level 3.3 Magnesium Level 2.4 Blood Gas Specimen Source Blood arterial Arterial Blood Date Drawn 04/19/2018 7:00:32 AM Arterial Blood pH 7.411 (Temp corrected) Arterial Blood pCO2 46.1 H (Temp correct) Arterial Blood pO2 79.5 L (Temp corrected) Arterial Blood HCO3 28.6 H Arterial Blood Base Excess 3.5 H Arterial Blood 94.3 L Oxygen Saturation [place] Test N/A Arterial Blood Gas LB Puncture Site Arterial 0.2 Blood Carboxyhemoglobin Arterial Blood Methemoglobin 0.2 Blood Gas A-a O2 Differential 587.4 H Oxyhemoglobin Percent 93.9 Blood Gas Temperature 37.0 Blood Gas Respiration Rate 20.0 Blood Gas Actual 20 Respiration Rate Blood Gas Modality VENT - AC FiO2 100.0 Blood Gas Tidal Volume 500.0 Blood Gas Low PEEP Setting 5.0 Blood Gas Notified Whom TM Blood Gas Notified Time 04/19/2018 7:16:04 AM Home Meds Active Scripts Pantoprazole* (Pantoprazole*) 40 Mg Tablet.dr, 40 MG PO DAILY@06 for 30 Days, #30 TAB 7 Refills Prov:CADEN SALMERON MD 03/25/18 Lactulose* (Lactulose*) 20 Gm/30 Ml Solution, 20 GM PO DAILY for 30 Days, #1 BOTTLE 7 Refills Prov:CADEN SALMERON MD 03/25/18 Spironolactone* (Aldactone*) 50 Mg Tablet, 100 MG PO BID for 30 Days, #60 TAB 7 Refills Prov:CADEN SALMERON MD 03/25/18 Propranolol Hcl* (Propranolol Hcl*) 10 Mg Tablet, 10 MG PO BID for 30 Days, #60 TAB 7 Refills Prov:CADEN SALMERON MD 03/25/18 Furosemide* (Furosemide*) 40 Mg Tablet, 40 MG PO DAILY for 30 Days, #30 TAB 7 Refills Prov:CADEN SALMERON MD 03/25/18 Medications Current Medications Propofol 100 ml @ 2.04 mls/hr Q12H IV Last administered on 04/19/18 00:45; Admin Dose 10.2 MLS/HR; Start 04/14/18 at 15:00 Vancomycin HCl (Vanco Iv Per Pharmacy) VANCOMYCIN PER PHARMACY PER PROTOCOL XX ; Start 04/14/18 at 15:00 Cefepime HCl 50 ml @ 100 mls/hr Q12 IVPB Last administered on 04/18/18 21:46; Admin Dose 100 MLS/HR; Start 04/14/18 at 21:00 Midazolam HCl 50 ml @ 1 mls/hr TITRATE IV Last administered on 04/18/18 08:14; Admin Dose 10 MLS/HR; Start 04/14/18 at 15:00 Vasopressin 60 unit/Dextrose 60 ml @ 0 mls/hr Q12H IV Last administered on 04/17/18 04:43; Admin Dose 2.4 MLS/HR; Start 04/14/18 at 16:00 Norepinephrine 32 mg/Dextrose 250 ml @ 0.47 mls/hr TITRATE IV Last adminis tered on 04/18/18 15:11; Admin Dose 9.38 MLS/HR; Start 04/14/18 at 18:00 Acetaminophen (Tylenol Supp) 650 mg Q6H PRN [place] FEVER GREATER THAN 100.6 Last administered on 04/15/18 12:00; Admin Dose 650 MG; Start 04/14/18 at 18:00 Lactulose (Lactulose Enema) 100 ml Q8 [place] Last administered on 04/19/18 05:32; Admin Dose 100 ML; Start 04/15/18 at 14:00 Phenytoin (Dilantin) 100 mg Q8 IV Last administered on 04/19/18 05:32; Admin Dose 100 MG; Start 04/15/18 at 22:00 Metronidazole 100 ml @ 100 mls/hr Q8 IVPB Last administered on 04/19/18 05:32; Admin Dose 100 MLS/HR; Start 04/16/18 at 14:00 Hydrocortisone (Solu-Cortef) 100 mg Q8 IV Last administered on 04/19/18 05:32; Admin Dose 100 MG; Start 04/16/18 at 14:00 Octreotide Acetate 1 mg/ Dextrose 100 ml @ 5 mls/hr Q20H IV Last administered on 04/19/18 00:45; Admin Dose 5 MLS/HR; Start 04/16/18 at 14:00 Vancomycin HCl 1.25 gm/Sodium Chloride 250 ml @ 83.333 mls/ hr Q24H IVPB Last administered on 04/19/18 04:44; Admin Dose 83.333 MLS/HR; Start 04/18/18 at 03:00 Lorazepam (Ativan) 2 mg Q10MIN PRN IV seizure Last administered on 04/18/18 07:03; Admin Dose 2 MG; Start 04/17/18 at 11:30 Rifaximin (Xifaxan) 550 mg BID NGT Last administered on 04/18/18 21:46; Admin Dose 550 MG; Start 04/17/18 at 13:00 Lactulose (Enulose) 20 gm Q6 NGT Last administered on 04/19/18 05:32; Admin Dose 20 GM; Start 04/17/18 at 13:00 Levetiracetam 750 mg/Dextrose 107.5 ml @ 430 mls/hr Q12 IVPB Last administered on 04/18/18 23:42; Admin Dose 430 MLS/HR; Start 04/17/18 at 21:00 Pantoprazole (Protonix Iv) 40 mg BID@06,18 IV Last administered on 04/19/18 05:32; Admin Dose 40 MG; Start 04/18/18 at 18:00 Assessment/Plan Hospital Course (Demo Recall) 1. Positive troponin in the setting of shock, likely type 2 demand infarct.-now trended negative - no intervention planned now - terminal extubation planned - will follow peripherally for comfort. 2. Hypotension, shock, likely septic in the setting of cirrhosis - con't supportive rx, guarded prognosis. Coming off pressors. Supportive Rx now. 3. Abnormal echocardiogram, assess for true acute coronary syndrome. 4. Tachycardia consistent with sinus tachycardia at this time in the setting of multiple pressures hypotension, cirrhosis- con't to follow. 5. Sepsis - on anti-Bx. 6. Cirrhosis - GI team follows. 7. Ascites. 8. Anemia - H/H stable now. ZHENG LINDSEY MD Apr 19, 2018 08:54
[2018-04-19] MEDS: LEVETIRACETAM IV 750 MG in DEXTROSE 5% 100 ML IVPB SCH (09:09)
[2018-04-19] MEDS: CEFEPIME 1GM/50 ML (PMX) 50 ML IVPB SCH (09:09)
[2018-04-19] MEDS: RIFAXIMIN 550 MG TAB NGT SCH (09:10)
--- NOTE | 2018-04-19 11:50 | PN ---
Date/Time of Note Date/Time of Note DATE: 04/19/18 TIME: 11:50 Assessment/Plan VTE Prophylaxis Risk score (from N[place])>0 risk: 11 [place] [facility] [place] Pharmacological prophylaxis: NA/contraindicated Pharm contraindication: thrombocytopenia Lines/Catheters IV Catheter Type (from [facility]): Saline Lock Urinary Cath still in place: Yes Reason Cath still needed: terminal illness/intractable pain Assessment/Plan Hospital Course Subjective : remains intubated and sedated on pressor support, family has opted for comfort measures and terminal extubation. They are at this time saying their final goodbyes objective: GENERAL: Intubated and comfortably sedated HEENT: TOMASA but dilated bilaterally, currently barely reactive , Intubated, Vent settings noted , High o2 requirement LUNGS: diffusely diminished BS HEART: S1, S2. No murmur, gallops or rubs. Tachycardic ABDOMEN: Soft, distended ++, dilated abd veins, hypoactve BS GENITOURINARY: huge scrotal edema, now with mild blistering EXTREMITIES: interestingly, patient has no LE edema, looks like abd fluid is collecting mostly in scrotal sac NEUROLOGIC: The patient is currently sedated. SKIN: hyperpigmented, jaundiced? assessment and plan: 43-year-old male who is a chronic alcoholic with known alcoholic cirrhosis, Was recently discharged from this facility about 3 weeks prior to admit after being managed for sepsis with concern for SBP and at that time had undergone paracentesis with removal of 5 L of fluid. He presented to the ER with altered mentation respiratory failure and strong concern for aspiration pneumonia (gastric contents visualized during intubation), was admitted to the ICU as he is requiring ventilator support. Problems are listed as below: 1. Acute respiratory failure likely secondary to #2 -remains vent dependent with high Fio2 -despte 100% fio2, is only sating 80s -CXR does show pulm edema and infiltrates, unfortunately patient is not a candidate for diuresis due to shock nor hemodialysis -Continue pulse dosing albumin, continue antibiotics -pulm managing vent, appreciate input 2. Aspiration pneumonia versus pneumonitis likely related to #3 -see #1 -also on hydrocortisone 100mg q8h 3. Sepsis with Septic shock likely 2/2 aspiration, possible SBP as well -still requiring pressor support, down to 2? -likely also component of hypovolemia as patient is also third spacing a lot from liver disease -remains tachycardic -management per ID 4. New seizures with underlying hepatic encephalopathy -patient has been having recurrent seizures, but is currently controlled? on current regimen -concern for possible brain ? may also be due to meds -Patient will benefit from MRI of the brain, however nurses concerned that he is too unstable (pressors, high fio2) 5. Acute renal insufficiency likely secondary to sepsis -not a candidate for HD d/t hypotension -still with very reduced urinary output, creatinine levels better ? -on IV octreotide per renal 6. Chronic alcoholic cirrhosis with portal hypertension and splenomegaly -patient in active liver failure ? -monitor liver function and Coag panel -IV PPI -BB therapy once BP improves 7. Hyponatremia likely related to alcohol use -improved 8. Chronic hypochromic anemia secondary to chronic liver disease -stable, trend 9. Severe abdominal distention, likely secondary to ascites with chronic large ventral hernia as well as large inguinal hernia -CT showed anterior ventral hernia containing ascitic fluid and left inguinal hernia as well as left large hydrocele -IR deffered paracentesis 2/2 critical status, will reconsult when more stable ? -no intervention for now, Keep head of bed slightly depressed, monitor 10. Severe scrotal swelling/hydrocele, likely sequelae from #9 -keep scrotum elevated 11. Cholelithiasis -incidental finding 12. Positive troponin in the setting of shock, likely type 2 demand infarct. -now trended negative 13. Severe thrombocytopenia -Continue to trend, avoid anticoagulation for now 14. Severe leukocytosis: -Secondary to sepsis and steroids -Continue to trend levels Dispo: -family has opted for comfort measures and terminal extubation. They are at this time saying their final goodbyes -plan for terminal extubation once they're done Result Diagram: 04/19/18 0430 04/19/18 0430 Results 24hrs Laboratory Tests Test 04/18/18 17:06 04/19/18 04:30 04/19/18 07:00 Phenytoin (Dilantin) Level 18.7 White Blood Count 24.8 H Red Blood Count 3.33 L Hemoglobin 9.1 L Hematocrit 28.8 L Mean Corpuscular Volume 86.5 Mean Corpuscular Hemoglobin 27.3 L Mean Corpuscular 31.6 L Hemoglobin Concent Red Cell Distribution Width 18.7 H Platelet Count 67 L Mean Platelet Volume Immature Granulocytes % 3.900 H Neutrophils % Segmented Neutrophils 69 % (Manual) Band Neutrophils % (Manual) 19 H Lymphocytes % Reactive Lymphocytes % (Manual) 1 H Monocytes % Monocytes % (Manual) 9 Eosinophils % Basophils % Basophils % (Manual) 1 Myelocytes % (Manual) 1 H Nucleated Red Blood Cells % 1 H Immature Granulocytes # 0.970 H Neutrophils # Neutrophils # (Manual) 18.3 H Band Neutrophils # 4.7 H Lymphocytes # Reactive Lymphocytes # 0.2 H Monocytes # Monocytes # (Manual) 2.2 H Eosinophils # Basophils # Basophils # (Manual) 0.2 H Myelocytes # 0.2 H Nucleated Red Blood Cells # Platelet Estimate DECREASED Giant Platelets 6 H Anisocytosis 1+ Macrocytosis 1+ Tear Drop Cells 1+ Ovalocytes 1+ Sodium Level 141 Potassium Level 3.8 Chloride Level 99 Carbon Dioxide Level 29 Anion Gap 13 Blood Urea Nitrogen 88 H Creatinine 1.39 H Est Glomerular Filtrat 55 L Rate mL/min Glucose Level 212 Calcium Level 8.0 L Phosphorus Level 3.3 Magnesium Level 2.4 Blood Gas Specimen Source Blood arterial Arterial Blood Date Drawn 04/19/2018 7:00:32 AM Arterial Blood pH 7.411 (Temp corrected) Arterial Blood pCO2 46.1 H (Temp correct) Arterial Blood pO2 79.5 L (Temp corrected) Arterial Blood HCO3 28.6 H Arterial Blood Base Excess 3.5 H Arterial Blood 94.3 L Oxygen Saturation [place] Test N/A Arterial Blood Gas LB Puncture Site Arterial 0.2 Blood Carboxyhemoglobin Arterial Blood Methemoglobin 0.2 Blood Gas A-a O2 Differential 587.4 H Oxyhemoglobin Percent 93.9 Blood Gas Temperature 37.0 Blood Gas Respiration Rate 20.0 Blood Gas Actual 20 Respiration Rate Blood Gas Modality VENT - AC FiO2 100.0 Blood Gas Tidal Volume 500.0 Blood Gas Low PEEP Setting 5.0 Blood Gas Notified Whom TM Blood Gas Notified Time 04/19/2018 7:16:04 AM Exam/Review of Systems Exam Vitals Vital Signs Date Temp Pulse Resp B/P (MAP) Pulse Ox O2 O2 Flow FiO2 Time Delivery Rate 04/19/18 93 20 95 100 11:22 04/19/18 104/78 Mechanical 11:00 (87) Ventilator 04/19/18 97.8 08:00 04/19/18 6.0 06:04 Intake and Output 04/18/18 04/18/18 04/19/18 1515:00 23:00 07:00 IntakeIntake Total 1290.10 ml 529.44 ml 826.95 ml OutputOutput Total 405 ml 625 ml 635 ml BalanceBalance 885.10 ml -95.56 ml 191.95 ml Results Results 24hrs Laboratory Tests Test 04/18/18 17:06 04/19/18 04:30 04/19/18 07:00 Phenytoin (Dilantin) Level 18.7 White Blood Count 24.8 H Red Blood Count 3.33 L Hemoglobin 9.1 L Hematocrit 28.8 L Mean Corpuscular Volume 86.5 Mean Corpuscular Hemoglobin 27.3 L Mean Corpuscular 31.6 L Hemoglobin Concent Red Cell Distribution Width 18.7 H Platelet Count 67 L Mean Platelet Volume Immature Granulocytes % 3.900 H Neutrophils % Segmented Neutrophils 69 % (Manual) Band Neutrophils % (Manual) 19 H Lymphocytes % Reactive Lymphocytes % (Manual) 1 H Monocytes % Monocytes % (Manual) 9 Eosinophils % Basophils % Basophils % (Manual) 1 Myelocytes % (Manual) 1 H Nucleated Red Blood Cells % 1 H Immature Granulocytes # 0.970 H Neutrophils # Neutrophils # (Manual) 18.3 H Band Neutrophils # 4.7 H Lymphocytes # Reactive Lymphocytes # 0.2 H Monocytes # Monocytes # (Manual) 2.2 H Eosinophils # Basophils # Basophils # (Manual) 0.2 H Myelocytes # 0.2 H Nucleated Red Blood Cells # Platelet Estimate DECREASED Giant Platelets 6 H Anisocytosis 1+ Macrocytosis 1+ Tear Drop Cells 1+ Ovalocytes 1+ Sodium Level 141 Potassium Level 3.8 Chloride Level 99 Carbon Dioxide Level 29 Anion Gap 13 Blood Urea Nitrogen 88 H Creatinine 1.39 H Est Glomerular Filtrat 55 L Rate mL/min Glucose Level 212 Calcium Level 8.0 L Phosphorus Level 3.3 Magnesium Level 2.4 Blood Gas Specimen Source Blood arterial Arterial Blood Date Drawn 04/19/2018 7:00:32 AM Arterial Blood pH 7.411 (Temp corrected) Arterial Blood pCO2 46.1 H (Temp correct) Arterial Blood pO2 79.5 L (Temp corrected) Arterial Blood HCO3 28.6 H Arterial Blood Base Excess 3.5 H Arterial Blood 94.3 L Oxygen Saturation [place] Test N/A Arterial Blood Gas LB Puncture Site Arterial 0.2 Blood Carboxyhemoglobin Arterial Blood Methemoglobin 0.2 Blood Gas A-a O2 Differential 587.4 H Oxyhemoglobin Percent 93.9 Blood Gas Temperature 37.0 Blood Gas Respiration Rate 20.0 Blood Gas Actual 20 Respiration Rate Blood Gas Modality VENT - AC FiO2 100.0 Blood Gas Tidal Volume 500.0 Blood Gas Low PEEP Setting 5.0 Blood Gas Notified Whom TM Blood Gas Notified Time 04/19/2018 7:16:04 AM Medications Medication Current Medications Propofol 100 ml @ 2.04 mls/hr Q12H IV Last administered on 04/19/18 10:57; Ad min Dose 10.2 MLS/HR; Start 04/14/18 at 15:00 Vancomycin HCl (Vanco Iv Per Pharmacy) VANCOMYCIN PER PHARMACY PER PROTOCOL XX ; Start 04/14/18 at 15:00 Cefepime HCl 50 ml @ 100 mls/hr Q12 IVPB Last administered on 04/19/18 09:09; Admin Dose 100 MLS/HR; Start 04/14/18 at 21:00 Midazolam HCl 50 ml @ 1 mls/hr TITRATE IV Last administered on 04/18/18 08:14; Admin Dose 10 MLS/HR; Start 04/14/18 at 15:00 Vasopressin 60 unit/Dextrose 60 ml @ 0 mls/hr Q12H IV Last administered on 04/17/18 04:43; Admin Dose 2.4 MLS/HR; Start 04/14/18 at 16:00 Norepinephrine 32 mg/Dextrose 250 ml @ 0.47 mls/hr TITRATE IV Last administered on 04/18/18 15:11; Admin Dose 9.38 MLS/HR; Start 04/14/18 at 18:00 Acetaminophen (Tylenol Supp) 650 mg Q6H PRN [place] FEVER GREATER THAN 100.6 Last administered on 04/15/18 12:00; Admin Dose 650 MG; Start 04/14/18 at 18:00 Lactulose (Lactulose Enema) 100 ml Q8 [place] Last administered on 04/19/18 05:32; Admin Dose 100 ML; Start 04/15/18 at 14:00 Phenytoin (Dilantin) 100 mg Q8 IV Last administered on 04/19/18 05:32; Admin Dose 100 MG; Start 04/15/18 at 22:00 Metronidazole 100 ml @ 100 mls/hr Q8 IVPB Last administered on 04/19/18 05:32; Admin Dose 100 MLS/HR; Start 04/16/18 at 14:00 Hydrocortisone (Solu-Cortef) 100 mg Q8 IV Last administered on 04/19/18 05:32; Admin Dose 100 MG; Start 04/16/18 at 14:00 Octreotide Acetate 1 mg/ Dextrose 100 ml @ 5 mls/hr Q20H IV Last administered on 04/19/18 00:45; Admin Dose 5 MLS/HR; Start 04/16/18 at 14:00 Vancomycin HCl 1.25 gm/Sodium Chloride 250 ml @ 83.333 mls/ hr Q24H IVPB Last administered on 04/19/18 04:44; Admin Dose 83.333 MLS/HR; Start 04/18/18 at 03:00 Lorazepam (Ativan) 2 mg Q10MIN PRN IV seizure Last administered on 04/18/18 07:03; Admin Dose 2 MG; Start 04/17/18 at 11:30 Rifaximin (Xifaxan) 550 mg BID NGT Last administered on 04/19/18 09:10; Admin Dose 550 MG; Start 04/17/18 at 13:00 Lactulose (Enulose) 20 gm Q6 NGT Last administered on 04/19/18 05:32; Admin Dose 20 GM; Start 04/17/18 at 13:00 Levetiracetam 750 mg/Dextrose 107.5 ml @ 430 mls/hr Q12 IVPB Last administered on 04/19/18 09:09; Admin Dose 430 MLS/HR; Start 04/17/18 at 21:00 Pantoprazole (Protonix Iv) 40 mg BID@06,18 IV Last administered on 04/19/18 05:32; Admin Dose 40 MG; Start 04/18/18 at 18:00 YUDITH WHALEY Apr 19, 2018 11:50
--- NOTE | 2018-04-19 11:55 | PN ---
Date/Time of Note Date/Time of Note DATE: 04/19/18 TIME: 11:54 Assessment/Plan VTE Prophylaxis Risk score (from Ns)>0 risk: 11 SCD applied (from Ns): Yes Pharmacological prophylaxis: other (scds) Lines/Catheters IV C[facility]ter Type (from [facility]): Saline Lock Urinary Cath still in place: Yes Reason Cath still needed: terminal illness/intractable pain, other (indicate) Assessment/Plan Hospital Course Hospital Course Summary Assessment and Plan: Assessment: Acute elevation in LFTS- trending down/ Direct hyperbilirubinemia- elevated likely 2/2 to liver disease process -abd u/s shows CBD 7mm -Likely multi-factorial, 2/2 underlying liver disease and septic shock Normocytic anemia -stable -NGT with dark output Alcoholic cirrhosis with portal hypertension/splenomegaly -DF on admission 4.7 -IR deferred paracentesis 2/2 critical status Coagulopathy- on vitamin K Aspiration pneumonia versus pneumonitis Acute respiratory failure likely 2/2 to above Sepsis with Septic shock likely 2/2 aspiration -Lactic acid still elevated- improved today New onset seizures Hepatic encephalopathy Renal insufficiency Scrotal swelling Hyponatremia Cholelithiasis Positive troponin in the setting of shock -likely type 2 demand infarct. Plan: Pt now DNR- with plan to change to comfort measures as soon as his children arrive Plan for terminal extubation today GI will sign off Patient seen in collaboration with Dr. Fernando Subjective/Free text: Course reviewed with nursing staff Patient interviewed and examined All labs, imaging and other results reviewed Pt intubated, sedated, family at bedside. PHYSICAL EXAMINATION: Not completed Result Diagram: 04/19/18 0430 04/19/18 0430 Results 24hrs Laboratory Tests Test 04/18/18 17:06 04/19/18 04:30 04/19/18 07:00 Phenytoin (Dilantin) Level 18.7 White Blood Count 24.8 H Red Blood Count 3.33 L Hemoglobin 9.1 L Hematocrit 28.8 L Mean Corpuscular Volume 86.5 Mean Corpuscular Hemoglobin 27.3 L Mean Corpuscular 31.6 L Hemoglobin Concent Red Cell Distribution Width 18.7 H Platelet Count 67 L Mean Platelet Volume Immature Granulocytes % 3.900 H Neutrophils % Segmented Neutrophils 69 % (Manual) Band Neutrophils % (Manual) 19 H Lymphocytes % Reactive Lymphocytes % (Manual) 1 H Monocytes % Monocytes % (Manual) 9 Eosinophils % Basophils % Basophils % (Manual) 1 Myelocytes % (Manual) 1 H Nucleated Red Blood Cells % 1 H Immature Granulocytes # 0.970 H Neutrophils # Neutrophils # (Manual) 18.3 H Band Neutrophils # 4.7 H Lymphocytes # Reactive Lymphocytes # 0.2 H Monocytes # Monocytes # (Manual) 2.2 H Eosinophils # Basophils # Basophils # (Manual) 0.2 H Myelocytes # 0.2 H Nucleated Red Blood Cells # Platelet Estimate DECREASED Giant Platelets 6 H Anisocytosis 1+ Macrocytosis 1+ Tear Drop Cells 1+ Ovalocytes 1+ Sodium Level 141 Potassium Level 3.8 Chloride Level 99 Carbon Dioxide Level 29 Anion Gap 13 Blood Urea Nitrogen 88 H Creatinine 1.39 H Est Glomerular Filtrat 55 L Rate mL/min Glucose Level 212 Calcium Level 8.0 L Phosphorus Level 3.3 Magnesium Level 2.4 Blood Gas Specimen Source Blood arterial Arterial Blood Date Drawn 04/19/2018 7:00:32 AM Arterial Blood pH 7.411 (Temp corrected) Arterial Blood pCO2 46.1 H (Temp correct) Arterial Blood pO2 79.5 L (Temp corrected) Arterial Blood HCO3 28.6 H Arterial Blood Base Excess 3.5 H Arterial Blood 94.3 L Oxygen Saturation [place] Test N/A Arterial Blood Gas LB Puncture Site Arterial 0.2 Blood Carboxyhemoglobin Arterial Blood Methemoglobin 0.2 Blood Gas A-a O2 Differential 587.4 H Oxyhemoglobin Percent 93.9 Blood Gas Temperature 37.0 Blood Gas Respiration Rate 20.0 Blood Gas Actual 20 Respiration Rate Blood Gas Modality VENT - AC FiO2 100.0 Blood Gas Tidal Volume 500.0 Blood Gas Low PEEP Setting 5.0 Blood Gas Notified Whom TM Blood Gas Notified Time 04/19/2018 7:16:04 AM Exam/Review of Systems Exam Vitals Vital Signs Date Temp Pulse Resp B/P (MAP) Pulse Ox O2 O2 Flow FiO2 Time Delivery Rate 04/19/18 93 20 95 100 11:22 04/19/18 104/78 Mechanical 11:00 (87) Ventilator 04/19/18 97.8 08:00 04/19/18 6.0 06:04 Intake and Output 04/18/18 04/18/18 04/19/18 1414:59 22:59 06:59 IntakeIntake Total 1253.60 ml 519.56 ml 831.10 ml OutputOutput Total 455 ml 575 ml 585 ml BalanceBalance 798.60 ml -55.44 ml 246.10 ml Results Results 24hrs Laboratory Tests Test 04/18/18 17:06 04/19/18 04:30 04/19/18 07:00 Phenytoin (Dilantin) Level 18.7 White Blood Count 24.8 H Red Blood Count 3.33 L Hemoglobin 9.1 L Hematocrit 28.8 L Mean Corpuscular Volume 86.5 Mean Corpuscular Hemoglobin 27.3 L Mean Corpuscular 31.6 L Hemoglobin Concent Red Cell Distribution Width 18.7 H Platelet Count 67 L Mean Platelet Volume Immature Granulocytes % 3.900 H Neutrophils % Segmented Neutrophils 69 % (Manual) Band Neutrophils % (Manual) 19 H Lymphocytes % Reactive Lymphocytes % (Manual) 1 H Monocytes % Monocytes % (Manual) 9 Eosinophils % Basophils % Basophils % (Manual) 1 Myelocytes % (Manual) 1 H Nucleated Red Blood Cells % 1 H Immature Granulocytes # 0.970 H Neutrophils # Neutrophils # (Manual) 18.3 H Band Neutrophils # 4.7 H Lymphocytes # Reactive Lymphocytes # 0.2 H Monocytes # Monocytes # (Manual) 2.2 H Eosinophils # Basophils # Basophils # (Manual) 0.2 H Myelocytes # 0.2 H Nucleated Red Blood Cells # Platelet Estimate DECREASED Giant Platelets 6 H Anisocytosis 1+ Macrocytosis 1+ Tear Drop Cells 1+ Ovalocytes 1+ Sodium Level 141 Potassium Level 3.8 Chloride Level 99 Carbon Dioxide Level 29 Anion Gap 13 Blood Urea Nitrogen 88 H Creatinine 1.39 H Est Glomerular Filtrat 55 L Rate mL/min Glucose Level 212 Calcium Level 8.0 L Phosphorus Level 3.3 Magnesium Level 2.4 Blood Gas Specimen Source Blood arterial Arterial Blood Date Drawn 04/19/2018 7:00:32 AM Arterial Blood pH 7.411 (Temp corrected) Arterial Blood pCO2 46.1 H (Temp correct) Arterial Blood pO2 79.5 L (Temp corrected) Arterial Blood HCO3 28.6 H Arterial Blood Base Excess 3.5 H Arterial Blood 94.3 L Oxygen Saturation [place] Test N/A Arterial Blood Gas LB Puncture Site Arterial 0.2 Blood Carboxyhemoglobin Arterial Blood Methemoglobin 0.2 Blood Gas A-a O2 Differential 587.4 H Oxyhemoglobin Percent 93.9 Blood Gas Temperature 37.0 Blood Gas Respiration Rate 20.0 Blood Gas Actual 20 Respiration Rate Blood Gas Modality VENT - AC FiO2 100.0 Blood Gas Tidal Volume 500.0 Blood Gas Low PEEP Setting 5.0 Blood Gas Notified Whom TM Blood Gas Notified Time 04/19/2018 7:16:04 AM Medications Medication Current Medications Propofol 100 ml @ 2.04 mls/hr Q12H IV Last administered on 04/19/18 10:57; Admin Dose 10.2 MLS/HR; Start 04/14/18 at 15:00 Vancomycin HCl (Vanco Iv Per Pharmacy) VANCOMYCIN PER PHARMACY PER PROTOCOL XX ; Start 04/14/18 at 15:00 Cefepime HCl 50 ml @ 100 mls/hr Q12 IVPB Last administered on 04/19/18 09:09; Admin Dose 100 MLS/HR; Start 04/14/18 at 21:00 Midazolam HCl 50 ml @ 1 mls/hr TITRATE IV Last administered on 04/18/18 08:14; Admin Dose 10 MLS/HR; Start 04/14/18 at 15:00 Vasopressin 60 unit/Dextrose 60 ml @ 0 mls/hr Q12H IV Last administered on 04/17/18 04:43; Admin Dose 2.4 MLS/HR; Start 04/14/18 at 16:00 Norepinephrine 32 mg/Dextrose 250 ml @ 0.47 mls/hr TITRATE IV Last administered on 04/18/18 15:11; Admin Dose 9.38 MLS/HR; Start 04/14/18 at 18:00 Acetaminophen (Tylenol Supp) 650 mg Q6H PRN [place] FEVER GREATER THAN 100.6 Last administered on 04/15/18 12:00; Admin Dose 650 MG; Start 04/14/18 at 18:00 Lactulose (Lactulose Enema) 100 ml Q8 [place] Last administered on 04/19/18 05:32; Admin Dose 100 ML; Start 04/15/18 at 14:00 Phenytoin (Dilantin) 100 mg Q8 IV Last administered on 04/19/18 05:32; Admin Dose 100 MG; Start 04/15/18 at 22:00 Metronidazole 100 ml @ 100 mls/hr Q8 IVPB Last administered on 04/19/18 05:32; Admin Dose 100 MLS/HR; Start 04/16/18 at 14:00 Hydrocortisone (Solu-Cortef) 100 mg Q8 IV Last administered on 04/19/18 05:32; Admin Dose 100 MG; Start 04/16/18 at 14:00 Octreotide Acetate 1 mg/ Dextrose 100 ml @ 5 mls/hr Q20H IV Last administered on 04/19/18 00:45; Admin Dose 5 MLS/HR; Start 04/16/18 at 14:00 Vancomycin HCl 1.25 gm/Sodium Chloride 250 ml @ 83.333 mls/ hr Q24H IVPB Last administered on 04/19/18 04:44; Admin Dose 83.333 MLS/HR; Start 04/18/18 at 03:00 Lorazepam (Ativan) 2 mg Q10MIN PRN IV seizure Last administered on 04/18/18 07:03; Admin Dose 2 MG; Start 04/17/18 at 11:30 Rifaximin (Xifaxan) 550 mg BID NGT Last administered on 04/19/18 09:10; Admin Dose 550 MG; Start 04/17/18 at 13:00 Lactulose (Enulose) 20 gm Q6 NGT Last administered on 04/19/18 05:32; Admin Dose 20 GM; Start 04/17/18 at 13:00 Levetiracetam 750 mg/Dextrose 107.5 ml @ 430 mls/hr Q12 IVPB Last administered on 04/19/18 09:09; Admin Dose 430 MLS/HR; Start 04/17/18 at 21:00 Pantoprazole (Protonix Iv) 40 mg BID@06,18 IV Last administered on 04/19/18 05:32; Admin Dose 40 MG; Start 04/18/18 at 18:00 RENEE ROSALES Apr 19, 2018 11:55
--- NOTE | 2018-04-19 12:35 | CONS ---
Assessment/Plan Assessment/Plan Hospital Course (Demo Recall) Patient remains unchanged, intubated, on pressors. WBC 24.8 bands 19 BUN 88 creatinine 1.39. Chest x-ray this morning revealed mild improvement in patchy multifocal bilateral alveolar infiltrates Microbiology: Blood and urine cultures remain negative Indwelling: Endotracheal tube, orogastric tube, right femoral triple-lumen catheter, Giron catheter, rectal tube Allergies: none CODE STATUS: chemical Antimicrobials: Vancomycin, Flagyl, cefepime Physical examination: Well-developed middle-aged man in no distress. Head atraumatic normocephalic neck is supple chest rise symmetrical breath sounds diminished bases. Heart: S1-S2 tachycardic. Abdomen distended, obese, bowel sounds hypoactive. Extremities mottled and cyanotic Assessment: 1. Severe sepsis with shock and multiorgan failure 2. Acute respiratory failure rule out aspiration 3. Seizure disorder 4. Decompensated alcoholic cirrhosis 5. Acute renal failure 6. Lactic acidosis Plan: Remains hemodynamically unstable, family at bedside, plan to transition to comfort care, continue antibiotics for now DW RN Consultation Date/Type/Reason Admit Date/Time Apr 14, 2018 at 10:08 Initial Consult Date 04/16/18 Type of Consult id Requesting Provider: YUDITH WHALEY Date/Time of Note DATE: 04/19/18 TIME: 12:34 Exam/Review of Systems Exam Vitals Vital Signs Date Temp Pulse Resp B/P (MAP) Pulse Ox O2 O2 Flow FiO2 Time Delivery Rate 04/19/18 97.7 94 21 111/78 95 Mechanical 12:00 (89) Ventilator 04/19/18 100 11:22 04/19/18 6.0 06:04 Intake and Output 04/18/18 04/18/18 04/19/18 1515:00 23:00 07:00 IntakeIntake Total 1290.10 ml 529.44 ml 826.95 ml OutputOutput Total 405 ml 625 ml 635 ml BalanceBalance 885.10 ml -95.56 ml 191.95 ml Results Result Diagram: 04/19/18 0430 04/19/18 0430 Results 24hrs Laboratory Tests Test 04/18/18 17:06 04/19/18 04:30 04/19/18 07:00 Phenytoin (Dilantin) Level 18.7 White Blood Count 24.8 H Red Blood Count 3.33 L Hemoglobin 9.1 L Hematocrit 28.8 L Mean Corpuscular Volume 86.5 Mean Corpuscular Hemoglobin 27.3 L Mean Corpuscular 31.6 L Hemoglobin Concent Red Cell Distribution Width 18.7 H Platelet Count 67 L Mean Platelet Volume Immature Granulocytes % 3.900 H Neutrophils % Segmented Neutrophils 69 % (Manual) Band Neutrophils % (Manual) 19 H Lymphocytes % Reactive Lymphocytes % (Manual) 1 H Monocytes % Monocytes % (Manual) 9 Eosinophils % Basophils % Basophils % (Manual) 1 Myelocytes % (Manual) 1 H Nucleated Red Blood Cells % 1 H Immature Granulocytes # 0.970 H Neutrophils # Neutrophils # (Manual) 18.3 H Band Neutrophils # 4.7 H Lymphocytes # Reactive Lymphocytes # 0.2 H Monocytes # Monocytes # (Manual) 2.2 H Eosinophils # Basophils # Basophils # (Manual) 0.2 H Myelocytes # 0.2 H Nucleated Red Blood Cells # Platelet Estimate DECREASED Giant Platelets 6 H Anisocytosis 1+ Macrocytosis 1+ Tear Drop Cells 1+ Ovalocytes 1+ Sodium Level 141 Potassium Level 3.8 Chloride Level 99 Carbon Dioxide Level 29 Anion Gap 13 Blood Urea Nitrogen 88 H Creatinine 1.39 H Est Glomerular Filtrat 55 L Rate mL/min Glucose Level 212 Calcium Level 8.0 L Phosphorus Level 3.3 Magnesium Level 2.4 Blood Gas Specimen Source Blood arterial Arterial Blood Date Drawn 04/19/2018 7:00:32 AM Arterial Blood pH 7.411 (Temp corrected) Arterial Blood pCO2 46.1 H (Temp correct) Arterial Blood pO2 79.5 L (Temp corrected) Arterial Blood HCO3 28.6 H Arterial Blood Base Excess 3.5 H Arterial Blood 94.3 L Oxygen Saturation [place] Test N/A Arterial Blood Gas LB Puncture Site Arterial 0.2 Blood Carboxyhemoglobin Arterial Blood Methemoglobin 0.2 Blood Gas A-a O2 Differential 587.4 H Oxyhemoglobin Percent 93.9 Blood Gas Temperature 37.0 Blood Gas Respiration Rate 20.0 Blood Gas Actual 20 Respiration Rate Blood Gas Modality VENT - AC FiO2 100.0 Blood Gas Tidal Volume 500.0 Blood Gas Low PEEP Setting 5.0 Blood Gas Notified Whom TM Blood Gas Notified Time 04/19/2018 7:16:04 AM Medications Medication Current Medications Propofol 100 ml @ 2.04 mls/hr Q12H IV Last administered on 3/5/19at 10:57; Admin Dose 10.2 MLS/HR; Start 04/14/18 at 15:00 Vancomycin HCl (Vanco Iv Per Pharmacy) VANCOMYCIN PER PHARMACY PER PROTOCOL XX ; Start 04/14/18 at 15:00 Cefepime HCl 50 ml @ 100 mls/hr Q12 IVPB Last administered on 04/19/18 09:09; Admin Dose 100 MLS/HR; Start 04/14/18 at 21:00 Midazolam HCl 50 ml @ 1 mls/hr TITRATE IV Last administered on 04/18/18 08:14; Admin Dose 10 MLS/HR; Start 04/14/18 at 15:00 Vasopressin 60 unit/Dextrose 60 ml @ 0 mls/hr Q12H IV Last administered on 04:43; Admin Dose 2.4 MLS/HR; Start 04/14/18 at 16:00 Norepinephrine 32 mg/Dextrose 250 ml @ 0.47 mls/hr TITRATE IV Last administered on 04/18/18 15:11; Admin Dose 9.38 MLS/HR; Start 04/14/18 at 18:00 Acetaminophen (Tylenol Supp) 650 mg Q6H PRN [place] FEVER GREATER THAN 100.6 Last administered on 04/15/18 12:00; Admin Dose 650 MG; Start 04/14/18 at 18:00 Lactulose (Lactulose Enema) 100 ml Q8 [place] Last administered on 04/19/18 05:32; Admin Dose 100 ML; Start 04/15/18 at 14:00 Phenytoin (Dilantin) 100 mg Q8 IV Last administered on 04/19/18 05:32; Admin Dose 100 MG; Start 04/15/18 at 22:00 Metronidazole 100 ml @ 100 mls/hr Q8 IVPB Last administered on 04/19/18 05:32; Admin Dose 100 MLS/HR; Start 04/16/18 at 14:00 Hydrocortisone (Solu-Cortef) 100 mg Q8 IV Last administered on 04/19/18 05:32; Admin Dose 100 MG; Start 04/16/18 at 14:00 Octreotide Acetate 1 mg/ Dextrose 100 ml @ 5 mls/hr Q20H IV Last administered on 04/19/18 00:45; Admin Dose 5 MLS/HR; Start 04/16/18 at 14:00 Vancomycin HCl 1.25 gm/Sodium Chloride 250 ml @ 83.333 mls/ hr Q24H IVPB Last administered on 04/19/18 04:44; Admin Dose 83.333 MLS/HR; Start 04/18/18 at 03:00 Lorazepam (Ativan) 2 mg Q10MIN PRN IV seizure Last administered on 04/18/18 07:03; Admin Dose 2 MG; Start 04/17/18 at 11:30 Rifaximin (Xifaxan) 550 mg BID NGT Last administered on 04/19/18 09:10; Admin Dose 550 MG; Start 04/17/18 at 13:00 Lactulose (Enulose) 20 gm Q6 NGT Last administered on 04/19/18 12:12; Admin Dose 20 GM; Start 04/17/18 at 13:00 Levetiracetam 750 mg/Dextrose 107.5 ml @ 430 mls/hr Q12 IVPB Last administered on 04/19/18 09:09; Admin Dose 430 MLS/HR; Start 04/17/18 at 21:00 Pantoprazole (Protonix Iv) 40 mg BID@06,18 IV Last administered on 04/19/18 05:32; Admin Dose 40 MG; Start 04/18/18 at 18:00 DONTRELL GUEVARA NP Apr 19, 2018 12:35
--- NOTE | 2018-04-19 14:20 | EN ---
Date/Time of Note Date/Time of Note DATE: 04/19/18 TIME: 14:18 Event Note Medicine Medicine Event Note Family ready for terminal extubation Process explained in detail Family does not want patient to experience pain or to suffer. They are willing to have him on the morphine drip to be titrated for comfort. Orders have been put in . Will DC all non-comforting medications. YUDITH WHALEY Apr 19, 2018 14:20
[2018-04-19] MEDS ORDERED: LORAZEPAM 2 MG INJ IV ONE (14:30)
[2018-04-19] MEDS ORDERED: morphine 10 MG INJ IV ONE (14:30)
[2018-04-19] MEDS ORDERED: morphine (DRIP) 100 MG/100 ML 100 ML IV SCH (15:00)
--- NOTE | 2018-04-19 16:59 | EN ---
Date/Time of Note Date/Time of Note DATE: 04/19/18 TIME: 16:58 Event Note Medicine Medicine Event Note I was notified by the RN that the patient was noted to be in asystole on telemetry as of 16:40 On my exam, the patient had fixed nonreactive pupils; nonpalpable carotid pulses bilaterally, no auscultatable heart or lung sounds. Time of : 16:48 JUAN JOSÉ ALVAREZ MD Apr 19, 2018 16:59
--- NOTE | 2018-04-19 18:23 | CONS ---
Assessment/Plan Assessment/Plan Assessment/Plan (Daily) 1. acute kidney injury due to ATN from sepsis 2. sepsis due to possible aspiration pnuemonia 3. acute hypoxic respiratory failure intbated on ventilator 4. acute hepatic encephalopathy 5. h/o Liver cirrhosis with chronic alcoholism 6. Spenomegaly with portal HTN an drecurrent ascites 7. Hyponatremia due to liver cirrhosis 8. Hydrocele with difficult williamson insertion Plan: pt had been having seizure, remains intubated, pt was seen early in AM, not doing well, BP very labile - BP still low on multiple presso family agreed for terminal extubation, planned for today will sing off call us if any questions Consultation Date/Type/Reason Admit Date/Time Apr 14, 2018 at 10:08 Initial Consult Date 04/14/18 Type of Consult NEPHROLOGY Requesting Provider: YUDITH WHALEY Date/Time of Note DATE: 04/19/18 TIME: 18:23 24 HR Interval Summary Free Text/Dictation pt was seen early in AM, not doing well, BP very labile Exam/Review of Systems Exam Vitals Vital Signs Date Temp Pulse Resp B/P (MAP) Pulse Ox O2 O2 Flow FiO2 Time Delivery Rate 04/19/18 2.0 16:52 04/19/18 0 0 16:48 04/19/18 30 16:15 04/19/18 119/84 Mechanical 16:00 (96) Ventilator 04/19/18 100 15:22 04/19/18 97.7 12:00 Intake and Output 04/18/18 04/18/18 04/19/18 1515:00 23:00 07:00 IntakeIntake Total 1290.10 ml 529.44 ml 826.95 ml OutputOutput Total 405 ml 625 ml 635 ml BalanceBalance 885.10 ml -95.56 ml 191.95 ml Results Result Diagram: 04/19/18 0430 04/19/18 0430 Results 24hrs Laboratory Tests Test 04/19/18 04:30 04/19/18 07:00 White Blood Count 24.8 H Red Blood Count 3.33 L Hemoglobin 9.1 L Hematocrit 28.8 L Mean Corpuscular Volume 86.5 Mean Corpuscular Hemoglobin 27.3 L Mean Corpuscular Hemoglobin Concent 31.6 L Red Cell Distribution Width 18.7 H Platelet Count 67 L Mean Platelet Volume Immature Granulocytes % 3.900 H Neutrophils % Segmented Neutrophils % (Manual) 69 Band Neutrophils % (Manual) 19 H Lymphocytes % Reactive Lymphocytes % (Manual) 1 H Monocytes % Monocytes % (Manual) 9 Eosinophils % Basophils % Basophils % (Manual) 1 Myelocytes % (Manual) 1 H Nucleated Red Blood Cells % 1 H Immature Granulocytes # 0.970 H Neutrophils # Neutrophils # (Manual) 18.3 H Band Neutrophils # 4.7 H Lymphocytes # Reactive Lymphocytes # 0.2 H Monocytes # Monocytes # (Manual) 2.2 H Eosinophils # Basophils # Basophils # (Manual) 0.2 H Myelocytes # 0.2 H Nucleated Red Blood Cells # Platelet Estimate DECREASED Giant Platelets 6 H Anisocytosis 1+ Macrocytosis 1+ Tear Drop Cells 1+ Ovalocytes 1+ Sodium Level 141 Potassium Level 3.8 Chloride Level 99 Carbon Dioxide Level 29 Anion Gap 13 Blood Urea Nitrogen 88 H Creatinine 1.39 H Est Glomerular Filtrat Rate mL/min 55 L Glucose Level 212 Calcium Level 8.0 L Phosphorus Level 3.3 Magnesium Level 2.4 Blood Gas Specimen Source Blood arterial Arterial Blood Date Drawn 04/19/2018 7:00:32 AM Arterial Blood pH (Temp corrected) 7.411 Arterial Blood pCO2 (Temp correct) 46.1 H Arterial Blood pO2 (Temp corrected) 79.5 L Arterial Blood HCO3 28.6 H Arterial Blood Base Excess 3.5 H Arterial Blood Oxygen Saturation 94.3 L [place] Test N/A Arterial Blood Gas Puncture Site LB Arterial Blood Carboxyhemoglobin 0.2 Arterial Blood Methemoglobin 0.2 Blood Gas A-a O2 Differential 587.4 H Oxyhemoglobin Percent 93.9 Blood Gas Temperature 37.0 Blood Gas Respiration Rate 20.0 Blood Gas Actual Respiration Rate 20 Blood Gas Modality VENT - AC FiO2 100.0 Blood Gas Tidal Volume 500.0 Blood Gas Low PEEP Setting 5.0 Blood Gas Notified Whom TM Blood Gas Notified Time 04/19/2018 7:16:04 AM Medications Medication Current Medications Propofol 100 ml @ 2.04 mls/hr Q12H IV Last administered on 04/19/18at 10:57; Admin Dose 10.2 MLS/HR; Start 04/14/18 at 15:00 Morphine Sulfate/ Sodium Chloride 100 ml @ 1 mls/hr TITRATE IV Last administered on 04/19/18at 15:44; Admin Dose 3 MLS/HR; Start 04/19/18 at 15:00 MIKE PEARSON MD Apr 19, 2018 18:23
--- NOTE | 2018-04-21 13:06 | DES ---
Date/Time of Note Date/Time of Note DATE: 04/21/18 TIME: 12:59 Discharge/ Summary Admission/Discharge Info Admit Date/Time Apr 14, 2018 at 10:08 Date/Time Date of April 19, 2018 @1648 Final Diagnosis 1. Acute respiratory failure likely secondary to #2 2. Aspiration pneumonia versus pneumonitis likely related to #3 3. Severe Sepsis with Septic shock and multiorgan failure 4. New seizures with underlying hepatic encephalopathy 5. Acute renal insufficiency likely secondary to sepsis 6. Chronic alcoholic cirrhosis with portal hypertension and splenomegaly / active liver failure 7. Hyponatremia likely related to alcohol use 8. Chronic hypochromic anemia secondary to chronic liver disease 9. Severe abdominal distention, likely secondary to ascites with chronic large ventral hernia as well as large inguinal hernia 10. Severe scrotal swelling/hydrocele, likely sequelae from #9 11. Cholelithiasis 12. Positive troponin in the setting of shock, likely type 2 demand infarct. 13. Severe thrombocytopenia 14. Severe leukocytosis . Preliminary Cause of Severe sepsis with septic shock and multiorgan failure from aspiration pneumonia . Admit History Unfortunately the patient at this time is intubated and sedated on propofol and is still bucking the vent and biting down on the endotracheal tube. However unable to get a history from him, I was able to speak with his mother and his aunt at the bedside who only know that the patient did vomit yesterday and continues to drink. Apparently he became more confused this morning and less responsive and so they called 911 who brought him to the emergency room. As he was unable to protect his airway and was in respiratory distress, he was intubated, and the emergency room physician notes that the patient had gastric content in his airway during intubation with concern for possible aspiration. He has been admitted to the intensive care unit for further management. . Hospital Course Unfortunate 43-year-old male who is a chronic alcoholic with known cirrhosis who had presented with altered mentation and acute respiratory failure. The patient had continued to drink, but his family did not know the circumstances around his altered mentation. His mother had found him passed out and unresponsive and had called 911. He had to be endotracheally intubated in the ER, and during the course of intubation he was found to have gastric contents in his airway. Hence he was managed for severe respiratory failure thought to be secondary to aspiration pneumonia and pneumonitis and altered mentation secondary to that with possible underlying hepatic encephalopathy as evidenced by elevated ammonia levels. However it was not clear how long patient has been down for and the patient may have also suffered hypoxic ischemic injury to the brain. This was however never confirmed. After aggressive therapy in the intensive care unit for severe sepsis with septic shock, the patient for most of his hospitalization was requiring at least 2 pressors and at other times 3. He was treated with aggressive antibiotic as well as steroid therapy. He did have severe ascites and scrotal swelling, but due to his tenuous status, he could not undergo a paracentesis. Urology assisted with placing a Giron catheter and monitoring his urine output. Pulmonary, Gastroenterology as well as nephrology consultations were also obtained followed the patient throughout his hospitalization. Unfortunately the patient's hospital course was complicated by severe seizures that required aggressive therapy by Neurology and repeated EEG monitoring. Unfortunately with all the above comorbidities, the patient did not fare to well in terms of his respiratory failure. Also did not improve significantly in terms of his septic shock. He also went into hepatic failure as evidenced by worsening of his transaminitis. Eventually palliative consult was obtained, patient condition was discussed with the family, the family eventually decided to make the patient comfort measures only and stop all aggressive treatment. Family expressed that they did not want him to suffer. They eventually opted for terminal extubation, and the patient passed April 19, 2018. Please see pronouncement notes for details YUDITH WHALEY Apr 21, 2018 13:06
== END 2018-04-19 16:48 | disposition expired | DRG 870 ==
LOC: E/R 08:38 → ICU 10:08
PROVIDERS: ADMIT Family Medicine; ATTEND Internal Medicine
PROC: 06HY33Z Insertion of Infusion Device into Lower Vein, Percutaneous Approach (ICD-10-PCS; principal; 2018-04-14)
PROC: 5A1955Z Respiratory Ventilation, Greater than 96 Consecutive Hours (ICD-10-PCS; 2018-04-14)
PROC: 0BH18EZ Insertion of Endotracheal Airway into Trachea, Via Natural or Artificial Opening Endoscopic (ICD-10-PCS; 2018-04-14)
DX: A41.9 Sepsis, unspecified organism (principal); R65.21 Severe sepsis with septic shock; J96.00 Acute respiratory failure, unspecified whether with hypoxia or hypercapnia; J69.0 Pneumonitis due to inhalation of food and vomit; N17.0 Acute kidney failure with tubular necrosis; J96.01 Acute respiratory failure with hypoxia; I21.A1 Myocardial infarction type 2; G40.89 Other seizures; E87.1 Hypo-osmolality and hyponatremia; K76.6 Portal hypertension; E87.2 Acidosis; D68.9 Coagulation defect, unspecified; K70.31 Alcoholic cirrhosis of liver with ascites; D63.8 Anemia in other chronic diseases classified elsewhere; N43.3 Hydrocele, unspecified; D69.6 Thrombocytopenia, unspecified; F10.20 Alcohol dependence, uncomplicated; K40.90 Unilateral inguinal hernia, without obstruction or gangrene, not specified as recurrent; K43.9 Ventral hernia without obstruction or gangrene
CPT/HCPCS: 31500; 36415; 36600; 70450; 71045; 76705; 76775; 76937; 80048; 80053; 80185; 80202; 80307; 81001; 82140; 82270; 82550; 82553; 82728; 82803; 83010; 83540; 83605; 83615; 83690; 83735; 83880; 84100; 84443; 84484; 85025; 85045; 85049; 85610; 85670; 85730; 86850; 86900; 86901; 87040; 87081; 87086; 93005; 93306; 94002; 94003; 94770; 95819; C9113; J0610; J0692; J1165; J1720; J1940; J1953; J2060; J2250; J2270; J2354; J2370; J2930; J3010; J3360; J3370; J7030; J7040; J7050; J7070; J7120; P9047